=== PATIENT | female | born 1940 | race Caucasian/White ===

== ENCOUNTER 2017-04-18 12:47 | Emergency (ER) | payer MEDICARE ==
[~2017-04-18] VITALS: Ht 165.1 cm; Wt 76.7 kg
[~2017-04-18 12:47] MED LIST: AMLO-311 PO; AMLO5TAB2 PO; DOCU-109 PO; HYDR-2758 PO; HYDR12.53 PO; INSU100I13 SQ; INSU100I17 SQ; LEVO25TA4 PO; POLY17PO29 PO; RANI300C PO; TRAV5DRO OP; insulin
--- NOTE | 2017-04-18 12:51 | PHYS DOC ---
Past Medical History Past Medical History: Arthritis, Cancer, Diabetes-Type II, Hypertension, Hypothyroid Additional Past Medical Histor: cancer of right kidney, removal of right kidney , gallbladder removal Past Surgical History: Cholecystectomy, Hysterectomy Additional Past Surgical Histo: rt kidney removed, bladder Alcohol Use: None Drug Use: None Adult General Chief Complaint Chief Complaint: NAUSEA/VOMITING/DIARRHA HPI HPI Patient is a 77 year old female who presents with who complains. She states she's had a productive cough the last 2 days. She had a fever 2 days ago. She's been running a productive cough with white sputum the last several days. She denies any shortness of breath. She's been having some nausea vomiting and abdominal pain with diarrhea. She states this started 2 days ago she vomited once was nonbloody nonbilious. She's also had 3 loose stools today without any blood in it. She states her abdomen hurts everywhere from just not feeling well. She denies dysuria. Review of Systems Review of Systems Constitutional: Denies fever or chills [] Eyes: Denies change in visual acuity, redness, or eye pain [] HENT: Denies nasal congestion or sore throat [] Respiratory: Denies cough or shortness of breath [] Cardiovascular: No additional information not addressed in HPI [] GI: Positive for abdominal pain, nausea, vomiting, diarrhea, Denies bloody stools[] : Denies dysuria or hematuria [] Musculoskeletal: Denies back pain or joint pain [] Integument: Denies rash or skin lesions [] Neurologic: Denies headache, focal weakness or sensory changes [] Endocrine: Denies polyuria or polydipsia [] All other systems were reviewed and found to be within normal limits, except as documented in this note. Current Medications Current Medications Current Medications Medications (Trade) Dose Ordered Sig/Mary Start Time Stop Time Status Last Admin Dose Admin Amoxicillin/ Clavulanate Potassium (Augmentin 875/ 125mg) 1 tab 1X ONCE 04/18/17 14:15 04/18/17 14:16 Azithromycin (Zithromax) 500 mg 1X ONCE 04/18/17 14:15 04/18/17 14:16 UNV Ondansetron HCl (Zofran) 4 mg 1X ONCE 04/18/17 13:15 04/18/17 13:16 DC 04/18/17 13:11 4 MG Sodium Chloride 1,000 ml @ 1,000 mls/hr Q1H 04/18/17 13:03 04/18/17 14:02 DC 04/18/17 13:11 1,000 MLS/HR Allergies Allergies Allergies Coded Allergies Type Severity Reaction Last Updated Verified diazepam Allergy Intermediate Palpitations 05/26/15 Yes erythromycin base Allergy Intermediate 05/26/15 Yes oxytetracycline Allergy Intermediate Palpitations 05/26/15 Yes oxytetracycline HCl Allergy Intermediate Palpitations 05/26/15 Yes Iodinated Contrast- Oral and IV Dye Adverse Reaction Intermediate DUE TO ONLY HAVING 1 KIDNEY 05/26/15 Yes Physical Exam Physical Exam Constitutional: Well developed, well nourished, no acute distress, non-toxic appearance. [] HENT: Normocephalic, atraumatic, bilateral external ears normal, oropharynx moist, no oral exudates, nose normal. [] Eyes: PERRLA, EOMI, conjunctiva normal, no discharge. [] Neck: Normal range of motion, no tenderness, supple, no stridor. [] Cardiovascular:Heart rate regular rhythm, no murmur [] Lungs & Thorax: Bilateral breath sounds clear to auscultation [] Abdomen: Bowel sounds normal, soft, mild tender palpation diffusely, no rebound guarding no masses, no pulsatile masses. [] Skin: Warm, dry, no erythema, no rash. [] Back: No tenderness, no CVA tenderness. [] Extremities: No tenderness, no cyanosis, no clubbing, ROM intact, no edema. [] Neurologic: Alert and oriented X 3, normal motor function, normal sensory function, no focal deficits noted. [] Psychologic: Affect normal, judgement normal, mood normal. [] Current Patient Data Vital Signs Vital Signs Date Time Temp Pulse Resp B/P (MAP) Pulse Ox O2 Delivery O2 Flow Rate FiO2 04/18/17 13:26 62 20 181/75 (110) 97 Room Air 04/18/17 12:58 98.7 98.7 Lab Values Laboratory Tests Test 04/18/17 12:55 White Blood Count 6.6 x10^3/uL (4.0-11.0) Red Blood Count 4.71 x10^6/uL (3.50-5.40) Hemoglobin 14.4 g/dL (12.0-15.5) Hematocrit 43.0 % (36.0-47.0) Mean Corpuscular Volume 91 fL (79-100) Mean Corpuscular Hemoglobin 31 pg (25-35) Mean Corpuscular Hemoglobin Concent 34 g/dL (31-37) Red Cell Distribution Width 13.7 % (11.5-14.5) Platelet Count 206 x10^3/uL (140-400) Neutrophils (%) (Auto) 67 % (31-73) Lymphocytes (%) (Auto) 24 % (24-48) Monocytes (%) (Auto) 8 % (0-9) Eosinophils (%) (Auto) 1 % (0-3) Basophils (%) (Auto) 1 % (0-3) Neutrophils # (Auto) 4.4 x10^3uL (1.8-7.7) Lymphocytes # (Auto) 1.6 x10^3/uL (1.0-4.8) Monocytes # (Auto) 0.5 x10^3/uL (0.0-1.1) Eosinophils # (Auto) 0.1 x10^3/uL (0.0-0.7) Basophils # (Auto) 0.0 x10^3/uL (0.0-0.2) Prothrombin Time 12.1 SEC (11.7-14.0) Prothrombin Time INR 1.0 (0.8-1.1) Urine Collection Type Unknown Urine Color Yellow Urine Clarity Clear Urine pH 6.0 Urine Specific [place] 1.015 Urine Protein Negative mg/dL (NEG-TRACE) Urine Glucose (UA) 100 mg/dL (NEG) Urine Ketones (Stick) Negative mg/dL (NEG) Urine Blood Negative (NEG) Urine Nitrite Negative (NEG) Urine Bilirubin Negative (NEG) Urine Urobilinogen Dipstick 0.2 mg/dL (0.2 mg/dL) Urine Leukocyte Esterase Negative (NEG) Urine RBC Rare /HPF (0-2) Urine WBC 0 /HPF (0-4) Urine Squamous Epithelial Cells Few /LPF Urine Bacteria Few /HPF (0-FEW) Urine Mucus Slight /LPF Sodium Level 140 mmol/L (136-145) Potassium Level 3.7 mmol/L (3.5-5.1) Chloride Level 102 mmol/L (98-107) Carbon Dioxide Level 30 mmol/L (21-32) Anion Gap 8 (6-14) Blood Urea Nitrogen 19 mg/dL (7-20) Creatinine 1.2 mg/dL (0.6-1.0) H Estimated GFR (Cockcroft-Gault) 43.3 Glucose Level 181 mg/dL (70-99) H Calcium Level 9.7 mg/dL (8.5-10.1) Magnesium Level 1.9 mg/dL (1.8-2.4) Total Bilirubin 0.6 mg/dL (0.2-1.0) Direct Bilirubin 0.1 mg/dL (0.0-0.2) Aspartate Amino Transferase (AST) 19 U/L (15-37) Alanine Aminotransferase (ALT) 23 U/L (14-59) Alkaline Phosphatase 89 U/L (46-116) Creatine Kinase 55 U/L (26-192) Creatine Kinase MB (Mass) 0.5 ng/mL (0.0-3.6) Creatine Kinase MB Relative Index % (0-4) Troponin I Quantitative < 0.017 ng/mL (0.000-0.055) NM-Pmk-F-Type Natriuretic Peptide 157 pg/mL (0-449) Total Protein 7.9 g/dL (6.4-8.2) Albumin 3.7 g/dL (3.4-5.0) Lipase 126 U/L (73-393) Thyroid Stimulating Hormone (TSH) 1.701 uIU/mL (0.358-3.74) Laboratory Tests 04/18/17 12:55 Laboratory Tests 04/18/17 12:55 EKG EKG EKG shows sinus rhythm with rate of [address] bpm with out any ST elevations or concerning T-wave inversions, left axis deviation noted, QTC 480 ms, T-wave inversion in lead 3, EKG similar to one performed on April 29, 2015, as interpreted by me. Radiology/Procedures Radiology/Procedures [facility] [address] [place] [address] IMAGING REPORT Signed PATIENT: MABEL SALINAS ACCOUNT: [id number] : 1940 LOCATION: ER AGE: 77 SEX: F EXAM STATUS: REG ER ORD. PHYSICIAN: LEXUS REYNOSO MD REASON: productive cough PROCEDURE: PORTABLE CHEST 1V Single view chest History:Productive cough for 2 days An AP view of the chest is submitted. Comparison: 04/29/2015. Findings: There is no significant infiltrate, pleural effusion, or pneumothorax. The pericardial cardiac silhouette is stable, within normal limits. There is some atherosclerotic carotid calcification near aortic arch. Impression: 1. No significant infiltrate is identified. DICTATED and SIGNED BY: MARGO DALY MD DATE: 04/18/17 [id number] CC: LEXUS REYNOSO MD; CELESTE RUDOLPH NP ~ Impressions: Bronchitis Diarrhea Course & Med Decision Making Course & Med Decision Making Pertinent Labs and Imaging studies reviewed. (See chart for details) Labs, EKG, chest x-ray all nonacute. She might have a bronchitis therefore will treat with Augmentin for 7 days twice a day. Return precautions given. She is agreeable plan being discharged in stable condition at this time. I thought about using azithromycin but she has a erythromycin allergy and there could be a cross-reactivity between them. Return precautions given for worsening cough, fevers, weakness, other concerns. She is instructed follow-up with her primary care physician within the next 3-5 days. Dragon Disclaimer Dragon Disclaimer This electronic medical record was generated, in whole or in part, using a voice recognition dictation system. Departure Departure Impression: Primary Impression: Bronchitis Disposition: 01 HOME, SELF-CARE Condition: STABLE Referrals: NO PCP (PCP) Patient Instructions: Acute Bronchitis Additional Instructions: Your chest x-ray did not show any signs of pneumonia. Your blood work and EKG were within normal limits. You might have bronchitis and he can take antibiotic for the next 7 days. Return ER if you have severe pain, fevers, weakness or any other concerns. He should follow up with your primary care physician within the next 3-5 days. Scripts Amoxicillin/Potassium Clav (AUGMENTIN 875-125 TABLET) 1 Each Tablet 1 TAB PO BID, #14 TAB Prov: LEXUS REYNOSO MD 04/18/17 LEXUS REYNOSO MD Apr 18, 2017 12:51
[2017-04-18] MEDS ORDERED: IV NORMAL SALINE 1000ML BAG 1,000 ML IV SCH (13:03)
[2017-04-18] MEDS ORDERED: ONDANSETRON PF 4 MG/2 ML VIAL. IV ONE (13:15)
[2017-04-18 13:22] LABS: BILIRUBIN,URINE NEGATIVE (NEG); GLUCOSE,URINE 100 mg/dL (NEG); NITRITE,URINE NEGATIVE (NEG); PROTEIN,URINE NEGATIVE (NEG-TRACE); UROBILINOGEN,URINE 0.2 mg/dL (0.2 mg/dL)
[2017-04-18 13:24] LABS: BASO % 1 % (0-3); EOS % 1 % (0-3); HEMOGLOBIN 14.4 g/dL (12.0-15.5); LYMPH # 1.6 x10^3/uL (1.0-4.8); LYMPH % 24 % (24-48); MEAN CORPUSCULAR HEMOGLOBIN 31 pg (25-35); MEAN CORPUSCULAR HGB CONC 34 g/dL (31-37); MEAN CORPUSCULAR VOLUME 91 fL (79-100); MONO % 8 % (0-9); NEUT % 67 % (31-73); PLATELET COUNT 206 x10^3/uL (140-400); RED BLOOD COUNT 4.71 x10^6/uL (3.50-5.40); RED CELL DISTRIBUTION WIDTH 13.7 % (11.5-14.5); WHITE BLOOD COUNT 6.6 x10^3/uL (4.0-11.0)
[2017-04-18 13:26] VITALS: BP 181/75
[2017-04-18 13:27] LABS: CALCIUM 9.7 mg/dL (8.5-10.1); CREATININE 1.2 mg/dL (0.6-1.0); GFR 43.3; POTASSIUM 3.7 mmol/L (3.5-5.1)
[2017-04-18 13:29] LABS: BACTERIA,URINE FEW /HPF (0-FEW); RBC,URINE RARE /HPF (0-2); SQUAMOUS EPITHELIAL CELL,UR FEW /LPF; WBC,URINE 0 /HPF (0-4)
[2017-04-18 13:33] LABS: ALBUMIN 3.7 g/dL (3.4-5.0); DIRECT BILIRUBIN 0.1 mg/dL (0.0-0.2); MAGNESIUM 1.9 mg/dL (1.8-2.4); TOTAL BILIRUBIN 0.6 mg/dL (0.2-1.0); TOTAL PROTEIN 7.9 g/dL (6.4-8.2)
[2017-04-18 13:35] LABS: PROTHROMBIN TIME PATIENT 12.1 SEC (11.7-14.0)
[2017-04-18 13:42] LABS: CKMB MASS 0.5 ng/mL (0.0-3.6); CREATINE KINASE 55 U/L (26-192)
--- NOTE | 2017-04-18 13:50 | RAD ---
Single view chest History:Productive cough for 2 days An AP view of the chest is submitted. Comparison: 04/29/2015. Findings: There is no significant infiltrate, pleural effusion, or pneumothorax. The pericardial cardiac silhouette is stable, within normal limits. There is some atherosclerotic carotid calcification near aortic arch. Impression: 1. No significant infiltrate is identified.
[2017-04-18] MEDS ORDERED: AMOXICILLIN/K CLAV 875/125MG TABLET. PO ONE (14:15)
[2017-04-18] MEDS ORDERED: AZITHROMYCIN 250 MG TABLET. PO ONE (14:15)
[2017-04-18] MEDS ORDERED: AMOX1TAB61 PO (14:17)
--- NOTE | 2017-04-19 09:08 | EKG ---
[address] [place] [address] Test Date: 2017-04-18 Test Time: 13:15:28 Pat Name: MABEL SALINAS Department: Room: Gender: F Freelance Interpreter/Translator: : 1940 Requested By: LEXUS REYNOSO Order Number: [id number] Reading MD: Measurements Intervals [place] Rate: 61 P: 38 AR: 140 QRS: -11 QRSD: 130 T: 26 QT: 414 QTc: 418 Interpretive Statements SINUS RHYTHM LEFTWARD AXIS RIGHT BUNDLE BRANCH BLOCK ABNORMAL ECG RI6.01 No previous ECG available for comparison
== END 2017-04-18 14:17 | disposition home or self-care (01) ==
LOC: ER 12:47
DX: J40 Bronchitis, not specified as acute or chronic (principal); R10.84 Generalized abdominal pain; R19.7 Diarrhea, unspecified; R11.2 Nausea with vomiting, unspecified; M19.90 Unspecified osteoarthritis, unspecified site; E11.9 Type 2 diabetes mellitus without complications; I10 Essential (primary) hypertension; E03.9 Hypothyroidism, unspecified; Z88.1 Allergy status to other antibiotic agents; Z90.710 Acquired absence of both cervix and uterus; Z90.49 Acquired absence of other specified parts of digestive tract; Z90.5 Acquired absence of kidney; Z88.8 Allergy status to other drugs, medicaments and biological substances; Z91.041 Radiographic dye allergy status
CPT/HCPCS: 36415; 71010; 80048; 80076; 81001; 82553; 83690; 83735; 83880; 84443; 84484; 85025; 85610; 93005; 96361; 96374; 99285; J2405; J7030

== ENCOUNTER 2017-10-05 13:39 | Inpatient (IN) | payer MEDICARE ==
[2017-10-05] MEDS: LIDOCAINE 2% VISCOUS 15 ML SOLUTION. SWSW (14:45)
[2017-10-05] MEDS: IPRATRPIUM/ALBUTEROL 0.5/2.5MG 3 ML NEBU. NEB (15:04)
[2017-10-05 15:06] LABS: BILIRUBIN,URINE SMALL (NEG); CLARITY,URINE CLEAR; COLOR,URINE AMBER; GLUCOSE,URINE 100 mg/dL (NEG); NITRITE,URINE NEGATIVE (NEG); PH,URINE 5.5; PROTEIN,URINE 100 mg/dL (NEG-TRACE)
[2017-10-05 15:10] LABS: BARBITURATES NEG (NEG); BENZODIAZEPINES NEG (NEG); CANNABINOIDS NEG (NEG); COCAINE NEG (NEG); METHADONE NEG (NEG); OPIATES NEG (NEG); PHENCYCLIDINE NEG (NEG)
[2017-10-05 15:13] LABS: AMPHETAMINE/METHAMPHETAMINE NEG (NEG); ETHANOL, URINE NEG (NEG)
[2017-10-05 15:24] LABS: BACTERIA,URINE FEW /HPF (0-FEW); HYALINE CASTS, URINE MODERATE /HPF; RBC,URINE 0 /HPF (0-2)
[2017-10-05 15:49] LABS: ADD MAN DIFF? NO
[2017-10-05 15:51] LABS: BASO % 1 % (0-3); EOS % 0 % (0-3); HEMATOCRIT 41.5 % (36.0-47.0); HEMOGLOBIN 14.4 g/dL (12.0-15.5); LYMPH # 1.4 x10^3/uL (1.0-4.8); LYMPH % 18 % (24-48); MEAN CORPUSCULAR HEMOGLOBIN 31 pg (25-35); MEAN CORPUSCULAR HGB CONC 35 g/dL (31-37); MEAN CORPUSCULAR VOLUME 89 fL (79-100); MONO # 0.5 x10^3/uL (0.0-1.1); MONO % 6 % (0-9); NEUT % 75 % (31-73); PLATELET COUNT 204 x10^3/uL (140-400); RED BLOOD COUNT 4.67 x10^6/uL (3.50-5.40)
[2017-10-05 16:00] LABS: PROTHROMBIN TIME PATIENT 12.3 SEC (11.7-14.0)
[2017-10-05 16:07] LABS: ANION GAP 7 (6-14); BLOOD UREA NITROGEN 23 mg/dL (7-20); BUN/CREATININE RATIO 16 (6-20); CALCIUM 9.4 mg/dL (8.5-10.1); CARBON DIOXIDE 30 mmol/L (21-32); CHLORIDE 103 mmol/L (98-107); CREATININE 1.4 mg/dL (0.6-1.0); GFR 36.3; GLUCOSE 271 mg/dL (70-99); POTASSIUM 4.3 mmol/L (3.5-5.1); SODIUM 140 mmol/L (136-145)
[2017-10-05 16:13] LABS: ALBUMIN 3.6 g/dL (3.4-5.0); ALBUMIN/GLOBULIN RATIO 1.2 (1.0-1.7); ALK PHOS 94 U/L (46-116); ALT (SGPT) 19 U/L (14-59); AST (SGOT) 15 U/L (15-37); LIPASE 98 U/L (73-393); MAGNESIUM 1.9 mg/dL (1.8-2.4); TOTAL BILIRUBIN 0.7 mg/dL (0.2-1.0); TOTAL PROTEIN 6.6 g/dL (6.4-8.2)
[2017-10-05 16:16] LABS: TROPONINI < 0.017 ng/mL (0.000-0.055)
[2017-10-05 16:21] LABS: THYROID STIM HORMONE (TSH) 0.862 uIU/mL (0.358-3.74)
[2017-10-05 16:24] LABS: CKMB MASS < 0.5 ng/mL (0.0-3.6); CREATINE KINASE 34 U/L (26-192)
[2017-10-05 16:24] LABS: NT-PRO BNP 126 pg/mL (0-449)
[2017-10-05] MEDS ORDERED: DEXTROSE 50% 25 GM / 50ML DISP.SYRIN. IV (16:30)
[2017-10-05] MEDS ORDERED: ONDANSETRON PF 4 MG/2 ML VIAL. IV (16:30)
[2017-10-05] MEDS ORDERED: ACETAMINOPHEN 325 MG TABLET. PO (16:30)
[2017-10-05 17:58] LABS: POC GLUCOSE 284 mg/dL (70-99)
[2017-10-05] MEDS: IV NORMAL SALINE 1000ML BAG 1,000 ML IV (18:08)
[2017-10-05] MEDS: INSULIN LISPRO 300 UNITS/3 ML INSULN.PEN. SQ (18:24)
[2017-10-05 21:13] LABS: POC GLUCOSE 256 mg/dL (70-99)
[2017-10-05] MEDS: guaiFENesin DM 200MG/20MG 10 ML SYRUP PO (23:18)
[2017-10-06 04:52] LABS: ADD MAN DIFF? NO
[2017-10-06 05:09] LABS: BASO % 1 % (0-3); EOS # 0.1 x10^3/uL (0.0-0.7); EOS % 1 % (0-3); HEMATOCRIT 37.2 % (36.0-47.0); LYMPH # 1.8 x10^3/uL (1.0-4.8); LYMPH % 23 % (24-48); MEAN CORPUSCULAR HEMOGLOBIN 31 pg (25-35); MEAN CORPUSCULAR HGB CONC 35 g/dL (31-37); MEAN CORPUSCULAR VOLUME 89 fL (79-100); MONO # 0.7 x10^3/uL (0.0-1.1); MONO % 9 % (0-9); NEUT # 5.3 x10^3uL (1.8-7.7); NEUT % 67 % (31-73); PLATELET COUNT 201 x10^3/uL (140-400); RED BLOOD COUNT 4.19 x10^6/uL (3.50-5.40); RED CELL DISTRIBUTION WIDTH 13.3 % (11.5-14.5); WHITE BLOOD COUNT 7.8 x10^3/uL (4.0-11.0)
[2017-10-06 05:29] LABS: ALBUMIN 2.9 g/dL (3.4-5.0); ALBUMIN/GLOBULIN RATIO 0.9 (1.0-1.7); ALK PHOS 81 U/L (46-116); ALT (SGPT) 16 U/L (14-59); ANION GAP 9 (6-14); AST (SGOT) 12 U/L (15-37); BLOOD UREA NITROGEN 24 mg/dL (7-20); BUN/CREATININE RATIO 17 (6-20); CALCIUM 8.4 mg/dL (8.5-10.1); CARBON DIOXIDE 27 mmol/L (21-32); CHLORIDE 105 mmol/L (98-107); CREATININE 1.4 mg/dL (0.6-1.0); GFR 36.3; GLUCOSE 215 mg/dL (70-99); POTASSIUM 4.2 mmol/L (3.5-5.1); SODIUM 141 mmol/L (136-145); TOTAL BILIRUBIN 0.6 mg/dL (0.2-1.0); TOTAL PROTEIN 6.2 g/dL (6.4-8.2)
[2017-10-06 07:06] LABS: NEGATIVE OBC STREP NEG; POSITIVE OBC STREP POS
[2017-10-06] MEDS: guaiFENesin DM 200MG/20MG 10 ML SYRUP PO ×2 (07:59→16:30)
[2017-10-06] MEDS: INSULIN LISPRO 300 UNITS/3 ML INSULN.PEN. SQ ×3 (08:02→17:06)
[2017-10-06 08:26] LABS: POC GLUCOSE 156 mg/dL (70-99)
[2017-10-06] MEDS: LACTOBACILLUS RHAMNOSUS GG 1 CAPSULE. PO ×2 (08:59→20:50)
[2017-10-06 12:27] LABS: POC GLUCOSE 236 mg/dL (70-99)
[2017-10-06] MEDS ORDERED: MAGNESIUM SULFATE 2GM 50 ML IV (12:45)
[2017-10-06] MEDS: IV RINGERS,LACTATED 1000ML 1,000 ML IV (13:02)
[2017-10-06 13:03] LABS: PREALBUMIN 16.3 mg/dL (16.0-42.0)
[2017-10-06] MEDS: IPRATRPIUM/ALBUTEROL 0.5/2.5MG 3 ML NEBU. NEB ×2 (15:16→20:22)
[2017-10-06] MEDS: amLODIPine BESYLATE 10 MG TABLET PO (16:31)
[2017-10-06] MEDS: LOSARTAN POTASSIUM 25 MG TABLET. PO (16:31)
[2017-10-06] MEDS: POLYETHYLENE GLYCOL 3350 17 GM PACKET. PO (16:32)
[2017-10-06] MEDS: LEVOTHYROXINE 25 MCG TABLET. PO (16:32)
[2017-10-06] MEDS: cefTRIAXone IV Push 1 GM VIAL. IVP (16:32)
[2017-10-06] MEDS: FAMOTIDINE 20 MG TABLET. PO (16:34)
[2017-10-06 17:10] LABS: POC GLUCOSE 152 mg/dL (70-99)
[2017-10-06] MEDS: DOCUSATE SODIUM 100 MG CAPSULE. PO (20:50)
[2017-10-06] MEDS: LATANOPROST 0.005% OPHTH SOLUTION 2.5ML BOTTLE. OU (20:51)
[2017-10-06] MEDS: INSULIN GLARGINE 300 UNITS/3 ML INSULN.PEN. SQ (20:56)
[2017-10-06] MEDS ORDERED: INSULIN GLARGINE 300 UNITS/3 ML INSULN.PEN. SQ (21:00)
[2017-10-06 22:31] LABS: POC GLUCOSE 252 mg/dL (70-99)
[2017-10-07] MEDS: IV RINGERS,LACTATED 1000ML 1,000 ML IV ×3 (00:21→20:42)
[2017-10-07 04:40] LABS: HEMOGLOBIN 13.4 g/dL (12.0-15.5)
[2017-10-07 05:23] LABS: ALBUMIN 3.2 g/dL (3.4-5.0); ANION GAP 7 (6-14); BLOOD UREA NITROGEN 20 mg/dL (7-20); CALCIUM 9.2 mg/dL (8.5-10.1); CARBON DIOXIDE 28 mmol/L (21-32); CHLORIDE 104 mmol/L (98-107); CREATININE 1.1 mg/dL (0.6-1.0); GFR 47.9; GLUCOSE 218 mg/dL (70-99); MAGNESIUM 1.8 mg/dL (1.8-2.4); PHOSPHORUS 3.4 mg/dL (2.6-4.7); POTASSIUM 4.1 mmol/L (3.5-5.1); SODIUM 139 mmol/L (136-145)
[2017-10-07] MEDS: LEVOTHYROXINE 25 MCG TABLET. PO (06:03)
[2017-10-07] MEDS: IPRATRPIUM/ALBUTEROL 0.5/2.5MG 3 ML NEBU. NEB ×4 (07:21→19:52)
[2017-10-07 07:44] LABS: POC GLUCOSE 192 mg/dL (70-99)
[2017-10-07] MEDS: LACTOBACILLUS RHAMNOSUS GG 1 CAPSULE. PO ×2 (07:49→20:42)
[2017-10-07] MEDS: DOCUSATE SODIUM 100 MG CAPSULE. PO ×2 (07:49→20:42)
[2017-10-07] MEDS: amLODIPine BESYLATE 10 MG TABLET PO (07:49)
[2017-10-07] MEDS: LOSARTAN POTASSIUM 25 MG TABLET. PO (07:50)
[2017-10-07] MEDS: FAMOTIDINE 20 MG TABLET. PO (07:50)
[2017-10-07] MEDS: INSULIN LISPRO 300 UNITS/3 ML INSULN.PEN. SQ ×3 (07:52→17:16)
[2017-10-07] MEDS: INSULIN GLARGINE 300 UNITS/3 ML INSULN.PEN. SQ ×2 (07:53→20:50)
[2017-10-07] MEDS: POLYETHYLENE GLYCOL 3350 17 GM PACKET. PO (07:55)
[2017-10-07 11:27] LABS: POC GLUCOSE 209 mg/dL (70-99)
[2017-10-07 14:20] LABS: TOTAL PROTEIN CREATININE RATIO 172 mg/g creat (0-200); UR CREATININE RD 26.1 mg/dL (Not Estab.); UR PROTEIN RD 4.5 mg/dL (Not Estab.)
[2017-10-07] MEDS: cefTRIAXone IV Push 1 GM VIAL. IVP (15:32)
[2017-10-07] MEDS: guaiFENesin DM 200MG/20MG 10 ML SYRUP PO (15:32)
[2017-10-07 17:16] LABS: POC GLUCOSE 222 mg/dL (70-99)
[2017-10-07] MEDS: LATANOPROST 0.005% OPHTH SOLUTION 2.5ML BOTTLE. OU (20:43)
[2017-10-07 20:52] LABS: POC GLUCOSE 235 mg/dL (70-99)
[2017-10-08 05:28] LABS: ALBUMIN 3.3 g/dL (3.4-5.0); ANION GAP 4 (6-14); BLOOD UREA NITROGEN 20 mg/dL (7-20); CALCIUM 9.2 mg/dL (8.5-10.1); CARBON DIOXIDE 33 mmol/L (21-32); CHLORIDE 106 mmol/L (98-107); CREATININE 1.2 mg/dL (0.6-1.0); GFR 43.3; GLUCOSE 148 mg/dL (70-99); MAGNESIUM 1.9 mg/dL (1.8-2.4); POTASSIUM 4.3 mmol/L (3.5-5.1); SODIUM 143 mmol/L (136-145)
[2017-10-08] MEDS: LEVOTHYROXINE 25 MCG TABLET. PO (06:19)
[2017-10-08] MEDS: IV RINGERS,LACTATED 1000ML 1,000 ML IV (06:20)
[2017-10-08] MEDS: IPRATRPIUM/ALBUTEROL 0.5/2.5MG 3 ML NEBU. NEB ×2 (08:00→11:20)
[2017-10-08 08:16] LABS: POC GLUCOSE 161 mg/dL (70-99)
[2017-10-08] MEDS: DOCUSATE SODIUM 100 MG CAPSULE. PO (08:25)
[2017-10-08] MEDS: amLODIPine BESYLATE 10 MG TABLET PO (08:26)
[2017-10-08] MEDS: LACTOBACILLUS RHAMNOSUS GG 1 CAPSULE. PO (08:26)
[2017-10-08] MEDS: FAMOTIDINE 20 MG TABLET. PO (08:26)
[2017-10-08] MEDS: POLYETHYLENE GLYCOL 3350 17 GM PACKET. PO (08:26)
[2017-10-08] MEDS: LOSARTAN POTASSIUM 25 MG TABLET. PO (08:27)
[2017-10-08] MEDS: INSULIN LISPRO 300 UNITS/3 ML INSULN.PEN. SQ ×2 (08:33→12:40)
[2017-10-08] MEDS: INSULIN GLARGINE 300 UNITS/3 ML INSULN.PEN. SQ (08:34)
[2017-10-08 11:41] LABS: POC GLUCOSE 240 mg/dL (70-99)
[2017-10-08] MEDS ORDERED: CEFPODOXIME PROXETIL 100 MG TABLET. PO (21:00)
== END 2017-10-08 14:45 | disposition home or self-care (01) | DRG 689 ==
LOC: 5 SOUTH 17:10 → ER 13:39 → 5 SOUTH 16:25
DX: N39.0 Urinary tract infection, site not specified (principal); N17.0 Acute kidney failure with tubular necrosis; E11.22 Type 2 diabetes mellitus with diabetic chronic kidney disease; E86.0 Dehydration; J98.4 Other disorders of lung; C64.9 Malignant neoplasm of unspecified kidney, except renal pelvis; E03.9 Hypothyroidism, unspecified; F41.9 Anxiety disorder, unspecified; H40.9 Unspecified glaucoma; I12.9 Hypertensive chronic kidney disease with stage 1 through stage 4 chronic kidney disease, or unspecified chronic kidney disease; K21.9 Gastro-esophageal reflux disease without esophagitis; M19.90 Unspecified osteoarthritis, unspecified site; Z79.4 Long term (current) use of insulin; Z82.49 Family history of ischemic heart disease and other diseases of the circulatory system; Z85.51 Personal history of malignant neoplasm of bladder; Z83.3 Family history of diabetes mellitus; Z85.528 Personal history of other malignant neoplasm of kidney; Z90.5 Acquired absence of kidney; Z90.710 Acquired absence of both cervix and uterus; Z96.1 Presence of intraocular lens; Z90.49 Acquired absence of other specified parts of digestive tract; Z88.5 Allergy status to narcotic agent; Z88.8 Allergy status to other drugs, medicaments and biological substances; Z88.1 Allergy status to other antibiotic agents; Z91.041 Radiographic dye allergy status; J02.9 Acute pharyngitis, unspecified; N18.3 Chronic kidney disease, stage 3 (moderate)
CPT/HCPCS: 36415; 71045; 80053; 80069; 80307; 81001; 82553; 82570; 82962; 83690; 83735; 83880; 84134; 84156; 84443; 84484; 85018; 85025; 85610; 87070; 87086; 87880; 93005; 94640; 96365; 99285; 99285-25; J0690; J0696; J1815; J7030; J7120; J7620

== ENCOUNTER → 2018-03-04 | Day surgery (SDC) | payer MEDICARE ==
[~2018-03-04] MED LIST changes: -AMLO5TAB2 PO; +AMLO5TAB7 PO; +AMOX1TAB61 PO; +HYDROmorphone 2 MG/ML VIAL IV PRN; +IV RINGERS,LACTATED 1000ML 1,000 ML IV SCH; +LIDOCAINE 1% PF 2 ML VIAL. ID PRN; +LOSA25TA5 PO; +MORPHINE SULFATE 2 MG/ML VIAL. IV PRN; +NITR100C6 PO; +ONDANSETRON PF 4 MG/2 ML VIAL. IV PRN; +PROCHLORPERAZINE 10 MG/2 ML VIAL. IV PRN; +PROPOFOL 60 ML IV ONE; +fentaNYL PF VIAL 100 MCG/2 ML VIAL IV PRN
--- NOTE | 2018-03-04 08:43 | PDOC1 ---
HISTORY & PHYSICAL H&P Jeanie Zurita [id number] 1940 02/12/2018 03:00 PM 05/27 [facility] PATIENTS [facility] [address] [place] [address] Ph. [phone] Patient: Jeanie Zurita Date of : 1940 Date: 02/12/2018 3:00 PM Visit Type: Consult This 78 year old female presents for dysphagia, diarrhea and H/o colorectal polyp. History of Present Illness: 1. dysphagia Jeanie Zurita is a 78 year old female who presents for evaluation of dysphagia. The problem is ongoing. The onset was gradual. The severity is mild. The symptoms happen with solids more than liquids. She describes food sticking in the mid chest and upper chest. There are no aggravating factors. There are no relieving factors. Jeanie Zurita is a 78 year old female who presents for evaluation of diarrhea. The problem is ongoing. The onset was recent and the symptoms began 3 months ago. The severity is mild-moderate. It occurs 4 to 6 times a day. The patient describes it as loose and watery. There are no aggravating factors. There are no relieving factors. She has had no prior studies. Prior screening: colonoscopy. Risk Factors: h/o colon polyp. Associated symptoms include diarrhea. Pertinent negatives include abdominal pain, change in stool caliber, constipation, melena, nausea, rectal bleeding, vomiting and weight loss. Additional information: history of colonic polyps in the past. Last colonoscopy3 yrs ago. INTAKE COMMENTS: Intake Comments: patient states she is here because she can not make it to the restroom before she goes on herself. had polyps on 2016. having problems swallowing food PAST MEDICAL/SURGICAL HISTORY (Detailed) Disease/disorder Onset Date Management Date Comments kidney Colon polyps Diabetes Hypertension Family History (Detailed) Social History: (Detailed) Tobacco use reviewed. Preferred language is Croatian. Tobacco use status: Current non-smoker. Smoking status: Never smoker. SMOKING STATUS Type Smoking Status Usage Per Day Years Used Total Pack Years Never smoker Medications (active prior to today) Medication Name Sig Description Start Date Stop Date Refilled Rx Elsewhere levothyroxine 100 mcg tablet take 1 tablet by oral route every day // Y allopurinol 100 mg tablet take 1 tablet by oral route every day // Y Novolog Flexpen U-100 Insulin aspart 100 unit/mL subcutaneous inject 10 units by subcutaneous route 3 times every day before meals // Y Lantus Solostar U-100 Insulin 100 unit/mL (3 mL) subcutaneous pen inject by subcutaneous route as per insulin protocol // Y Medications (Added, Continued or Stopped today) Start Date Medication Directions PRN Status PRN Reason Instruction Stop Date allopurinol 100 mg tablet take 1 tablet by oral route every day N Lantus Solostar U-100 Insulin 100 unit/mL (3 mL) subcutaneous pen inject by subcutaneous route as per insulin protocol N levothyroxine 100 mcg tablet take 1 tablet by oral route every day N Novolog Flexpen U-100 Insulin aspart 100 unit/mL subcutaneous inject 10 units by subcutaneous route 3 times every day before meals N Allergies: Ingredient Reaction (Severity) Medication Name Comment NO KNOWN ALLERGIES Review of Systems System Neg/Pos Details Constitutional Negative Chills, Fever, Malaise and Weight loss. ENMT Negative Sore throat. Eyes Negative Double vision. Respiratory Negative Dyspnea and Wheezing. Cardio Negative Chest pain and Irregular heartbeat/palpitations. GI Positive Diarrhea, See HPI. GI Negative Abdominal pain, Change in stool caliber, Constipation, Melena, Nausea, See HPI, Rectal bleeding and Vomiting. Negative Dysuria and Hematuria. Endocrine Negative Cold intolerance and Heat intolerance. Psych Negative Anxiety. Integumentary Negative Hives and Rash. MS Negative Joint pain. Jose/Lymph Negative Easy bleeding and Easy bruising. Allergic/Immuno Negative Food allergies. Vital Signs Time BP mm/Hg Pulse /min Resp /min Temp F Ht ft Ht in Ht cm Wt lb Wt kg BMI kg/ m2 BSA m2 O2 Sat% 3:11 PM 130/70 97 14 98.1 5.0 5.00 165.10 161.80 73.391 26.92 1.83 97 Measured By Time Measured by 3:11 PM Sujatha Swygert PHYSICAL EXAM: Exam Findings Details Constitutional Normal Well developed. Eyes Normal Conjunctiva - Right: Normal, Left: Normal. Sclera - Right: Normal, Left: Normal. Nasopharynx Normal Lips/teeth/gums - Normal. Neck Exam Normal Inspection - Normal. Thyroid gland - Normal. Respiratory Normal Inspection - Normal. Auscultation - Normal. Cardiovascular Normal Regular rate and rhythm. No murmurs, gallops, or rubs. Abdomen Normal Inspection - Normal. Anterior palpation - No guarding. No abdominal tenderness. No hepatic enlargement. No spleen enlargement. No hernia. No Ascites. Skin Normal Inspection - Normal. Extremity Normal No edema. Psychiatric Normal Orientation - Oriented to time, place, person & situation. Appropriate mood and affect. Assessment/Plan # Detail Type Description 1. Assessment Dysphagia, unspecified type (R13.10). [place] [facility] [place] Further diagnostic evaluations ordered today include(s) EGD to be performed today. 2. Assessment Functional diarrhea (K59.1). Patient [place] [facility] [place] Further diagnostic evaluations ordered today include(s) Colonoscopy to be performed today. She is to schedule a follow-up visit with Juan Jose Mcconnell MD upon completion of work-up. 3. Assessment History of colon polyps (Z86.010). Patient Plan await colonoscopy. Co-Sign Orders Order Ordering Provider Cosigned Name Cosigned Date Cosigner Comments EGD Juan Jose Mcconnell 02/12/2018 Colonoscopy Juan Jose Mcconnell 02/12/2018 follow-up visit with Juan Jose Mcconnell MD upon completion of work-up Juan Jose Mcconnell 02/12/2018 Active Patient Care Team Members Name Contact Agency Type Support Role Relationship Active Date Inactive Date Specialty José Thomson MD Patient provider PCP Obstetrics/[employer] Document Electronically signed: Juan Jose Mcconnell MD 02/12/2018 04:21 PM Document generated by: Juan Jose Mcconnell 02/12/2018 Bhavin Lyle MD, Family Practice; Iain Hutson MD Internal Medicine; Ignacio Cazares MD, Internal Medicine; North Mcconnell MD Internal Medicine; Juan Jose Mcconnell MD, Gastroenterology; Zia Patten MD, Rheumatology, Rosalie He APRN ------ 03/04/18 Patient seen and examined. No change in H&P. JUAN JOSE MCCONNELL MD Mar 04, 2018 08:43
[2018-03-04 09:53] VITALS: BP 156/65
== END | disposition home or self-care (01) ==
LOC: ENDOS 08:04
PROVIDERS: ATTEND Internal Medicine Gastroenterology
DX: K57.30 Diverticulosis of large intestine without perforation or abscess without bleeding (principal); R13.10 Dysphagia, unspecified; E11.9 Type 2 diabetes mellitus without complications; I10 Essential (primary) hypertension; Z86.010 Personal history of colon polyps; Z79.899 Other long term (current) drug therapy; Z79.84 Long term (current) use of oral hypoglycemic drugs
CPT/HCPCS: 43235; 43450; 45378; 82962; J2704

== ENCOUNTER 2018-05-15 14:14 | Emergency (ER) | payer MEDICARE ==
[~2018-05-15] VITALS: Ht 165.1 cm; Wt 73.5 kg
[~2018-05-15 14:14] MED LIST changes: -HYDR-2758 PO; +HYDR-2761 PO; -HYDR12.53 PO; +HYDR12.575 PO; -HYDROmorphone 2 MG/ML VIAL IV PRN; -IV RINGERS,LACTATED 1000ML 1,000 ML IV SCH; -LIDOCAINE 1% PF 2 ML VIAL. ID PRN; -LOSA25TA5 PO; +LOSA25TA54 PO; -MORPHINE SULFATE 2 MG/ML VIAL. IV PRN; -ONDANSETRON PF 4 MG/2 ML VIAL. IV PRN; -PROCHLORPERAZINE 10 MG/2 ML VIAL. IV PRN; -PROPOFOL 60 ML IV ONE; -fentaNYL PF VIAL 100 MCG/2 ML VIAL IV PRN
[2018-05-15] MEDS ORDERED: IV NORMAL SALINE 1000ML BAG 1,000 ML IV SCH (16:04)
[2018-05-15] MEDS ORDERED: fentaNYL PF VIAL 100 MCG/2 ML VIAL IV ONE (16:15)
[2018-05-15 16:18] LABS: BILIRUBIN,URINE NEGATIVE (NEG); CLARITY,URINE CLEAR; COLOR,URINE YELLOW; NITRITE,URINE NEGATIVE (NEG); PH,URINE 5.5; PROTEIN,URINE NEGATIVE (NEG-TRACE); UROBILINOGEN,URINE 0.2 mg/dL (0.2 mg/dL)
[2018-05-15 16:34] LABS: BACTERIA,URINE 0 /HPF (0-FEW); HYALINE CASTS, URINE FEW /HPF; RBC,URINE 0 /HPF (0-2); SQUAMOUS EPITHELIAL CELL,UR FEW /LPF; WBC,URINE RARE /HPF (0-4)
[2018-05-15] MEDS ORDERED: ONDANSETRON PF 4 MG/2 ML VIAL. IV ONE (17:30)
[2018-05-15 18:09] LABS: BASO % 1 % (0-3); EOS % 1 % (0-3); HEMATOCRIT 39.4 % (36.0-47.0); HEMOGLOBIN 13.5 g/dL (12.0-15.5); LYMPH # 1.6 x10^3/uL (1.0-4.8); LYMPH % 26 % (24-48); MEAN CORPUSCULAR HEMOGLOBIN 31 pg (25-35); MEAN CORPUSCULAR HGB CONC 34 g/dL (31-37); MEAN CORPUSCULAR VOLUME 89 fL (79-100); MONO # 0.5 x10^3/uL (0.0-1.1); MONO % 8 % (0-9); NEUT # 3.9 x10^3uL (1.8-7.7); NEUT % 65 % (31-73); PLATELET COUNT 208 x10^3/uL (140-400); RED BLOOD COUNT 4.41 x10^6/uL (3.50-5.40); RED CELL DISTRIBUTION WIDTH 13.4 % (11.5-14.5)
[2018-05-15 18:13] VITALS: BP 172/69
[2018-05-15 18:22] LABS: CALCIUM 9.6 mg/dL (8.5-10.1); CREATININE 1.5 mg/dL (0.6-1.0); GFR 33.4; POTASSIUM 4.1 mmol/L (3.5-5.1)
[2018-05-15 18:28] LABS: ALBUMIN 3.6 g/dL (3.4-5.0); ALBUMIN/GLOBULIN RATIO 1.1 (1.0-1.7); TOTAL BILIRUBIN 0.4 mg/dL (0.2-1.0)
--- NOTE | 2018-05-15 19:57 | RAD ---
Examination: CT ABDOMEN PELVIS WO CONTRAST History: abd pain and back pain x 2 days, prior sent Comparison/Correlation: 02/04/2013 CT abdomen and pelvis without contrast, 05/15/2013 CT abdomen and pelvis without contrast, 03/05/2014 CT abdomen and pelvis with oral contrast Findings: Axial images of the abdomen and pelvis were obtained without contrast. Sagittal and coronal reformatted images were obtained. Visualized lung bases are clear. Minimal bibasilar linear atelectasis or scarring is present. Small hiatal hernia present. Unenhanced liver, spleen, pancreas, and adrenal glands are unremarkable. Absence of the gallbladder and right kidney noted. There are no radiopaque left collecting system calculi. No enlarged abdominal or pelvic lymph nodes. Diverticulosis of the colon is notable. Retained contrast in colon noted. No bowel obstruction. Concentric disc bulge and ligamentum flavum hypertrophy at L4-5 is present with significant spinal canal stenosis. Facet joint degenerative hypertrophy at this level also is notable. Findings of a lesser extent are present at L3-4. Impression: Diverticulosis. Concentric disc bulge and spinal canal stenosis at L3-4 and even more so at L4-5. Right nephrectomy bed is unremarkable. No left collecting system obstruction. Electronically signed by: Pranav King MD (05/15/2018 7:53 PM) [facility]
--- NOTE | 2018-05-15 20:26 | PHYS DOC ---
Past Medical History Past Medical History: Arthritis, Cancer, Diabetes-Type II, Hypertension, Hypothyroid Additional Past Medical Histor: cancer of right kidney Past Surgical History: Cholecystectomy, Hysterectomy Additional Past Surgical Histo: rt kidney removed, bladder Alcohol Use: None Drug Use: None Adult General Chief Complaint Chief Complaint: FLANK PAIN HPI HPI Patient is a 78 year old female patient with history of diabetes mellitus and frequent episodes of UTI who presents with complaining of bilateral lower abdominal pain with radiation to right flank for the last 3 days as a constant and sharp pain associated with urinary frequency and one episode of nausea without vomiting. Patient denies fever, diarrhea and constipation, chest pain and shortness of breath, focal neuro deficit. Patient rated her pain 10 over 10 and states she took the counter pain medication without improvement of her condition. Review of Systems Review of Systems Constitutional: Denies fever or chills [] Eyes: Denies change in visual acuity, redness, or eye pain [] HENT: Denies nasal congestion or sore throat [] Respiratory: Denies cough or shortness of breath [] Cardiovascular: No additional information not addressed in HPI [] GI: Reports abdominal pain, nausea, denies vomiting, bloody stools or diarrhea [ ] : Denies dysuria or hematuria [] Musculoskeletal: Denies back pain or joint pain [] Integument: Denies rash or skin lesions [] Neurologic: Denies headache, focal weakness or sensory changes [] Endocrine: Denies polyuria or polydipsia [] All other systems were reviewed and found to be within normal limits, except as documented in this note. Current Medications Current Medications Current Medications Medications (Trade) Dose Ordered Sig/[facility] Start Time Stop Time Status Last Admin Dose Admin Fentanyl Citrate (Fentanyl 2ml Vial) 50 mcg 1X ONCE 05/15/18 16:15 05/15/18 16:16 DC 05/15/18 16:52 50 MCG Ondansetron HCl (Zofran) 4 mg 1X ONCE 05/15/18 17:30 05/15/18 17:31 DC 05/15/18 17:34 4 MG Sodium Chloride 1,000 ml @ 1,000 mls/hr Q1H 05/15/18 16:04 05/15/18 17:03 DC 05/15/18 16:51 1,000 MLS/HR Allergies Allergies Allergies Coded Allergies Type Severity Reaction Last Updated Verified erythromycin base Allergy Intermediate 03/04/18 Yes Iodinated Contrast- Oral and IV Dye Adverse Reaction Intermediate DUE TO ONLY HAVING 1 KIDNEY 03/04/18 Yes diazepam Adverse Reaction Intermediate Palpitations 03/04/18 Yes oxytetracycline Adverse Reaction Intermediate Palpitations 03/04/18 Yes oxytetracycline HCl Adverse Reaction Intermediate Palpitations 03/04/18 Yes hydromorphone Adverse Reaction Mild Nausea and Vomiting 03/04/18 Yes Physical Exam Physical Exam Constitutional: Well developed, well nourished, mild distress, non-toxic appearance. [] HENT: Normocephalic, atraumatic, oropharynx moist, no oral exudates, nose normal. [] Eyes: PERRLA, EOMI, conjunctiva normal, no discharge. [] Neck: Normal range of motion, no tenderness, supple, no stridor. [] Cardiovascular:Heart rate regular rhythm, no murmur [] Lungs & Thorax: Bilateral breath sounds clear to auscultation [] Abdomen: Bowel sounds normal, lower abdominal guarding without tenderness, soft , no tenderness, no masses, no pulsatile masses. [] Skin: Warm, dry, no erythema, no rash. [] Back: No tenderness, no CVA tenderness. [] Extremities: No tenderness, no cyanosis, no clubbing, ROM intact, no edema. [] Neurologic: Alert and oriented X 3, normal motor function, normal sensory function, no focal deficits noted. [] Psychologic: Affect normal, judgement normal, mood normal. [] Current Patient Data Vital Signs Vital Signs Date Time Temp Pulse Resp B/P (MAP) Pulse Ox O2 Delivery O2 Flow Rate FiO2 05/15/18 18:13 51 172/69 (103) 99 Room Air 05/15/18 16:52 18 05/15/18 16:04 98.1 98.1 Lab Values Laboratory Tests Test 05/15/18 14:40 05/15/18 16:20 05/15/18 16:30 Urine Collection Type Unknown Urine Color Yellow Urine Clarity Clear Urine pH 5.5 Urine Specific [place] 1.015 Urine Protein Negative mg/dL (NEG-TRACE) Urine Glucose (UA) Negative mg/dL (NEG) Urine Ketones (Stick) Negative mg/dL (NEG) Urine Blood Negative (NEG) Urine Nitrite Negative (NEG) Urine Bilirubin Negative (NEG) Urine Urobilinogen Dipstick 0.2 mg/dL (0.2 mg/dL) Urine Leukocyte Esterase Trace (NEG) Urine RBC 0 /HPF (0-2) Urine WBC Rare /HPF (0-4) Urine Squamous Epithelial Cells Few /LPF Urine Bacteria 0 /HPF (0-FEW) Urine Hyaline Casts Few /HPF Urine Mucus Marked /LPF Lactic Acid Level 0.8 mmol/L (0.4-2.0) White Blood Count 6.0 x10^3/uL (4.0-11.0) Red Blood Count 4.41 x10^6/uL (3.50-5.40) Hemoglobin 13.5 g/dL (12.0-15.5) Hematocrit 39.4 % (36.0-47.0) Mean Corpuscular Volume 89 fL (79-100) Mean Corpuscular Hemoglobin 31 pg (25-35) Mean Corpuscular Hemoglobin Concent 34 g/dL (31-37) Red Cell Distribution Width 13.4 % (11.5-14.5) Platelet Count 208 x10^3/uL (140-400) Neutrophils (%) (Auto) 65 % (31-73) Lymphocytes (%) (Auto) 26 % (24-48) Monocytes (%) (Auto) 8 % (0-9) Eosinophils (%) (Auto) 1 % (0-3) Basophils (%) (Auto) 1 % (0-3) Neutrophils # (Auto) 3.9 x10^3uL (1.8-7.7) Lymphocytes # (Auto) 1.6 x10^3/uL (1.0-4.8) Monocytes # (Auto) 0.5 x10^3/uL (0.0-1.1) Eosinophils # (Auto) 0.0 x10^3/uL (0.0-0.7) Basophils # (Auto) 0.0 x10^3/uL (0.0-0.2) Sodium Level 144 mmol/L (136-145) Potassium Level 4.1 mmol/L (3.5-5.1) Chloride Level 107 mmol/L (98-107) Carbon Dioxide Level 28 mmol/L (21-32) Anion Gap 9 (6-14) Blood Urea Nitrogen 24 mg/dL (7-20) H Creatinine 1.5 mg/dL (0.6-1.0) H Estimated GFR (Cockcroft-Gault) 33.4 BUN/Creatinine Ratio 16 (6-20) Glucose Level 181 mg/dL (70-99) H Calcium Level 9.6 mg/dL (8.5-10.1) Total Bilirubin 0.4 mg/dL (0.2-1.0) Aspartate Amino Transferase (AST) 15 U/L (15-37) Alanine Aminotransferase (ALT) 17 U/L (14-59) Alkaline Phosphatase 83 U/L (46-116) Total Protein 7.0 g/dL (6.4-8.2) Albumin 3.6 g/dL (3.4-5.0) Albumin/Globulin Ratio 1.1 (1.0-1.7) Lipase 98 U/L (73-393) Laboratory Tests 05/15/18 16:30 Laboratory Tests 05/15/18 16:30 EKG [facility] [address] [place], [place] [id number] IMAGING REPORT Signed PATIENT: MABEL SALINAS ACCOUNT: [id number] : 1940 LOCATION: ER AGE: 78 SEX: F EXAM STATUS: REG ER ORD. PHYSICIAN: AMA DUNCAN MD REASON: abdominal pain for 2 days PROCEDURE: CT ABDOMEN PELVIS WO CONTRAST Examination: CT ABDOMEN PELVIS WO CONTRAST History: abd pain and back pain x 2 days, prior sent Comparison/Correlation: 02/04/2013 CT abdomen and pelvis without contrast, 05/15/2013 CT abdomen and pelvis without contrast, 03/05/2014 CT abdomen and pelvis with oral contrast Findings: Axial images of the abdomen and pelvis were obtained without contrast. Sagittal and coronal reformatted images were obtained. Visualized lung bases are clear. Minimal bibasilar linear atelectasis or scarring is present. Small hiatal hernia present. Unenhanced liver, spleen, pancreas, and adrenal glands are unremarkable. Absence of the gallbladder and right kidney noted. There are no radiopaque left collecting system calculi. No enlarged abdominal or pelvic lymph nodes. Diverticulosis of the colon is notable. Retained contrast in colon noted. No bowel obstruction. Concentric disc bulge and ligamentum flavum hypertrophy at L4-5 is present with significant spinal canal stenosis. Facet joint degenerative hypertrophy at this level also is notable. Findings of a lesser extent are present at L3-4. Impression: Diverticulosis. Concentric disc bulge and spinal canal stenosis at L3-4 and even more so at L4-5. Right nephrectomy bed is unremarkable. No left collecting system obstruction. Electronically signed by: Pranav King MD (05/15/2018 7:53 PM) [facility] DICTATED and SIGNED BY: CHET OLIVAREZ MD DATE: 05/15/181944 Radiology/Procedures Radiology/Procedures [] Course & Med Decision Making Course & Med Decision Making Pertinent Labs and Imaging studies reviewed. (See chart for details) Evaluation of patient in ER showed 78-year-old female patient with complaining of lower abdominal pain and right flank pain and urinary frequency for 3 days. Patient had unremarkable physical exam and labs and CT of abdomen and pelvis except for accidental finding of diverticulosis and spinal stenosis. Patient treated with IV fluid and pain medication in ER yesterday and didn't want to have pain medication for home. Dragon Disclaimer Dragon Disclaimer This electronic medical record was generated, in whole or in part, using a voice recognition dictation system. Departure Departure Impression: Primary Impression: Abdominal pain Additional Impressions: Renal insufficiency Dysuria Diverticulosis Spinal stenosis Disposition: HOME, SELF-CARE (at 2023) Condition: IMPROVED Referrals: ANGI VASQUEZ MD (PCP) Patient Instructions: Abdominal Pain (Nonspecific) Additional Instructions: Drink plenty of liquids Follow-up with your primary care physician in 3-5 days Return to ER if not getting better Problem Qualifiers AMA DUNCAN MD May 15, 2018 20:26
== END 2018-05-15 20:48 | disposition home or self-care (01) ==
LOC: ER 14:14
DX: K57.90 Diverticulosis of intestine, part unspecified, without perforation or abscess without bleeding (principal); M48.061 Spinal stenosis, lumbar region without neurogenic claudication; N28.9 Disorder of kidney and ureter, unspecified; R30.0 Dysuria; I10 Essential (primary) hypertension; E11.9 Type 2 diabetes mellitus without complications; E03.9 Hypothyroidism, unspecified; Z90.710 Acquired absence of both cervix and uterus; Z90.49 Acquired absence of other specified parts of digestive tract; Z90.5 Acquired absence of kidney; Z90.6 Acquired absence of other parts of urinary tract; Z88.1 Allergy status to other antibiotic agents; Z88.5 Allergy status to narcotic agent; Z91.041 Radiographic dye allergy status; Z88.8 Allergy status to other drugs, medicaments and biological substances
CPT/HCPCS: 36415; 74176; 80053; 81001; 83605; 83690; 85025; 87086; 96374; 96375; 99284; J2405; J3010; J7030

== ENCOUNTER 2019-03-16 17:24 | Inpatient (IN) | payer MEDICARE ==
[~2019-03-16] VITALS: Ht 165.1 cm; Wt 73.5 kg
[~2019-03-16 17:24] MED LIST changes: +AMLO5TAB10 PO; -AMLO5TAB7 PO
[2019-03-16 18:28] LABS: BILIRUBIN,URINE NEGATIVE (NEG); CLARITY,URINE CLEAR; COLOR,URINE YELLOW; NITRITE,URINE NEGATIVE (NEG); PH,URINE 5.5; PROTEIN,URINE NEGATIVE (NEG-TRACE); UROBILINOGEN,URINE 0.2 mg/dL (0.2 mg/dL)
[2019-03-16 18:44] LABS: BACTERIA,URINE 0 /HPF (0-FEW); RBC,URINE 0 /HPF (0-2); SQUAMOUS EPITHELIAL CELL,UR OCC /LPF; WBC,URINE OCC /HPF (0-4)
[2019-03-16] MEDS ORDERED: FAMOTIDINE 20 MG/2 ML VIAL IVP ONE (18:45)
[2019-03-16] MEDS ORDERED: IV NORMAL SALINE 500ML BAG 500 ML IV ONE (18:45)
[2019-03-16 18:48] LABS: BASO # 0.1 x10^3/uL (0.0-0.2); BASO % 0 % (0-3); EOS % 0 % (0-3); HEMATOCRIT 44.9 % (36.0-47.0); HEMOGLOBIN 15.1 g/dL (12.0-15.5); LYMPH # 1.5 x10^3/uL (1.0-4.8); LYMPH % 12 % (24-48); MEAN CORPUSCULAR HEMOGLOBIN 30 pg (25-35); MEAN CORPUSCULAR HGB CONC 34 g/dL (31-37); MEAN CORPUSCULAR VOLUME 90 fL (79-100); MONO # 0.5 x10^3/uL (0.0-1.1); MONO % 4 % (0-9); NEUT # 10.2 x10^3/uL (1.8-7.7); NEUT % 83 % (31-73); PLATELET COUNT 309 x10^3/uL (140-400); RED BLOOD COUNT 4.99 x10^6/uL (3.50-5.40); WHITE BLOOD COUNT 12.3 x10^3/uL (4.0-11.0)
--- NOTE | 2019-03-16 18:54 | PHYS DOC ---
Past Medical History Past Medical History: Arthritis, Cancer, Diabetes-Type II, Hypertension, Hypothyroid Additional Past Medical Histor: cancer of right kidney Past Surgical History: Cholecystectomy, Hysterectomy Additional Past Surgical Histo: rt kidney removed, bladder Alcohol Use: None Drug Use: None Adult General Chief Complaint Chief Complaint: MULTIPLE COMPLAINTS HPI HPI Patient is a 79 year old female who presents with epigastric pain after eating states she just doesn't feel like it goes all the way down. Patient states she's also had not had a bowel movement in 5 days. Patient rates her pain a 6 out of 10. Patient states that she was diagnosed with a urinary tract infection and pneumonia a week ago and she continues to be dizzy. Patient states she is dizzy when she goes from sitting to standing and even just laying in the bed. Review of Systems Review of Systems Constitutional: Denies fever or chills [] GI: abdominal pain, denies nausea, vomiting, bloody stools or diarrhea [] Neurologic:Dizziness. Denies headache, focal weakness or sensory changes [] All other systems were reviewed and found to be within normal limits, except as documented in this note. Current Medications Current Medications Current Medications Medications (Trade) Dose Ordered Sig/[facility] Start Time Stop Time Status Last Admin Dose Admin Famotidine (Pepcid Vial) 20 mg 1X ONCE 03/16/19 18:45 03/16/19 18:46 DC 03/16/19 18:43 20 MG Meclizine HCl (Antivert) 25 mg 1X ONCE 03/16/19 19:15 03/16/19 19:16 DC 03/16/19 19:23 25 MG Sodium Chloride 500 ml @ 500 mls/hr 1X ONCE 03/16/19 18:45 03/16/19 19:44 DC 03/16/19 18:43 500 MLS/HR Allergies Allergies Allergies Coded Allergies Type Severity Reaction Last Updated Verified erythromycin base Allergy Intermediate 03/04/18 Yes Iodinated Contrast Media Adverse Reaction Intermediate DUE TO ONLY HAVING 1 KIDNEY 03/04/18 Yes diazepam Adverse Reaction Intermediate Palpitations 03/04/18 Yes oxytetracycline Adverse Reaction Intermediate Palpitations 03/04/18 Yes oxytetracycline HCl Adverse Reaction Intermediate Palpitations 03/04/18 Yes hydromorphone Adverse Reaction Mild Nausea and Vomiting 03/04/18 Yes Physical Exam Physical Exam Constitutional: Well developed, well nourished, no acute distress, non-toxic appearance. [] HENT: Normocephalic, atraumatic, bilateral external ears normal, oropharynx moist, no oral exudates, nose normal. [] Eyes: PERRLA, EOMI, conjunctiva normal, no discharge. [] Neck: Normal range of motion, no tenderness, supple, no stridor. [] Cardiovascular:Heart rate regular rhythm, no murmur [] Lungs & Thorax: Bilateral breath sounds clear to auscultation [] Abdomen: Bowel sounds normal, soft, epigastric tenderness, no masses, no pulsatile masses. [] Skin: Warm, dry, no erythema, no rash. [] Back: No tenderness, no CVA tenderness. [] Extremities: No tenderness, no cyanosis, no clubbing, ROM intact, no edema. [] Neurologic: Alert and oriented X 3, normal motor function, normal sensory function, no focal deficits noted. [] Psychologic: Affect normal, judgement normal, mood normal. [] Current Patient Data Vital Signs Vital Signs Date Time Temp Pulse Resp B/P (MAP) Pulse Ox O2 Delivery O2 Flow Rate FiO2 03/16/19 18:00 68 165/72 (103) 97 Room Air 03/16/19 17:40 98.4 18 98.4 Lab Values Laboratory Tests Test 03/16/19 17:40 03/16/19 18:38 Urine Color Yellow Urine Clarity Clear Urine pH 5.5 Urine Specific [place] 1.020 Urine Protein Negative mg/dL (NEG-TRACE) Urine Glucose (UA) >=1000 mg/dL (NEG) Urine Ketones (Stick) Negative mg/dL (NEG) Urine Blood Negative (NEG) Urine Nitrite Negative (NEG) Urine Bilirubin Negative (NEG) Urine Urobilinogen Dipstick 0.2 mg/dL (0.2 mg/dL) Urine Leukocyte Esterase Negative (NEG) Urine RBC 0 /HPF (0-2) Urine WBC Occ /HPF (0-4) Urine Squamous Epithelial Cells Occ /LPF Urine Bacteria 0 /HPF (0-FEW) Urine Mucus Mod /LPF White Blood Count 12.3 x10^3/uL (4.0-11.0) H Red Blood Count 4.99 x10^6/uL (3.50-5.40) Hemoglobin 15.1 g/dL (12.0-15.5) Hematocrit 44.9 % (36.0-47.0) Mean Corpuscular Volume 90 fL (79-100) Mean Corpuscular Hemoglobin 30 pg (25-35) Mean Corpuscular Hemoglobin Concent 34 g/dL (31-37) Red Cell Distribution Width 13.0 % (11.5-14.5) Platelet Count 309 x10^3/uL (140-400) Neutrophils (%) (Auto) 83 % (31-73) H Lymphocytes (%) (Auto) 12 % (24-48) L Monocytes (%) (Auto) 4 % (0-9) Eosinophils (%) (Auto) 0 % (0-3) Basophils (%) (Auto) 0 % (0-3) Neutrophils # (Auto) 10.2 x10^3/uL (1.8-7.7) H Lymphocytes # (Auto) 1.5 x10^3/uL (1.0-4.8) Monocytes # (Auto) 0.5 x10^3/uL (0.0-1.1) Eosinophils # (Auto) 0.0 x10^3/uL (0.0-0.7) Basophils # (Auto) 0.1 x10^3/uL (0.0-0.2) Segmented Neutrophils % 86 % (35-66) H Lymphocytes % 11 % (24-48) L Monocytes % 3 % (0-10) Platelet Estimate Adequate (ADEQUATE) Polychromasia Slight Anisocytosis Slight Sodium Level 137 mmol/L (136-145) Potassium Level 4.8 mmol/L (3.5-5.1) Chloride Level 99 mmol/L (98-107) Carbon Dioxide Level 25 mmol/L (21-32) Anion Gap 13 (6-14) Blood Urea Nitrogen 32 mg/dL (7-20) H Creatinine 1.6 mg/dL (0.6-1.0) H Estimated GFR (Cockcroft-Gault) 30.9 BUN/Creatinine Ratio 20 (6-20) Glucose Level 411 mg/dL (70-99) H Calcium Level 9.8 mg/dL (8.5-10.1) Total Bilirubin 0.6 mg/dL (0.2-1.0) Aspartate Amino Transferase (AST) 16 U/L (15-37) Alanine Aminotransferase (ALT) 22 U/L (14-59) Alkaline Phosphatase 110 U/L (46-116) Troponin I Quantitative < 0.017 ng/mL (0.000-0.055) Total Protein 7.8 g/dL (6.4-8.2) Albumin 3.7 g/dL (3.4-5.0) Albumin/Globulin Ratio 0.9 (1.0-1.7) L Lipase 91 U/L (73-393) Laboratory Tests 03/16/19 18:38 Laboratory Tests 03/16/19 18:38 EKG EKG Sinus Rhythm and no STEMI Interpretation Time: [address] Billings Radiology/Procedures Radiology/Procedures [] Impressions: [facility] [address] [place], [place] [id number] IMAGING REPORT Signed PATIENT: MABEL SALINAS ACCOUNT: [id number] : 1940 LOCATION: ER AGE: 79 SEX: F EXAM STATUS: REG ER ORD. PHYSICIAN: CORINA GOODMAN APRN REASON: dizziness PROCEDURE: CT HEAD WO CONTRAST CT scan of the head without contrast 03/16/2019 Clinical History: Dizziness. Technique: Unenhanced, contiguous, 5 mm axial sections were obtained through the head. One or more of the following individualized dose reduction techniques were utilized for this study: 1. Automated exposure control. 2. Adjustment of the mA and/or kV according to patient size. 3. Use of iterative reconstruction technique. Findings: Comparison study is dated 03/11/2014. There is generalized parenchymal atrophy. Areas of decreased attenuation are seen within the periventricular and subcortical white matter of both cerebral hemispheres consistent with areas of small vessel ischemic disease. No acute parenchymal abnormality is seen. No extra-axial fluid collection is noted. No skull fracture is seen. Mild to moderate mucosal thickening is seen involving the visualized portions of both maxillary sinuses. Impression: No acute intracranial abnormality is seen. Electronically signed by: Golden uHnt MD (03/16/2019 7:08 PM) [facility] DICTATED and SIGNED BY: GOLDEN HUNT MD DATE: 03/16/19 190 [facility] [address] [place] [address] IMAGING REPORT Signed PATIENT: MABEL SALINAS ACCOUNT: [id number] : 1940 LOCATION: ER AGE: 79 SEX: F EXAM STATUS: REG ER ORD. PHYSICIAN: CORINA GOODMAN APRN REASON: EPIGASTRIC PAIN, NAUSEA, CONSTIPATION PROCEDURE: CT ABDOMEN PELVIS WO CONTRAST Exam: CT abdomen and pelvis without contrast INDICATION: Epigastric pain, nausea and constipation TECHNIQUE: Sequential axial images through the abdomen and pelvis obtained without IV contrast. Sagittal and coronal reformatted images were reconstructed from the axial data and reviewed. Comparisons: 05/15/2018 FINDINGS: Heart size is normal. No pericardial effusion. 3 mm nodule in the right middle lobe series 2 image 9. No pleural effusion or thickening. Evaluation of solid organs is limited secondary to noncontrast technique. Liver, spleen, pancreas, and adrenals are unremarkable. Gallbladder is surgically absent. Right kidney is absent. No perinephric inflammation or hydronephrosis. No renal or ureteral calculi are identified. Bladder is partially distended and appears thin-walled. Uterus is not enlarged. Scattered diverticulosis is noted within the sigmoid colon without evidence of acute diverticulitis. Remainder of the large and small bowel are unremarkable. Abdominal aorta has a normal course and caliber. No enlarged intra-abdominal lymph nodes are identified. No suspicious osseous lesions or acute fractures. IMPRESSION: 1. No acute process identified within the abdomen or pelvis. Moderate amount stool is noted within the colon. 2. Right kidney is absent. No renal or ureteral calculi. No evidence for obstructive uropathy. Exposure: One or more of the following in the visualized dose reduction techniques were utilized for this examination: 1. Automated exposure control 2. Adjustment of the MA and/or KV according to patient size 3. Use of iterative of reconstructive technique Electronically signed by: Adonis Alberts MD (03/16/2019 7:17 PM) [facility] DICTATED and SIGNED BY: ADONIS ALBERTS MD DATE: 03/16/191916 Course & Med Decision Making Course & Med Decision Making Ambulatory but unsteady due to dizziness. PERRLA. NIH negative. Denies chest pain, soa, visual changes, nausea, vomiting, diarrhea, fever, numbness or tingling, headache. Lungs are clear to auscultation in all lobes. No extremity edema. Abdomen is tender to epigastric only. Patient states it just feels sore. Abdomen is otherwise soft. Denies any dysuria symptoms. Patient denies a cough states she did have a cough a week ago and that she would cough so hard she would get dizzy. Alert and oriented. Speaks in full clear sentences. Patient states 2 weeks ago she hit her head with the car door and she then became dizzy. Patient states she renee to the doctor and they did not scan her head. Patient states she has been dizzy ever since. Supine: 187/82, 65; Sittin/75, 68; standin/108, 70. Urinalysis negative. CT ABD PELV 1. No acute process identified within the abdomen or pelvis. Moderate amount stool is noted within the colon. 2. Right kidney is absent. No renal or ureteral calculi. No evidence for obstructive uropathy. CT HEAD negative for acute findings. Chest xray read by Dr Chin and has no obvious acute findings. I have gotten the patient up to try to walk and she can not walk due to dizziness. Patient is admitted to Dr Velázquez. Ingrid Disclaimer Ingrid Disclaimer This electronic medical record was generated, in whole or in part, using a voice recognition dictation system. NIHSS Stroke Scale NIH Stroke Scale: NIH Stroke Scale Response (Comments) Value Level of Consciousness: 0 Alert/Responsive 0 LOC Questions: 0 Answers both correctly 0 LOC Commands: 0 Performs both tasks 0 Best Gaze: 0 Normal 0 Visual: 0 No visual loss 0 Facial Palsy: 0 Normal, symmetrical 0 Motor - Left Arm 0 No drift 0 Motor - Right Arm 0 No drift 0 Motor - Left Leg 0 No drift 0 Motor: Right Leg 0 No drift 0 Limb Ataxia: 0 Absent 0 Sensory: 0 No loss 0 Best Language: 0 Normal 0 Dysathria: 0 Normal 0 Extinction and Inattention: 0 Normal 0 Total 0 Departure Departure Impression: Primary Impression: Dizziness Disposition: ADMITTED INPATIENT Admitting Physician: KEVIN Condition: STABLE Referrals: ANGI VASQUEZ MD (PCP) CORINA GOODMAN APRN Mar 16, 2019 18:54
[2019-03-16 18:58] LABS: CALCIUM 9.8 mg/dL (8.5-10.1); CREATININE 1.6 mg/dL (0.6-1.0); GFR 30.9; POTASSIUM 4.8 mmol/L (3.5-5.1)
[2019-03-16 19:04] LABS: ALBUMIN 3.7 g/dL (3.4-5.0); ALBUMIN/GLOBULIN RATIO 0.9 (1.0-1.7); TOTAL BILIRUBIN 0.6 mg/dL (0.2-1.0); TOTAL PROTEIN 7.8 g/dL (6.4-8.2)
--- NOTE | 2019-03-16 19:11 | RAD ---
CT scan of the head without contrast 03/16/2019 Clinical History: Dizziness. Technique: Unenhanced, contiguous, 5 mm axial sections were obtained through the head. One or more of the following individualized dose reduction techniques were utilized for this study: 1. Automated exposure control. 2. Adjustment of the mA and/or kV according to patient size. 3. Use of iterative reconstruction technique. Findings: Comparison study is dated 03/11/2014. There is generalized parenchymal atrophy. Areas of decreased attenuation are seen within the periventricular and subcortical white matter of both cerebral hemispheres consistent with areas of small vessel ischemic disease. No acute parenchymal abnormality is seen. No extra-axial fluid collection is noted. No skull fracture is seen. Mild to moderate mucosal thickening is seen involving the visualized portions of both maxillary sinuses. Impression: No acute intracranial abnormality is seen. Electronically signed by: Golden Hunt MD (03/16/2019 7:08 PM) [facility]
[2019-03-16] MEDS ORDERED: MECLIZINE HCL 12.5 MG TABLET. PO ONE (19:15)
--- NOTE | 2019-03-16 19:20 | RAD ---
Exam: CT abdomen and pelvis without contrast INDICATION: Epigastric pain, nausea and constipation TECHNIQUE: Sequential axial images through the abdomen and pelvis obtained without IV contrast. Sagittal and coronal reformatted images were reconstructed from the axial data and reviewed. Comparisons: 05/15/2018 FINDINGS: Heart size is normal. No pericardial effusion. 3 mm nodule in the right middle lobe series 2 image 9. No pleural effusion or thickening. Evaluation of solid organs is limited secondary to noncontrast technique. Liver, spleen, pancreas, and adrenals are unremarkable. Gallbladder is surgically absent. Right kidney is absent. No perinephric inflammation or hydronephrosis. No renal or ureteral calculi are identified. Bladder is partially distended and appears thin-walled. Uterus is not enlarged. Scattered diverticulosis is noted within the sigmoid colon without evidence of acute diverticulitis. Remainder of the large and small bowel are unremarkable. Abdominal aorta has a normal course and caliber. No enlarged intra-abdominal lymph nodes are identified. No suspicious osseous lesions or acute fractures. IMPRESSION: 1. No acute process identified within the abdomen or pelvis. Moderate amount stool is noted within the colon. 2. Right kidney is absent. No renal or ureteral calculi. No evidence for obstructive uropathy. Exposure: One or more of the following in the visualized dose reduction techniques were utilized for this examination: 1. Automated exposure control 2. Adjustment of the MA and/or KV according to patient size 3. Use of iterative of reconstructive technique Electronically signed by: Adonis Olivares MD (03/16/2019 7:17 PM) [facility]
[2019-03-16 19:32] LABS: % MONOS 3 % (0-10)
[2019-03-16 19:33] LABS: % LYMPHS 11 % (24-48); % SEGS 86 % (35-66)
[2019-03-16 19:34] LABS: ANISOCYTOSIS SLIGHT; PLT ESTIMATE ADEQUATE (ADEQUATE); POLYCHROMASIA SLIGHT
[2019-03-16] MEDS ORDERED: ONDANSETRON PF 4 MG/2 ML VIAL. IV PRN (20:00)
--- NOTE | 2019-03-16 20:12 | PDOC1 ---
History and Physical Date of Admission Date of Admission DATE: 03/16/19 TIME: 20:10 History of Present Illness History of Present Illness Ms. Pickett is a 79 year old female who presents with epigastric pain after eating states she just doesn't feel like it goes all the way down. SHe also other complaints, including, not had a bowel movement in 5 days. and abd pain, r pain a 6 out of 10. she thinkg she has a UTI, feels dizzy when she stands for the past 2 days. Patient states that she was diagnosed with a urinary tract infection and pneumonia a week ago and she continues to be dizzy she feels weak and tired and is worried about possibly falling. she fell and hit her head a couple days ago Past Medical History Cardiovascular: HTN Renal/: Chronic renal insuff Endocrine: Diabetes Past Surgical History Past Surgical History: Other Family History Family History: Coronary Artery Disease, Hypertension Social History Smoke: Quit ALCOHOL: rare Drugs: None Current Problem List Problem List Problems Medical Problems: (1) Dizziness Status: Acute Current Medications Current Medications Current Medications Famotidine (Pepcid Vial) 20 mg 1X ONCE IVP Last administered on 03/16/19at 18:43; Start 03/16/19 at 18:45; Stop 03/16/19 at 18:46; Status DC Sodium Chloride 500 ml @ 500 mls/hr 1X ONCE IV Last administered on 03/16/19at 18:43; Start 03/16/19 at 18:45; Stop 03/16/19 at 19:44; Status DC Meclizine HCl (Antivert) 25 mg 1X ONCE PO Last administered on 03/16/19at 19:23; Start 03/16/19 at 19:15; Stop 03/16/19 at 19:16; Status DC Ondansetron HCl (Zofran) 4 mg PRN Q8HRS PRN IV NAUSEA/VOMITING; Start 03/16/19 at 20:00; Stop 03/17/19 at 19:59 Insulin Human Regular (HumuLIN R VIAL) 10 unit 1X ONCE SQ ; Start 03/16/19 at 20:15; Stop 03/16/19 at 20:16 Active Scripts Active Reported Nitrofurantoin [place]-Mcr 100 Mg (Nitrofurantoin Monohyd/M-Cryst) 100 Mg Capsule 100 Mg PO BID Lantus Solostar (Insulin Glargine,Hum.rec.anlog) 100 Unit/1 Ml Insuln.pen 10 Units SQ BID Amlodipine Besylate 5 Mg Tablet 2 Tab PO DAILY Novolog Flexpen (Insulin Aspart) 100 Unit/1 Ml Insuln.pen 6 Unit SQ Levothyroxine Sodium 25 Mcg Tablet 25 Mcg PO DAILY Travatan Z (Travoprost) 5 Ml Drops 5 Ml OP HS Allergies Allergies: Coded Allergies: erythromycin base (Verified Allergy, Intermediate, 03/04/18) Iodinated Contrast Media (Verified Adverse Reaction, Intermediate, DUE TO ONLY HAVING 1 KIDNEY, 03/04/18) PT STATED THAT ED PHYSICIAN CONSULTED WITH TEST PILOT AND STATED THAT SINCE SHE HAS ONLY 1 KIDNEY AND HER LABS COME BACK CONSISTANTLY ELEVATED, WE ARE TO NOT GIVE IV CONTRAST diazepam (Verified Adverse Reaction, Intermediate, Palpitations, 03/04/18) oxytetracycline (Verified Adverse Reaction, Intermediate, Palpitations, 03/04/18) oxytetracycline HCl (Verified Adverse Reaction, Intermediate, Palpitations, 03/04/18) hydromorphone (Verified Adverse Reaction, Mild, Nausea and Vomiting, 03/04/18) ROS General: YES: Chills, Malaise, Appetite PSYCHOLOGICAL ROS: YES: Irritablity, Sleep disturbances Eyes: No Blurry vision, No Decreased vision, No Double vision, No Dry eyes, No Excessive tearing, No Eye Pain, No Itchy Eyes, No Loss of vision, No Photophobia, No Scotomata, No Uses contacts, No Uses glasses, No Other HEENT: YES: Heacaches; No: Visual Changes, Hearing change, Nasal congestion, Nasal discharge, Oral lesions, Sinus pain, Sore Throat, Epistaxis, Sneezing, Snoring, Tinnitus, Vertigo, Vocal changes, Other Respiratory: No: Cough, Hemoptysis, Orthopnea, Pleuritic Pain, Shortness of breath, SOB with excertion, Sputum Changes, Stridor, Tachypnea, Wheezing, Other Cardiovascular: No Chest Pain, No Palpitations, No Orthopnea, No Paroxysmal Noc. Dyspnea, No Edema, No Lt Headedness, No Other Gastrointestinal: Yes Nausea, Yes Constipation Genitourinary: YES Frequency, YES Pain; No Dysuria, No Incontinence, No Hematuria, No Retention, No Discharge, No Urgency, No Flank Pain, No Other, No , No , No , No , No , No , No Musculoskeletal: Yes Joint Pain, Yes Joint Stiffness Neurological: No Behavorial Changes, No Bowel/Bladder ControlChng, No Confusion, No Dizziness, No Gait Disturbance, No Headaches, No Impaired Coord/balance, No Memory Loss, No Numbness/Tingling, No Seizures, No Speech Problems, No Tremors, No Visual Changes, No Weakness, No Other Skin: Yes Dry Skin Physical Exam General: Alert, Oriented X3, Cooperative, mild distress HEENT: Atraumatic, PERRLA Abdomen: Normal bowel sounds, Soft, Other (fullness and mild tender) Extremities: No clubbing, No cyanosis, Normal pulses, Other (1+ edema) Skin: No rashes, No significant lesion Neuro: Normal speech, Normal tone, Sensation intact Psych/Mental Status: Mood NL Vitals Vitals Vital Signs Date Time Temp Pulse Resp B/P (MAP) Pulse Ox O2 Delivery O2 Flow Rate FiO2 03/16/19 18:00 68 165/72 (103) 97 Room Air 03/16/19 17:40 98.4 18 98.4 Labs Labs Laboratory Tests Test 03/16/19 17:40 03/16/19 18:38 Urine Color Yellow Urine Clarity Clear Urine pH 5.5 Urine Specific Dafter 1.020 Urine Protein Negative mg/dL (NEG-TRACE) Urine Glucose (UA) >=1000 mg/dL (NEG) Urine Ketones (Stick) Negative mg/dL (NEG) Urine Blood Negative (NEG) Urine Nitrite Negative (NEG) Urine Bilirubin Negative (NEG) Urine Urobilinogen Dipstick 0.2 mg/dL (0.2 mg/dL) Urine Leukocyte Esterase Negative (NEG) Urine RBC 0 /HPF (0-2) Urine WBC Occ /HPF (0-4) Urine Squamous Epithelial Cells Occ /LPF Urine Bacteria 0 /HPF (0-FEW) Urine Mucus Mod /LPF White Blood Count 12.3 x10^3/uL (4.0-11.0) Red Blood Count 4.99 x10^6/uL (3.50-5.40) Hemoglobin 15.1 g/dL (12.0-15.5) Hematocrit 44.9 % (36.0-47.0) Mean Corpuscular Volume 90 fL (79-100) Mean Corpuscular Hemoglobin 30 pg (25-35) Mean Corpuscular Hemoglobin Concent 34 g/dL (31-37) Red Cell Distribution Width 13.0 % (11.5-14.5) Platelet Count 309 x10^3/uL (140-400) Neutrophils (%) (Auto) 83 % (31-73) Lymphocytes (%) (Auto) 12 % (24-48) Monocytes (%) (Auto) 4 % (0-9) Eosinophils (%) (Auto) 0 % (0-3) Basophils (%) (Auto) 0 % (0-3) Neutrophils # (Auto) 10.2 x10^3/uL (1.8-7.7) Lymphocytes # (Auto) 1.5 x10^3/uL (1.0-4.8) Monocytes # (Auto) 0.5 x10^3/uL (0.0-1.1) Eosinophils # (Auto) 0.0 x10^3/uL (0.0-0.7) Basophils # (Auto) 0.1 x10^3/uL (0.0-0.2) Segmented Neutrophils % 86 % (35-66) Lymphocytes % 11 % (24-48) Monocytes % 3 % (0-10) Platelet Estimate Adequate (ADEQUATE) Polychromasia Slight Anisocytosis Slight Sodium Level 137 mmol/L (136-145) Potassium Level 4.8 mmol/L (3.5-5.1) Chloride Level 99 mmol/L (98-107) Carbon Dioxide Level 25 mmol/L (21-32) Anion Gap 13 (6-14) Blood Urea Nitrogen 32 mg/dL (7-20) Creatinine 1.6 mg/dL (0.6-1.0) Estimated GFR (Cockcroft-Gault) 30.9 BUN/Creatinine Ratio 20 (6-20) Glucose Level 411 mg/dL (70-99) Calcium Level 9.8 mg/dL (8.5-10.1) Total Bilirubin 0.6 mg/dL (0.2-1.0) Aspartate Amino Transf (AST/SGOT) 16 U/L (15-37) Alanine Aminotransferase (ALT/SGPT) 22 U/L (14-59) Alkaline Phosphatase 110 U/L (46-116) Troponin I Quantitative < 0.017 ng/mL (0.000-0.055) Total Protein 7.8 g/dL (6.4-8.2) Albumin 3.7 g/dL (3.4-5.0) Albumin/Globulin Ratio 0.9 (1.0-1.7) Lipase 91 U/L (73-393) Laboratory Tests Test 03/16/19 17:40 03/16/19 18:38 Urine Color Yellow Urine Clarity Clear Urine pH 5.5 Urine Specific Dafter 1.020 Urine Protein Negative mg/dL (NEG-TRACE) Urine Glucose (UA) >=1000 mg/dL (NEG) Urine Ketones (Stick) Negative mg/dL (NEG) Urine Blood Negative (NEG) Urine Nitrite Negative (NEG) Urine Bilirubin Negative (NEG) Urine Urobilinogen Dipstick 0.2 mg/dL (0.2 mg/dL) Urine Leukocyte Esterase Negative (NEG) Urine RBC 0 /HPF (0-2) Urine WBC Occ /HPF (0-4) Urine Squamous Epithelial Cells Occ /LPF Urine Bacteria 0 /HPF (0-FEW) Urine Mucus Mod /LPF White Blood Count 12.3 x10^3/uL (4.0-11.0) Red Blood Count 4.99 x10^6/uL (3.50-5.40) Hemoglobin 15.1 g/dL (12.0-15.5) Hematocrit 44.9 % (36.0-47.0) Mean Corpuscular Volume 90 fL (79-100) Mean Corpuscular Hemoglobin 30 pg (25-35) Mean Corpuscular Hemoglobin Concent 34 g/dL (31-37) Red Cell Distribution Width 13.0 % (11.5-14.5) Platelet Count 309 x10^3/uL (140-400) Neutrophils (%) (Auto) 83 % (31-73) Lymphocytes (%) (Auto) 12 % (24-48) Monocytes (%) (Auto) 4 % (0-9) Eosinophils (%) (Auto) 0 % (0-3) Basophils (%) (Auto) 0 % (0-3) Neutrophils # (Auto) 10.2 x10^3/uL (1.8-7.7) Lymphocytes # (Auto) 1.5 x10^3/uL (1.0-4.8) Monocytes # (Auto) 0.5 x10^3/uL (0.0-1.1) Eosinophils # (Auto) 0.0 x10^3/uL (0.0-0.7) Basophils # (Auto) 0.1 x10^3/uL (0.0-0.2) Segmented Neutrophils % 86 % (35-66) Lymphocytes % 11 % (24-48) Monocytes % 3 % (0-10) Platelet Estimate Adequate (ADEQUATE) Polychromasia Slight Anisocytosis Slight Sodium Level 137 mmol/L (136-145) Potassium Level 4.8 mmol/L (3.5-5.1) Chloride Level 99 mmol/L (98-107) Carbon Dioxide Level 25 mmol/L (21-32) Anion Gap 13 (6-14) Blood Urea Nitrogen 32 mg/dL (7-20) Creatinine 1.6 mg/dL (0.6-1.0) Estimated GFR (Cockcroft-Gault) 30.9 BUN/Creatinine Ratio 20 (6-20) Glucose Level 411 mg/dL (70-99) Calcium Level 9.8 mg/dL (8.5-10.1) Total Bilirubin 0.6 mg/dL (0.2-1.0) Aspartate Amino Transf (AST/SGOT) 16 U/L (15-37) Alanine Aminotransferase (ALT/SGPT) 22 U/L (14-59) Alkaline Phosphatase 110 U/L (46-116) Troponin I Quantitative < 0.017 ng/mL (0.000-0.055) Total Protein 7.8 g/dL (6.4-8.2) Albumin 3.7 g/dL (3.4-5.0) Albumin/Globulin Ratio 0.9 (1.0-1.7) Lipase 91 U/L (73-393) VTE Prophylaxis Ordered VTE Prophylaxis Devices: No VTE Pharmacological Prophylaxi: Yes Assessment/Plan Assessment/Plan constipation, check tsh, hypothyroid abd pain, GERD, poss hiatal hernia, f/u outpt dizzy, not orthostatic, but a little dry, Cr up from baseline to 1.6 Dm2, poor control, hyperglycemia, poss neuropathy, add SSI to BID lantus 10, [address] head ok, no cva, poss concussion from recent fall PT and OT ALETA RAMIREZ MD Mar 16, 2019 20:12
[2019-03-16] MEDS ORDERED: DEXTROSE 50% 25 GM / 50ML DISP.SYRIN. IV PRN (20:15)
[2019-03-16] MEDS ORDERED: INSULIN REGULAR 100 UNIT/ML 3ML VIAL. SQ ONE (20:15)
[2019-03-16] MEDS ORDERED: DOCUSATE SODIUM 100 MG CAPSULE. PO PRN (20:15)
[2019-03-16] MEDS ORDERED: POLYETHYLENE GLYCOL 3350 17 GM PACKET. PO ONE (20:30)
[2019-03-16] MEDS: DOCUSATE SODIUM 100 MG CAPSULE. PO SCH (20:42)
[2019-03-16 21:00] VITALS: BP 167/65
[2019-03-16] MEDS: INSULIN GLARGINE SYRINGE. SQ SCH (21:00)
--- NOTE | 2019-03-16 22:43 | NUR ---
Nursing note Was told by ED nurse that lantus was administered in ED, so this nurse non-admin 2100 lantus in eMAR
--- NOTE | 2019-03-16 22:53 | RAD ---
AP portable chest radiograph 03/16/2019 Clinical History: Dizziness. An AP erect portable digital radiograph of the chest was obtained. Comparison study is dated 10/05/2017. The cardiac silhouette is normal in size. The thoracic aorta is mildly tortuous. Atherosclerotic calcification of the thoracic aorta is seen. Emphysematous changes are seen involving both lungs. No acute pulmonary infiltrate is seen. A linear band of scarring is seen involving the left lower lobe, unchanged. No pneumothorax or pleural effusion is seen. Degenerative changes are seen involving the thoracic spine and both shoulders. Impression: No acute abnormality is seen. Electronically signed by: Golden Hunt MD (03/16/2019 10:51 PM) [facility]
[2019-03-16] MEDS: LATANOPROST 0.005% OPHTH SOLUTION 2.5ML BOTTLE. OU SCH (23:01)
[2019-03-16] MEDS: amLODIPine BESYLATE 10 MG TABLET PO SCH (23:03)
[2019-03-16] MEDS: INSULIN LISPRO 300 UNITS/3 ML VIAL. SQ SCH (23:08)
[2019-03-16 23:19] VITALS: BP 162/60
[2019-03-17 03:32] VITALS: BP 136/57
[2019-03-17 04:47] LABS: BASO % 0 % (0-3); EOS # 0.1 x10^3/uL (0.0-0.7); EOS % 1 % (0-3); HEMATOCRIT 39.1 % (36.0-47.0); HEMOGLOBIN 13.5 g/dL (12.0-15.5); LYMPH # 2.1 x10^3/uL (1.0-4.8); LYMPH % 22 % (24-48); MEAN CORPUSCULAR HEMOGLOBIN 31 pg (25-35); MEAN CORPUSCULAR HGB CONC 35 g/dL (31-37); MEAN CORPUSCULAR VOLUME 89 fL (79-100); MONO # 0.8 x10^3/uL (0.0-1.1); MONO % 8 % (0-9); NEUT # 6.6 x10^3/uL (1.8-7.7); NEUT % 69 % (31-73); PLATELET COUNT 274 x10^3/uL (140-400); RED BLOOD COUNT 4.38 x10^6/uL (3.50-5.40); WHITE BLOOD COUNT 9.6 x10^3/uL (4.0-11.0)
[2019-03-17 05:13] LABS: ALBUMIN 2.9 g/dL (3.4-5.0); ALBUMIN/GLOBULIN RATIO 0.9 (1.0-1.7); CREATININE 1.3 mg/dL (0.6-1.0); GFR 39.3; POTASSIUM 3.8 mmol/L (3.5-5.1); TOTAL BILIRUBIN 0.3 mg/dL (0.2-1.0); TOTAL PROTEIN 6.1 g/dL (6.4-8.2)
[2019-03-17] MEDS: LEVOTHYROXINE 25 MCG TABLET. PO SCH (05:41)
--- NOTE | 2019-03-17 06:16 | EKG ---
[facility] [address] [place] [address] Test Date: 2019-03-16 Test Time: 18:38:57 Pat Name: MABEL SALINAS Department: Room: Gender: F [employer]ist: : [id number] Requested By: CORINA GOODMAN Order Number: [id number] Reading MD: Measurements Intervals [place] Rate: 75 P: 90 [place]: 132 QRS: -10 QRSD: 112 T: 24 QT: 388 QTc: 436 Interpretive Statements SINUS RHYTHM LEFTWARD AXIS R-S TRANSITION ZONE IN V LEADS DISPLACED TO THE RIGHT INCOMPLETE RIGHT BUNDLE BRANCH BLOCK QRS(T) CONTOUR ABNORMALITY CONSIDER ANTEROLATERAL MYOCARDIAL DAMAGE POSSIBLY ABNORMAL ECG RI6.01 No previous ECG available for comparison
[2019-03-17] MEDS ORDERED: MAGNESIUM HYDROXIDE 2,400 MG/30 ML ORAL.SUSP. PO PRN (06:30)
[2019-03-17 07:30] VITALS: BP 153/66
[2019-03-17] MEDS: amLODIPine BESYLATE 10 MG TABLET PO SCH (08:37)
[2019-03-17] MEDS: DOCUSATE SODIUM 100 MG CAPSULE. PO SCH (08:37)
[2019-03-17] MEDS: INSULIN GLARGINE SYRINGE. SQ SCH ×2 (08:43→22:08)
[2019-03-17] MEDS: INSULIN LISPRO 300 UNITS/3 ML VIAL. SQ SCH ×6 (08:44→17:53)
[2019-03-17] MEDS ORDERED: MECLIZINE HCL 12.5 MG TABLET. PO PRN (09:30)
[2019-03-17] MEDS ORDERED: ACETAMINOPHEN 500 MG TABLET PO PRN (09:30)
[2019-03-17] MEDS ORDERED: LABETALOL 20 MG/4 ML DISP.SYRIN. IVP PRN (09:30)
[2019-03-17] MEDS ORDERED: IBUPROFEN 200 MG TABLET. PO PRN (09:30)
--- NOTE | 2019-03-17 10:55 | PDOC ---
PROGRESS NOTES Chief Complaint Chief Complaint dizziness LEvaquin intolerance vs medrol dose pack intolerance constipation DM 2 Obesity Recnet MANAN and "kidney infection" History of Present Illness History of Present Illness Still dizzy regardless of position BUt BP high 150s-170s Recent levaquin and medrol dose pack - for pna and "kidney infection" by pcp But she ate her whole food tray PLAn: List levaquin as allergy - though more for intolerance based on her sxs Add PT OT TRial of meclizine if needed She claims medrol dose pack raises her sugar (was put on it for recent PNA by PCP) Add labetolol prn and resume home BP meds Once BP better and sxs better , target dc tmr - and she knows that Give her the bowel regimen on file if still constipated Vitals Vitals Vital Signs Date Time Temp Pulse Resp B/P (MAP) Pulse Ox O2 Delivery O2 Flow Rate FiO2 03/17/19 08:37 55 153/66 03/17/19 08:00 Room Air 03/17/19 07:30 97.6 17 95 97.6 Physical Exam General: Alert, Oriented X3, Cooperative, mild distress Heart: Regular rate Lungs: Clear, Other Abdomen: Normal bowel sounds, Soft, Other (fullness and mild tender) Extremities: No clubbing, No cyanosis, Normal pulses, Other (1+ edema) Skin: No rashes, No significant lesion Labs LABS Laboratory Tests Test 03/16/19 17:40 03/16/19 18:38 03/16/19 22:48 03/17/19 03:10 Urine Color Yellow Urine Clarity Clear Urine pH 5.5 Urine Specific [place] 1.020 Urine Protein Negative mg/dL (NEG-TRACE) Urine Glucose (UA) >=1000 mg/dL (NEG) Urine Ketones (Stick) Negative mg/dL (NEG) Urine Blood Negative (NEG) Urine Nitrite Negative (NEG) Urine Bilirubin Negative (NEG) Urine Urobilinogen Dipstick 0.2 mg/dL (0.2 mg/dL) Urine Leukocyte Esterase Negative (NEG) Urine RBC 0 /HPF (0-2) Urine WBC Occ /HPF (0-4) Urine Squamous Epithelial Cells Occ /LPF Urine Bacteria 0 /HPF (0-FEW) Urine Mucus Mod /LPF White Blood Count 12.3 x10^3/uL (4.0-11.0) 9.6 x10^3/uL (4.0-11.0) Red Blood Count 4.99 x10^6/uL (3.50-5.40) 4.38 x10^6/uL (3.50-5.40) Hemoglobin 15.1 g/dL (12.0-15.5) 13.5 g/dL (12.0-15.5) Hematocrit 44.9 % (36.0-47.0) 39.1 % (36.0-47.0) Mean Corpuscular Volume 90 fL (79-100) 89 fL (79-100) Mean Corpuscular Hemoglobin 30 pg (25-35) 31 pg (25-35) Mean Corpuscular Hemoglobin Concent 34 g/dL (31-37) 35 g/dL (31-37) Red Cell Distribution Width 13.0 % (11.5-14.5) 13.0 % (11.5-14.5) Platelet Count 309 x10^3/uL (140-400) 274 x10^3/uL (140-400) Neutrophils (%) (Auto) 83 % (31-73) 69 % (31-73) Lymphocytes (%) (Auto) 12 % (24-48) 22 % (24-48) Monocytes (%) (Auto) 4 % (0-9) 8 % (0-9) Eosinophils (%) (Auto) 0 % (0-3) 1 % (0-3) Basophils (%) (Auto) 0 % (0-3) 0 % (0-3) Neutrophils # (Auto) 10.2 x10^3/uL (1.8-7.7) 6.6 x10^3/uL (1.8-7.7) Lymphocytes # (Auto) 1.5 x10^3/uL (1.0-4.8) 2.1 x10^3/uL (1.0-4.8) Monocytes # (Auto) 0.5 x10^3/uL (0.0-1.1) 0.8 x10^3/uL (0.0-1.1) Eosinophils # (Auto) 0.0 x10^3/uL (0.0-0.7) 0.1 x10^3/uL (0.0-0.7) Basophils # (Auto) 0.1 x10^3/uL (0.0-0.2) 0.0 x10^3/uL (0.0-0.2) Segmented Neutrophils % 86 % (35-66) Lymphocytes % 11 % (24-48) Monocytes % 3 % (0-10) Platelet Estimate Adequate (ADEQUATE) Polychromasia Slight Anisocytosis Slight Sodium Level 137 mmol/L (136-145) 146 mmol/L (136-145) Potassium Level 4.8 mmol/L (3.5-5.1) 3.8 mmol/L (3.5-5.1) Chloride Level 99 mmol/L (98-107) 108 mmol/L (98-107) Carbon Dioxide Level 25 mmol/L (21-32) 30 mmol/L (21-32) Anion Gap 13 (6-14) 8 (6-14) Blood Urea Nitrogen 32 mg/dL (7-20) 27 mg/dL (7-20) Creatinine 1.6 mg/dL (0.6-1.0) 1.3 mg/dL (0.6-1.0) Estimated GFR (Cockcroft-Gault) 30.9 39.3 BUN/Creatinine Ratio 20 (6-20) 21 (6-20) Glucose Level 411 mg/dL (70-99) 134 mg/dL (70-99) Calcium Level 9.8 mg/dL (8.5-10.1) 9.0 mg/dL (8.5-10.1) Total Bilirubin 0.6 mg/dL (0.2-1.0) 0.3 mg/dL (0.2-1.0) Aspartate Amino Transf (AST/SGOT) 16 U/L (15-37) 10 U/L (15-37) Alanine Aminotransferase (ALT/SGPT) 22 U/L (14-59) 15 U/L (14-59) Alkaline Phosphatase 110 U/L (46-116) 86 U/L (46-116) Troponin I Quantitative < 0.017 ng/mL (0.000-0.055) Total Protein 7.8 g/dL (6.4-8.2) 6.1 g/dL (6.4-8.2) Albumin 3.7 g/dL (3.4-5.0) 2.9 g/dL (3.4-5.0) Albumin/Globulin Ratio 0.9 (1.0-1.7) 0.9 (1.0-1.7) Lipase 91 U/L (73-393) Glucose (Fingerstick) 202 mg/dL (70-99) Thyroid Stimulating Hormone (TSH) 2.144 uIU/mL (0.358-3.74) Test 03/17/19 08:00 Glucose (Fingerstick) 170 mg/dL (70-99) Review of Systems Review of Systems dizzy, weak, all else 14 pt neg Assessment and Plan Assessmemt and Plan Problems Medical Problems: (1) Dizziness Status: Acute Comment Review of Relevant I have reviewed the following items chapito (where applicable) has been applied. Labs Laboratory Tests Test 03/16/19 17:40 03/16/19 18:38 03/16/19 22:48 03/17/19 03:10 Urine Color Yellow Urine Clarity Clear Urine pH 5.5 Urine Specific [place] 1.020 Urine Protein Negative mg/dL (NEG-TRACE) Urine Glucose (UA) >=1000 mg/dL (NEG) Urine Ketones (Stick) Negative mg/dL (NEG) Urine Blood Negative (NEG) Urine Nitrite Negative (NEG) Urine Bilirubin Negative (NEG) Urine Urobilinogen Dipstick 0.2 mg/dL (0.2 mg/dL) Urine Leukocyte Esterase Negative (NEG) Urine RBC 0 /HPF (0-2) Urine WBC Occ /HPF (0-4) Urine Squamous Epithelial Cells Occ /LPF Urine Bacteria 0 /HPF (0-FEW) Urine Mucus Mod /LPF White Blood Count 12.3 x10^3/uL (4.0-11.0) 9.6 x10^3/uL (4.0-11.0) Red Blood Count 4.99 x10^6/uL (3.50-5.40) 4.38 x10^6/uL (3.50-5.40) Hemoglobin 15.1 g/dL (12.0-15.5) 13.5 g/dL (12.0-15.5) Hematocrit 44.9 % (36.0-47.0) 39.1 % (36.0-47.0) Mean Corpuscular Volume 90 fL (79-100) 89 fL (79-100) Mean Corpuscular Hemoglobin 30 pg (25-35) 31 pg (25-35) Mean Corpuscular Hemoglobin Concent 34 g/dL (31-37) 35 g/dL (31-37) Red Cell Distribution Width 13.0 % (11.5-14.5) 13.0 % (11.5-14.5) Platelet Count 309 x10^3/uL (140-400) 274 x10^3/uL (140-400) Neutrophils (%) (Auto) 83 % (31-73) 69 % (31-73) Lymphocytes (%) (Auto) 12 % (24-48) 22 % (24-48) Monocytes (%) (Auto) 4 % (0-9) 8 % (0-9) Eosinophils (%) (Auto) 0 % (0-3) 1 % (0-3) Basophils (%) (Auto) 0 % (0-3) 0 % (0-3) Neutrophils # (Auto) 10.2 x10^3/uL (1.8-7.7) 6.6 x10^3/uL (1.8-7.7) Lymphocytes # (Auto) 1.5 x10^3/uL (1.0-4.8) 2.1 x10^3/uL (1.0-4.8) Monocytes # (Auto) 0.5 x10^3/uL (0.0-1.1) 0.8 x10^3/uL (0.0-1.1) Eosinophils # (Auto) 0.0 x10^3/uL (0.0-0.7) 0.1 x10^3/uL (0.0-0.7) Basophils # (Auto) 0.1 x10^3/uL (0.0-0.2) 0.0 x10^3/uL (0.0-0.2) Segmented Neutrophils % 86 % (35-66) Lymphocytes % 11 % (24-48) Monocytes % 3 % (0-10) Platelet Estimate Adequate (ADEQUATE) Polychromasia Slight Anisocytosis Slight Sodium Level 137 mmol/L (136-145) 146 mmol/L (136-145) Potassium Level 4.8 mmol/L (3.5-5.1) 3.8 mmol/L (3.5-5.1) Chloride Level 99 mmol/L (98-107) 108 mmol/L (98-107) Carbon Dioxide Level 25 mmol/L (21-32) 30 mmol/L (21-32) Anion Gap 13 (6-14) 8 (6-14) Blood Urea Nitrogen 32 mg/dL (7-20) 27 mg/dL (7-20) Creatinine 1.6 mg/dL (0.6-1.0) 1.3 mg/dL (0.6-1.0) Estimated GFR (Cockcroft-Gault) 30.9 39.3 BUN/Creatinine Ratio 20 (6-20) 21 (6-20) Glucose Level 411 mg/dL (70-99) 134 mg/dL (70-99) Calcium Level 9.8 mg/dL (8.5-10.1) 9.0 mg/dL (8.5-10.1) Total Bilirubin 0.6 mg/dL (0.2-1.0) 0.3 mg/dL (0.2-1.0) Aspartate Amino Transf (AST/SGOT) 16 U/L (15-37) 10 U/L (15-37) Alanine Aminotransferase (ALT/SGPT) 22 U/L (14-59) 15 U/L (14-59) Alkaline Phosphatase 110 U/L (46-116) 86 U/L (46-116) Troponin I Quantitative < 0.017 ng/mL (0.000-0.055) Total Protein 7.8 g/dL (6.4-8.2) 6.1 g/dL (6.4-8.2) Albumin 3.7 g/dL (3.4-5.0) 2.9 g/dL (3.4-5.0) Albumin/Globulin Ratio 0.9 (1.0-1.7) 0.9 (1.0-1.7) Lipase 91 U/L (73-393) Glucose (Fingerstick) 202 mg/dL (70-99) Thyroid Stimulating Hormone (TSH) 2.144 uIU/mL (0.358-3.74) Test 03/17/19 08:00 Glucose (Fingerstick) 170 mg/dL (70-99) Laboratory Tests Test 03/16/19 17:40 03/16/19 18:38 03/16/19 22:48 03/17/19 03:10 Urine Color Yellow Urine Clarity Clear Urine pH 5.5 Urine Specific [place] 1.020 Urine Protein Negative mg/dL (NEG-TRACE) Urine Glucose (UA) >=1000 mg/dL (NEG) Urine Ketones (Stick) Negative mg/dL (NEG) Urine Blood Negative (NEG) Urine Nitrite Negative (NEG) Urine Bilirubin Negative (NEG) Urine Urobilinogen Dipstick 0.2 mg/dL (0.2 mg/dL) Urine Leukocyte Esterase Negative (NEG) Urine RBC 0 /HPF (0-2) Urine WBC Occ /HPF (0-4) Urine Squamous Epithelial Cells Occ /LPF Urine Bacteria 0 /HPF (0-FEW) Urine Mucus Mod /LPF White Blood Count 12.3 x10^3/uL (4.0-11.0) 9.6 x10^3/uL (4.0-11.0) Red Blood Count 4.99 x10^6/uL (3.50-5.40) 4.38 x10^6/uL (3.50-5.40) Hemoglobin 15.1 g/dL (12.0-15.5) 13.5 g/dL (12.0-15.5) Hematocrit 44.9 % (36.0-47.0) 39.1 % (36.0-47.0) Mean Corpuscular Volume 90 fL (79-100) 89 fL (79-100) Mean Corpuscular Hemoglobin 30 pg (25-35) 31 pg (25-35) Mean Corpuscular Hemoglobin Concent 34 g/dL (31-37) 35 g/dL (31-37) Red Cell Distribution Width 13.0 % (11.5-14.5) 13.0 % (11.5-14.5) Platelet Count 309 x10^3/uL (140-400) 274 x10^3/uL (140-400) Neutrophils (%) (Auto) 83 % (31-73) 69 % (31-73) Lymphocytes (%) (Auto) 12 % (24-48) 22 % (24-48) Monocytes (%) (Auto) 4 % (0-9) 8 % (0-9) Eosinophils (%) (Auto) 0 % (0-3) 1 % (0-3) Basophils (%) (Auto) 0 % (0-3) 0 % (0-3) Neutrophils # (Auto) 10.2 x10^3/uL (1.8-7.7) 6.6 x10^3/uL (1.8-7.7) Lymphocytes # (Auto) 1.5 x10^3/uL (1.0-4.8) 2.1 x10^3/uL (1.0-4.8) Monocytes # (Auto) 0.5 x10^3/uL (0.0-1.1) 0.8 x10^3/uL (0.0-1.1) Eosinophils # (Auto) 0.0 x10^3/uL (0.0-0.7) 0.1 x10^3/uL (0.0-0.7) Basophils # (Auto) 0.1 x10^3/uL (0.0-0.2) 0.0 x10^3/uL (0.0-0.2) Segmented Neutrophils % 86 % (35-66) Lymphocytes % 11 % (24-48) Monocytes % 3 % (0-10) Platelet Estimate Adequate (ADEQUATE) Polychromasia Slight Anisocytosis Slight Sodium Level 137 mmol/L (136-145) 146 mmol/L (136-145) Potassium Level 4.8 mmol/L (3.5-5.1) 3.8 mmol/L (3.5-5.1) Chloride Level 99 mmol/L (98-107) 108 mmol/L (98-107) Carbon Dioxide Level 25 mmol/L (21-32) 30 mmol/L (21-32) Anion Gap 13 (6-14) 8 (6-14) Blood Urea Nitrogen 32 mg/dL (7-20) 27 mg/dL (7-20) Creatinine 1.6 mg/dL (0.6-1.0) 1.3 mg/dL (0.6-1.0) Estimated GFR (Cockcroft-Gault) 30.9 39.3 BUN/Creatinine Ratio 20 (6-20) 21 (6-20) Glucose Level 411 mg/dL (70-99) 134 mg/dL (70-99) Calcium Level 9.8 mg/dL (8.5-10.1) 9.0 mg/dL (8.5-10.1) Total Bilirubin 0.6 mg/dL (0.2-1.0) 0.3 mg/dL (0.2-1.0) Aspartate Amino Transf (AST/SGOT) 16 U/L (15-37) 10 U/L (15-37) Alanine Aminotransferase (ALT/SGPT) 22 U/L (14-59) 15 U/L (14-59) Alkaline Phosphatase 110 U/L (46-116) 86 U/L (46-116) Troponin I Quantitative < 0.017 ng/mL (0.000-0.055) Total Protein 7.8 g/dL (6.4-8.2) 6.1 g/dL (6.4-8.2) Albumin 3.7 g/dL (3.4-5.0) 2.9 g/dL (3.4-5.0) Albumin/Globulin Ratio 0.9 (1.0-1.7) 0.9 (1.0-1.7) Lipase 91 U/L (73-393) Glucose (Fingerstick) 202 mg/dL (70-99) Thyroid Stimulating Hormone (TSH) 2.144 uIU/mL (0.358-3.74) Test 03/17/19 08:00 Glucose (Fingerstick) 170 mg/dL (70-99) Medications Current Medications Famotidine (Pepcid Vial) 20 mg 1X ONCE IVP Last administered on 03/16/19at 18:43; Start 03/16/19 at 18:45; Stop 03/16/19 at 18:46; Status DC Sodium Chloride 500 ml @ 500 mls/hr 1X ONCE IV Last administered on 03/16/19at 18:43; Start 03/16/19 at 18:45; Stop 03/16/19 at 19:44; Status DC Meclizine HCl (Antivert) 25 mg 1X ONCE PO Last administered on 03/16/19at 19:23; Start 03/16/19 at 19:15; Stop 03/16/19 at 19:16; Status DC Ondansetron HCl (Zofran) 4 mg PRN Q8HRS PRN IV NAUSEA/VOMITING; Start 03/16/19 at 20:00; Stop 03/17/19 at 19:59 Insulin Human Regular (HumuLIN R VIAL) 10 unit 1X ONCE SQ Last administered on 03/16/19at 20:41; Start 03/16/19 at 20:15; Stop 03/16/19 at 20:16; Status DC Docusate Sodium (Colace) 100 mg DAILY PO Last administered on 03/17/19 08:37; Start 03/16/19 at 20:30 Docusate Sodium (Colace) 100 mg PRN DAILY PRN PO HARD STOOLS; Start 03/16/19 at 20:15 Polyethylene Glycol (miraLAX PACKET) 17 gm 1X ONCE PO Last administered on 03/16/19at 20:40; Start 03/16/19 at 20:30; Stop 03/16/19 at 20:31; Status DC Polyethylene Glycol (miraLAX PACKET) 17 gm PRN BID PRN PO CONSTIPATION; Start 03/16/19 at 20:15 Insulin Human Lispro (HumaLOG) 0-9 UNITS TIDWMEALS SQ Last administered on 03/17/19 08:44; Start 03/16/19 at 21:00 Dextrose (Dextrose 50%-Water Syringe) 12.5 gm PRN Q15MIN PRN IV SEE COMMENTS; Start 03/16/19 at 20:15 Amlodipine Besylate (Norvasc) 10 mg DAILY PO Last administered on 03/17/19 08:37; Start 03/16/19 at 21:00 Levothyroxine Sodium (Synthroid) 25 mcg DAILY06 PO Last administered on 03/17/19 05:41; Start 03/17/19 at 06:00 Insulin Glargine (Lantus Syringe) 10 unit BID SQ Last administered on 03/17/19 08:43; Start 03/16/19 at 21:00 Latanoprost (Xalatan) 1 drop QHS OU Last administered on 03/16/19at 23:01; Start 03/16/19 at 21:00 Insulin Human Lispro (HumaLOG) 7 units TIDWMEALS SQ Last administered on 03/17/19 08:44; Start 03/17/19 at 08:00 Magnesium Hydroxide (Milk Of Magnesia) 2,400 mg PRN DAILY PRN PO CONSTIPATION; Start 03/17/19 at 06:30 Labetalol HCl (Normodyne Iv Push) 10 mg PRN Q2HR PRN IVP HYPERTENSION; Start 03/17/19 at 09:30 Ibuprofen (Motrin) 600 mg PRN Q6HRS PRN PO INFLAMMATION; Start 03/17/19 at 09: 30 Acetaminophen (Tylenol) 500 mg PRN Q6HRS PRN PO MILD PAIN / TEMP; Start 03/17/19 at 09:30 Meclizine HCl (Antivert) 12.5 mg PRN Q6HRS PRN PO DIZZINESS; Start 03/17/19 at 09:30 Active Scripts Active Reported Nitrofurantoin [place]-Mcr 100 Mg (Nitrofurantoin Monohyd/M-Cryst) 100 Mg Capsule 100 Mg PO BID Lantus Solostar (Insulin Glargine,Hum.rec.anlog) 100 Unit/1 Ml Insuln.pen 10 Units SQ BID Amlodipine Besylate 5 Mg Tablet 2 Tab PO DAILY Novolog Flexpen (Insulin Aspart) 100 Unit/1 Ml Insuln.pen 6 Unit SQ Levothyroxine Sodium 25 Mcg Tablet 25 Mcg PO DAILY Travatan Z (Travoprost) 5 Ml Drops 5 Ml OP HS Vitals/I & O Vital Sign - Last 24 Hours 03/16/19 03/16/19 03/16/19 03/16/19 17:40 18:00 20:30 21:00 Temp 98.4 98.3 98.4 98.3 Pulse 72 68 60 58 Resp 18 17 18 B/P (MAP) 196/86 (122) 165/72 (103) 200/86 (124) 167/65 (99) Pulse Ox 98 97 97 98 O2 Delivery Room Air Room Air Room Air Room Air 03/16/19 03/16/19 03/16/19 03/17/19 22:00 23:03 23:19 03:32 Temp 98.7 98.0 98.7 98.0 Pulse 60 58 56 Resp 18 20 B/P (MAP) 200/86 162/60 (94) 136/57 (83) Pulse Ox 97 97 O2 Delivery Room Air Room Air Room Air 03/17/19 03/17/19 03/17/19 07:30 08:00 08:37 Temp 97.6 97.6 Pulse 55 55 Resp 17 B/P (MAP) 153/66 (95) 153/66 Pulse Ox 95 O2 Delivery Room Air Room Air Intake and Output 03/16/19 03/16/19 03/17/19 15:00 23:00 07:00 Intake Total 240 ml Balance 240 ml VIKI SHERIFF MD Mar 17, 2019 10:55
[2019-03-17 11:24] VITALS: BP 147/63
[2019-03-17] MEDS: POLYETHYLENE GLYCOL 3350 17 GM PACKET. PO PRN (13:02)
[2019-03-17 15:00] VITALS: BP 147/87
--- NOTE | 2019-03-17 16:45 | NUR ---
Gave report to Shahida BHATTI on . Transferred pt at [id number]
[2019-03-17 19:00] VITALS: BP 149/64
[2019-03-17] MEDS: LATANOPROST 0.005% OPHTH SOLUTION 2.5ML BOTTLE. OU SCH (21:00)
[2019-03-17 23:00] VITALS: BP 145/57
[2019-03-17 23:07] LABS: HEMOGLOBIN A1C 8.1 % (4.8-5.6)
[2019-03-18 03:00] VITALS: BP 147/51
[2019-03-18] MEDS: LEVOTHYROXINE 25 MCG TABLET. PO SCH (06:27)
[2019-03-18 07:00] VITALS: BP 150/60
[2019-03-18] MEDS: INSULIN LISPRO 300 UNITS/3 ML VIAL. SQ SCH ×6 (08:00→17:00)
[2019-03-18] MEDS: DOCUSATE SODIUM 100 MG CAPSULE. PO SCH (08:47)
[2019-03-18] MEDS: amLODIPine BESYLATE 10 MG TABLET PO SCH (08:55)
[2019-03-18] MEDS: INSULIN GLARGINE SYRINGE. SQ SCH ×2 (08:59→21:09)
[2019-03-18] MEDS: POLYETHYLENE GLYCOL 3350 17 GM PACKET. PO PRN (09:01)
--- NOTE | 2019-03-18 09:09 | PDOC ---
PROGRESS NOTES Chief Complaint Chief Complaint dizziness LEvaquin intolerance vs medrol dose pack intolerance constipation DM 2 Obesity Recnet MANAN and "kidney infection History of Present Illness History of Present Illness Still dizzy regardless of position, no tinnitus BP high 150s-170s - on norvasc 10 Recent levaquin and medrol dose pack - for pna and "kidney infection" by pcp But she ate her whole food tray CT head, CXR neg PT recs SNU,s he is agreeable PLAn: Consult neuro MRi brain, focus on posterior circ and cerebellum CLonidine pO now then prn MEclizine now then prn PT recs SNU - she is agreeable I renae Bowden, pt prefers riverbend Check esr and b12 Vitals Vitals Vital Signs Date Time Temp Pulse Resp B/P (MAP) Pulse Ox O2 Delivery O2 Flow Rate FiO2 03/18/19 08:55 60 150/60 03/18/19 07:00 97.8 17 97 Room Air 97.8 Physical Exam General: Alert, Oriented X3, Cooperative, mild distress Heart: Regular rate Lungs: Clear, Other Abdomen: Normal bowel sounds, Soft, Other (fullness and mild tender) Extremities: No clubbing, No cyanosis, Normal pulses, Other (1+ edema) Skin: No rashes, No significant lesion Labs LABS Laboratory Tests Test 03/17/19 12:09 03/17/19 16:57 Glucose (Fingerstick) 111 mg/dL (70-99) 236 mg/dL (70-99) Review of Systems Review of Systems dizzy, weak, crying bec of dizziness, no tinnitus, no fevers Assessment and Plan Assessmemt and Plan Problems Medical Problems: (1) Dizziness Status: Acute Comment Review of Relevant I have reviewed the following items chapito (where applicable) has been applied. Labs Laboratory Tests Test 03/16/19 17:40 03/16/19 18:38 03/16/19 22:48 03/17/19 03:10 Urine Color Yellow Urine Clarity Clear Urine pH 5.5 Urine Specific [place] 1.020 Urine Protein Negative mg/dL (NEG-TRACE) Urine Glucose (UA) >=1000 mg/dL (NEG) Urine Ketones (Stick) Negative mg/dL (NEG) Urine Blood Negative (NEG) Urine Nitrite Negative (NEG) Urine Bilirubin Negative (NEG) Urine Urobilinogen Dipstick 0.2 mg/dL (0.2 mg/dL) Urine Leukocyte Esterase Negative (NEG) Urine RBC 0 /HPF (0-2) Urine WBC Occ /HPF (0-4) Urine Squamous Epithelial Cells Occ /LPF Urine Bacteria 0 /HPF (0-FEW) Urine Mucus Mod /LPF White Blood Count 12.3 x10^3/uL (4.0-11.0) 9.6 x10^3/uL (4.0-11.0) Red Blood Count 4.99 x10^6/uL (3.50-5.40) 4.38 x10^6/uL (3.50-5.40) Hemoglobin 15.1 g/dL (12.0-15.5) 13.5 g/dL (12.0-15.5) Hematocrit 44.9 % (36.0-47.0) 39.1 % (36.0-47.0) Mean Corpuscular Volume 90 fL (79-100) 89 fL (79-100) Mean Corpuscular Hemoglobin 30 pg (25-35) 31 pg (25-35) Mean Corpuscular Hemoglobin Concent 34 g/dL (31-37) 35 g/dL (31-37) Red Cell Distribution Width 13.0 % (11.5-14.5) 13.0 % (11.5-14.5) Platelet Count 309 x10^3/uL (140-400) 274 x10^3/uL (140-400) Neutrophils (%) (Auto) 83 % (31-73) 69 % (31-73) Lymphocytes (%) (Auto) 12 % (24-48) 22 % (24-48) Monocytes (%) (Auto) 4 % (0-9) 8 % (0-9) Eosinophils (%) (Auto) 0 % (0-3) 1 % (0-3) Basophils (%) (Auto) 0 % (0-3) 0 % (0-3) Neutrophils # (Auto) 10.2 x10^3/uL (1.8-7.7) 6.6 x10^3/uL (1.8-7.7) Lymphocytes # (Auto) 1.5 x10^3/uL (1.0-4.8) 2.1 x10^3/uL (1.0-4.8) Monocytes # (Auto) 0.5 x10^3/uL (0.0-1.1) 0.8 x10^3/uL (0.0-1.1) Eosinophils # (Auto) 0.0 x10^3/uL (0.0-0.7) 0.1 x10^3/uL (0.0-0.7) Basophils # (Auto) 0.1 x10^3/uL (0.0-0.2) 0.0 x10^3/uL (0.0-0.2) Segmented Neutrophils % 86 % (35-66) Lymphocytes % 11 % (24-48) Monocytes % 3 % (0-10) Platelet Estimate Adequate (ADEQUATE) Polychromasia Slight Anisocytosis Slight Sodium Level 137 mmol/L (136-145) 146 mmol/L (136-145) Potassium Level 4.8 mmol/L (3.5-5.1) 3.8 mmol/L (3.5-5.1) Chloride Level 99 mmol/L (98-107) 108 mmol/L (98-107) Carbon Dioxide Level 25 mmol/L (21-32) 30 mmol/L (21-32) Anion Gap 13 (6-14) 8 (6-14) Blood Urea Nitrogen 32 mg/dL (7-20) 27 mg/dL (7-20) Creatinine 1.6 mg/dL (0.6-1.0) 1.3 mg/dL (0.6-1.0) Estimated GFR (Cockcroft-Gault) 30.9 39.3 BUN/Creatinine Ratio 20 (6-20) 21 (6-20) Glucose Level 411 mg/dL (70-99) 134 mg/dL (70-99) Calcium Level 9.8 mg/dL (8.5-10.1) 9.0 mg/dL (8.5-10.1) Total Bilirubin 0.6 mg/dL (0.2-1.0) 0.3 mg/dL (0.2-1.0) Aspartate Amino Transf (AST/SGOT) 16 U/L (15-37) 10 U/L (15-37) Alanine Aminotransferase (ALT/SGPT) 22 U/L (14-59) 15 U/L (14-59) Alkaline Phosphatase 110 U/L (46-116) 86 U/L (46-116) Troponin I Quantitative < 0.017 ng/mL (0.000-0.055) Total Protein 7.8 g/dL (6.4-8.2) 6.1 g/dL (6.4-8.2) Albumin 3.7 g/dL (3.4-5.0) 2.9 g/dL (3.4-5.0) Albumin/Globulin Ratio 0.9 (1.0-1.7) 0.9 (1.0-1.7) Lipase 91 U/L (73-393) Glucose (Fingerstick) 202 mg/dL (70-99) Hemoglobin A1c 8.1 % (4.8-5.6) Thyroid Stimulating Hormone (TSH) 2.144 uIU/mL (0.358-3.74) Test 03/17/19 08:00 03/17/19 12:09 03/17/19 16:57 Glucose (Fingerstick) 170 mg/dL (70-99) 111 mg/dL (70-99) 236 mg/dL (70-99) Laboratory Tests Test 03/17/19 12:09 03/17/19 16:57 Glucose (Fingerstick) 111 mg/dL (70-99) 236 mg/dL (70-99) Medications Current Medications Famotidine (Pepcid Vial) 20 mg 1X ONCE IVP Last administered on 03/16/19at 18:43; Start 03/16/19 at 18:45; Stop 03/16/19 at 18:46; Status DC Sodium Chloride 500 ml @ 500 mls/hr 1X ONCE IV Last administered on 03/16/19at 18:43; Start 03/16/19 at 18:45; Stop 03/16/19 at 19:44; Status DC Meclizine HCl (Antivert) 25 mg 1X ONCE PO Last administered on 03/16/19at 19:23; Start 03/16/19 at 19:15; Stop 03/16/19 at 19:16; Status DC Ondansetron HCl (Zofran) 4 mg PRN Q8HRS PRN IV NAUSEA/VOMITING; Start 03/16/19 at 20:00; Stop 03/17/19 at 19:59; Status DC Insulin Human Regular (HumuLIN R VIAL) 10 unit 1X ONCE SQ Last administered on 03/16/19 20:41; Start 03/16/19 at 20:15; Stop 03/16/19 at 20:16; Status DC Docusate Sodium (Colace) 100 mg DAILY PO Last administered on 03/18/19 08:47; Start 03/16/19 at 20:30 Docusate Sodium (Colace) 100 mg PRN DAILY PRN PO HARD STOOLS; Start 03/16/19 at 20:15 Polyethylene Glycol (miraLAX PACKET) 17 gm 1X ONCE PO Last administered on 03/16/19at 20:40; Start 03/16/19 at 20:30; Stop 03/16/19 at 20:31; Status DC Polyethylene Glycol (miraLAX PACKET) 17 gm PRN BID PRN PO CONSTIPATION, 1ST CHOICE Last administered on 03/18/19 09:01; Start 03/16/19 at 20:15 Insulin Human Lispro (HumaLOG) 0-9 UNITS TIDWMEALS SQ Last administered on 17:51; Start 03/16/19 at 21:00 Dextrose (Dextrose 50%-Water Syringe) 12.5 gm PRN Q15MIN PRN IV SEE COMMENTS; Start 03/16/19 at 20:15 Amlodipine Besylate (Norvasc) 10 mg DAILY PO Last administered on 03/18/19 08:55; Start 03/16/19 at 21:00 Levothyroxine Sodium (Synthroid) 25 mcg DAILY06 PO Last administered on 03/18/19 06:27; Start 03/17/19 at 06:00 Insulin Glargine (Lantus Syringe) 10 unit BID SQ Last administered on 03/18/19 08:59; Start 03/16/19 at 21:00 Latanoprost (Xalatan) 1 drop QHS OU Last administered on 03/16/19 23:01; Start 03/16/19 at 21:00 Insulin Human Lispro (HumaLOG) 7 units TIDWMEALS SQ Last administered on 03/17/19 17:53; Start 03/17/19 at 08:00 Magnesium Hydroxide (Milk Of Magnesia) 2,400 mg PRN DAILY PRN PO CONSTIPATION, 2ND CHOICE; Start 03/17/19 at 06:30 Labetalol HCl (Normodyne Iv Push) 10 mg PRN Q2HR PRN IVP HYPERTENSION; Start 03/17/19 at 09:30 Ibuprofen (Motrin) 600 mg PRN Q6HRS PRN PO INFLAMMATION Last administered on 03/18/19at 08:55; Start 03/17/19 at 09:30 Acetaminophen (Tylenol) 500 mg PRN Q6HRS PRN PO MILD PAIN / TEMP; Start 03/17/19 at 09:30 Meclizine HCl (Antivert) 12.5 mg PRN Q6HRS PRN PO DIZZINESS Last administered on 03/17/19at 11:05; Start 03/17/19 at 09:30 Active Scripts Active Reported Nitrofurantoin K[place]haw-Mcr 100 Mg (Nitrofurantoin Monohyd/M-Cryst) 100 Mg Capsule 100 Mg PO BID Lantus Solostar (Insulin Glargine,Hum.rec.anlog) 100 Unit/1 Ml Insuln.pen 10 Units SQ BID Amlodipine Besylate 5 Mg Tablet 2 Tab PO DAILY Novolog Flexpen (Insulin Aspart) 100 Unit/1 Ml Insuln.pen 6 Unit SQ Levothyroxine Sodium 25 Mcg Tablet 25 Mcg PO DAILY Travatan Z (Travoprost) 5 Ml Drops 5 Ml OP HS Vitals/I & O Vital Sign - Last 24 Hours 03/17/19 03/17/19 03/17/19 03/17/19 11:24 15:00 19:00 20:00 Temp 97.9 97.8 98.7 97.9 97.8 98.7 Pulse 68 55 67 Resp 17 18 18 B/P (MAP) 147/63 (91) 147/87 (107) 149/64 (92) Pulse Ox 95 98 98 O2 Delivery Room Air Room Air Room Air Room Air 03/17/19 03/18/19 03/18/19 03/18/19 23:00 03:00 07:00 08:55 Temp 99.1 98.7 97.8 99.1 98.7 97.8 Pulse 64 63 60 60 Resp 18 18 17 B/P (MAP) 145/57 (86) 147/51 (83) 150/60 (90) 150/60 Pulse Ox 96 95 97 O2 Delivery Room Air Room Air Room Air Intake and Output 03/17/19 03/17/1919 15:00 23:00 07:00 Intake Total 300 ml 520 ml 500 ml Output Total 800 ml Balance 300 ml 520 ml -300 ml VIKI SHERIFF MD Mar 18, 2019 09:09
[2019-03-18] MEDS ORDERED: cloNIDine HCL 0.1 MG TABLET PO ONE (09:15)
[2019-03-18] MEDS ORDERED: cloNIDine HCL 0.1 MG TABLET PO PRN (09:15)
[2019-03-18] MEDS ORDERED: MECLIZINE HCL 12.5 MG TABLET. PO ONE (09:15)
--- NOTE | 2019-03-18 10:01 | NUR ---
SW consulted for SNU eval. Chart reviewed and discussed with Physician. Pt lives at home and has PMHx of DM2 and is admitted for dizziness. PT/OT recommends SNU. Spoke with pt at bedside pt only wants to go to [facility] stating she owes [facility] money and she was not aware of it until she left. SW extensively discussed Medicare coverage for SNU as pt does not have supplemental insurance if she stays more than 20 days she will have 20% copay. Pt verbalized understanding and would like to [facility]. Pt states she will get supplemental insurance starting April 2019. Plan 1. [facility] phoned and faxed referral to [facility]. Acceptance pending. 2. Pt will need one more day before dc to SNU. 3. [facility] will continue to follow.
[2019-03-18 10:40] VITALS: BP 142/64
--- NOTE | 2019-03-18 13:57 | PDOC2 ---
NEUROLOGY CONSULT Date of Admission Date of Admission DATE: 03/18/19 TIME: 13:41 Reason for Consult Reason for Consult: IMPRESSION: Dizziness x 2 days. Vertigo. Hyperglycemia, glucose level 411. DM. HTN. Right renal cancer, s/p nephrectomy. UTI. Hypothyroidism. RECOMMENDATIONS/PLAN: MRI brain w/o contrast. Lab: see orders. Meclizine 12.5 mg - 25 mg tid. ASA daily. Treat medical diseases. OT/PT. History of Present Illness This is an 79 -year-old female patient with above medical diseases developed sym ptoms of dizziness about 2 days ago, but her symptoms persistent, and she also had GI symptoms of nausea to come to the [place] [facility] [place]. She stated she never had symptoms like these before and she was not able to maintain balance nor walk normally as before. She felt like the room and herself all spinning. Past Medical History Cardiovascular: HTN Renal/: Chronic renal insuff Endocrine: Diabetes Past Surgical History No major surgery recently. Family History Coronary Artery Disease, Hypertension Allergies Coded Allergies: erythromycin base (Verified Allergy, Intermediate, 03/04/18) Iodinated Contrast Media (Verified Adverse Reaction, Intermediate, DUE TO ONLY HAVING 1 KIDNEY, 03/04/18) PT STATED THAT ED PHYSICIAN CONSULTED WITH CLOTH SHRINKING TESTER AND STATED THAT SINCE SHE HAS ONLY 1 KIDNEY AND HER LABS COME BACK CONSISTANTLY ELEVATED, WE ARE TO NOT GIVE IV CONTRAST diazepam (Verified Adverse Reaction, Intermediate, Palpitations, 03/04/18) oxytetracycline (Verified Adverse Reaction, Intermediate, Palpitations, 03/04/18) oxytetracycline HCl (Verified Adverse Reaction, Intermediate, Palpitations, 03/04/18) hydromorphone (Verified Adverse Reaction, Mild, Nausea and Vomiting, 03/04/18) Social History Smoke: Quit ALCOHOL: rare Drugs: None MEDICATIONS: Refer to MAR REVIEW OF SYSTEMS: Constitutional: No malnutrition, weight loss, cachexia. Head: No traumatic brain or head injury. Skin: No edema, or rash. Ear: No infection. Eyes: No vision loss or color blindness. Nose: No bleeding or purulent discharges. Hearing: No hearing decrease. Neck: No injury. Breast: No history of cancer, masses,or discharges. Cardiac: HTN. Pulmonary: No pneumonia, COPD. GI: No GI ulcer, GI bleeding. Urinary/genital: UTI. Endocrinologic: Diabetes Mellitus. Skeletomuscular: No muscular atrophy, Neurological: see HP. Psychiatric: Denies drug use/abuse. Otherwise, not [id number] review of systems. PHYSICAL EXAMINATION: General appearance is in subacute distress. HEENT: Normocephalic and nontraumatic. Eyes, nose, ears, and throat are unremarkable. Neck is supple. No lymphadenopathy. No crepitus. Cardiovascular: S1, S2, regular rate and rhythm. Pulmonary: Clear to auscultation bilaterally. Abdomen: Bowel sounds are positive. Abdomen is soft, nontender, and nondistended. Extremities: No rash, lesions, or edema. No restriction of range of motion NEUROLOGICAL EXAMINATION: Alert Oriented to time, place and person. PERRL. EOMI. Horizontal nystagmus noted. CN: no focal findings. Muscle tone: within normal. Muscle strength: 5 DTR: 2 Plantar reflex: Flexor response bilaterally Gait: not examined in bed. Sensory exam: no abnormal findings. No cerebellar signs elicited. F-T-N test fine. Current Medications Current Medications Current Medications Famotidine (Pepcid Vial) 20 mg 1X ONCE IVP Last administered on 03/16/19at 18:43; Start 03/16/19 at 18:45; Stop 03/16/19 at 18:46; Status DC Sodium Chloride 500 ml @ 500 mls/hr 1X ONCE IV Last administered on 03/16/19at 18:43; Start 03/16/19 at 18:45; Stop 03/16/19 at 19:44; Status DC Meclizine HCl (Antivert) 25 mg 1X ONCE PO Last administered on 03/16/19at 19:23; Start 03/16/19 at 19:15; Stop 03/16/19 at 19:16; Status DC Ondansetron HCl (Zofran) 4 mg PRN Q8HRS PRN IV NAUSEA/VOMITING; Start 03/16/19 at 20:00; Stop 03/17/19 at 19:59; Status DC Insulin Human Regular (HumuLIN R VIAL) 10 unit 1X ONCE SQ Last administered on 03/16/19at 20:41; Start 03/16/19 at 20:15; Stop 03/16/19 at 20:16; Status DC Docusate Sodium (Colace) 100 mg DAILY PO Last administered on 03/18/19at 08:47; Start 03/16/19 at 20:30 Docusate Sodium (Colace) 100 mg PRN DAILY PRN PO HARD STOOLS; Start 03/16/19 at 20:15 Polyethylene Glycol (miraLAX PACKET) 17 gm 1X ONCE PO Last administered on 03/16/19at 20:40; Start 03/16/19 at 20:30; Stop 03/16/19 at 20:31; Status DC Polyethylene Glycol (miraLAX PACKET) 17 gm PRN BID PRN PO CONSTIPATION, 1ST CHOICE Last administered on 03/18/19 09:01; Start 03/16/19 at 20:15 Insulin Human Lispro (HumaLOG) 0-9 UNITS TIDWMEALS SQ Last administered on 03/18/19 12:08; Start 03/16/19 at 21:00 Dextrose (Dextrose 50%-Water Syringe) 12.5 gm PRN Q15MIN PRN IV SEE COMMENTS; Start 03/16/19 at 20:15 Amlodipine Besylate (Norvasc) 10 mg DAILY PO Last administered on 03/18/19 08:55; Start 03/16/19 at 21:00 Levothyroxine Sodium (Synthroid) 25 mcg DAILY06 PO Last administered on 03/18/19 06:27; Start 03/17/19 at 06:00 Insulin Glargine (Lantus Syringe) 10 unit BID SQ Last administered on 03/18/19 08:59; Start 03/16/19 at 21:00 Latanoprost (Xalatan) 1 drop QHS OU Last administered on 03/16/19at 23:01; Start 03/16/19 at 21:00 Insulin Human Lispro (HumaLOG) 7 units TIDWMEALS SQ Last administered on 03/18/19 12:11; Start 03/17/19 at 08:00 Magnesium Hydroxide (Milk Of Magnesia) 2,400 mg PRN DAILY PRN PO CONSTIPATION, 2ND CHOICE; Start 03/17/19 at 06:30 Labetalol HCl (Normodyne Iv Push) 10 mg PRN Q2HR PRN IVP HYPERTENSION; Start 03/17/19 at 09:30 Ibuprofen (Motrin) 600 mg PRN Q6HRS PRN PO INFLAMMATION Last administered on 03/18/19 08:55; Start 03/17/19 at 09:30 Acetaminophen (Tylenol) 500 mg PRN Q6HRS PRN PO MILD PAIN / TEMP; Start 03/17/19 at 09:30 Meclizine HCl (Antivert) 12.5 mg PRN Q6HRS PRN PO DIZZINESS Last administered on 03/17/19at 11:05; Start 03/17/19 at 09:30 Meclizine HCl (Antivert) 25 mg 1X ONCE PO Last administered on 03/18/19at 12:02; Start 03/18/19 at 09:15; Stop 03/18/19 at 09:16; Status DC Clonidine HCl (Catapres) 0.1 mg PRN Q1HR PRN PO HYPERTENSION; Start 03/18/19 at 09:15 Clonidine HCl (Catapres) 0.1 mg 1X ONCE PO Last administered on 03/18/19at 12:02; Start 03/18/19 at 09:15; Stop 03/18/19 at 09:16; Status DC Active Scripts Active Reported Nitrofurantoin Kerr-Mcr 100 Mg (Nitrofurantoin Monohyd/M-Cryst) 100 Mg Capsule 100 Mg PO BID Lantus Solostar (Insulin Glargine,Hum.rec.anlog) 100 Unit/1 Ml Insuln.pen 10 Units SQ BID Amlodipine Besylate 5 Mg Tablet 2 Tab PO DAILY Novolog Flexpen (Insulin Aspart) 100 Unit/1 Ml Insuln.pen 6 Unit SQ Levothyroxine Sodium 25 Mcg Tablet 25 Mcg PO DAILY Travatan Z (Travoprost) 5 Ml Drops 5 Ml OP HS Allergies Allergies: Allergies Coded Allergies Type Severity Reaction Last Updated Verified erythromycin base Allergy Intermediate 03/04/18 Yes levofloxacin Allergy Unknown 03/17/19 Yes Iodinated Contrast Media Adverse Reaction Intermediate DUE TO ONLY HAVING 1 KIDNEY 03/04/18 Yes diazepam Adverse Reaction Intermediate Palpitations 03/04/18 Yes oxytetracycline Adverse Reaction Intermediate Palpitations 03/04/18 Yes oxytetracycline HCl Adverse Reaction Intermediate Palpitations 03/04/18 Yes hydromorphone Adverse Reaction Mild Nausea and Vomiting 03/04/18 Yes ROS Review of System The patient denies any associated fevers, chills, headache, ear pain, rhinorrhea, sore throat, stiff neck, productive cough, chest pain, shortness of breath, back or flank pain, abdominal pain, nausea, vomiting, diarrhea, constipation, dysuria, rash, numbness, weakness, tingling, incontinence, difficulty ambulating, or diaphoresis. Physical Exam Physical Exam General: Well developed, well nourished, no acute distress, well appearing HEENT: Pupils equally round and reactive to light, EOMI, no discharge, normal conjunctiva Neck: Supple, no nuchal rigidity, no JVD, trachea midline, no tenderness Cardiac: RRR, no murmurs, no gallops, no rubs Chest/Lungs: CTAB, no wheeze, no rhonchi, no crackles Abdomen: soft, non-distended, no guarding, no peritoneal signs, non-tender Back: No tenderness Extremities: no edema, pulses intact, non-tender,capillary refill <3 sec bilateral upper and lower extremities, Neuro: Alert and oriented x 4, no focal deficits, normal speech Vitals Vitals: Vital Signs Date Time Temp Pulse Resp B/P (MAP) Pulse Ox O2 Delivery O2 Flow Rate FiO2 03/18/19 12:02 77 138/70 03/18/19 10:40 97.8 17 98 Room Air 97.8 Labs Labs Laboratory Tests Test 03/16/19 17:40 03/16/19 18:38 03/16/19 22:48 03/17/19 03:10 Urine Color Yellow Urine Clarity Clear Urine pH 5.5 Urine Specific [place] 1.020 Urine Protein Negative mg/dL (NEG-TRACE) Urine Glucose (UA) >=1000 mg/dL (NEG) Urine Ketones (Stick) Negative mg/dL (NEG) Urine Blood Negative (NEG) Urine Nitrite Negative (NEG) Urine Bilirubin Negative (NEG) Urine Urobilinogen Dipstick 0.2 mg/dL (0.2 mg/dL) Urine Leukocyte Esterase Negative (NEG) Urine RBC 0 /HPF (0-2) Urine WBC Occ /HPF (0-4) Urine Squamous Epithelial Cells Occ /LPF Urine Bacteria 0 /HPF (0-FEW) Urine Mucus Mod /LPF White Blood Count 12.3 x10^3/uL (4.0-11.0) 9.6 x10^3/uL (4.0-11.0) Red Blood Count 4.99 x10^6/uL (3.50-5.40) 4.38 x10^6/uL (3.50-5.40) Hemoglobin 15.1 g/dL (12.0-15.5) 13.5 g/dL (12.0-15.5) Hematocrit 44.9 % (36.0-47.0) 39.1 % (36.0-47.0) Mean Corpuscular Volume 90 fL (79-100) 89 fL (79-100) Mean Corpuscular Hemoglobin 30 pg (25-35) 31 pg (25-35) Mean Corpuscular Hemoglobin Concent 34 g/dL (31-37) 35 g/dL (31-37) Red Cell Distribution Width 13.0 % (11.5-14.5) 13.0 % (11.5-14.5) Platelet Count 309 x10^3/uL (140-400) 274 x10^3/uL (140-400) Neutrophils (%) (Auto) 83 % (31-73) 69 % (31-73) Lymphocytes (%) (Auto) 12 % (24-48) 22 % (24-48) Monocytes (%) (Auto) 4 % (0-9) 8 % (0-9) Eosinophils (%) (Auto) 0 % (0-3) 1 % (0-3) Basophils (%) (Auto) 0 % (0-3) 0 % (0-3) Neutrophils # (Auto) 10.2 x10^3/uL (1.8-7.7) 6.6 x10^3/uL (1.8-7.7) Lymphocytes # (Auto) 1.5 x10^3/uL (1.0-4.8) 2.1 x10^3/uL (1.0-4.8) Monocytes # (Auto) 0.5 x10^3/uL (0.0-1.1) 0.8 x10^3/uL (0.0-1.1) Eosinophils # (Auto) 0.0 x10^3/uL (0.0-0.7) 0.1 x10^3/uL (0.0-0.7) Basophils # (Auto) 0.1 x10^3/uL (0.0-0.2) 0.0 x10^3/uL (0.0-0.2) Segmented Neutrophils % 86 % (35-66) Lymphocytes % 11 % (24-48) Monocytes % 3 % (0-10) Platelet Estimate Adequate (ADEQUATE) Polychromasia Slight Anisocytosis Slight Sodium Level 137 mmol/L (136-145) 146 mmol/L (136-145) Potassium Level 4.8 mmol/L (3.5-5.1) 3.8 mmol/L (3.5-5.1) Chloride Level 99 mmol/L (98-107) 108 mmol/L (98-107) Carbon Dioxide Level 25 mmol/L (21-32) 30 mmol/L (21-32) Anion Gap 13 (6-14) 8 (6-14) Blood Urea Nitrogen 32 mg/dL (7-20) 27 mg/dL (7-20) Creatinine 1.6 mg/dL (0.6-1.0) 1.3 mg/dL (0.6-1.0) Estimated GFR (Cockcroft-Gault) 30.9 39.3 BUN/Creatinine Ratio 20 (6-20) 21 (6-20) Glucose Level 411 mg/dL (70-99) 134 mg/dL (70-99) Calcium Level 9.8 mg/dL (8.5-10.1) 9.0 mg/dL (8.5-10.1) Total Bilirubin 0.6 mg/dL (0.2-1.0) 0.3 mg/dL (0.2-1.0) Aspartate Amino Transf (AST/SGOT) 16 U/L (15-37) 10 U/L (15-37) Alanine Aminotransferase (ALT/SGPT) 22 U/L (14-59) 15 U/L (14-59) Alkaline Phosphatase 110 U/L (46-116) 86 U/L (46-116) Troponin I Quantitative < 0.017 ng/mL (0.000-0.055) Total Protein 7.8 g/dL (6.4-8.2) 6.1 g/dL (6.4-8.2) Albumin 3.7 g/dL (3.4-5.0) 2.9 g/dL (3.4-5.0) Albumin/Globulin Ratio 0.9 (1.0-1.7) 0.9 (1.0-1.7) Lipase 91 U/L (73-393) Glucose (Fingerstick) 202 mg/dL (70-99) Hemoglobin A1c 8.1 % (4.8-5.6) Thyroid Stimulating Hormone (TSH) 2.144 uIU/mL (0.358-3.74) Test 03/17/19 08:00 03/17/19 12:09 03/17/19 16:57 03/18/19 10:05 Glucose (Fingerstick) 170 mg/dL (70-99) 111 mg/dL (70-99) 236 mg/dL (70-99) Erythrocyte Sedimentation Rate 13 (0-25) Vitamin B12 Level 375 pg/mL (702-911) Test 03/18/19 11:29 Glucose (Fingerstick) 359 mg/dL (70-99) Laboratory Tests Test 03/17/19 16:57 03/18/19 10:05 03/18/19 11:29 Glucose (Fingerstick) 236 mg/dL (70-99) 359 mg/dL (70-99) Erythrocyte Sedimentation Rate 13 (0-25) Vitamin B12 Level 375 pg/mL (150-911) HUMPHREY FERRELL MD Mar 18, 2019 13:57
--- NOTE | 2019-03-18 13:59 | NUR ---
SW following pt. Pt has been accepted at [facility] and facility will have a bed available upon dc. SW will continue to follow.
[2019-03-18 15:00] VITALS: BP 138/64
--- NOTE | 2019-03-18 15:21 | RAD ---
BRAIN W/O CONTRAST Date: 03/18/2019 9:05 AM Indication: Persistent dizziness Comparison: CT head 03/16/2019. Technique: Multiplanar multisequence MRI of the brain was performed without intravenous contrast using the standard protocol. Findings: No acute infarct. No acute hemorrhage. Few tiny foci of gradient susceptibility artifact in the bilateral thalami and right cerebellum, likely chronic hypertensive microhemorrhage. The ventricles are normal in size and configuration without hydrocephalus. Moderate scattered FLAIR hyperintensities in the subcortical and periventricular deep white matter as well as the dejuan, a nonspecific finding, most commonly seen with chronic small vessel ischemic disease. Moderate generalized cerebral and cerebellar volume loss. Chronic thalamic, basal ganglia, and periventricular white matter lacunar infarcts. The scalp and calvarium are normal. The pituitary and sella are normal. No Chiari malformation. Mild incompletely characterized degenerative spondylosis of the visualized upper cervical spine. The visualized orbits and globes are normal. Right maxillary sinus mucus retention cyst. Trace left mastoid fluid. Normal flow voids within the vertebral, basilar, and internal carotid arteries indicating patency. IMPRESSION: 1. No acute infarct, acute hemorrhage, mass, or hydrocephalus. 2. Chronic lacunar infarcts and hypertensive microhemorrhages as above. 3. Moderate chronic small vessel ischemic disease and generalized cerebral volume loss. Electronically signed by: Claudio Tran MD (03/18/2019 3:18 PM) [id number]
[2019-03-18] MEDS: ASPIRIN CHEWABLE 81 MG TABLET. PO SCH (18:09)
[2019-03-18 19:00] VITALS: BP 126/60
[2019-03-18] MEDS: LATANOPROST 0.005% OPHTH SOLUTION 2.5ML BOTTLE. OU SCH (21:03)
[2019-03-18 23:00] VITALS: BP 141/63
[2019-03-19 03:00] VITALS: BP 151/61
[2019-03-19] MEDS: LEVOTHYROXINE 25 MCG TABLET. PO SCH (06:06)
[2019-03-19 07:00] VITALS: BP 151/57
[2019-03-19] MEDS ORDERED: ASPI-630 PO (07:43)
[2019-03-19] MEDS ORDERED: MECL12.52 PO (07:43)
[2019-03-19] MEDS ORDERED: IBUP-1670 PO (07:43)
--- NOTE | 2019-03-19 07:44 | SNU/HH DC ---
DISCHARGE ORDERS DISCHARGE INFORMATION: DISCHARGE DATE: Mar 19, 2019 FINAL DIAGNOSIS Problems Medical Problems: (1) Dizziness Status: Acute CONDITION ON DISCHARGE: Stable CODE STATUS: Code Status: Full [facility]: SNF STAY <30 DAYS: Yes HOSPICE: HOSPICE: No HOSPICE EVAL & TREAT: No LTAC: ADMIT TO LTAC: No POST DISCHARGE ORDERS: ACTIVITY ORDERS: Activity as tolerated DIET AFTER DISCHARGE: Regular CHECKS AFTER DISCHARGE: CHECKS AFTER DISCHARGE: Check blood press - daily, Check blood sugar, ac/hs FOLLOW-UP: PHYSICIAN FOLLOW-UP: BP may run high, LABILE DM, can be all over the place fyi, pcp ff up on dc TREATMENT/EQUIPMENT ORDERS: ADAPTIVE EQUIPMENT NEEDED: Front wheeled walker Physical Therapy For: Evalulation/Treatment Occupational Therapy For: Evaluation/Treatment DISCHARGE MEDICATIONS: Home Meds Active Scripts Meclizine Hcl (MECLIZINE HCL) 12.5 Mg Tablet, 12.5 MG PO PRN Q6HRS PRN for DIZZINESS, #30 TAB Prov:VIKI SHERIFF MD 03/19/19 Ibuprofen (Ibuprofen) 200 Mg Tablet, 600 MG PO PRN Q6HRS PRN for INFLAMMATION, #30 TAB Prov:VIKI SHERIFF MD 03/19/19 Aspirin (ASPIRIN) 81 Mg Tab.chew, 81 MG PO DAILYWBKFT for prevention, primary for 60 Days, #60 TAB.CHEW Prov:VIKI SHERIFF MD 03/19/19 Reported Medications Insulin Glargine,Hum.rec.anlog (LANTUS SOLOSTAR) 100 Unit/1 Ml Insuln.pen, 10 UNITS SQ BID 02/06/17 Amlodipine Besylate (AMLODIPINE BESYLATE) 5 Mg Tablet, 2 TAB PO DAILY 02/06/17 Insulin Aspart (NOVOLOG FLEXPEN) 100 Unit/1 Ml Insuln.pen, 6 UNIT SQ 05/18/13 Levothyroxine Sodium (LEVOTHYROXINE SODIUM) 25 Mcg Tablet, 25 MCG PO DAILY 05/18/13 Travoprost (TRAVATAN Z) 5 Ml Drops, 5 ML OP HS 05/18/13 Discontinued Reported Medications Nitrofurantoin Monohyd/M-Cryst (NITROFURANTOIN MONO-MCR 100 MG) 100 Mg Capsule, 100 MG PO BID 06/14/17 VIKI SHERIFF MD Mar 19, 2019 07:44
[2019-03-19] MEDS: INSULIN LISPRO 300 UNITS/3 ML VIAL. SQ SCH ×4 (08:00→13:08)
[2019-03-19] MEDS: DOCUSATE SODIUM 100 MG CAPSULE. PO SCH (09:18)
[2019-03-19] MEDS: ASPIRIN CHEWABLE 81 MG TABLET. PO SCH (09:18)
[2019-03-19] MEDS: amLODIPine BESYLATE 10 MG TABLET PO SCH (09:18)
[2019-03-19] MEDS: INSULIN GLARGINE SYRINGE. SQ SCH (09:26)
--- NOTE | 2019-03-19 10:57 | PDOC3 ---
Discharge Summary Visit Information Date of Admission: Mar 16, 2019 Date of Discharge: Mar 19, 2019 Admitting Diagnosis Comment: Dizziness , vertigo LEvaquin intolerance vs medrol dose pack intolerance constipation DM 2 Obesity Recnet PNA and "kidney infection Final Diagnosis Problems Medical Problems: (1) Dizziness Status: Acute Brief Hospital Course Allergies Allergies Coded Allergies Type Severity Reaction Last Updated Verified erythromycin base Allergy Intermediate 03/04/18 Yes levofloxacin Allergy Intermediate 03/19/19 Yes Iodinated Contrast Media Adverse Reaction Intermediate DUE TO ONLY HAVING 1 KIDNEY 03/04/18 Yes diazepam Adverse Reaction Intermediate Palpitations 03/04/18 Yes oxytetracycline Adverse Reaction Intermediate Palpitations 03/04/18 Yes oxytetracycline HCl Adverse Reaction Intermediate Palpitations 03/04/18 Yes hydromorphone Adverse Reaction Mild Nausea and Vomiting 03/04/18 Yes Vital Signs Vital Signs Date Time Temp Pulse Resp B/P (MAP) Pulse Ox O2 Delivery O2 Flow Rate FiO2 03/19/19 09:18 62 151/57 03/19/19 08:00 Room Air 03/19/19 07:00 98.1 16 96 98.1 Lab Results Laboratory Tests Test 03/17/19 12:09 03/17/19 16:57 03/18/19 10:05 03/18/19 11:29 Glucose (Fingerstick) 111 mg/dL (70-99) 236 mg/dL (70-99) 359 mg/dL (70-99) Erythrocyte Sedimentation Rate 13 (0-25) Vitamin B12 Level 375 pg/mL (247-911) Test 03/18/19 16:58 03/18/19 20:50 03/19/19 07:51 Glucose (Fingerstick) 76 mg/dL (70-99) 168 mg/dL (70-99) 179 mg/dL (70-99) Laboratory Tests Test 03/18/19 11:29 03/18/19 16:58 03/18/19 20:50 03/19/19 07:51 Glucose (Fingerstick) 359 mg/dL (70-99) 76 mg/dL (70-99) 168 mg/dL (70-99) 179 mg/dL (70-99) Brief Hospital Course Ms. Zurita is a 79 old white female who came from home and came in with severe dizziness that she was crying, some vertiginous component but no nystgamus, Neuro central work up is neg and PE WNL> VEry weak and was agreeable to SNU, She lizzie blames it from levaquin given to her for recent "kidney infection" or a medrol dose pack given to her for recent PNA. ANyways, she is feeling better, telling stories now (MRI brain neg), SNU today FULL CODE COnsults: neuro time < 30 mins Discharge Information Condition at Discharge: Improved, Stable Disposition/Orders: Other (snu) Scheduled Amlodipine Besylate (Amlodipine Besylate) 5 Mg Tablet, 2 TAB PO DAILY, (Reported) Entered as Reported by: Ginna Andrade on 02/06/172025 Last Taken: Unknown Dose on 03/16/19 Last Action: Last Taken Edited on 03/16/192340 by BIANKA CARR RN Aspirin (Aspirin) 81 Mg Tab.chew, 81 MG PO DAILYWBKFT for prevention, primary for 60 Days, #60 Prescribed by: VIKI SHERIFF on 03/19/19 0743 Insulin Glargine,Hum.rec.anlog (Lantus Solostar) 100 Unit/1 Ml Insuln.pen, 10 UNITS SQ BID, (Reported) Entered as Reported by: Ginna Andrade on 02/06/172025 Last Taken: Unknown Dose on 03/16/19 Last Action: Last Taken Edited on 03/16/192340 by BIANKA CARR RN Levothyroxine Sodium (Levothyroxine Sodium) 25 Mcg Tablet, 25 MCG PO DAILY, (Reported) Entered as Reported by: ARTURO HAMPTON on 05/18/131731 Last Taken: Unknown Dose on 03/16/19 Last Action: Last Taken Edited on 03/16/192340 by BIANKA CARR RN Travoprost (Travatan Z) 5 Ml Drops, 5 ML OP HS, (Reported) Entered as Reported by: ARTURO HAMPTON on 05/18/131730 Last Taken: Unknown Dose on 03/16/19 Last Action: Last Taken Edited on 03/16/192340 by BIANKA CARR RN Scheduled PRN Ibuprofen (Ibuprofen) 200 Mg Tablet, 600 MG PO PRN Q6HRS PRN for INFLAMMATION, #30 Prescribed by: VIKI SHERIFF on 03/19/19 0743 Meclizine Hcl (Meclizine Hcl) 12.5 Mg Tablet, 12.5 MG PO PRN Q6HRS PRN for DIZZINESS, #30 Prescribed by: VIKI SHERIFF on 03/19/19 0743 Miscellaneous Medications Insulin Aspart (Novolog Flexpen) 100 Unit/1 Ml Insuln.pen, 6 UNIT SQ, (Reported) Entered as Reported by: ARTURO HAMPTON on 05/18/13 1733 Last Taken: Unknown Dose on 03/16/19 Last Action: Last Taken Edited on 03/16/192340 by BIANKA CARR RN Discontinued Medications Nitrofurantoin Monohyd/M-Cryst (Nitrofurantoin Ponce-Mcr 100 Mg) 100 Mg Capsule, 100 MG PO BID, (Reported) Entered as Reported by: DALTON KAY on 06/14/172214 Last Taken: Unknown Dose on 03/02/19 Last Action: Last Taken Edited on 03/16/192340 by MAGY RUIZ CHERRIE Y MD Mar 19, 2019 10:57
[2019-03-19 11:00] VITALS: BP 140/62
--- NOTE | 2019-03-19 11:39 | NUR ---
SW following pt. ORders faxed to [facility] and pt will transport via facility arranged w/c van at 1300. Pt's rights and choice forms verbally consented by pt and copies on chart. Discussed with RN.
--- NOTE | 2019-03-19 13:23 | NUR ---
Discharge Note: MABEL SALINAS [address] Discharge instructions and discharge home medications reviewed with Other facility and a copy given. All questions have been answered and understanding verbalized. The following instructions and handouts were given: patient visit report, medication information, education Discontinued lines and drains: peripheral IV, tip intact. [facility] with [facility] care via transportation service. Patient left unit awake, in stable condition, with all personal belongings accompanied by transportation service. Report called to MAGY Padilla at [facility].
--- NOTE | 2019-03-19 13:23 | PDOC ---
PROGRESS NOTES Assessment Assessment Dizziness x 2 days. Vertigo. Hyperglycemia, glucose level 411. DM. HTN. Right renal cancer, s/p nephrectomy. UTI. Hypothyroidism. 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 No evidence of acute CVA this time. RECOMMENDATIONS/PLAN: Meclizine 12.5 mg - 25 mg tid x 3-5 days. Continue ASA 81 mg daily. (Fall risk, so not take 325 mg ) Treat medical diseases. OT/PT. FU with PCP. FU with Neurology if needed. History of Present Illness This is an 79 -year-old female patient with above medical diseases developed symptoms of dizziness about 2 days ago, but her symptoms persistent, and she also had GI symptoms of nausea to come to the ER of [facility] [place] for medical attention. She stated she never had symptoms like these before and she was not able to maintain balance nor walk normally as before. She felt like the room and herself all spinning. Her symptoms improved on 03/19/19. Past Medical History Cardiovascular: HTN Renal/: Chronic renal insuff Endocrine: Diabetes Past Surgical History No major surgery recently. Family History Coronary Artery Disease, Hypertension Allergies Coded Allergies: erythromycin base (Verified Allergy, Intermediate, 03/04/18) Iodinated Contrast Media (Verified Adverse Reaction, Intermediate, DUE TO ONLY HAVING 1 KIDNEY, 03/04/18) PT STATED THAT ED PHYSICIAN CONSULTED WITH FINISHING MACHINE OPERATOR AND STATED THAT SINCE SHE HAS ONLY 1 KIDNEY AND HER LABS COME BACK CONSISTANTLY ELEVATED, WE ARE TO NOT GIVE IV CONTRAST diazepam (Verified Adverse Reaction, Intermediate, Palpitations, 03/04/18) oxytetracycline (Verified Adverse Reaction, Intermediate, Palpitations, 03/04/18) oxytetracycline HCl (Verified Adverse Reaction, Intermediate, Palpitations, 03/04/18) hydromorphone (Verified Adverse Reaction, Mild, Nausea and Vomiting, 03/04/18) Social History Smoke: Quit ALCOHOL: rare Drugs: None MEDICATIONS: Refer to MAR REVIEW OF SYSTEMS: Constitutional: No malnutrition, weight loss, cachexia. Head: No traumatic brain or head injury. Skin: No edema, or rash. Ear: No infection. Eyes: No vision loss or color blindness. Nose: No bleeding or purulent discharges. Hearing: No hearing decrease. Neck: No injury. Breast: No history of cancer, masses,or discharges. Cardiac: HTN. Pulmonary: No pneumonia, COPD. GI: No GI ulcer, GI bleeding. Urinary/genital: UTI. Endocrinologic: Diabetes Mellitus. Skeletomuscular: No muscular atrophy, Neurological: see HP. Psychiatric: Denies drug use/abuse. Otherwise, not [id number] review of systems. PHYSICAL EXAMINATION: General appearance is in no acute distress. HEENT: Normocephalic and nontraumatic. Eyes, nose, ears, and throat are unremarkable. Neck is supple. No lymphadenopathy. No crepitus. Cardiovascular: S1, S2, regular rate and rhythm. Pulmonary: Clear to auscultation bilaterally. Abdomen: Bowel sounds are positive. Abdomen is soft, nontender, and nondistended. Extremities: No rash, lesions, or edema. No restriction of range of motion NEUROLOGICAL EXAMINATION: Alert Oriented to time, place and person. PERRL. EOMI. Horizontal nystagmus noted. CN: no focal findings. Muscle tone: within normal. Muscle strength: 5 DTR: 2 Plantar reflex: Flexor response bilaterally Gait: Able to walk. Sensory exam: no abnormal findings. No cerebellar signs elicited. F-T-N test fine. Objective Objective Vital Signs Date Time Temp Pulse Resp B/P (MAP) Pulse Ox O2 Delivery O2 Flow Rate FiO2 03/19/19 11:00 98.0 58 16 140/62 (88) 98 Room Air 98.0 Intake and Output 03/19/19 07:00 Intake Total 951 ml Balance 951 ml Intake Oral 951 ml # Voids 2 Vitals Signs Vitals VS - Last 72 Hours, by Label Date Time Temp Pulse Resp B/P (MAP) Pulse Ox O2 Delivery O2 Flow Rate FiO2 03/19/19 11:00 98.0 58 16 140/62 (88) 98 Room Air 98.0 03/19/19 09:18 62 151/57 03/19/19 08:00 Room Air 03/19/19 07:00 98.1 62 16 151/57 (88) 96 Room Air 98.1 03/19/19 03:00 98.8 62 18 151/61 (91) 96 98.8 03/18/19 23:00 98.0 57 16 141/63 (89) 97 98.0 03/18/19 20:00 Room Air 03/18/19 19:00 97.5 56 18 126/60 (82) 98 97.5 03/18/19 15:00 97.8 62 17 138/64 (88) 98 Room Air 97.8 03/18/19 12:02 77 138/70 03/18/19 10:40 97.8 62 17 142/64 (90) 98 Room Air 97.8 03/18/19 08:55 60 150/60 03/18/19 07:00 97.8 60 17 150/60 (90) 97 Room Air 97.8 Laboratory Laboratory Laboratory Tests Test 03/18/19 16:58 03/18/19 20:50 03/19/19 07:51 03/19/19 11:27 Glucose (Fingerstick) 76 mg/dL (70-99) 168 mg/dL (70-99) 179 mg/dL (70-99) 164 mg/dL (70-99) Medication Medications Current Medications Aspirin (Children'S Aspirin) 81 mg [id number] PO Last administered on 03/19/19at 09:18; Start 03/18/19 at 14:00 Comment Review of Relevant I have reviewed the following items chapito (where applicable) has been applied. HUMPHREY FERRELL MD Mar 19, 2019 13:23
== END 2019-03-19 13:10 | DRG 149 ==
LOC: ER 17:24 → 6 SOUTH 20:17 → 5 SOUTH 03-17 17:40
PROVIDERS: ADMIT Internal Medicine; ATTEND Internal Medicine
DX: R42 Dizziness and giddiness (principal); N39.0 Urinary tract infection, site not specified; E11.22 Type 2 diabetes mellitus with diabetic chronic kidney disease; K59.00 Constipation, unspecified; E03.9 Hypothyroidism, unspecified; E11.65 Type 2 diabetes mellitus with hyperglycemia; E66.9 Obesity, unspecified; I12.9 Hypertensive chronic kidney disease with stage 1 through stage 4 chronic kidney disease, or unspecified chronic kidney disease; K21.9 Gastro-esophageal reflux disease without esophagitis; N18.9 Chronic kidney disease, unspecified; Z79.82 Long term (current) use of aspirin; M19.90 Unspecified osteoarthritis, unspecified site; Z82.49 Family history of ischemic heart disease and other diseases of the circulatory system; Z85.528 Personal history of other malignant neoplasm of kidney; Z90.5 Acquired absence of kidney; Z90.710 Acquired absence of both cervix and uterus; Z91.81 History of falling; Z68.27 Body mass index [BMI] 27.0-27.9, adult; Z88.8 Allergy status to other drugs, medicaments and biological substances; T36.8X5A Adverse effect of other systemic antibiotics, initial encounter; T38.0X5A Adverse effect of glucocorticoids and synthetic analogues, initial encounter; Y92.89 Other specified places as the place of occurrence of the external cause
CPT/HCPCS: 36415; 70450; 70551; 71045; 74176; 80053; 81001; 82607; 82962; 83036; 83690; 84443; 84484; 85007; 85025; 85651; 93005; J1815; J3490; J7040; J8597; 97116; 97535; G0378

== ENCOUNTER 2019-11-13 16:34 | Emergency (ER) | payer MEDICARE ==
[~2019-11-13] VITALS: Ht 165.1 cm; Wt 70.0 kg
[~2019-11-13 16:34] MED LIST changes: +ASPI-630 PO; +IBUP-1670 PO; +MECL12.573 PO
[2019-11-13 18:25] LABS: BASO % 1 % (0-3); EOS # 0.1 x10^3/uL (0.0-0.7); EOS % 1 % (0-3); HEMATOCRIT 39.4 % (36.0-47.0); HEMOGLOBIN 13.5 g/dL (12.0-15.5); LYMPH # 1.8 x10^3/uL (1.0-4.8); LYMPH % 23 % (24-48); MEAN CORPUSCULAR HEMOGLOBIN 31 pg (25-35); MEAN CORPUSCULAR HGB CONC 34 g/dL (31-37); MEAN CORPUSCULAR VOLUME 89 fL (79-100); MONO # 0.6 x10^3/uL (0.0-1.1); MONO % 8 % (0-9); NEUT # 5.1 x10^3/uL (1.8-7.7); NEUT % 67 % (31-73); PLATELET COUNT 231 x10^3/uL (140-400); RED BLOOD COUNT 4.42 x10^6/uL (3.50-5.40); WHITE BLOOD COUNT 7.6 x10^3/uL (4.0-11.0)
[2019-11-13 18:35] LABS: CALCIUM 9.2 mg/dL (8.5-10.1); CREATININE 1.4 mg/dL (0.6-1.0); GFR 36.1
[2019-11-13 18:41] LABS: ALBUMIN 3.8 g/dL (3.4-5.0); ALBUMIN/GLOBULIN RATIO 1.4 (1.0-1.7); MAGNESIUM 2.1 mg/dL (1.8-2.4); TOTAL BILIRUBIN 0.4 mg/dL (0.2-1.0); TOTAL PROTEIN 6.5 g/dL (6.4-8.2)
--- NOTE | 2019-11-13 18:50 | PHYS DOC ---
Past Medical History Past Medical History: Arthritis, Cancer (renal), Diabetes-Type II, DVT, Hypertension, Hypothyroid Past Surgical History: Cholecystectomy, Hysterectomy Additional Past Surgical Histo: rt kidney removed, bladder Smoking Status: Never Smoker Alcohol Use: None Drug Use: None General Adult EDM: Chief Complaint: UPPER EXTREMITY SWELLING HPI: HPI: 79-year-old female presents with report of right arm/forearm swelling that is been ongoing for the past few days. Patient does report some numbness and tingling in her fingertips. 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 Patient denies any shortness of air, chest pain, or fever/chills. Denies known trauma. Patient reports she discussed symptoms with her PCP who instructed her to present to the ER for further evaluation with concern for possible DVT. Patient does report some associated neck pain. Patient's daughter reports concern for possible cervical rad iculopathy. Review of Systems: Review of Systems: Constitutional: Denies fever or chills Eyes: Denies redness or eye pain HENT: Denies nasal congestion or sore throat Respiratory: Denies cough or shortness of breath Cardiovascular: Denies chest pain or palpitations GI: Denies abdominal pain, nausea, or vomiting : Denies dysuria or hematuria Musculoskeletal: Reports neck pain and right upper extremity pain Integument: Denies rash or skin lesions Neurologic: Denies headache or focal weakness; reports numbness/tingling to fingertips of right hand Complete systems were reviewed and found to be within normal limits, except as documented in this note. Allergies: Allergies: Allergies Coded Allergies Type Severity Reaction Last Updated Verified erythromycin base Allergy Intermediate 03/04/18 Yes levofloxacin Allergy Intermediate 03/19/19 Yes Iodinated Contrast Media Adverse Reaction Intermediate DUE TO ONLY HAVING 1 KIDNEY 03/04/18 Yes diazepam Adverse Reaction Intermediate Palpitations 03/04/18 Yes oxytetracycline Adverse Reaction Intermediate Palpitations 03/04/18 Yes oxytetracycline HCl Adverse Reaction Intermediate Palpitations 03/04/18 Yes hydromorphone Adverse Reaction Mild Nausea and Vomiting 03/04/18 Yes Physical Exam: PE: Constitutional: Well developed, well nourished, no acute distress, non-toxic appearance HENT: Normocephalic, atraumatic Eyes: Conjunctiva normal, no discharge Neck: No midline tenderness, right paraspinal tenderness Cardiovascular: Right radial pulse +2, CR < 2 sec Lungs & Thorax: No respiratory distress, equal chest rise and fall Skin: Warm, dry, no erythema, no rash Extremities: Reports tenderness to right forearm on palpation, ROM intact, no edema Neurologic: Alert and oriented X 3, normal motor function, normal sensory function, no focal deficits noted Psychologic: Affect normal, judgment normal Current Patient Data: Labs: Laboratory Tests Test 11/13/19 18:20 White Blood Count 7.6 x10^3/uL (4.0-11.0) Red Blood Count 4.42 x10^6/uL (3.50-5.40) Hemoglobin 13.5 g/dL (12.0-15.5) Hematocrit 39.4 % (36.0-47.0) Mean Corpuscular Volume 89 fL (79-100) Mean Corpuscular Hemoglobin 31 pg (25-35) Mean Corpuscular Hemoglobin Concent 34 g/dL (31-37) Red Cell Distribution Width 14.0 % (11.5-14.5) Platelet Count 231 x10^3/uL (140-400) Neutrophils (%) (Auto) 67 % (31-73) Lymphocytes (%) (Auto) 23 % (24-48) L Monocytes (%) (Auto) 8 % (0-9) Eosinophils (%) (Auto) 1 % (0-3) Basophils (%) (Auto) 1 % (0-3) Neutrophils # (Auto) 5.1 x10^3/uL (1.8-7.7) Lymphocytes # (Auto) 1.8 x10^3/uL (1.0-4.8) Monocytes # (Auto) 0.6 x10^3/uL (0.0-1.1) Eosinophils # (Auto) 0.1 x10^3/uL (0.0-0.7) Basophils # (Auto) 0.0 x10^3/uL (0.0-0.2) Prothrombin Time 12.0 SEC (11.7-14.0) Prothrombin Time INR 0.9 (0.8-1.1) Activated Partial Thromboplast Time 29 SEC (24-38) Sodium Level 142 mmol/L (136-145) Potassium Level 5.0 mmol/L (3.5-5.1) Chloride Level 103 mmol/L (98-107) Carbon Dioxide Level 29 mmol/L (21-32) Anion Gap 10 (6-14) Blood Urea Nitrogen 21 mg/dL (7-20) H Creatinine 1.4 mg/dL (0.6-1.0) H Estimated GFR (Cockcroft-Gault) 36.1 BUN/Creatinine Ratio 15 (6-20) Glucose Level 206 mg/dL (70-99) H Calcium Level 9.2 mg/dL (8.5-10.1) Magnesium Level 2.1 mg/dL (1.8-2.4) Total Bilirubin 0.4 mg/dL (0.2-1.0) Aspartate Amino Transferase (AST) 17 U/L (15-37) Alanine Aminotransferase (ALT) 18 U/L (14-59) Alkaline Phosphatase 85 U/L (46-116) Total Protein 6.5 g/dL (6.4-8.2) Albumin 3.8 g/dL (3.4-5.0) Albumin/Globulin Ratio 1.4 (1.0-1.7) Laboratory Tests 11/13/19 18:20 Laboratory Tests 11/13/19 18:20 Vital Signs: Vital Signs Date Time Temp Pulse Resp B/P (MAP) Pulse Ox O2 Delivery O2 Flow Rate FiO2 11/13/19 17:00 99.0 61 18 166/74 (104) 99 Room Air 99.0 EKG: EKG: [] Radiology/Procedures: Radiology/Procedures: PROCEDURE: VENOUS UPPER EXTREMITY RIGHT EXAM: Right upper extremity venous Doppler sonogram. HISTORY: Pain in swallow. TECHNIQUE: Giordano scale and color Doppler sonographic evaluation of the right upper extremity veins with spectral waveform analysis was performed. FINDINGS: There is normal color flow, normal compressibility and there are normal spectral waveforms in the upper extremity veins. IMPRESSION: No Doppler evidence of upper extremity venous thrombosis. Electronically signed by: Margarita Praasd MD (11/13/2019 7:46 PM) [facility] Course & Med Decision Making: Course & Med Decision Making Pertinent Labs and Imaging studies reviewed. (See chart for details) Elderly patient presents with concern for possible DVT to right upper extremity. Patient denies known trauma. No bony tenderness noted on exam. Radial pulse and cap refill appear normal. Labs obtained and posted to chart. Renal insufficiency appears baseline per [employer] review. Venous Doppler negative for acute DVT. There is concern for possible cervical radiculopathy as patient know she has chronic neck issues/bulging disc. Patient stable for discharge with outpatient follow-up with PCP/pain management. Pain management referral provided. Discussed findings and plan with patient and family, who acknowledge understanding and agreement. Douglason Disclaimer: Dragon Disclaimer: This electronic medical record was generated, in whole or in part, using a voice recognition dictation system. Departure Departure Impression: Primary Impression: Right arm pain Additional Impression: Feared condition not demonstrated Disposition: 01 HOME, SELF-CARE Condition: STABLE Referrals: ANGI VASQUEZ MD (PCP) YVAN DOUGLASS MD Patient Instructions: Cervical Radiculopathy, [id number] Justicifation of Admission Dx: Justifications for Admission: Justification of Admission Dx: N/A ERMELINDA NEFF DO Nov 13, 2019 18:50
[2019-11-13] MEDS ORDERED: fentaNYL PF VIAL 100 MCG/2 ML VIAL IV ONE (19:00)
--- NOTE | 2019-11-13 19:49 | RAD ---
EXAM: Right upper extremity venous Doppler sonogram. HISTORY: Pain in swallow. TECHNIQUE: Giordano scale and color Doppler sonographic evaluation of the right upper extremity veins with spectral waveform analysis was performed. FINDINGS: There is normal color flow, normal compressibility and there are normal spectral waveforms in the upper extremity veins. IMPRESSION: No Doppler evidence of upper extremity venous thrombosis. Electronically signed by: Margarita Prasad MD (11/13/2019 7:46 PM) [facility]
[2019-11-13 20:00] VITALS: BP 176/77
== END 2019-11-13 20:42 | disposition home or self-care (01) ==
LOC: ER 16:34
DX: M79.631 Pain in right forearm (principal); M79.89 Other specified soft tissue disorders; M19.90 Unspecified osteoarthritis, unspecified site; I10 Essential (primary) hypertension; E11.9 Type 2 diabetes mellitus without complications; E03.9 Hypothyroidism, unspecified; Z85.9 Personal history of malignant neoplasm, unspecified; Z86.718 Personal history of other venous thrombosis and embolism; Z90.49 Acquired absence of other specified parts of digestive tract; Z90.710 Acquired absence of both cervix and uterus; Z98.890 Other specified postprocedural states; Z88.1 Allergy status to other antibiotic agents; Z88.8 Allergy status to other drugs, medicaments and biological substances; Z88.5 Allergy status to narcotic agent; Z88.6 Allergy status to analgesic agent
CPT/HCPCS: 36415; 80053; 83735; 85025; 85610; 85730; 93971; 96374; 99284; J3010

== ENCOUNTER 2020-01-26 15:36 | Inpatient (IN) | payer MEDICARE ==
[~2020-01-26] VITALS: Ht 167.6 cm; Wt 81.0 kg
[2020-01-26 15:59] LABS: BASO % 1 % (0-3); EOS # 0.1 x10^3/uL (0.0-0.7); EOS % 1 % (0-3); HEMOGLOBIN 13.3 g/dL (12.0-15.5); LYMPH # 1.6 x10^3/uL (1.0-4.8); LYMPH % 24 % (24-48); MEAN CORPUSCULAR HEMOGLOBIN 31 pg (25-35); MEAN CORPUSCULAR HGB CONC 34 g/dL (31-37); MEAN CORPUSCULAR VOLUME 90 fL (79-100); MONO # 0.4 x10^3/uL (0.0-1.1); MONO % 7 % (0-9); NEUT # 4.5 x10^3/uL (1.8-7.7); NEUT % 68 % (31-73); PLATELET COUNT 194 x10^3/uL (140-400); RED BLOOD COUNT 4.34 x10^6/uL (3.50-5.40); RED CELL DISTRIBUTION WIDTH 13.7 % (11.5-14.5); WHITE BLOOD COUNT 6.7 x10^3/uL (4.0-11.0)
[2020-01-26] MEDS ORDERED: ATROPINE 1 MG/10 ML DISP.SYRINGE. IV ONE (16:00)
--- NOTE | 2020-01-26 16:05 | PHYS DOC ---
Past Medical History Past Medical History: Arthritis, Cancer, Diabetes-Type II, DVT, Hypertension, Hypothyroid Additional Past Medical Histor: cancer of right kidney Past Surgical History: Cholecystectomy, Hysterectomy Additional Past Surgical Histo: rt kidney removed, bladder Smoking Status: Never Smoker Alcohol Use: None Drug Use: None General Adult EDM: Chief Complaint: CHEST PAIN HPI: HPI: Patient is a 80 year old female who was brought here by EMS from urgent care due to abnormal EKG with slow heart rate. Patient says she had not been feeling well for a week, heart rate has been slow so her doctor told her not to take her blood pressure medication which is Norvasc. Patient feels weak, tired and dizzy. Patient tried to go see her family doctor today but the doctor was not in the clinic so she was sent to the urgent care center for evaluation. At the urgent care they did an EKG and showed that she had an abnormal slow heart rhythm so they called EMS to take her here for evaluation. Patient denies any chest pain, no headache. Patient had not taken her blood pressure medication for several days. Review of Systems: Review of Systems: Constitutional: Denies fever or chills. [] Eyes: Denies change in visual acuity. [] HENT: Denies nasal congestion or sore throat. [] Respiratory: Denies cough or shortness of breath. [] Cardiovascular: Denies chest pain or edema. [] GI: Denies abdominal pain, nausea, vomiting, bloody stools or diarrhea. [] : Denies dysuria. [] Musculoskeletal: Denies back pain or joint pain. [] Integument: Denies rash. [] Neurologic: Denies headache, focal weakness or sensory changes. Positive for generalized weakness and dizziness. Endocrine: Denies polyuria or polydipsia. [] Lymphatic: Denies swollen glands. [] Psychiatric: Denies depression or anxiety. [] Heart Score: Risk Factors: Risk Factors: DM, Current or recent (<one month) smoker, HTN, HLP, family history of CAD, obesity. Risk Scores: Score 0 - 3: 2.5% MACE over next 6 weeks - Discharge Home Score 4 - 6: 20.3% MACE over next 6 weeks - Admit for Clinical Observation Score 7 - 10: 72.7% MACE over next 6 weeks - Early Invasive Strategies Current Medications: Current Medications Medications (Trade) Dose Ordered Sig/Mary Start Time Stop Time Status Last Admin Dose Admin Atropine Sulfate (ATROPINE 1mg SYRINGE) 1 mg 1X ONCE 01/26/20 16:00 01/26/20 16:01 DC 01/26/20 16:02 1 MG Allergies: Allergies: Allergies Coded Allergies Type Severity Reaction Last Updated Verified erythromycin base Allergy Intermediate 03/04/18 Yes levofloxacin Allergy Intermediate 03/19/19 Yes Iodinated Contrast Media Adverse Reaction Intermediate DUE TO ONLY HAVING 1 KIDNEY 03/04/18 Yes diazepam Adverse Reaction Intermediate Palpitations 03/04/18 Yes oxytetracycline Adverse Reaction Intermediate Palpitations 03/04/18 Yes oxytetracycline HCl Adverse Reaction Intermediate Palpitations 03/04/18 Yes hydromorphone Adverse Reaction Mild Nausea and Vomiting 03/04/18 Yes Physical Exam: PE: Constitutional: Well developed, well nourished, no acute distress, non-toxic appearance. [] HENT: Normocephalic, atraumatic, bilateral external ears normal, oropharynx moist, no oral exudates, nose normal. [] Eyes: PERRLA, EOMI, conjunctiva normal, no discharge. [] Neck: Normal range of motion, no tenderness, supple, no stridor. [] Cardiovascular: Slow heart rate with regular rhythm, no murmur [] Lungs & Thorax: Bilateral breath sounds clear to auscultation [] Abdomen: Bowel sounds normal, soft, no tenderness, no masses, no pulsatile masses. [] Skin: Warm, dry, no erythema, no rash. [] Back: No tenderness, no CVA tenderness. [] Extremities: No tenderness, no cyanosis, no clubbing, ROM intact, no edema. [] Neurologic: Alert and oriented X 3, normal motor function, normal sensory function, no focal deficits noted. [] Psychologic: Affect normal, judgement normal, mood normal. [] Current Patient Data: Labs: Laboratory Tests Test 01/26/20 15:45 White Blood Count 6.7 x10^3/uL (4.0-11.0) Red Blood Count 4.34 x10^6/uL (3.50-5.40) Hemoglobin 13.3 g/dL (12.0-15.5) Hematocrit 39.0 % (36.0-47.0) Mean Corpuscular Volume 90 fL (79-100) Mean Corpuscular Hemoglobin 31 pg (25-35) Mean Corpuscular Hemoglobin Concent 34 g/dL (31-37) Red Cell Distribution Width 13.7 % (11.5-14.5) Platelet Count 194 x10^3/uL (140-400) Neutrophils (%) (Auto) 68 % (31-73) Lymphocytes (%) (Auto) 24 % (24-48) Monocytes (%) (Auto) 7 % (0-9) Eosinophils (%) (Auto) 1 % (0-3) Basophils (%) (Auto) 1 % (0-3) Neutrophils # (Auto) 4.5 x10^3/uL (1.8-7.7) Lymphocytes # (Auto) 1.6 x10^3/uL (1.0-4.8) Monocytes # (Auto) 0.4 x10^3/uL (0.0-1.1) Eosinophils # (Auto) 0.1 x10^3/uL (0.0-0.7) Basophils # (Auto) 0.0 x10^3/uL (0.0-0.2) Laboratory Tests 01/26/20 15:45 Vital Signs: Vital Signs Date Time Temp Pulse Resp B/P (MAP) Pulse Ox O2 Delivery O2 Flow Rate FiO2 01/26/20 15:52 98.2 38 18 233/73 (126) 92 Room Air 98.2 EKG: EKG: EKG was done at 1542, heart rate of 34 beats per minutes, read by Dr. Riley, shipping and receiving coordinator, 2-1 AV block. Radiology/Procedures: Radiology/Procedures: [][facility] [address] [place] [address] IMAGING REPORT Signed PATIENT: MABEL SALINAS ACCOUNT: [id number] : 1940 LOCATION: ER AGE: 80 SEX: F EXAM STATUS: REG ER ORD. PHYSICIAN: PAULETTE CAMPUZANO DO REASON: SOA 22 PROCEDURE: PORTABLE CHEST 1V AP portable chest radiograph 01/26/2020 Clinical History: Shortness of breath. An AP erect portable digital radiograph of the chest was obtained. Comparison study is dated 03/16/2019. The cardiac silhouette is borderline enlarged. The thoracic aorta is tortuous. Atherosclerotic calcification of the thoracic aorta is seen. Surgical clips overlie the right upper quadrant of the abdomen consistent with a cholecystectomy. No acute pulmonary infiltrate is seen. No pleural effusion or pneumothorax is noted. Degenerative changes are seen involving the thoracic spine and both shoulders. Impression: No acute abnormality is seen. Electronically signed by: Golden Hunt MD (01/26/2020 4:47 PM) [id number] DICTATED and SIGNED BY: GOLDEN HUNT MD DATE: 01/26/20 1647 Course & Med Decision Making: Course & Med Decision Making Pertinent Labs and Imaging studies reviewed. (See chart for details) Patient is an 80-year-old female who was brought here by EMS due to hypotension and low heart rate. Dr. Riley evaluated the patient in ER, he will evaluate her with an echo and planning for pacemaker placement tomorrow Dragon Disclaimer: Dragon Disclaimer: This electronic medical record was generated, in whole or in part, using a voice recognition dictation system. Departure Departure Impression: Primary Impression: Heart bloc atrioventricular Additional Impression: Hypertensive urgency Disposition: ADMITTED INPATIENT Admitting Physician: KEVIN (Dr. Macdonald) Condition: STABLE Referrals: ANGI VASQUEZ MD (PCP) Justicifation of Admission Dx: Justifications for Admission: Justification of Admission Dx: Yes (hypertensive urgency with heart block) PAULETTE CAMPUZANO DO Jan 26, 2020 16:05
[2020-01-26 16:12] LABS: CALCIUM 8.9 mg/dL (8.5-10.1); CREATININE 1.4 mg/dL (0.6-1.0); POTASSIUM 4.2 mmol/L (3.5-5.1); PROTHROMBIN TIME PATIENT 12.6 SEC (11.7-14.0)
[2020-01-26] MEDS ORDERED: hydrALAZINE 20 MG/ML VIAL. IVP ONE ×2 (16:15→17:30)
[2020-01-26 16:19] LABS: ALBUMIN 3.6 g/dL (3.4-5.0); ALBUMIN/GLOBULIN RATIO 1.2 (1.0-1.7); TOTAL BILIRUBIN 0.5 mg/dL (0.2-1.0); TOTAL PROTEIN 6.7 g/dL (6.4-8.2)
[2020-01-26 16:26] LABS: FREE T4 1.38 ng/dL (0.76-1.46); THYROID STIM HORMONE (TSH) 1.611 uIU/mL (0.358-3.74)
--- NOTE | 2020-01-26 16:49 | RAD ---
AP portable chest radiograph 01/26/2020 Clinical History: Shortness of breath. An AP erect portable digital radiograph of the chest was obtained. Comparison study is dated 03/16/2019. The cardiac silhouette is borderline enlarged. The thoracic aorta is tortuous. Atherosclerotic calcification of the thoracic aorta is seen. Surgical clips overlie the right upper quadrant of the abdomen consistent with a cholecystectomy. No acute pulmonary infiltrate is seen. No pleural effusion or pneumothorax is noted. Degenerative changes are seen involving the thoracic spine and both shoulders. Impression: No acute abnormality is seen. Electronically signed by: Golden Hunt MD (01/26/2020 4:47 PM) [id number]
--- NOTE | 2020-01-26 17:06 | PDOC1 ---
History and Physical Date of Admission Date of Admission DATE: 01/26/20 TIME: 17:05 Identification/Chief Complaint Chief Complaint Weakness Source Source: Chart review, Patient History of Present Illness History of Present Illness Ms Zurita is an 80 year old female w/ PMHx right renal cell carcinoma s/p nephrectomy, DM2, HTN, hypothyroidism, remote DVT, esophageal strictures s/p dilation who was brought here by EMS from urgent care due to abnormal EKG with significant bradycardia and concern for mobitz II or 2:1 AV block. She had initially gone to urgent care for c/o right sided sore throat, fatigue and shortness of breath for the past 5 days. She notes she has been feeling poorly, tired and dizzy and was checking her blood pressure at home, found it was elevated but her HR on her BP monitoring read in the 30s. Her PCP instructed her to stop norvasc and go to urgent care. Patient denies any chest pain, no headache. Patient had not taken her blood pressure medication for several days. She notes on further review that she has noted some right-sided pain on swallowing and food has been sticking over the past week she also notes cold sores on her face which is been bothersome. She had BP 233/73 on initial triage and EKG here showed heart rate of 34 beats per minute with a 2-[address] segment changes or TWI. Labs significant for NA 141, K4.2, BUN 21, CR 1.4, glucose 220, BNP 29626, albumin 3.6, troponin 0 0.021, TSH 1.6, INR 1, AST 60, ALT 93, WBC 6.7, Hb 13.3, platelets 194. In ED atropine was given with no change in her heart rate or rhythm. Her blood pressure did decrease after an IV dose of hydralazine. She notes no COVID-19 risk factors and CXR was reviewed with no acute abnormalities or infiltrates, only cholecystectomy clips visible. She is being admitted to [facility] for further treatment. Past Medical History Cardiovascular: HTN Renal/: Chronic renal insuff Endocrine: Diabetes Past Surgical History Past Surgical History: Cholecystectomy, Tonsillectomy, Hysterectomy, Other (Right nephrectomy) Family History Family History: Coronary Artery Disease, Hypertension Social History Smoke: No ALCOHOL: rare Drugs: None Current Medications Current Medications Current Medications Atropine Sulfate (ATROPINE 1mg SYRINGE) 1 mg 1X ONCE IV Last administered on 01/26/20at 16:02; Start 01/26/20 at 16:00; Stop 01/26/20 at 16:01; Status DC Hydralazine HCl (Apresoline Inj) 10 mg 1X ONCE IVP Last administered on 01/26/20at 16:36; Start 01/26/20 at 16:15; Stop 01/26/20 at 16:17; Status DC Active Scripts Active Meclizine Hcl 12.5 Mg Tablet 12.5 Mg PO PRN Q6HRS PRN Ibuprofen 200 Mg Tablet 600 Mg PO PRN Q6HRS PRN Aspirin 81 Mg Tab.chew 81 Mg PO DAILYWBKFT 60 Days Reported Lantus Solostar (Insulin Glargine,Hum.rec.anlog) 100 Unit/1 Ml Insuln.pen 10 Units SQ BID Amlodipine Besylate 5 Mg Tablet 2 Tab PO DAILY Novolog Flexpen (Insulin Aspart) 100 Unit/1 Ml Insuln.pen 6 Unit SQ Levothyroxine Sodium 25 Mcg Tablet 25 Mcg PO DAILY Travatan Z (Travoprost) 5 Ml Drops 5 Ml OP HS Allergies Allergies: Coded Allergies: erythromycin base (Verified Allergy, Intermediate, 03/04/18) levofloxacin (Verified Allergy, Intermediate, 03/19/19) dizzy,weak, emesis Iodinated Contrast Media (Verified Adverse Reaction, Intermediate, DUE TO ONLY HAVING 1 KIDNEY, 03/04/18) PT STATED THAT ED PHYSICIAN CONSULTED WITH [facility] [employer] AND STATED THAT SINCE SHE HAS ONLY 1 KIDNEY AND HER LABS COME BACK CONSISTANTLY ELEVATED, WE ARE TO NOT GIVE IV CONTRAST diazepam (Verified Adverse Reaction, Intermediate, Palpitations, 03/04/18) oxytetracycline (Verified Adverse Reaction, Intermediate, Palpitations, 03/04/18) oxytetracycline HCl (Verified Adverse Reaction, Intermediate, Palpitations, 03/04/18) hydromorphone (Verified Adverse Reaction, Mild, Nausea and Vomiting, 03/04/18) ROS General: YES: Fatigue, Malaise; No: Chills, Night Sweats, Appetite, Other PSYCHOLOGICAL ROS: YES: Anxiety; No: Behavioral Disorder, Concentration difficultie, Decreased libido, Depression, Disorientation, Hallucinations, Hostility, Irritablity, Memory difficulties, Mood Swings, Obsessive thoughts, Physical abuse, Sexual abuse, Sleep disturbances, Suicidal ideation, Other Eyes: No Blurry vision, No Decreased vision, No Double vision, No Dry eyes, No Excessive tearing, No Eye Pain, No Itchy Eyes, No Loss of vision, No Photophobia, No Scotomata, No Uses contacts, No Uses glasses, No Other HEENT: YES: Oral lesions, Sore Throat; No: Heacaches, Visual Changes, Hearing change, Nasal congestion, Nasal discharge, Sinus pain, Epistaxis, Sneezing, Snoring, Tinnitus, Vertigo, Vocal changes, Other ALLERGY AND IMMUNOLOGY: No: Hives, Insect Bite Sensitivity, Itchy/Watery Eyes, Nasal Congestion, Post Nasal Drip, Seasonal Allergies, Other Hematological and Lymphatic: YES: Blood Clots; No: Bleeding Problems, Blood Transfusions, Brusing, Night Sweats, Pallor, Swollen Lymph Nodes, Other ENDOCRINE: No: Breast Changes, Galactorrhea, Hair Pattern Changes, Hot Flashes, Malaise/lethargy, Mood Swings, Palpitations, Polydipsia/polyuria, Skin Changes, Temperature Intolerance, Unexpected Weight Changes, Other Breast: No New/Changing Breast Lumps, No Nipple changes, No Nipple discharge, No Other Respiratory: YES: Shortness of breath, SOB with excertion; No: Cough, Hemoptysis, Orthopnea, Pleuritic Pain, Sputum Changes, Stridor, Tachypnea, Wheezing, Other Cardiovascular: No Chest Pain, No Palpitations, No Orthopnea, No Paroxysmal Noc. Dyspnea, No Edema, No Lt Headedness, No Other Gastrointestinal: No Nausea, No Vomiting, No Abdominal Pain, No Diarrhea, No Constipation, No Melena, No Hematochezia, No Other Genitourinary: No Dysuria, No Frequency, No Incontinence, No Hematuria, No Retention, No Discharge, No Urgency, No Pain, No Flank Pain, No Other, No , No , No , No , No , No , No Musculoskeletal: Yes Muscular Weakness; No Gait Disturbance, No Joint Pain, No Joint Stiffness, No Joint Swelling, No Muscle Pain, No Pain In:, No Swelling In:, No Other Neurological: No Behavorial Changes, No Bowel/Bladder ControlChng, No Confusion, No Dizziness, No Gait Disturbance, No Headaches, No Impaired Coord/balance, No Memory Loss, No Numbness/Tingling, No Seizures, No Speech Problems, No Tremors, No Visual Changes, No Weakness, No Other Skin: Yes Rash; No Dry Skin, No Eczema, No Hair Changes, No Lumps, No Mole Changes, No Mottling, No Nail Changes, No Pruritus, No Skin Lesion Changes, No Other, No Acne Physical Exam General: Alert, Oriented X3, Cooperative, mild distress HEENT: Atraumatic, PERRLA, EOMI, Mucous membr. moist/pink Lungs: Clear to auscultation, Normal air movement Heart: S1S2, RRR, no thrills, no rubs, no gallops, no murmurs Abdomen: Normal bowel sounds, Soft, No tenderness, No hepatosplenomegaly, No masses Rectal Exam: not examined Extremities: No clubbing, No cyanosis, No edema, Normal pulses, No tenderness/swelling Skin: No breakdown, Other (Oral vesicular lesions L>R perioral area) Neuro: Normal gait, Normal speech, Strength at 5/5 X4 ext, Normal tone, Sensati on intact, Cranial nerves 3-12 NL, Reflexes 2+ Psych/Mental Status: Mental status NL, Mood NL Vitals Vitals Vital Signs Date Time Temp Pulse Resp B/P (MAP) Pulse Ox O2 Delivery O2 Flow Rate FiO2 01/26/20 16:36 30 202/60 01/26/20 15:52 98.2 18 92 Room Air 98.2 Labs Labs Laboratory Tests Test 01/26/20 15:45 White Blood Count 6.7 x10^3/uL (4.0-11.0) Red Blood Count 4.34 x10^6/uL (3.50-5.40) Hemoglobin 13.3 g/dL (12.0-15.5) Hematocrit 39.0 % (36.0-47.0) Mean Corpuscular Volume 90 fL (79-100) Mean Corpuscular Hemoglobin 31 pg (25-35) Mean Corpuscular Hemoglobin Concent 34 g/dL (31-37) Red Cell Distribution Width 13.7 % (11.5-14.5) Platelet Count 194 x10^3/uL (140-400) Neutrophils (%) (Auto) 68 % (31-73) Lymphocytes (%) (Auto) 24 % (24-48) Monocytes (%) (Auto) 7 % (0-9) Eosinophils (%) (Auto) 1 % (0-3) Basophils (%) (Auto) 1 % (0-3) Neutrophils # (Auto) 4.5 x10^3/uL (1.8-7.7) Lymphocytes # (Auto) 1.6 x10^3/uL (1.0-4.8) Monocytes # (Auto) 0.4 x10^3/uL (0.0-1.1) Eosinophils # (Auto) 0.1 x10^3/uL (0.0-0.7) Basophils # (Auto) 0.0 x10^3/uL (0.0-0.2) Prothrombin Time 12.6 SEC (11.7-14.0) Prothromb Time International Ratio 1.0 (0.8-1.1) Activated Partial Thromboplast Time 28 SEC (24-38) Sodium Level 141 mmol/L (136-145) Potassium Level 4.2 mmol/L (3.5-5.1) Chloride Level 107 mmol/L (98-107) Carbon Dioxide Level 26 mmol/L (21-32) Anion Gap 8 (6-14) Blood Urea Nitrogen 21 mg/dL (7-20) Creatinine 1.4 mg/dL (0.6-1.0) Estimated GFR (Cockcroft-Gault) 36.0 BUN/Creatinine Ratio 15 (6-20) Glucose Level 220 mg/dL (70-99) Calcium Level 8.9 mg/dL (8.5-10.1) Magnesium Level 2.0 mg/dL (1.8-2.4) Total Bilirubin 0.5 mg/dL (0.2-1.0) Aspartate Amino Transf (AST/SGOT) 60 U/L (15-37) Alanine Aminotransferase (ALT/SGPT) 93 U/L (14-59) Alkaline Phosphatase 87 U/L (46-116) Troponin I Quantitative 0.021 ng/mL (0.000-0.055) GW-Xgc-M-Type Natriuretic Peptide 1774 pg/mL (0-449) Total Protein 6.7 g/dL (6.4-8.2) Albumin 3.6 g/dL (3.4-5.0) Albumin/Globulin Ratio 1.2 (1.0-1.7) Lipase 95 U/L (73-393) Thyroid Stimulating Hormone (TSH) 1.611 uIU/mL (0.358-3.74) Free Thyroxine 1.38 ng/dL (0.76-1.46) Laboratory Tests Test 01/26/20 15:45 White Blood Count 6.7 x10^3/uL (4.0-11.0) Red Blood Count 4.34 x10^6/uL (3.50-5.40) Hemoglobin 13.3 g/dL (12.0-15.5) Hematocrit 39.0 % (36.0-47.0) Mean Corpuscular Volume 90 fL (79-100) Mean Corpuscular Hemoglobin 31 pg (25-35) Mean Corpuscular Hemoglobin Concent 34 g/dL (31-37) Red Cell Distribution Width 13.7 % (11.5-14.5) Platelet Count 194 x10^3/uL (140-400) Neutrophils (%) (Auto) 68 % (31-73) Lymphocytes (%) (Auto) 24 % (24-48) Monocytes (%) (Auto) 7 % (0-9) Eosinophils (%) (Auto) 1 % (0-3) Basophils (%) (Auto) 1 % (0-3) Neutrophils # (Auto) 4.5 x10^3/uL (1.8-7.7) Lymphocytes # (Auto) 1.6 x10^3/uL (1.0-4.8) Monocytes # (Auto) 0.4 x10^3/uL (0.0-1.1) Eosinophils # (Auto) 0.1 x10^3/uL (0.0-0.7) Basophils # (Auto) 0.0 x10^3/uL (0.0-0.2) Prothrombin Time 12.6 SEC (11.7-14.0) Prothromb Time International Ratio 1.0 (0.8-1.1) Activated Partial Thromboplast Time 28 SEC (24-38) Sodium Level 141 mmol/L (136-145) Potassium Level 4.2 mmol/L (3.5-5.1) Chloride Level 107 mmol/L (98-107) Carbon Dioxide Level 26 mmol/L (21-32) Anion Gap 8 (6-14) Blood Urea Nitrogen 21 mg/dL (7-20) Creatinine 1.4 mg/dL (0.6-1.0) Estimated GFR (Cockcroft-Gault) 36.0 BUN/Creatinine Ratio 15 (6-20) Glucose Level 220 mg/dL (70-99) Calcium Level 8.9 mg/dL (8.5-10.1) Magnesium Level 2.0 mg/dL (1.8-2.4) Total Bilirubin 0.5 mg/dL (0.2-1.0) Aspartate Amino Transf (AST/SGOT) 60 U/L (15-37) Alanine Aminotransferase (ALT/SGPT) 93 U/L (14-59) Alkaline Phosphatase 87 U/L (46-116) Troponin I Quantitative 0.021 ng/mL (0.000-0.055) PM-Ttw-E-Type Natriuretic Peptide 1774 pg/mL (0-449) Total Protein 6.7 g/dL (6.4-8.2) Albumin 3.6 g/dL (3.4-5.0) Albumin/Globulin Ratio 1.2 (1.0-1.7) Lipase 95 U/L (73-393) Thyroid Stimulating Hormone (TSH) 1.611 uIU/mL (0.358-3.74) Free Thyroxine 1.38 ng/dL (0.76-1.46) Images Images CXR: The cardiac silhouette is borderline enlarged. The thoracic aorta is tortuous. Atherosclerotic calcification of the thoracic aorta is seen. Surgical clips overlie the right upper quadrant of the abdomen consistent with a chol ecystectomy. No acute pulmonary infiltrate is seen. No pleural effusion or pneumothorax is noted. Degenerative changes are seen involving the thoracic spine and both shoulders. Impression: No acute abnormality is seen. 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 Cardiology consulted. Umberto houston evaluation indicated. If BP drops overnight will use dopamine. Rapid COVID19 antigen testing ordered pre op HTN urgency - IV hydralazine prn, home amlodipine ok, dihydropyridines do not have AV gary blocking properties. will continue norvasc if ok with cardiology Cold sores - appears to be Orolabial HSV, will treat with renal dosed valtrex for 7 days. She does appear to have an ulcer on her old tonsillar scar as well Odynophagia - possibly a recurrence of her Esophageal strictures s/p dilation. Will consult GI, though her cardiac evaluation takes priority CKD - s/p right nephrectomy. WIll monitor Cr. seems to be at baseline Right renal cell carcinoma s/p nephrectomy DM2 - a1c 8.1 last year. Will give basal bolus plus insulin regimen Hypothyroidism - cont home dosing of levothyroxine Remote DVT history - she notes post-operatively with no recurrence. FEN - ADA cardiac diet, npo after midnight PPX - heparin. Hold AM dosing FULL CODE Dispo - inpatient for 2 midnights. Justifications for Admission Other Justification GENA HERRERA MD Jan 26, 2020 17:06
--- NOTE | 2020-01-26 17:31 | EKG ---
[facility] [address] [place] [address] Test Date: 2020-01-26 Test Time: 15:42:38 Pat Name: MABEL SALINAS Department: Room: Gender: F Speech Language Pathologist Assistant: : 1940 Requested By: PAULETTE CAMPUZANO Order Number: [id number] Reading MD: Measurements Intervals [place] Rate: 34 P: GA: QRS: -17 QRSD: 118 T: 22 QT: 508 QTc: 382 Interpretive Statements SECOND OR THIRD DEGREE AV-BLOCK LEFTWARD AXIS R-S TRANSITION ZONE IN V LEADS DISPLACED TO THE RIGHT INCOMPLETE RIGHT BUNDLE BRANCH BLOCK ABNORMAL ECG RI6.02 No previous ECG available for comparison
[2020-01-26] MEDS ORDERED: valACYclovir 500 MG TABLET. PO SCH (18:00)
[2020-01-26 19:50] VITALS: BP 205/84
[2020-01-26] MEDS ORDERED: ONDANSETRON PF 4 MG/2 ML VIAL. IV PRN (20:30)
[2020-01-26] MEDS ORDERED: DEXTROSE 50% 25 GM / 50ML DISP.SYRIN. IV PRN (20:30)
[2020-01-26] MEDS ORDERED: ACETAMINOPHEN 325 MG TABLET. PO PRN (20:30)
[2020-01-26] MEDS: INSULIN LISPRO 300 UNITS/3 ML VIAL. SQ SCH (21:00)
[2020-01-26] MEDS: valACYclovir 500 MG TABLET. PO SCH (21:39)
[2020-01-26] MEDS: INSULIN GLARGINE SYRINGE. SQ SCH (21:40)
[2020-01-26] MEDS: HEPARIN for SUB-Q USE 5,000 UNIT/ML VIAL. SQ SCH (21:41)
[2020-01-26] MEDS: LATANOPROST 0.005% OPHTH SOLUTION 2.5ML BOTTLE. OU SCH (21:41)
[2020-01-26] MEDS: hydrALAZINE 20 MG/ML VIAL. IVP PRN (21:42)
[2020-01-26] MEDS: MIRTAZAPINE 7.5 MG TABLET. PO SCH (22:07)
[2020-01-26 22:58] VITALS: BP 155/63
[2020-01-27] VITALS (7 sets, daily range): BP systolic 145–197; BP diastolic 57–80
[2020-01-27] MEDS ORDERED: EZET10TA20 PO (04:52)
[2020-01-27] MEDS ORDERED: OXYB10TA26 PO (04:52)
[2020-01-27] MEDS ORDERED: OMEG100021 PO (04:52)
[2020-01-27] MEDS ORDERED: LOSA-73 PO (04:52)
[2020-01-27] MEDS: LEVOTHYROXINE 25 MCG TABLET. PO SCH (05:55)
[2020-01-27] MEDS: HEPARIN for SUB-Q USE 5,000 UNIT/ML VIAL. SQ SCH ×3 (05:59→21:28)
[2020-01-27 06:15] LABS: BASO % 1 % (0-3); EOS # 0.1 x10^3/uL (0.0-0.7); EOS % 1 % (0-3); HEMOGLOBIN 12.4 g/dL (12.0-15.5); LYMPH # 1.5 x10^3/uL (1.0-4.8); LYMPH % 23 % (24-48); MEAN CORPUSCULAR HEMOGLOBIN 31 pg (25-35); MEAN CORPUSCULAR HGB CONC 34 g/dL (31-37); MEAN CORPUSCULAR VOLUME 89 fL (79-100); MONO # 0.6 x10^3/uL (0.0-1.1); MONO % 8 % (0-9); NEUT # 4.6 x10^3/uL (1.8-7.7); NEUT % 67 % (31-73); PLATELET COUNT 194 x10^3/uL (140-400); RED BLOOD COUNT 4.04 x10^6/uL (3.50-5.40); RED CELL DISTRIBUTION WIDTH 13.6 % (11.5-14.5); WHITE BLOOD COUNT 6.8 x10^3/uL (4.0-11.0)
[2020-01-27 06:29] LABS: ALBUMIN 3.1 g/dL (3.4-5.0); ALBUMIN/GLOBULIN RATIO 1.1 (1.0-1.7); CALCIUM 8.7 mg/dL (8.5-10.1); CREATININE 1.4 mg/dL (0.6-1.0); POTASSIUM 3.9 mmol/L (3.5-5.1); TOTAL BILIRUBIN 0.7 mg/dL (0.2-1.0); TOTAL PROTEIN 5.9 g/dL (6.4-8.2)
--- NOTE | 2020-01-27 07:15 | NUR ---
While using bedside commode, pt complained that she felt like she was having a hard time emptying her bladder. Post-void residual obtained via bladder scanner that revealed approx 450ml of urine still in the bladder. Straight cath kit obtained from ED per unit protocol and pt's bladder was emptied. At approx 0600, pt called to use the commode again. Second post-void residual obtained with 338ml of urine still in the bladder. Dr. Macdonald pagekate, order for Hoffman obtained.
[2020-01-27] MEDS: INSULIN LISPRO 300 UNITS/3 ML VIAL. SQ SCH ×4 (08:00→21:00)
[2020-01-27] MEDS ORDERED: amLODIPine BESYLATE 5 MG TABLET PO SCH (09:00)
--- NOTE | 2020-01-27 09:12 | PDOC2 ---
ABHI BECKETT ROGELIO 01/27/20 0912: CARDIAC CONSULT DATE OF CONSULT Date of Consult DATE: 01/27/20 TIME: 09:04 REASON FOR CONSULT Reason for Consult: heart block REFERRING PHYSICIAN Referring Physician: Sergio SOURCE Source: Chart review, Patient HISTORY OF PRESENT ILLNESS HISTORY OF PRESENT ILLNESS This is a pleasant 80 yo female admitted for complains of dizziness and also some SOA. She has been feeling fatigue lately and has not had any passing out but noted with dizziness. Her appetite has been decreased in the last 2 days. No nausea or vomiting or diarrhea. No chest pain and no palpitations. She does take norvasc but no known AV gary blocking agent use. Denies any CAD and had stress test >2 yrs ago. No hx of bleeding, CVA or any arrhythmias. No recent falls or injury. No recent fever or chills. She takes her thyroid pills regularly. PAST MEDICAL HISTORY Cardiovascular: HTN, Other (mild LLE PAD) CENTRAL NERVOUS SYSTEM: TIA GI: Constipation Heme/Onc: Cancer (right renal CA) Hepatobiliary: No pertinent hx Psych: Anxiety Musculoskeletal: Osteoarthritis Rheumatologic: No pertinent hx Infectious disease: Herpes zoster ENT: Other (glaucoma) Renal/: UTI Endocrine: Diabetes, Hypothyroidism, Osteoporosis, Other (thyroid nodule) Dermatology: No pertinent hx PAST SURGICAL HISTORY Past Surgical History: Cholecystectomy, Hysterectomy, Other (right nephrectomy, bladder suspension) FAMILY HISTORY Family History: Heart Disease (mother) SOCIAL HISTORY Smoke: No ALCOHOL: none Drugs: None Lives: with Family CURRENT MEDICATIONS CURRENT MEDICATIONS Current Medications Medications (Trade) Dose Ordered Sig/Mary Route PRN Reason Start Time Stop Time Status Last Admin Dose Admin Atropine Sulfate (ATROPINE 1mg SYRINGE) 1 mg 1X ONCE IV 01/26/20 16:00 01/26/20 16:01 DC 01/26/20 16:02 Hydralazine HCl (Apresoline Inj) 10 mg 1X ONCE IVP 01/26/20 16:15 01/26/20 16:17 DC 01/26/20 16:36 Hydralazine HCl (Apresoline Inj) 10 mg 1X ONCE IVP 01/26/20 17:30 01/26/20 17:31 DC 01/26/20 17:44 Valacyclovir HCl (Valtrex) 1,000 mg BID PO 01/26/20 21:00 01/26/20 21:39 Hydralazine HCl (Apresoline Inj) 10 mg PRN Q4HRS PRN IVP ELEVATED BP, SEE COMMENTS 01/26/20 20:30 01/26/20 21:42 Levothyroxine Sodium (Synthroid) 25 mcg DAILY06 PO 01/27/20 06:00 01/27/20 05:55 Latanoprost (Xalatan) 1 drop QHS OU 01/26/20 21:00 01/26/20 21:41 Insulin Glargine (Lantus Syringe) 8 unit QHS SQ 01/26/20 21:00 01/26/20 21:40 Heparin Sodium (Porcine) (Heparin Sodium) 5,000 unit Q8HRS SQ 01/26/20 22:00 01/27/20 05:59 Mirtazapine (Remeron) 7.5 mg QHS PO 01/26/20 22:00 01/26/20 22:07 ALLERGIES ALLERGIES: Coded Allergies: erythromycin base (Verified Allergy, Intermediate, 03/04/18) levofloxacin (Verified Allergy, Intermediate, 03/19/19) dizzy,weak, emesis Iodinated Contrast Media (Verified Adverse Reaction, Intermediate, DUE TO ONLY HAVING 1 KIDNEY, 03/04/18) PT STATED THAT ED PHYSICIAN CONSULTED WITH [facility] [employer] AND STATED THAT SINCE SHE HAS ONLY 1 KIDNEY AND HER LABS COME BACK CONSISTANTLY ELEVATED, WE ARE TO NOT GIVE IV CONTRAST diazepam (Verified Adverse Reaction, Intermediate, Palpitations, 03/04/18) oxytetracycline (Verified Adverse Reaction, Intermediate, Palpitations, 03/04/18) oxytetracycline HCl (Verified Adverse Reaction, Intermediate, Palpitations, 03/04/18) hydromorphone (Verified Adverse Reaction, Mild, Nausea and Vomiting, 03/04/18) ROS Review of System 14 point ROS evaluated with pertinent positives noted per HPI PHYSICAL EXAM General: Alert, Oriented X3, Cooperative, No acute distress HEENT: Atraumatic, Mucous membr. moist/pink Lungs: Clear to auscultation, Normal air movement Heart: Regular rate (second degree type 2 mobitz. 2:1 rate in upper 30s with s table BP) Abdomen: Soft, No tenderness Extremities: No cyanosis, No edema Skin: No breakdown, No significant lesion Neuro: Normal speech, Sensation intact Psych/Mental Status: Mental status NL, Mood NL MUSCULOSKELETAL: Osteoarthritic changes both hands VITALS/I&O VITALS/I&O: Vital Signs Date Time Temp Pulse Resp B/P (MAP) Pulse Ox O2 Delivery O2 Flow Rate FiO2 01/27/20 07:00 98.0 39 20 149/65 (93) 94 Room Air 98.0 I & O 01/26/20 01/26/20 01/27/20 15:00 23:00 07:00 Intake Total 200 ml 0 ml Output Total 400 ml Balance 200 ml -400 ml LABS Lab: Laboratory Tests Test 01/26/20 15:45 01/26/20 17:45 01/26/20 19:55 01/26/20 20:49 White Blood Count 6.7 x10^3/uL (4.0-11.0) Red Blood Count 4.34 x10^6/uL (3.50-5.40) Hemoglobin 13.3 g/dL (12.0-15.5) Hematocrit 39.0 % (36.0-47.0) Mean Corpuscular Volume 90 fL (79-100) Mean Corpuscular Hemoglobin 31 pg (25-35) Mean Corpuscular Hemoglobin Concent 34 g/dL (31-37) Red Cell Distribution Width 13.7 % (11.5-14.5) Platelet Count 194 x10^3/uL (140-400) Neutrophils (%) (Auto) 68 % (31-73) Lymphocytes (%) (Auto) 24 % (24-48) Monocytes (%) (Auto) 7 % (0-9) Eosinophils (%) (Auto) 1 % (0-3) Basophils (%) (Auto) 1 % (0-3) Neutrophils # (Auto) 4.5 x10^3/uL (1.8-7.7) Lymphocytes # (Auto) 1.6 x10^3/uL (1.0-4.8) Monocytes # (Auto) 0.4 x10^3/uL (0.0-1.1) Eosinophils # (Auto) 0.1 x10^3/uL (0.0-0.7) Basophils # (Auto) 0.0 x10^3/uL (0.0-0.2) Prothrombin Time 12.6 SEC (11.7-14.0) Prothrombin Time INR 1.0 (0.8-1.1) Activated Partial Thromboplast Time 28 SEC (24-38) Sodium Level 141 mmol/L (136-145) Potassium Level 4.2 mmol/L (3.5-5.1) Chloride Level 107 mmol/L (98-107) Carbon Dioxide Level 26 mmol/L (21-32) Anion Gap 8 (6-14) Blood Urea Nitrogen 21 mg/dL (7-20) H Creatinine 1.4 mg/dL (0.6-1.0) H Estimated GFR (Cockcroft-Gault) 36.0 BUN/Creatinine Ratio 15 (6-20) Glucose Level 220 mg/dL (70-99) H Calcium Level 8.9 mg/dL (8.5-10.1) Magnesium Level 2.0 mg/dL (1.8-2.4) Total Bilirubin 0.5 mg/dL (0.2-1.0) Aspartate Amino Transferase (AST) 60 U/L (15-37) H Alanine Aminotransferase (ALT) 93 U/L (14-59) H Alkaline Phosphatase 87 U/L (46-116) Troponin I Quantitative 0.021 ng/mL (0.000-0.055) 0.031 ng/mL (0.000-0.055) PX-Xxp-U-Type Natriuretic Peptide 1774 pg/mL (0-449) H Total Protein 6.7 g/dL (6.4-8.2) Albumin 3.6 g/dL (3.4-5.0) Albumin/Globulin Ratio 1.2 (1.0-1.7) Lipase 95 U/L (73-393) Thyroid Stimulating Hormone (TSH) 1.611 uIU/mL (0.358-3.74) Free Thyroxine 1.38 ng/dL (0.76-1.46) SARS-CoV-2 Antigen (Rapid) Negative (NEGATIVE) Glucose (Fingerstick) 165 mg/dL (70-99) H Test 01/26/20 21:54 01/27/20 05:00 01/27/20 08:09 Troponin I Quantitative 0.041 ng/mL (0.000-0.055) White Blood Count 6.8 x10^3/uL (4.0-11.0) Red Blood Count 4.04 x10^6/uL (3.50-5.40) Hemoglobin 12.4 g/dL (12.0-15.5) Hematocrit 36.0 % (36.0-47.0) Mean Corpuscular Volume 89 fL (79-100) Mean Corpuscular Hemoglobin 31 pg (25-35) Mean Corpuscular Hemoglobin Concent 34 g/dL (31-37) Red Cell Distribution Width 13.6 % (11.5-14.5) Platelet Count 194 x10^3/uL (140-400) Neutrophils (%) (Auto) 67 % (31-73) Lymphocytes (%) (Auto) 23 % (24-48) L Monocytes (%) (Auto) 8 % (0-9) Eosinophils (%) (Auto) 1 % (0-3) Basophils (%) (Auto) 1 % (0-3) Neutrophils # (Auto) 4.6 x10^3/uL (1.8-7.7) Lymphocytes # (Auto) 1.5 x10^3/uL (1.0-4.8) Monocytes # (Auto) 0.6 x10^3/uL (0.0-1.1) Eosinophils # (Auto) 0.1 x10^3/uL (0.0-0.7) Basophils # (Auto) 0.0 x10^3/uL (0.0-0.2) Sodium Level 145 mmol/L (136-145) Potassium Level 3.9 mmol/L (3.5-5.1) Chloride Level 110 mmol/L (98-107) H Carbon Dioxide Level 25 mmol/L (21-32) Anion Gap 10 (6-14) Blood Urea Nitrogen 21 mg/dL (7-20) H Creatinine 1.4 mg/dL (0.6-1.0) H Estimated GFR (Cockcroft-Gault) 36.0 BUN/Creatinine Ratio 15 (6-20) Glucose Level 148 mg/dL (70-99) H Calcium Level 8.7 mg/dL (8.5-10.1) Total Bilirubin 0.7 mg/dL (0.2-1.0) Aspartate Amino Transferase (AST) 40 U/L (15-37) H Alanine Aminotransferase (ALT) 69 U/L (14-59) H Alkaline Phosphatase 79 U/L (46-116) Total Protein 5.9 g/dL (6.4-8.2) L Albumin 3.1 g/dL (3.4-5.0) L Albumin/Globulin Ratio 1.1 (1.0-1.7) Glucose (Fingerstick) 151 mg/dL (70-99) H Laboratory Tests 01/26/20 15:45 01/27/20 05:00 Laboratory Tests 01/26/20 15:45 01/27/20 05:00 ASSESSMENT/PLAN ASSESSMENT/PLAN 1. Bradyarrhythmia: mobitz type 2. upper 30s. no symptoms currently, stable currently. No pauses and no block progression so far 2. Hypothyroidism: TSH on goal, on replacement 3. HTN urgency 4. Suspect BPPV: vertigo episode noted with positional changes. 5. Allergy to lisinopril pruritus 6. Left carotid bruit 7. CKD3 with hx of right nephrectomy: reviewed renal labs and 1.4 Cr has been her baseline 8. DM2 Recommendations 1. PPM tomorrow for symptomatic bradycardia pending TTE. Discussed with pt, risks and benefits and agreeable to proceed 2. TTE, covid test 3. No AV gary blocking agents. Pt does not take any meds such as the latter. Start hydralazine PO, and IV PRN. DC norvasc 4. Carotid doppler after PPM or as an outpt ROSAURA SONI MD 01/27/20 1738: CARDIAC CONSULT ASSESSMENT/PLAN ASSESSMENT/PLAN The patient was seen and interviewed as well as examined at the bedside. The chart was reviewed. The case was discussed. Agree with the plan of care. ABHI BECKETT APRN Jan 27, 2020 09:12 ROSAURA SONI MD Jan 27, 2020 17:38
--- NOTE | 2020-01-27 09:20 | PDOC2 ---
GI CONSULT Date of Service: DATE: 01/27/20 TIME: 09:20 Reason For Consult: dysphagia HPI: HPI: 80 y/o female w/ bradycardia and HTN. GI-more reports difficulty swallowing (food sits in epigastrium and "spasms" and sometimes "just comes up") and sore throat/painful swallowing w/ heartburn x 2-3 days. Has h/o esophageal dilations - last in 2018 w/ Dr. Mcconnell. Daughter says she also doesn't wear her dentures but prefers to eat a regular diet (instead of soft foods, etc). Denies chronic heartburn. Has some upper abdominal soreness. Tells me no kadi rrhea or constipation. Denies bleeding and weight loss. EGD and colonoscopy w/ Dr. Mcconnell in 2018 - cannot view reports. H/o polyps in 2016. Diverticulosis on imaging. S/p cholecystectomy. No liver, pancreas, or PUD history. On ASA. PMH: PMH: RCC, HTN, hypothyroidism, DM, DVT, CKD cholecystectomy, hysterectomy, tonsillectomy, right nephrectomy, bladder suspension FH: Family History: Other (mother - esophageal dilations) Social History: Smoke: No ALCOHOL: rare Drugs: None ROS: GEN: Denies fevers, chills, sweats HEENT: Denies blurred vision, sore throat CV: Denies chest pain RESP: Denies shortness of air, cough GI: Per HPI : Denies hematuria, dysuria ENDO: Denies weight changes NEURO: Denies confusion, dizziness MSK: Denies weakness, joint pain/swelling SKIN: Denies jaundice, pruritus Vitals: Vitals: Vital Signs Date Time Temp Pulse Resp B/P (MAP) Pulse Ox O2 Delivery O2 Flow Rate FiO2 01/27/20 07:00 98.0 39 20 149/65 (93) 94 Room Air 98.0 Labs: Labs: Laboratory Tests Test 01/26/20 15:45 01/26/20 17:45 01/26/20 19:55 01/26/20 20:49 White Blood Count 6.7 x10^3/uL (4.0-11.0) Red Blood Count 4.34 x10^6/uL (3.50-5.40) Hemoglobin 13.3 g/dL (12.0-15.5) Hematocrit 39.0 % (36.0-47.0) Mean Corpuscular Volume 90 fL (79-100) Mean Corpuscular Hemoglobin 31 pg (25-35) Mean Corpuscular Hemoglobin Concent 34 g/dL (31-37) Red Cell Distribution Width 13.7 % (11.5-14.5) Platelet Count 194 x10^3/uL (140-400) Neutrophils (%) (Auto) 68 % (31-73) Lymphocytes (%) (Auto) 24 % (24-48) Monocytes (%) (Auto) 7 % (0-9) Eosinophils (%) (Auto) 1 % (0-3) Basophils (%) (Auto) 1 % (0-3) Neutrophils # (Auto) 4.5 x10^3/uL (1.8-7.7) Lymphocytes # (Auto) 1.6 x10^3/uL (1.0-4.8) Monocytes # (Auto) 0.4 x10^3/uL (0.0-1.1) Eosinophils # (Auto) 0.1 x10^3/uL (0.0-0.7) Basophils # (Auto) 0.0 x10^3/uL (0.0-0.2) Prothrombin Time 12.6 SEC (11.7-14.0) Prothromb Time International Ratio 1.0 (0.8-1.1) Activated Partial Thromboplast Time 28 SEC (24-38) Sodium Level 141 mmol/L (136-145) Potassium Level 4.2 mmol/L (3.5-5.1) Chloride Level 107 mmol/L (98-107) Carbon Dioxide Level 26 mmol/L (21-32) Anion Gap 8 (6-14) Blood Urea Nitrogen 21 mg/dL (7-20) Creatinine 1.4 mg/dL (0.6-1.0) Estimated GFR (Cockcroft-Gault) 36.0 BUN/Creatinine Ratio 15 (6-20) Glucose Level 220 mg/dL (70-99) Calcium Level 8.9 mg/dL (8.5-10.1) Magnesium Level 2.0 mg/dL (1.8-2.4) Total Bilirubin 0.5 mg/dL (0.2-1.0) Aspartate Amino Transf (AST/SGOT) 60 U/L (15-37) Alanine Aminotransferase (ALT/SGPT) 93 U/L (14-59) Alkaline Phosphatase 87 U/L (46-116) Troponin I Quantitative 0.021 ng/mL (0.000-0.055) 0.031 ng/mL (0.000-0.055) XD-Kpc-N-Type Natriuretic Peptide 1774 pg/mL (0-449) Total Protein 6.7 g/dL (6.4-8.2) Albumin 3.6 g/dL (3.4-5.0) Albumin/Globulin Ratio 1.2 (1.0-1.7) Lipase 95 U/L (73-393) Thyroid Stimulating Hormone (TSH) 1.611 uIU/mL (0.358-3.74) Free Thyroxine 1.38 ng/dL (0.76-1.46) SARS-CoV-2 Antigen (Rapid) Negative (NEGATIVE) Glucose (Fingerstick) 165 mg/dL (70-99) Test 01/26/20 21:54 01/27/20 05:00 01/27/20 08:09 Troponin I Quantitative 0.041 ng/mL (0.000-0.055) White Blood Count 6.8 x10^3/uL (4.0-11.0) Red Blood Count 4.04 x10^6/uL (3.50-5.40) Hemoglobin 12.4 g/dL (12.0-15.5) Hematocrit 36.0 % (36.0-47.0) Mean Corpuscular Volume 89 fL (79-100) Mean Corpuscular Hemoglobin 31 pg (25-35) Mean Corpuscular Hemoglobin Concent 34 g/dL (31-37) Red Cell Distribution Width 13.6 % (11.5-14.5) Platelet Count 194 x10^3/uL (140-400) Neutrophils (%) (Auto) 67 % (31-73) Lymphocytes (%) (Auto) 23 % (24-48) Monocytes (%) (Auto) 8 % (0-9) Eosinophils (%) (Auto) 1 % (0-3) Basophils (%) (Auto) 1 % (0-3) Neutrophils # (Auto) 4.6 x10^3/uL (1.8-7.7) Lymphocytes # (Auto) 1.5 x10^3/uL (1.0-4.8) Monocytes # (Auto) 0.6 x10^3/uL (0.0-1.1) Eosinophils # (Auto) 0.1 x10^3/uL (0.0-0.7) Basophils # (Auto) 0.0 x10^3/uL (0.0-0.2) Sodium Level 145 mmol/L (136-145) Potassium Level 3.9 mmol/L (3.5-5.1) Chloride Level 110 mmol/L (98-107) Carbon Dioxide Level 25 mmol/L (21-32) Anion Gap 10 (6-14) Blood Urea Nitrogen 21 mg/dL (7-20) Creatinine 1.4 mg/dL (0.6-1.0) Estimated GFR (Cockcroft-Gault) 36.0 BUN/Creatinine Ratio 15 (6-20) Glucose Level 148 mg/dL (70-99) Calcium Level 8.7 mg/dL (8.5-10.1) Total Bilirubin 0.7 mg/dL (0.2-1.0) Aspartate Amino Transf (AST/SGOT) 40 U/L (15-37) Alanine Aminotransferase (ALT/SGPT) 69 U/L (14-59) Alkaline Phosphatase 79 U/L (46-116) Total Protein 5.9 g/dL (6.4-8.2) Albumin 3.1 g/dL (3.4-5.0) Albumin/Globulin Ratio 1.1 (1.0-1.7) Glucose (Fingerstick) 151 mg/dL (70-99) Allergies: Coded Allergies: erythromycin base (Verified Allergy, Intermediate, 03/04/18) levofloxacin (Verified Allergy, Intermediate, 03/19/19) dizzy,weak, emesis Iodinated Contrast Media (Verified Adverse Reaction, Intermediate, DUE TO ONLY HAVING 1 KIDNEY, 03/04/18) PT STATED THAT ED PHYSICIAN CONSULTED WITH SUPERINTENDENT MEASUREMENT AND STATED THAT SINCE SHE HAS ONLY 1 KIDNEY AND HER LABS COME BACK CONSISTANTLY ELEVATED, WE ARE TO NOT GIVE IV CONTRAST diazepam (Verified Adverse Reaction, Intermediate, Palpitations, 03/04/18) oxytetracycline (Verified Adverse Reaction, Intermediate, Palpitations, 03/04/18) oxytetracycline HCl (Verified Adverse Reaction, Intermediate, Palpitations, 03/04/18) hydromorphone (Verified Adverse Reaction, Mild, Nausea and Vomiting, 03/04/18) Medications: Current Medications Medications (Trade) Dose Ordered Sig/Mary Route PRN Reason Start Time Stop Time Status Last Admin Dose Admin Atropine Sulfate (ATROPINE 1mg SYRINGE) 1 mg 1X ONCE IV 01/26/20 16:00 01/26/20 16:01 DC 01/26/20 16:02 Hydralazine HCl (Apresoline Inj) 10 mg 1X ONCE IVP 01/26/20 16:15 01/26/20 16:17 DC 01/26/20 16:36 Hydralazine HCl (Apresoline Inj) 10 mg 1X ONCE IVP 01/26/20 17:30 01/26/20 17:31 DC 01/26/20 17:44 Valacyclovir HCl (Valtrex) 1,000 mg BID PO 01/26/20 21:00 01/26/20 21:39 Hydralazine HCl (Apresoline Inj) 10 mg PRN Q4HRS PRN IVP ELEVATED BP, SEE COMMENTS 01/26/20 20:30 01/26/20 21:42 Levothyroxine Sodium (Synthroid) 25 mcg DAILY06 PO 01/27/20 06:00 01/27/20 05:55 Latanoprost (Xalatan) 1 drop QHS OU 01/26/20 21:00 01/26/20 21:41 Insulin Glargine (Lantus Syringe) 8 unit QHS SQ 01/26/20 21:00 01/26/20 21:40 Heparin Sodium (Porcine) (Heparin Sodium) 5,000 unit Q8HRS SQ 01/26/20 22:00 01/27/20 05:59 Mirtazapine (Remeron) 7.5 mg QHS PO 01/26/20 22:00 01/26/20 22:07 Imaging: Imaging: CXR Impression: No acute abnormality is seen. PE: GEN: NAD, talkative HEENT: Atraumatic, PERRL LUNGS: CTAB anteriorly HEART: bradycardic ABD: NABS, S/ND, epigastric tenderness EXTREMITY: No edema SKIN: No rashes, no jaundice NEURO/PSYCH: A & O 3 A/P: A/P: Bradycardia, HTN Mildly elevated AST and ALT - better today Dysphagia/odynophagia, heartburn, epigastric pain CRC screen, h/o polyps - UTD S/p cholecystectomy COVID negative -- Continue per cardiology. Acid-coding specialist home health + empiric anti-fungal; consider EGD w/ dilation prior to DC once bradycardia addressed. Check KUB w/ epigastric pain. Monitor LFTs, consider additional liver imaging/labs if indicated. Offered soft diet considering dentition issue - daughter said pt would refuse. MITESH EDEN Jan 27, 2020 09:20
[2020-01-27] MEDS: ASPIRIN CHEWABLE 81 MG TABLET. PO SCH (10:32)
[2020-01-27] MEDS: PANTOPRAZOLE 40 MG TABLET.DR. PO SCH (10:33)
[2020-01-27] MEDS: valACYclovir 500 MG TABLET. PO SCH ×2 (10:34→21:25)
[2020-01-27] MEDS: NYSTATIN 100,000 UNITS/ML 5 ML ORAL.SUSP. SWSW SCH ×4 (10:36→21:25)
--- NOTE | 2020-01-27 11:10 | PDOC ---
[employer] PROGRESS NOTE Date of Service DOS: DATE: 01/27/20 TIME: 10:50 Chief Complaint Chief Complaint Hypertensive urgency, dysphagia, dizziness History of Present Illness History of Present Illness 01/27/2020 Pt seen and examined. Chart reviewed. Discussed with RN and nurse outreach case manager. Pt resting comfortably in bed, NAD. Pt expressed concern for her condition, as late of "similar heart problems". Pt consoled and her demeanor improved. Spoke with GI. Vitals/I&O Vitals/I&O: Vital Signs Date Time Temp Pulse Resp B/P (MAP) Pulse Ox O2 Delivery O2 Flow Rate FiO2 01/27/20 10:36 39 149/65 01/27/20 07:00 98.0 20 94 Room Air 98.0 I & O 01/26/20 01/26/20 01/27/20 15:00 23:00 07:00 Intake Total 200 ml 0 ml Output Total 400 ml Balance 200 ml -400 ml Physical Exam General: Alert, Oriented X3, Cooperative, mild distress Lungs: Clear, Other Abdomen: Normal bowel sounds, Soft, No tenderness, No hepatosplenomegaly, No masses Extremities: No clubbing, No cyanosis, No edema, Normal pulses, No tenderness/swelling Skin: No breakdown, Other (Oral vesicular lesions L>R perioral area) Labs Labs: Laboratory Tests Test 01/26/20 15:45 01/26/20 17:45 01/26/20 19:55 01/26/20 20:49 White Blood Count 6.7 x10^3/uL (4.0-11.0) Red Blood Count 4.34 x10^6/uL (3.50-5.40) Hemoglobin 13.3 g/dL (12.0-15.5) Hematocrit 39.0 % (36.0-47.0) Mean Corpuscular Volume 90 fL (79-100) Mean Corpuscular Hemoglobin 31 pg (25-35) Mean Corpuscular Hemoglobin Concent 34 g/dL (31-37) Red Cell Distribution Width 13.7 % (11.5-14.5) Platelet Count 194 x10^3/uL (140-400) Neutrophils (%) (Auto) 68 % (31-73) Lymphocytes (%) (Auto) 24 % (24-48) Monocytes (%) (Auto) 7 % (0-9) Eosinophils (%) (Auto) 1 % (0-3) Basophils (%) (Auto) 1 % (0-3) Neutrophils # (Auto) 4.5 x10^3/uL (1.8-7.7) Lymphocytes # (Auto) 1.6 x10^3/uL (1.0-4.8) Monocytes # (Auto) 0.4 x10^3/uL (0.0-1.1) Eosinophils # (Auto) 0.1 x10^3/uL (0.0-0.7) Basophils # (Auto) 0.0 x10^3/uL (0.0-0.2) Prothrombin Time 12.6 SEC (11.7-14.0) Prothromb Time International Ratio 1.0 (0.8-1.1) Activated Partial Thromboplast Time 28 SEC (24-38) Sodium Level 141 mmol/L (136-145) Potassium Level 4.2 mmol/L (3.5-5.1) Chloride Level 107 mmol/L (98-107) Carbon Dioxide Level 26 mmol/L (21-32) Anion Gap 8 (6-14) Blood Urea Nitrogen 21 mg/dL (7-20) Creatinine 1.4 mg/dL (0.6-1.0) Estimated GFR (Cockcroft-Gault) 36.0 BUN/Creatinine Ratio 15 (6-20) Glucose Level 220 mg/dL (70-99) Calcium Level 8.9 mg/dL (8.5-10.1) Magnesium Level 2.0 mg/dL (1.8-2.4) Total Bilirubin 0.5 mg/dL (0.2-1.0) Aspartate Amino Transf (AST/SGOT) 60 U/L (15-37) Alanine Aminotransferase (ALT/SGPT) 93 U/L (14-59) Alkaline Phosphatase 87 U/L (46-116) Troponin I Quantitative 0.021 ng/mL (0.000-0.055) 0.031 ng/mL (0.000-0.055) JI-Wyj-G-Type Natriuretic Peptide 1774 pg/mL (0-449) Total Protein 6.7 g/dL (6.4-8.2) Albumin 3.6 g/dL (3.4-5.0) Albumin/Globulin Ratio 1.2 (1.0-1.7) Lipase 95 U/L (73-393) Thyroid Stimulating Hormone (TSH) 1.611 uIU/mL (0.358-3.74) Free Thyroxine 1.38 ng/dL (0.76-1.46) SARS-CoV-2 Antigen (Rapid) Negative (NEGATIVE) Glucose (Fingerstick) 165 mg/dL (70-99) Test 01/26/20 21:54 01/27/20 05:00 01/27/20 08:09 Troponin I Quantitative 0.041 ng/mL (0.000-0.055) White Blood Count 6.8 x10^3/uL (4.0-11.0) Red Blood Count 4.04 x10^6/uL (3.50-5.40) Hemoglobin 12.4 g/dL (12.0-15.5) Hematocrit 36.0 % (36.0-47.0) Mean Corpuscular Volume 89 fL (79-100) Mean Corpuscular Hemoglobin 31 pg (25-35) Mean Corpuscular Hemoglobin Concent 34 g/dL (31-37) Red Cell Distribution Width 13.6 % (11.5-14.5) Platelet Count 194 x10^3/uL (140-400) Neutrophils (%) (Auto) 67 % (31-73) Lymphocytes (%) (Auto) 23 % (24-48) Monocytes (%) (Auto) 8 % (0-9) Eosinophils (%) (Auto) 1 % (0-3) Basophils (%) (Auto) 1 % (0-3) Neutrophils # (Auto) 4.6 x10^3/uL (1.8-7.7) Lymphocytes # (Auto) 1.5 x10^3/uL (1.0-4.8) Monocytes # (Auto) 0.6 x10^3/uL (0.0-1.1) Eosinophils # (Auto) 0.1 x10^3/uL (0.0-0.7) Basophils # (Auto) 0.0 x10^3/uL (0.0-0.2) Sodium Level 145 mmol/L (136-145) Potassium Level 3.9 mmol/L (3.5-5.1) Chloride Level 110 mmol/L (98-107) Carbon Dioxide Level 25 mmol/L (21-32) Anion Gap 10 (6-14) Blood Urea Nitrogen 21 mg/dL (7-20) Creatinine 1.4 mg/dL (0.6-1.0) Estimated GFR (Cockcroft-Gault) 36.0 BUN/Creatinine Ratio 15 (6-20) Glucose Level 148 mg/dL (70-99) Calcium Level 8.7 mg/dL (8.5-10.1) Total Bilirubin 0.7 mg/dL (0.2-1.0) Aspartate Amino Transf (AST/SGOT) 40 U/L (15-37) Alanine Aminotransferase (ALT/SGPT) 69 U/L (14-59) Alkaline Phosphatase 79 U/L (46-116) Total Protein 5.9 g/dL (6.4-8.2) Albumin 3.1 g/dL (3.4-5.0) Albumin/Globulin Ratio 1.1 (1.0-1.7) Glucose (Fingerstick) 151 mg/dL (70-99) Review of Systems Review of Systems: Pt denies pain, pt denies NVD Assessment and Plan Assessmemt and Plan Problems Medical Problems: (1) Heart bloc atrioventricular Status: Acute (2) Hypertensive urgency Status: Acute Assessment: AV heart block Hypertensive urgency Dysphagia Dizziness Diabetes Renal Cell Carcinoma Plan: Appreciate specialist input from GI and cardio. Await results of echocardiogram and ECG. COVID test. Home meds. PT/OT DVT prophylaxis. Full code. Comment Review of Relevant I have reviewed the following items chapito (where applicable) has been applied. Medications: Current Medications Medications (Trade) Dose Ordered Sig/Mary Route PRN Reason Start Time Stop Time Status Last Admin Dose Admin Atropine Sulfate (ATROPINE 1mg SYRINGE) 1 mg 1X ONCE IV 01/26/20 16:00 01/26/20 16:01 DC 01/26/20 16:02 Hydralazine HCl (Apresoline Inj) 10 mg 1X ONCE IVP 01/26/20 16:15 01/26/20 16:17 DC 01/26/20 16:36 Hydralazine HCl (Apresoline Inj) 10 mg 1X ONCE IVP 01/26/20 17:30 01/26/20 17:31 DC 01/26/20 17:44 Valacyclovir HCl (Valtrex) 1,000 mg BID PO 01/26/20 21:00 01/27/20 10:34 Hydralazine HCl (Apresoline Inj) 10 mg PRN Q4HRS PRN IVP ELEVATED BP, SEE COMMENTS 01/26/20 20:30 01/26/20 21:42 Amlodipine Besylate (Norvasc) 10 mg DAILY PO 01/27/20 09:00 01/27/20 10:36 Aspirin (Aspirin Chewable) 81 mg DAILYWBKFT PO 01/27/20 08:00 01/27/20 10:32 Levothyroxine Sodium (Synthroid) 25 mcg DAILY06 PO 01/27/20 06:00 01/27/20 05:55 Latanoprost (Xalatan) 1 drop QHS OU 01/26/20 21:00 01/26/20 21:41 Insulin Glargine (Lantus Syringe) 8 unit QHS SQ 01/26/20 21:00 01/26/20 21:40 Heparin Sodium (Porcine) (Heparin Sodium) 5,000 unit Q8HRS SQ 01/26/20 22:00 01/27/20 05:59 Mirtazapine (Remeron) 7.5 mg QHS PO 01/26/20 22:00 01/26/20 22:07 Pantoprazole Sodium (Protonix) 40 mg DAILYAC PO 01/27/20 10:30 01/27/20 10:33 Nystatin (Nystatin Oral Susp) 5 ml [id number] 01/27/20 10:30 01/27/20 10:36 Justifications for Admission Chest Pain Indications Hemodynamically unstable?: Yes Justification for admission: Patient hemodynamically unstable as indicated by persistent orthostatic vital signs changes ie fall of SBP of 20 mmHg or more OR fall in DBP of 10mmHg or more, 1 to 3 minutes after patient sits/stands from recumbent position. Serious Diagnosis?: Yes Justification for admission: Chest pain may be indicative of potentially serious diagnosis/diagnoses Please state condition(s) which will require inpatient level of care for further evaluation and management. Is patient at high risk?: Yes Justification for admission: Patient is high risk based on hemodynamic instability, CHF, abnormal EKG/ECG/cardiac biomarkers/physical exam findings in context of chest pain persisting despite parenteral analgesics & optimal anti-anginal therapy. Other Justification GRECIA BAJWA III DO Jan 27, 2020 11:10
--- NOTE | 2020-01-27 11:33 | NUR ---
SS following for discharge planning. SS reviewed pt chart and discussed with pt RN. Pt is from home and is currently on room air. COVID19 negative. ECHO ordered. Cardiology following. SS will continue to follow for discharge planning.
[2020-01-27 11:36] LABS: BILIRUBIN,URINE SMALL (NEG); CLARITY,URINE CLEAR; COLOR,URINE AMBER; NITRITE,URINE NEGATIVE (NEG); PROTEIN,URINE 100 mg/dL (NEG-TRACE)
[2020-01-27 11:55] LABS: RBC,URINE 0 /HPF (0-2)
[2020-01-27 11:56] LABS: BACTERIA,URINE FEW /HPF (0-FEW); HYALINE CASTS, URINE FEW /HPF; SQUAMOUS EPITHELIAL CELL,UR MOD /LPF; WBC,URINE 20-40 /HPF (0-4)
[2020-01-27 12:02] LABS: BARBITURATES NEG (NEG); BENZODIAZEPINES NEG (NEG); CANNABINOIDS NEG (NEG); COCAINE NEG (NEG); METHADONE NEG (NEG); OPIATES NEG (NEG); PHENCYCLIDINE NEG (NEG)
[2020-01-27 12:06] LABS: AMPHETAMINE/METHAMPHETAMINE NEG (NEG)
--- NOTE | 2020-01-27 14:35 | RAD ---
PROCEDURE: KUB CLINICAL INDICATION / HISTORY: Reason: abd pain / Spl. Instructions: / History: . TECHNIQUE: Single AP image of the abdomen was obtained. COMPARISON: Portable chest of 01/26/2020 FINDINGS: The lung bases are included. A nonobstructive bowel gas pattern is present. There is gaseous distention of the gastric lumen. No organomegaly or pathologic calcifications are identified. No acute osseous abnormality. IMPRESSION: Gaseous distention of the stomach. No findings of bowel obstruction or perforation noted. Electronically signed by: Funmilayo Richmond MD (01/27/2020 2:32 PM) [id number]
[2020-01-27] MEDS ORDERED: hydrALAZINE 20 MG/ML VIAL. IVP ONE (15:15)
--- NOTE | 2020-01-27 16:15 | CARD ---
MR#: [id number] Date of Study: 01/27/2020 Ordering Physician: GENA HERRERA, Referring Physician: GENA HERRERA, Tech: Shreya Nino [facility] APPROVED REPORT EXAM: Two-dimensional and M-mode echocardiogram with Doppler and color Doppler. Other Information Quality : Good INDICATION Abnormal ECG Second Degree Heart Block 2D DIMENSIONS RVDd2.7 (2.9-3.5cm)Left Atrium(2D)3.7 (1.6-4.0cm) IVSd0.9 (0.7-1.1cm)Aortic Root(2D)2.3 (2.0-3.7cm) LVDd5.5 (3.9-5.9cm)LVOT Diameter2.0 (1.8-2.4cm) PWd0.8 (0.7-1.1cm)LVDs4.4 (2.5-4.0cm) FS (%) 30.0 %SV61.9 ml LVEF(%)60.0 (>50%) Aortic Valve AoV Peak Ashwin.251.3cm/sAoV VTI51.4cm AO Peak GR.25.3mmHgLVOT Peak Ashwin.189.8cm/s AO Mean GR.12mmHgAVA (VMAX)2.31cm2 MONIQUE (VTI)2.30cm2 Mitral Valve MV E Fttunjbp219.8cm/sMV DECEL LLBR284bc MV A Cfytrxjx113.4cm/sE/A Ratio0.9 Tricuspid Valve TR P. Iinizigl676yg/sRAP FNPTCTJL5ugJq TR Peak Gr.08geRiVFJI62vcSh LEFT VENTRICLE The left ventricle is normal size. There is normal left ventricular wall thickness. The left ventricu lar systolic function is normal and the ejection fraction is within normal range. The Ejection Fracti on is 55-60%. There is normal LV segmental wall motion. Transmitral Doppler flow pattern is Grade I-a bnormal relaxation pattern. RIGHT VENTRICLE The right ventricle is normal size. The right ventricular systolic function is normal. ATRIA The left atrium size is normal. The right atrium size is normal. The interatrial septum is intact wit h no evidence for an atrial septal defect or patent foramen ovale as noted on 2-D or Doppler imaging. AORTIC VALVE The aortic valve is calcified but opens well. Doppler and Color Flow revealed no significant aortic r egurgitation. There is no significant aortic valvular stenosis. MITRAL VALVE The mitral valve is calcified but opens well. There is no evidence of mitral valve prolapse. There is no mitral valve stenosis. Doppler and Color-flow revealed mild mitral regurgitation. TRICUSPID VALVE The tricuspid valve is normal in structure and function. Doppler and Color Flow revealed trace tricus pid regurgitation. The PA pressure was estimated at 39 mmHg. There is no tricuspid valve stenosis. PULMONIC VALVE The pulmonic valve is not well visualized. Doppler and Color Flow revealed no pulmonic valvular regur gitation. There is no pulmonic valvular stenosis. GREAT VESSELS The aortic root is normal in size. The ascending aorta is not well seen. The IVC is normal in size an d collapses >50% with inspiration. PERICARDIAL EFFUSION There is no evidence of significant pericardial effusion. Critical Notification Critical Value: No <Conclusion> The left ventricle is normal size. The left ventricular systolic function is normal and the ejection fraction is within normal range. The Ejection Fraction is 55-60%. Doppler and Color Flow revealed no significant aortic regurgitation. There is no significant aortic valvular stenosis. Doppler and Color-flow revealed mild mitral regurgitation. Doppler and Color Flow revealed trace tricuspid regurgitation. The PA pressure was estimated at 39 mmHg. Signed by : Neymar Elder MD Electronically Approved : 01/27/2020 16:14:29
--- NOTE | 2020-01-27 16:18 | EKG ---
[facility] [address] [place] [address] Test Date: 2020-01-27 Test Time: 16:14:34 Pat Name: MABEL SALINAS Department: Room: 258 1 Gender: F Manager Rn: KEYANA : 1940 Requested By: ABHI BECKETT Order Number: [id number] Reading MD: Measurements Intervals [place] Rate: 38 P: OR: QRS: -11 QRSD: 110 T: 28 QT: 480 QTc: 384 Interpretive Statements SECOND OR THIRD DEGREE AV-BLOCK LEFTWARD AXIS R-S TRANSITION ZONE IN V LEADS DISPLACED TO THE RIGHT INCOMPLETE RIGHT BUNDLE BRANCH BLOCK NON SPECIFIC ST DEPRESSION ABNORMAL ECG RI6.02 Compared to ECG 01/26/2020 15:42:38 ST (T wave) deviation now present
[2020-01-27] MEDS: hydrALAZINE 25 MG TABLET PO SCH ×2 (17:29→21:25)
[2020-01-27] MEDS: MIRTAZAPINE 7.5 MG TABLET. PO SCH (21:25)
[2020-01-27] MEDS: LATANOPROST 0.005% OPHTH SOLUTION 2.5ML BOTTLE. OU SCH (21:25)
[2020-01-27] MEDS: INSULIN GLARGINE SYRINGE. SQ SCH (21:28)
--- NOTE | 2020-01-27 23:24 | EKG ---
[facility] [address] [place] [address] Test Date: 2020-01-27 Test Time: 23:16:24 Pat Name: MABEL SALINAS Department: Room: 258 1 Gender: F Baggage Porter: : 1940 Requested By: ROSAURA SONI Order Number: [id number] Reading MD: Measurements Intervals [place] Rate: 35 P: 0 DE: 92 QRS: -20 QRSD: 232 T: 65 QT: 644 QTc: 495 Interpretive Statements SINUS BRADYCARDIA LEFTWARD AXIS LOW VOLTAGE NON SPECIFIC INTRAVENTRICULAR BLOCK QRS(T) CONTOUR ABNORMALITY CONSIDER INFERIOR MYOCARDIAL DAMAGE ABNORMAL ECG RI6.02 Compared to ECG 01/27/2020 16:14:34 Low QRS voltage now present Incomplete right bundle-branch block no longer present ST (T wave) deviation no longer present
[2020-01-28] VITALS (17 sets, daily range): BP systolic 147–190; BP diastolic 65–104
[2020-01-28 05:32] LABS: ALBUMIN 2.9 g/dL (3.4-5.0); DIRECT BILIRUBIN 0.2 mg/dL (0.0-0.2); TOTAL BILIRUBIN 0.7 mg/dL (0.2-1.0); TOTAL PROTEIN 5.7 g/dL (6.4-8.2)
[2020-01-28] MEDS: LEVOTHYROXINE 25 MCG TABLET. PO SCH (06:00)
[2020-01-28] MEDS: HEPARIN for SUB-Q USE 5,000 UNIT/ML VIAL. SQ SCH ×3 (06:00→20:19)
--- NOTE | 2020-01-28 07:47 | PDOC ---
MODERATE SEDATION ASSESSMENT RISKS/ALTERNATIVES Risks/Alternatives Risks and alternatives of this type of sedation and procedure discussed with: RISK/ALTERNATIVES: Patient H & P ON CHART H & P H & P on chart and reviewed for co-morbid conditions and appropriate labs. H&P ON CHART: Yes STATUS PREG STATUS ASSESSED: N/A MEDS/ALLERGIES REVIEWED Meds/Allergies Reviewed Medications and Allergies including time and route of recently administered narcotics and sedatives. MEDS/ALLERGIES REVIEWED: Yes ASA RATING ASA RATING: II AIRWAY ASSESSMENT Airway Assessment Airway patency, oral function limitations, presence of caps, crowns, dentures, partials, and ability to extend neck assessed. AIRWAY ASSESSMENT: Yes MALLAMPATI SCORE MALLAMPATI SCORE: II PRE-SEDATION ASSESSMENT PRE-SEDATION ASSESSMENT: Yes ROSAURA SONI MD Jan 28, 2020 07:47
[2020-01-28] MEDS: INSULIN LISPRO 300 UNITS/3 ML VIAL. SQ SCH ×4 (08:00→20:18)
[2020-01-28] MEDS ORDERED: ceFAZolin SODIUM IV Push 1 GM VIAL. IVP ONE ×4 (08:15→15:30)
[2020-01-28] MEDS ORDERED: BACITRACIN 50,000 UNIT in IV NORMAL SALINE 250ML 250 ML IRR ONE (08:15)
[2020-01-28] MEDS ORDERED: MIDAZOLAM HCL/PF 5 MG/5 ML VIAL. ONE (08:19)
[2020-01-28] MEDS ORDERED: fentaNYL PF VIAL 100 MCG/2 ML VIAL ONE (08:19)
--- NOTE | 2020-01-28 08:25 | NUR ---
pt left the floor at approx 0820 for pacemaker placement. 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
[2020-01-28] MEDS ORDERED: LIDOCAINE 2%/EPI 1:100,000 20 ML VIAL. ONE (08:38)
[2020-01-28] MEDS ORDERED: LIDOCAINE 2%/EPI 1:100,000 20 ML VIAL. IJ ONE (09:15)
[2020-01-28] MEDS ORDERED: fentaNYL PF VIAL 100 MCG/2 ML VIAL IV ONE (09:15)
[2020-01-28] MEDS ORDERED: MIDAZOLAM HCL/PF 5 MG/5 ML VIAL. IV ONE (09:15)
--- NOTE | 2020-01-28 10:25 | CARD ---
MR#: [id number] Date of Study: 01/28/2020 Ordering Physician: ROSAURA SONI, Referring Physician: ROSAURA SONI, Tech: APPROVED REPORT HISTORY The Patient is a 80 year-old female with a history of High grade AVB MODERATE SEDATION TIME: 88 MINS FLUORO TIME: 9.4 MIN DOSE: 20.9 GYCM2 PROCEDURES Insertion Dual Chamber Pacemaker 30 mL of 2% lidocaine was infiltrated into the skin and subcutaneous tissues for local anesthesia. A n incision was made over the left infraclavicular fossa and using blunt dissection and cautery a pock et was created. Venous access was obtained in the left subclavian vein and 7 [place] sheaths were ins erted. Subsequently, a Medtronic bipolar active fixation right ventricular lead model #076111, SN [id number] was advanced under fluoroscopic guidance and the tip was positioned in the right ventricular apical septum. Following this, a Medtronic bipolar active fixation right atrial lead model 545062, SN [id number] was placed in the right atrial appendage under fluoroscopy guidance. The leads were secured in to place and were attached to a Medtronic dual-chamber permanent pacemaker generator model W3DR01, SN [id number]. This was placed in the pocket that was subsequently closed in 3 layers. Hemostasis was secured. At the end of procedure, the right ventricular lead showed sensing amplitude of 9.5 mV, impedance of 874 ohms and a threshold of 0.5 volts at 0.4 ms. The right atrial lead showed a sensing amplitude of 1.8 millivolts, impedance of 475 ohms and a threshold of 1.75 volts at 0.4 ms. Patient tolerated the procedure well. Three different atrial lead positions were attempted to achieve better thresholds b ut no improvement was noted. At the final position, there was excellent current of injury and good st ability, therefore, further changes to lead positioning were deferred. There were no immediate compli cations. INDICATIONS AV block. CONCLUSION 1. 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 Signed by : Rosaura Soni, Electronically Approved : 01/28/2020 10:25:23
[2020-01-28] MEDS ORDERED: NO ANTICOAGULANT THERAPY. MC PRN (10:30)
--- NOTE | 2020-01-28 11:41 | PDOC ---
Date of Service: DATE: 01/28/20 TIME: 11:38 Objective: Objective: D/w nurse - getting pacemaker. Vital Signs: Vital Signs Date Time Temp Pulse Resp B/P (MAP) Pulse Ox O2 Delivery O2 Flow Rate FiO2 01/28/20 10:52 98.0 77 18 190/69 (109) 98 Nasal Cannula 4.0 98.0 Labs: Laboratory Tests Test 01/27/20 12:14 01/27/20 17:00 01/27/20 20:25 01/28/20 04:22 Glucose (Fingerstick) 302 mg/dL 203 mg/dL 202 mg/dL Total Bilirubin 0.7 mg/dL Direct Bilirubin 0.2 mg/dL Aspartate Amino Transf (AST/SGOT) 48 U/L Alanine Aminotransferase (ALT/SGPT) 83 U/L Alkaline Phosphatase 75 U/L Total Protein 5.7 g/dL Albumin 2.9 g/dL Test 01/28/20 07:08 01/28/20 11:22 Glucose (Fingerstick) 240 mg/dL 194 mg/dL URINE CULTURE Final Final Less than 10,000 cfu/mL, no further workup unless requested within 3 days. Imaging: KUB 01/26 IMPRESSION: Gaseous distention of the stomach. No findings of bowel obstruction or perforation noted. Echo 01/26 <Conclusion> The left ventricle is normal size. The left ventricular systolic function is normal and the ejection fraction is within normal range. The Ejection Fraction is 55-60%. Doppler and Color Flow revealed no significant aortic regurgitation. There is no significant aortic valvular stenosis. Doppler and Color-flow revealed mild mitral regurgitation. Doppler and Color Flow revealed trace tricuspid regurgitation. The PA pressure was estimated at 39 mmHg. CXR 01/27 pending 01/27 CONCLUSION 1. 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 PE: out of room A/P: S/p pacemaker Mildly elevated AST and ALT - little worse today, s/p jackie Dysphagia/odynophagia, heartburn, epigastric pain - on PPI, empiric Nystatin COVID negative -- Will review timing for EGD/dilation w/ Dr. Mix. Monitor LFTs, will check RUQ US. Justicifation of Admission Dx: Justifications for Admission: Justification of Admission Dx: Yes (hypertensive urgency with heart block) MITESH EDEN Jan 28, 2020 11:41
--- NOTE | 2020-01-28 12:01 | RAD ---
EXAM: PORTABLE CHEST 1V INDICATION: Reason: Post pacemaker / Spl. Instructions: / History: . TECHNIQUE: Single view COMPARISON: 01/26/2020 at 4:08 PM FINDINGS: Interval placement of a left chest dual-chamber pacemaker. The heart size is normal. The great vessels appear unremarkable. There is no hilar or mediastinal mass. The lungs are clear. No pneumothorax. Hazy blunting of the left costophrenic angle suggestive of a small left pleural effusion. There are no significant osseous abnormalities. IMPRESSION: Left chest pacemaker placement with no pneumothorax. Possible trace left pleural effusion noted. Electronically signed by: Funmilayo Richmond MD (01/28/2020 11:59 AM) [id number]
[2020-01-28] MEDS: NYSTATIN 100,000 UNITS/ML 5 ML ORAL.SUSP. SWSW SCH ×4 (12:27→20:19)
[2020-01-28] MEDS: valACYclovir 500 MG TABLET. PO SCH ×2 (12:27→20:17)
[2020-01-28] MEDS: PANTOPRAZOLE 40 MG TABLET.DR. PO SCH (12:28)
[2020-01-28] MEDS: ASPIRIN CHEWABLE 81 MG TABLET. PO SCH (12:28)
[2020-01-28] MEDS: hydrALAZINE 25 MG TABLET PO SCH ×3 (12:29→20:16)
--- NOTE | 2020-01-28 13:27 | NUR ---
SS following up with discharge planning. SS reviewed pt chart and discussed with pt RN. Pt is currently requiring oxygen. Pt had heart block overnight and had pacemaker placed today. SS will continue to follow for discharge planning.
--- NOTE | 2020-01-28 13:36 | PDOC ---
[employer] PROGRESS NOTE Date of Service DOS: DATE: 01/28/20 TIME: 13:34 Chief Complaint Chief Complaint Hypertensive urgency, dysphagia, dizziness History of Present Illness History of Present Illness 01/27/2020 Pt seen and examined. Chart reviewed. Discussed with RN and lead case manager. Pt resting comfortably in bed, NAD. Pt expressed concern for her condition, as late of "similar heart problems". Pt consoled and her demeanor improved. Spoke with GI. 01/28/2020 Patient evaluated at bedside. Resting comfortably. She had an episode of complete heart block overnight. She was taken for pacemaker placement today. Discussed with RN. Vitals/I&O Vitals/I&O: Vital Signs Date Time Temp Pulse Resp B/P (MAP) Pulse Ox O2 Delivery O2 Flow Rate FiO2 01/28/20 12:29 65 151/67 01/28/20 10:52 98.0 18 98 Nasal Cannula 4.0 98.0 I & O 01/27/20 01/27/20 01/28/20 15:00 23:00 07:00 Intake Total 250 ml 540 ml 50 ml Output Total 325 ml 150 ml Balance 250 ml 215 ml -100 ml Physical Exam General: Alert, Oriented X3, Cooperative, No acute distress Heart: Regular rate (second degree type 2 mobitz. 2:1 rate in upper 30s with stable BP) Lungs: Clear, Other Abdomen: Soft, No tenderness Extremities: No cyanosis, No edema Skin: No breakdown, No significant lesion Labs Labs: Laboratory Tests Test 01/27/20 17:00 01/27/20 20:25 01/28/20 04:22 01/28/20 07:08 Glucose (Fingerstick) 203 mg/dL (70-99) 202 mg/dL (70-99) 240 mg/dL (70-99) Total Bilirubin 0.7 mg/dL (0.2-1.0) Direct Bilirubin 0.2 mg/dL (0.0-0.2) Aspartate Amino Transf (AST/SGOT) 48 U/L (15-37) Alanine Aminotransferase (ALT/SGPT) 83 U/L (14-59) Alkaline Phosphatase 75 U/L (46-116) Total Protein 5.7 g/dL (6.4-8.2) Albumin 2.9 g/dL (3.4-5.0) Test 01/28/20 11:22 Glucose (Fingerstick) 194 mg/dL (70-99) Assessment and Plan Assessmemt and Plan Problems Medical Problems: (1) Heart bloc atrioventricular Status: Acute (2) Hypertensive urgency Status: Acute Comment Review of Relevant I have reviewed the following items chapito (where applicable) has been applied. Medications: Current Medications Medications (Trade) Dose Ordered Sig/Mary Route PRN Reason Start Time Stop Time Status Last Admin Dose Admin Hydralazine HCl (Apresoline) 25 mg TID PO 01/27/20 15:00 01/28/20 12:29 Hydralazine HCl (Apresoline Inj) 10 mg 1X ONCE IVP 01/27/20 15:15 01/27/20 15:16 DC 01/27/20 17:31 Cefazolin Sodium (Ancef) 1 gm 1X ONCE IVP 01/28/20 08:15 01/28/20 08:19 DC 01/28/20 09:29 Bacitracin 14957 unit/Sodium Chloride 250 ml @ 250 mls/hr 1X ONCE IRR 01/28/20 08:15 01/28/20 09:14 DC 01/28/20 09:28 Midazolam HCl (Versed) 5 mg 1X ONCE IV 01/28/20 09:15 01/28/20 09:18 DC 01/28/20 09:29 Fentanyl Citrate (Fentanyl 2ml Vial) 100 mcg 1X ONCE IV 01/28/20 09:15 01/28/20 09:18 DC 01/28/20 09:30 Lidocaine/ Epinephrine (LIDOCAINE 2%-EPI 1:100,000 multi-dose) 30 ml 1X ONCE IJ 01/28/20 09:15 01/28/20 09:18 DC 01/28/20 09:29 Cefazolin Sodium (Ancef) 1 gm 1X ONCE IVP 01/28/20 15:30 01/28/20 15:31 01/28/20 12:30 Justifications for Admission Chest Pain Indications Hemodynamically unstable?: Yes Justification for admission: Patient hemodynamically unstable as indicated by persistent orthostatic vital signs changes ie fall of SBP of 20 mmHg or more OR fall in DBP of 10mmHg or more, 1 to 3 minutes after patient sits/stands from recumbent position. Serious Diagnosis?: Yes Justification for admission: Chest pain may be indicative of potentially serious diagnosis/diagnoses Please state condition(s) which will require inpatient level of care for further evaluation and management. Is patient at high risk?: Yes Justification for admission: Patient is high risk based on hemodynamic instability, CHF, abnormal EKG/ECG/cardiac biomarkers/physical exam findings in context of chest pain persisting despite parenteral analgesics & optimal anti-anginal therapy. Other Justification COTY QUINONES MD Jan 28, 2020 13:36
--- NOTE | 2020-01-28 14:18 | RAD ---
ABDOMEN LTD History: Elevated liver function tests, status post cholecystectomy, abdominal pain Comparison: None. Findings: Multiple sonographic images of the abdomen are submitted. Incidental note is made of a small right pleural effusion. There is no abnormality of the visualized pancreas. No focal hepatic lesion is demonstrated, hepatic echotexture within normal limits. Right lobe of the liver measured 15 cm longitudinal. Common bile duct is within normal limits at 0.6 m. There has been cholecystectomy. Right kidney is absent. Impression: 1. No significant acute abnormality is demonstrated. There has been cholecystectomy. Right kidney is absent. Electronically signed by: Claudio Buckner MD (01/28/2020 2:15 PM) [id number]
[2020-01-28] MEDS: MIRTAZAPINE 7.5 MG TABLET. PO SCH (20:17)
[2020-01-28] MEDS: LATANOPROST 0.005% OPHTH SOLUTION 2.5ML BOTTLE. OU SCH (20:17)
[2020-01-28] MEDS: INSULIN GLARGINE SYRINGE. SQ SCH (20:18)
[2020-01-28] MEDS: oxyCODONE/APAP 5/325 1 TAB TABLET PO PRN (20:30)
[2020-01-29 02:34] VITALS: BP 186/74
[2020-01-29] MEDS: hydrALAZINE 20 MG/ML VIAL. IVP PRN (02:40)
[2020-01-29] MEDS: oxyCODONE/APAP 5/325 1 TAB TABLET PO PRN ×3 (02:40→20:54)
[2020-01-29] MEDS: LEVOTHYROXINE 25 MCG TABLET. PO SCH (06:28)
[2020-01-29] MEDS: HEPARIN for SUB-Q USE 5,000 UNIT/ML VIAL. SQ SCH ×3 (06:30→20:55)
[2020-01-29 07:00] VITALS: BP 184/91
--- NOTE | 2020-01-29 08:50 | PDOC ---
ABHI BECKETT SOLE LEVELER MACHINE 01/29/20 0850: CARDIO Progress Notes Date and Time Date of Service 01/29/2020 Time of Evaluation 1040 Subjective Subjective: No Chest Pain, No shortness of breath, No Palpitations Vitals Vitals Vital Signs Date Time Temp Pulse Resp B/P (MAP) Pulse Ox O2 Delivery O2 Flow Rate FiO2 01/29/20 07:00 98.1 72 20 184/91 (122) 97 Room Air 98.1 01/28/20 14:38 4.0 Weight Weight [ ] Input and Output Intake and Output Intake and Output 01/29/20 07:00 Intake Total 1270 ml Output Total 400 ml Balance 870 ml Intake Oral 1270 ml Output Urine Total 400 ml Laboratory Labs Laboratory Tests Test 01/28/20 11:22 01/28/20 16:08 01/28/20 20:07 01/29/20 07:22 Glucose (Fingerstick) 194 mg/dL (70-99) 208 mg/dL (70-99) 228 mg/dL (70-99) 241 mg/dL (70-99) Microbiology Micro Microbiology 01/27/20 Urine Culture - Final, Complete Physical Exam HEENT: Neck Supple W Full Motion Chest: Symmetric LUNGS: Other (diminished bases) Heart: RRR (SR) Abdomen: Soft N/T Extremities: Other (trace LE edema) Neurology: alert, oriented, follow commands Other Exams Left chest surgical incision D/I with steri strips. No erythema or swelling. Neurovascular status to LUE intact and sling is in place. Assessment Assessment 1. Symptomatic high grade block: as low as in the 30s. EF and WM nml 2. S/P PPM in situ: POD#1 Medtronic MRI compatible dual chamber. Normal function no PTX 2. Hypothyroidism: TSH on goal, on replacement 3. HTN urgency: labile 4. Suspect BPPV: vertigo episode noted with positional changes. 5. Allergy to lisinopril pruritus 6. Left carotid bruit 7. CKD3 with hx of right nephrectomy: reviewed renal labs and 1.4 Cr has been her baseline 8. DM2: per PCP Recommendations 1. Adjust BP meds with hydralazine and norvasc. Awaiting repeat CXR 2. 2 week wound check in our office on 02/11 at 1030 unless she is still at a facility then they could do the wound check. 3. Carotid doppler as an outpt 4 Possible SNU 5. Post PPM care: discussed with daughter and pt. Justicifation of Admission Dx: Justifications for Admission: Justification of Admission Dx: Yes (hypertensive urgency with heart block) ROSAURA SONI MD 01/29/20 1523: CARDIO Progress Notes Plan Plan Pt. seen and examined. Agree with above HAT AND CAP DRYING ROOM ATTENDANT note. Supportive care. Device check WNL today. CXR WNL. Thanks ABHI BECKETT APRN Jan 29, 2020 08:50 ROSAURA SONI MD Jan 29, 2020 15:23
[2020-01-29] MEDS: PANTOPRAZOLE 40 MG TABLET.DR. PO SCH (09:33)
[2020-01-29] MEDS: ASPIRIN CHEWABLE 81 MG TABLET. PO SCH (09:33)
[2020-01-29] MEDS: NYSTATIN 100,000 UNITS/ML 5 ML ORAL.SUSP. SWSW SCH ×4 (09:33→20:57)
[2020-01-29] MEDS: valACYclovir 500 MG TABLET. PO SCH ×2 (09:34→20:53)
[2020-01-29] MEDS: amLODIPine BESYLATE 10 MG TABLET PO SCH (09:35)
[2020-01-29] MEDS: INSULIN LISPRO 300 UNITS/3 ML VIAL. SQ SCH ×4 (09:51→20:56)
[2020-01-29 10:59] VITALS: BP 143/64
--- NOTE | 2020-01-29 11:03 | PDOC ---
[employer] PROGRESS NOTE Date of Service DOS: DATE: 01/29/20 TIME: 10:50 Chief Complaint Chief Complaint Hypertensive urgency, dysphagia, dizziness History of Present Illness History of Present Illness 01/29/2020 Pt seen and examined. Chart reviewed. Discussed with RN. Pt AOx3 in bed, in minor discomfort, requesting pain meds. Claims to have pain near pacemaker incision site that radiates to left axilla/anterior shoulder. POD1 - PPM Clean, dry, in-tact dressing. Pt in immobilizer, R forearm mesh sling. Family in the room with pt. 01/28/2020 Patient evaluated at bedside. Resting comfortably. She had an episode of complete heart block overnight. She was taken for pacemaker placement today. Discussed with RN. 01/27/2020 Pt seen and examined. Chart reviewed. Discussed with RN and transplant case manager. Pt resting comfortably in bed, NAD. Pt expressed concern for her condition, as late of "similar heart problems". Pt consoled and her demeanor improved. Spoke with GI. Vitals/I&O Vitals/I&O: Vital Signs Date Time Temp Pulse Resp B/P (MAP) Pulse Ox O2 Delivery O2 Flow Rate FiO2 01/29/20 10:35 97 Room Air 01/29/20 09:35 72 184/91 01/29/20 09:35 4.0 01/29/20 07:00 98.1 20 98.1 I & O 0 01/28/20 01/28/20 01/29/20 15:00 23:00 07:00 Intake Total 250 ml 780 ml 240 ml Output Total 400 ml Balance 250 ml 780 ml -160 ml Physical Exam General: Alert, Oriented X3, Cooperative, No acute distress Heart: Regular rate (second degree type 2 mobitz. 2:1 rate in upper 30s with stable BP) Lungs: Clear, Other Abdomen: Soft, No tenderness Extremities: No cyanosis, No edema Skin: No breakdown, No significant lesion Labs Labs: Laboratory Tests Test 01/28/20 11:22 01/28/20 16:08 01/28/20 20:07 01/29/20 07:22 Glucose (Fingerstick) 194 mg/dL (70-99) 208 mg/dL (70-99) 228 mg/dL (70-99) 241 mg/dL (70-99) Review of Systems Review of Systems: Pt has pain in L anterior chest, radiating to L axilla - secondary to PPM procedure. Pt denies NVD. Assessment and Plan Assessmemt and Plan Problems Medical Problems: (1) Heart bloc atrioventricular Status: Acute (2) Hypertensive urgency Status: Acute Assessment: AV heart block Hypertensive urgency Successful PPM procedure - POD1 Plan: quality assurance monitor final Wound care PRN pain meds Home meds DVT prophylaxis PT/OT Full code Appreciate specialist input Hope to discharge to SNU tomorrow; [facility] Comment Review of Relevant I have reviewed the following items chapito (where applicable) has been applied. Medications: Current Medications Medications (Trade) Dose Ordered Sig/Mary Route PRN Reason Start Time Stop Time Status Last Admin Dose Admin Cefazolin Sodium (Ancef) 1 gm 1X ONCE IVP 01/28/20 15:30 01/28/20 15:31 DC 01/28/20 12:30 Hydralazine HCl (Apresoline) 50 mg BID PO 01/29/20 09:00 01/29/20 09:34 Amlodipine Besylate (Norvasc) 10 mg DAILY PO 01/29/20 09:00 01/29/20 09:35 Justifications for Admission Chest Pain Indications Hemodynamically unstable?: Yes Justification for admission: Patient hemodynamically unstable as indicated by persistent orthostatic vital signs changes ie fall of SBP of 20 mmHg or more OR fall in DBP of 10mmHg or more, 1 to 3 minutes after patient sits/stands from recumbent position. Serious Diagnosis?: Yes Justification for admission: Chest pain may be indicative of potentially serious diagnosis/diagnoses Please state condition(s) which will require inpatient level of care for further evaluation and management. Is patient at high risk?: Yes Justification for admission: Patient is high risk based on hemodynamic instability, CHF, abnormal EKG/ECG/cardiac biomarkers/physical exam findings in context of chest pain persisting despite parenteral analgesics & optimal anti-anginal therapy. Other Justification GRECIA BAJWA III, DO Jan 29, 2020 11:03
--- NOTE | 2020-01-29 11:09 | PDOC ---
Date of Service: DATE: 01/29/20 TIME: 11:06 Subjective: Subjective: Arm hurts, not too hungry but not much trouble swallowing. Objective: Vital Signs: Vital Signs Date Time Temp Pulse Resp B/P (MAP) Pulse Ox O2 Delivery O2 Flow Rate FiO2 01/29/20 10:59 98.4 78 20 143/64 (90) 95 Room Air 98.4 01/29/20 09:35 4.0 Labs: Laboratory Tests Test 01/28/20 11:22 01/28/20 16:08 01/28/20 20:07 01/29/20 07:22 Glucose (Fingerstick) 194 mg/dL 208 mg/dL 228 mg/dL 241 mg/dL Imaging: Abd US 01/27 Impression: 1. No significant acute abnormality is demonstrated. There has been cholecystectomy. Right kidney is absent. PE: GEN: NAD LUNGS: CTAB HEART: RRR ABD: NABS, S/ND/NT NEURO/PSYCH: A & O 3 A/P: S/p pacemaker Mildly elevated AST and ALT - US unrevealing as above, s/p jackie Dysphagia/odynophagia, heartburn, epigastric pain - better - on PPI, empiric Nystatin -- Finish course of Nystatin, continue PPI, plan for outpt EGD - our office can arrange. Justicifation of Admission Dx: Justifications for Admission: Justification of Admission Dx: Yes (hypertensive urgency with heart block) MITESH EDEN Jan 29, 2020 11:09
--- NOTE | 2020-01-29 13:05 | RAD ---
AP chest. HISTORY: Post pacemaker on the left AP view was taken of the chest. There is a left pacemaker. A pneumothorax is not identified. There is atelectasis in the left lung base. Pacing leads are noted in the atrium and ventricle. IMPRESSION: 1. Left pacemaker. 2. No pneumothorax. 3. Increased atelectasis left lung base. Electronically signed by: Rocky Tapia MD (01/29/2020 1:02 PM) [id number]
--- NOTE | 2020-01-29 13:06 | NUR ---
SS following up with discharge planning. SS reviewed pt chart and discussed with pt RN. Pt is currently on room air. COVID19 negative. PT/OT ordered. Pt requesting to go to [facility], ; fax [phone]. SS discussed with Ginna at [facility]. Referral phoned and faxed to [facility]. Pt accepted and can come once PT/OT evaluate. Pt and pt's RN notified. SS will continue to follow for discharge planning.
[2020-01-29 15:00] VITALS: BP 112/46
[2020-01-29] MEDS ORDERED: MAGNESIUM CITRATE 296 ML SOLUTION. PO PRN (18:00)
[2020-01-29] MEDS ORDERED: PSYLLIUM HUSK (SUGAR FREE) 1 PKT PACKET PO PRN (18:00)
[2020-01-29] MEDS ORDERED: POLYETHYLENE GLYCOL 3350 17 GM PACKET. PO PRN (18:00)
[2020-01-29 18:16] VITALS: BP 175/72
[2020-01-29] MEDS: MIRTAZAPINE 7.5 MG TABLET. PO SCH (20:53)
[2020-01-29] MEDS: LATANOPROST 0.005% OPHTH SOLUTION 2.5ML BOTTLE. OU SCH (20:54)
[2020-01-29] MEDS: INSULIN GLARGINE SYRINGE. SQ SCH (20:56)
[2020-01-29 23:00] VITALS: BP 188/79
[2020-01-30 03:00] VITALS: BP 161/74
[2020-01-30] MEDS: oxyCODONE/APAP 5/325 1 TAB TABLET PO PRN (03:36)
[2020-01-30] MEDS: LEVOTHYROXINE 25 MCG TABLET. PO SCH (06:51)
[2020-01-30] MEDS: HEPARIN for SUB-Q USE 5,000 UNIT/ML VIAL. SQ SCH (06:52)
[2020-01-30 07:00] VITALS: BP 177/95
[2020-01-30] MEDS: amLODIPine BESYLATE 10 MG TABLET PO SCH (08:37)
[2020-01-30] MEDS: PANTOPRAZOLE 40 MG TABLET.DR. PO SCH (08:37)
[2020-01-30] MEDS: ASPIRIN CHEWABLE 81 MG TABLET. PO SCH (08:39)
[2020-01-30] MEDS: NYSTATIN 100,000 UNITS/ML 5 ML ORAL.SUSP. SWSW SCH (08:39)
[2020-01-30] MEDS: valACYclovir 500 MG TABLET. PO SCH (08:39)
[2020-01-30 08:41] VITALS: BP 177/95
[2020-01-30] MEDS: INSULIN LISPRO 300 UNITS/3 ML VIAL. SQ SCH ×2 (08:51→12:00)
--- NOTE | 2020-01-30 10:19 | PDOC ---
[employer] PROGRESS NOTE Date of Service DOS: DATE: 01/30/20 TIME: 10:16 Chief Complaint Chief Complaint Hypertensive urgency, dysphagia, dizziness History of Present Illness History of Present Illness 01/30/2020 Patient seen and examined with daughters at bedside. Patient reports some superficial incisional pain but denies chest pain or shortness of breath. Discussed [facility] for rehab, as patient has been before, patient's and daughter are in agreement with this plan. Discussed cardiology follow-up in 2 weeks time. 01/29/2020 Pt seen and examined. Chart reviewed. Discussed with RN. Pt AOx3 in bed, in minor discomfort, requesting pain meds. Claims to have pain near pacemaker incision site that radiates to left axilla/anterior shoulder. POD1 - PPM Clean, dry, in-tact dressing. Pt in immobilizer, R forearm mesh sling. Family in the room with pt. 01/28/2020 Patient evaluated at bedside. Resting comfortably. She had an episode of complete heart block overnight. She was taken for pacemaker placement today. Discussed with RN. 01/27/2020 Pt seen and examined. Chart reviewed. Discussed with RN and rn case manager. Pt resting comfortably in bed, NAD. Pt expressed concern for her condition, as late of "similar heart problems". Pt consoled and her demeanor improved. Spoke with GI. Vitals/I&O Vitals/I&O: Vital Signs Date Time Temp Pulse Resp B/P (MAP) Pulse Ox O2 Delivery O2 Flow Rate FiO2 01/30/20 08:41 83 177/95 01/30/20 07:00 98.1 20 94 Room Air 98.1 01/29/20 20:00 4.0 I & O 01/29/20 01/29/20 01/30/20 15:00 23:00 07:00 Intake Total 360 ml 700 ml 550 ml Output Total 200 ml 300 ml 550 ml Balance 160 ml 400 ml 0 ml Physical Exam General: Alert, Oriented X3, Cooperative, No acute distress Heart: Regular rate (second degree type 2 mobitz. 2:1 rate in upper 30s with stable BP) Lungs: Clear, Other Abdomen: Soft, No tenderness Extremities: No cyanosis, No edema Skin: No breakdown, No significant lesion Labs Labs: Laboratory Tests Test 01/29/20 11:29 01/29/20 16:42 01/29/20 20:48 01/30/20 08:31 Glucose (Fingerstick) 189 mg/dL (70-99) 223 mg/dL (70-99) 205 mg/dL (70-99) 189 mg/dL (70-99) Review of Systems Review of Systems: Incisional pain. Denies chest pain, denies shortness of breath, denies fever. Assessment and Plan Assessmemt and Plan Problems Medical Problems: (1) Heart bloc atrioventricular Status: Acute (2) Hypertensive urgency Status: Acute Comment Review of Relevant I have reviewed the following items chapito (where applicable) has been applied. Medications: Current Medications Medications (Trade) Dose Ordered Sig/Mary Route PRN Reason Start Time Stop Time Status Last Admin Dose Admin Magnesium Citrate (Citroma) 296 ml PRN 1X PRN PO CONSTIPATION 01/29/20 18:00 01/30/20 09:04 Justifications for Admission Chest Pain Indications Hemodynamically unstable?: Yes Justification for admission: Patient hemodynamically unstable as indicated by persistent orthostatic vital signs changes ie fall of SBP of 20 mmHg or more OR fall in DBP of 10mmHg or more, 1 to 3 minutes after patient sits/stands from recumbent position. Serious Diagnosis?: Yes Justification for admission: Chest pain may be indicative of potentially serious diagnosis/diagnoses Please state condition(s) which will require inpatient level of care for further evaluation and management. Is patient at high risk?: Yes Justification for admission: Patient is high risk based on hemodynamic instability, CHF, abnormal EKG/ECG/cardiac biomarkers/physical exam findings in context of chest pain persisting despite parenteral analgesics & optimal anti-anginal therapy. Other Justification COTY QUINONES MD Jan 30, 2020 10:19
[2020-01-30] MEDS ORDERED: AMLO10TA8 PO (10:27)
[2020-01-30] MEDS ORDERED: HYDR-2869 PO (10:27)
--- NOTE | 2020-01-30 10:31 | SNU/HH DC ---
DISCHARGE ORDERS DISCHARGE INFORMATION: DISCHARGE DATE: Jan 30, 2020 FINAL DIAGNOSIS Problems Medical Problems: (1) Heart bloc atrioventricular Status: Acute (2) Hypertensive urgency Status: Acute CONDITION ON DISCHARGE: Stable CODE STATUS: Code Status: Full INTERMEDIATE: SNF STAY <30 DAYS: Yes HOSPICE: HOSPICE: No HOSPICE EVAL & TREAT: No LTAC: ADMIT TO LTAC: No POST DISCHARGE ORDERS: ACTIVITY ORDERS: Activity as tolerated DIET AFTER DISCHARGE: Cardiac CHECKS AFTER DISCHARGE: CHECKS AFTER DISCHARGE: Check blood press - daily, Check blood sugar, ac/hs TREATMENT/EQUIPMENT ORDERS: ADAPTIVE EQUIPMENT NEEDED: None, Front wheeled walker Physical Therapy For: Evalulation/Treatment Occupational Therapy For: Evaluation/Treatment DISCHARGE MEDICATIONS: Home Meds Active Scripts Amlodipine Besylate (AMLODIPINE BESYLATE) 10 Mg Tablet, 10 MG PO DAILY for Hypertension, #30 TAB 2 Refills Prov:COTY QUINONES MD 01/30/20 Hydralazine Hcl (HYDRALAZINE HCL) 50 Mg Tablet, 50 MG PO BID for Hypertension, #60 TAB 2 Refills Prov:COTY QUINONES MD 01/30/20 Meclizine Hcl (MECLIZINE HCL) 12.5 Mg Tablet, 12.5 MG PO PRN Q6HRS PRN for DIZZINESS, #30 TAB Prov:VIKI SHERIFF MD 03/19/19 Ibuprofen (Ibuprofen) 200 Mg Tablet, 600 MG PO PRN Q6HRS PRN for INFLAMMATION, #30 TAB Prov:VIKI SHERIFF MD 03/19/19 Aspirin (ASPIRIN) 81 Mg Tab.chew, 81 MG PO DAILYWBKFT for prevention, primary for 60 Days, #60 TAB.CHEW Prov:VIKI SHERIFF MD 03/19/19 Reported Medications Ezetimibe (ZETIA) 10 Mg Tablet, 10 MG PO DAILY for cholesterol, TAB 01/27/20 Oxybutynin Chloride (OXYBUTYNIN CHLORIDE ER) 10 Mg Tab.er.24, 10 MG PO DAILY for bladder, TAB.SR 01/27/20 Losartan Potassium (LOSARTAN POTASSIUM) 50 Mg Tablet, 50 MG PO DAILY for HYPERTENSION, TAB 01/27/20 [place]-3/Dha/Epa/Fish Oil (Fish Oil 1,000 mg Softgel) 1,000 Mg Capsule, 1000 MG PO DAILY for supplement, CAP 9/2/20 Insulin Glargine,Hum.rec.anlog (LANTUS SOLOSTAR) 100 Unit/1 Ml Insuln.pen, 10 UNITS SQ BID 02/06/17 Amlodipine Besylate (AMLODIPINE BESYLATE) 5 Mg Tablet, 2 TAB PO DAILY 02/06/17 Insulin Aspart (NOVOLOG FLEXPEN) 100 Unit/1 Ml Insuln.pen, 6 UNIT SQ 05/18/13 Levothyroxine Sodium (LEVOTHYROXINE SODIUM) 25 Mcg Tablet, 25 MCG PO DAILY 05/18/13 Travoprost (TRAVATAN Z) 5 Ml Drops, 5 ML OP HS 05/18/13 COTY QUINONES MD Jan 30, 2020 10:30
--- NOTE | 2020-01-30 10:38 | PDOC3 ---
Discharge Summary Visit Information Date of Admission: Jan 26, 2020 Date of Discharge: Jan 30, 2020 Final Diagnosis Problems Medical Problems: (1) Heart bloc atrioventricular Status: Acute (2) Hypertensive urgency Status: Acute Brief Hospital Course Allergies Allergies Coded Allergies Type Severity Reaction Last Updated Verified erythromycin base Allergy Intermediate 03/04/18 Yes levofloxacin Allergy Intermediate 03/19/19 Yes Iodinated Contrast Media Adverse Reaction Intermediate DUE TO ONLY HAVING 1 KIDNEY 03/04/18 Yes diazepam Adverse Reaction Intermediate Palpitations 03/04/18 Yes oxytetracycline Adverse Reaction Intermediate Palpitations 03/04/18 Yes oxytetracycline HCl Adverse Reaction Intermediate Palpitations 03/04/18 Yes hydromorphone Adverse Reaction Mild Nausea and Vomiting 03/04/18 Yes Vital Signs Vital Signs Date Time Temp Pulse Resp B/P (MAP) Pulse Ox O2 Delivery O2 Flow Rate FiO2 01/30/20 08:41 83 177/95 01/30/20 08:00 Room Air 01/30/20 07:00 98.1 20 94 98.1 01/29/20 20:00 4.0 Lab Results Laboratory Tests Test 01/28/20 11:22 01/28/20 16:08 01/28/20 20:07 01/29/20 07:22 Glucose (Fingerstick) 194 mg/dL (70-99) 208 mg/dL (70-99) 228 mg/dL (70-99) 241 mg/dL (70-99) Test 01/29/20 11:29 01/29/20 16:42 01/29/20 20:48 01/30/20 08:31 Glucose (Fingerstick) 189 mg/dL (70-99) 223 mg/dL (70-99) 205 mg/dL (70-99) 189 mg/dL (70-99) Laboratory Tests Test 01/29/20 11:29 01/29/20 16:42 01/29/20 20:48 01/30/20 08:31 Glucose (Fingerstick) 189 mg/dL (70-99) 223 mg/dL (70-99) 205 mg/dL (70-99) 189 mg/dL (70-99) Brief Hospital Course Ms. Zurita is a 80 old female who presented with second-degree heart block. Consultation placed to cardiology. 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 Inpatient management of hypertension with addition of hydralazine and increase in home blood pressure medication. She was recommended to follow-up with cardiology in 2 weeks time. Consults were also placed to GI due to dysphagia, and she was recommended outpatient EGD. Patient and family were agreeable to SNU, she was stable for discharge Discharge Information Condition at Discharge: Stable Follow Up: Weeks Disposition/Orders: D/C to Another Facility Scheduled Amlodipine Besylate (Amlodipine Besylate) 10 Mg Tablet, 10 MG PO DAILY for Hypertension, #30 Ref 2 Prescribed by: COTY QUINONES MD on 01/30/20 1027 Aspirin (Aspirin) 81 Mg Tab.chew, 81 MG PO DAILYWBKFT for prevention, primary for 60 Days, #60 Prescribed by: VIKI SHERIFF on 03/19/19 0743 Last Action: Continued on 01/26/202023 by GENA HERRERA MD Ezetimibe (Zetia) 10 Mg Tablet, 10 MG PO DAILY for cholesterol, (Reported) Entered as Reported by: AIDEE CRAIN on 01/27/20451 Last Action: New Order on 01/27/20451 by AIDEE CRAIN Hydralazine Hcl (Hydralazine Hcl) 50 Mg Tablet, 50 MG PO BID for Hypertension, #60 Ref 2 Prescribed by: COTY QUINONES MD on 01/30/20 1027 Insulin Glargine,Hum.rec.anlog (Lantus Solostar) 100 Unit/1 Ml Insuln.pen, 10 UNITS SQ BID, (Reported) Entered as Reported by: Ginna Andrade on 02/06/172025 Levothyroxine Sodium (Levothyroxine Sodium) 25 Mcg Tablet, 25 MCG PO DAILY, (Reported) Entered as Reported by: ARTURO HAMPTON on 05/18/131731 Last Action: Continued on 01/26/202023 by GENA HERRERA MD Losartan Potassium (Losartan Potassium) 50 Mg Tablet, 50 MG PO DAILY for HYPERTENSION, (Reported) Entered as Reported by: AIDEE CRAIN on 01/27/20451 Last Action: New Order on 01/27/20451 by AIDEE CRAIN [place]-3/Dha/Epa/Fish Oil (Fish Oil 1,000 mg Softgel) 1,000 Mg Capsule, 1,000 MG PO DAILY for supplement, (Reported) Entered as Reported by: AIDEE CRAIN on 01/27/20451 Last Action: New Order on 01/27/20451 by AIDEE CRAIN Oxybutynin Chloride (Oxybutynin Chloride Er) 10 Mg Tab.er.24, 10 MG PO DAILY for bladder, (Reported) Entered as Reported by: AIDEE CRAIN on 01/27/20451 Last Action: New Order on 01/27/20451 by AIDEE CRAIN Travoprost (Travatan Z) 5 Ml Drops, 5 ML OP HS, (Reported) Entered as Reported by: ARTURO HAMPTON on 05/18/131730 Last Action: Converted on 01/26/202023 by GENA HERRERA MD Scheduled PRN Ibuprofen (Ibuprofen) 200 Mg Tablet, 600 MG PO PRN Q6HRS PRN for INFLAMMATION, #30 Prescribed by: VIKI SHERIFF on 03/19/19 0743 Meclizine Hcl (Meclizine Hcl) 12.5 Mg Tablet, 12.5 MG PO PRN Q6HRS PRN for DIZZINESS, #30 Prescribed by: VIKI SHERIFF on 03/19/19 0743 Miscellaneous Medications Insulin Aspart (Novolog Flexpen) 100 Unit/1 Ml Insuln.pen, 6 UNIT SQ, (Reported) Entered as Reported by: ARTURO HAMPTON on 05/18/131732 Discontinued Medications Amlodipine Besylate (Amlodipine Besylate) 5 Mg Tablet, 2 TAB PO DAILY, (Reported) Entered as Reported by: Ginna Andrade on 02/06/172025 Last Action: Continued on 01/26/202023 by GENA HERRERA MD Justicifation of Admission Dx: Justifications for Admission: Justification of Admission Dx: Yes (hypertensive urgency with heart block) COTY QUINONES MD Jan 30, 2020 10:38
--- NOTE | 2020-01-30 15:15 | NUR ---
Called [facility] and spoke to jeannette and gave the report on the pt and spoke to family regarding dischrge instructions. Dr Cortez spoke with the family about discharge as well.
== END 2020-01-30 13:00 | DRG 242 ==
LOC: ER 15:36 → 2 SOUTH 17:15
PROVIDERS: ADMIT Internal Medicine; ATTEND Internal Medicine
PROC: 0JH606Z Insertion of Pacemaker, Dual Chamber into Chest Subcutaneous Tissue and Fascia, Open Approach (ICD-10-PCS; principal; 2020-01-28)
PROC: 02H63JZ Insertion of Pacemaker Lead into Right Atrium, Percutaneous Approach (ICD-10-PCS; 2020-01-28)
PROC: 02HK3JZ Insertion of Pacemaker Lead into Right Ventricle, Percutaneous Approach (ICD-10-PCS; 2020-01-28)
DX: I44.2 Atrioventricular block, complete (principal); I50.31 Acute diastolic (congestive) heart failure; I13.0 Hypertensive heart and chronic kidney disease with heart failure and stage 1 through stage 4 chronic kidney disease, or unspecified chronic kidney disease; I16.0 Hypertensive urgency; N18.3 Chronic kidney disease, stage 3 (moderate); E03.9 Hypothyroidism, unspecified; E11.22 Type 2 diabetes mellitus with diabetic chronic kidney disease; K57.90 Diverticulosis of intestine, part unspecified, without perforation or abscess without bleeding; L29.9 Pruritus, unspecified; R13.10 Dysphagia, unspecified; F41.9 Anxiety disorder, unspecified; M19.90 Unspecified osteoarthritis, unspecified site; R09.89 Other specified symptoms and signs involving the circulatory and respiratory systems; Z20.828 Contact with and (suspected) exposure to other viral communicable diseases; Z82.49 Family history of ischemic heart disease and other diseases of the circulatory system; Z85.528 Personal history of other malignant neoplasm of kidney; Z86.718 Personal history of other venous thrombosis and embolism; Z86.73 Personal history of transient ischemic attack (TIA), and cerebral infarction without residual deficits; Z88.8 Allergy status to other drugs, medicaments and biological substances; Z90.49 Acquired absence of other specified parts of digestive tract; Z90.5 Acquired absence of kidney; Z90.710 Acquired absence of both cervix and uterus; Z88.1 Allergy status to other antibiotic agents; Z91.041 Radiographic dye allergy status
CPT/HCPCS: 33208; 36415; 71045; 74018; 76705; 80053; 80076; 80307; 81001; 82962; 83690; 83735; 83880; 84439; 84443; 84484; 85025; 85610; 85730; 87086; 87426; 93005; 93306; 96374; 96375; 96376; 99152; 99153; 99285; C1785; C1898; J0360; J0461; J0690; J1644; J1815; J2250; J2405; J3010; J3490; J7050; G0378; J7030; U0003-CS

== ENCOUNTER 2020-03-17 13:52 | Emergency (ER) | payer MEDICARE ==
[~2020-03-17] VITALS: Ht 165.1 cm; Wt 73.6 kg
[~2020-03-17 13:52] MED LIST changes: +ACET325T9 PO; +AMLO-186 PO; +AMLO-187 PO; -AMLO5TAB10 PO; +DOCU-153 PO; +EZET10TA20 PO; +HYDR-2869 PO; +LOSA-73 PO; +MAG30ORA2 PO; +OMEG100021 PO; +OXYB10TA26 PO
--- NOTE | 2020-03-17 16:59 | PHYS DOC ---
Past Medical History Past Medical History: Arthritis, Cancer, Diabetes-Type II, DVT, Hypertension, Hypothyroid Additional Past Medical Histor: cancer of right kidney Past Surgical History: Cholecystectomy, Hysterectomy, Pacemaker Additional Past Surgical Histo: rt kidney removed, bladder Smoking Status: Never Smoker Alcohol Use: None Drug Use: None General Adult EDM: Chief Complaint: POST-OP PROBLEM HPI: HPI: 80-year-old female who presents emergency department today with pain in the area where she had a pacemaker placed. The pacemaker was placed on 02 February. She then came back on February 28 complaining of sharp pain in the area of the pac emaker and was evaluated. She was admitted to the hospital and saw cardiology. They believe it is more neuropathic in nature and not related to the pacemaker. She was then discharged home from the hospital in early February. She returns with the same type of pain. She had a work-up for pulmonary embolism which was low risk after a VQ scan. Here her symptoms have not really changed, she is having a hard time getting into the scooper office to talk to him about options and considerations. The pain is a sharp shooting mild pain that is nonradiating and without leaving factors. Review of systems negative for abdominal pain vomiting fevers chills cough. All other review of systems negative. ED course: 80-year-old female presenting with pain in the area where her pacemaker was placed. She got worked up by cardiology for this which was unremarkable. Here her EKG shows a sinus rhythm with a regular rate. ST segments congruent. Not suggestive of ACS. Her EKG is similar to previous EKGs on January 25. Chest x-ray and blood work is unremarkable. We will have the patient follow-up with cardiology today or tomorrow in clinic. She is to return if she has any worsening symptoms or any other concerns. Heart Score: Risk Factors: Risk Factors: DM, Current or recent (<one month) smoker, HTN, HLP, family history of CAD, obesity. Risk Scores: Score 0 - 3: 2.5% MACE over next 6 weeks - Discharge Home Score 4 - 6: 20.3% MACE over next 6 weeks - Admit for Clinical Observation Score 7 - 10: 72.7% MACE over next 6 weeks - Early Invasive Strategies Allergies: Allergies: Allergies Coded Allergies Type Severity Reaction Last Updated Verified erythromycin base Allergy Intermediate 03/04/18 Yes levofloxacin Allergy Intermediate 03/19/19 Yes Iodinated Contrast Media Adverse Reaction Intermediate DUE TO ONLY HAVING 1 KIDNEY 03/04/18 Yes diazepam Adverse Reaction Intermediate Palpitations 03/04/18 Yes oxytetracycline Adverse Reaction Intermediate Palpitations 03/04/18 Yes oxytetracycline HCl Adverse Reaction Intermediate Palpitations 03/04/18 Yes hydromorphone Adverse Reaction Mild Nausea and Vomiting 03/04/18 Yes Physical Exam: PE: Constitutional: Well developed, well nourished, no acute distress, non-toxic appearance. [] HENT: Normocephalic, atraumatic, bilateral external ears normal, oropharynx moist, no oral exudates, nose normal. [] Eyes: PERRLA, EOMI, conjunctiva normal, no discharge. [] Neck: Normal range of motion, no tenderness, supple, no stridor. [] Cardiovascular:Heart rate regular rhythm, no murmur [] Lungs & Thorax: Bilateral breath sounds clear to auscultation [] Abdomen: Bowel sounds normal, soft, no tenderness, no masses, no pulsatile masses. [] Skin: Warm, dry, no erythema, no rash. [] Back: No tenderness, no CVA tenderness. [] Extremities: No tenderness, no cyanosis, no clubbing, ROM intact, no edema. [] Neurologic: Alert and oriented X 3, normal motor function, normal sensory function, no focal deficits noted. [] Psychologic: Affect normal, judgement normal, mood normal. [] Current Patient Data: Vital Signs: Vital Signs Date Time Temp Pulse Resp B/P (MAP) Pulse Ox O2 Delivery O2 Flow Rate FiO2 03/17/20 16:33 97.6 72 20 140/54 (82) 98 Room Air 97.6 EKG: EKG: [] Radiology/Procedures: Radiology/Procedures: [] Course & Med Decision Making: Course & Med Decision Making Pertinent Labs and Imaging studies reviewed. (See chart for details) [] Dragon Disclaimer: Dragon Disclaimer: This electronic medical record was generated, in whole or in part, using a voice recognition dictation system. Departure Departure Impression: Primary Impression: Post-operative pain Disposition: 01 DC HOME SELF CARE/HOMELESS Condition: STABLE Referrals: CELESTE RUDOLPH TURN MACHINE OPERATOR (PCP) Patient Instructions: Biventricular Pacemaker Implantation, Care After, Dual- Chamber Pacemaker Additional Instructions: Call cardiology to make an appointment within a day or 2. Return to the emerge ncy department if you have any worsening symptoms or changes. ABRAM SANCHEZ MD Mar 17, 2020 16:59
[2020-03-17 17:10] LABS: BASO % 1 % (0-3); EOS # 0.1 x10^3/uL (0.0-0.7); EOS % 1 % (0-3); HEMATOCRIT 38.1 % (36.0-47.0); HEMOGLOBIN 13.1 g/dL (12.0-15.5); LYMPH # 1.9 x10^3/uL (1.0-4.8); LYMPH % 26 % (24-48); MEAN CORPUSCULAR HEMOGLOBIN 31 pg (25-35); MEAN CORPUSCULAR HGB CONC 34 g/dL (31-37); MEAN CORPUSCULAR VOLUME 91 fL (79-100); MONO # 0.5 x10^3/uL (0.0-1.1); MONO % 7 % (0-9); NEUT # 4.7 x10^3/uL (1.8-7.7); NEUT % 65 % (31-73); PLATELET COUNT 220 x10^3/uL (140-400); RED CELL DISTRIBUTION WIDTH 15.6 % (11.5-14.5); WHITE BLOOD COUNT 7.2 x10^3/uL (4.0-11.0)
[2020-03-17 17:21] LABS: PROTHROMBIN TIME PATIENT 12.1 SEC (11.7-14.0)
[2020-03-17 17:26] LABS: CALCIUM 9.1 mg/dL (8.5-10.1); CREATININE 1.2 mg/dL (0.6-1.0); POTASSIUM 4.8 mmol/L (3.5-5.1)
[2020-03-17 17:31] LABS: ALBUMIN 3.8 g/dL (3.4-5.0); DIRECT BILIRUBIN 0.1 mg/dL (0.0-0.2); TOTAL BILIRUBIN 0.4 mg/dL (0.2-1.0); TOTAL PROTEIN 6.9 g/dL (6.4-8.2)
--- NOTE | 2020-03-17 17:34 | RAD ---
Exam: Chest one view INDICATION: Chest pain TECHNIQUE: Frontal view of the chest Comparisons: 02/28/2020 FINDINGS: Pacer with leads terminating the right atrium and ventricle. The cardiomediastinal silhouette and pulmonary vessels are within normal limits. The lung and pleural spaces are clear. IMPRESSION: No acute pulmonary process. Electronically signed by: Adonis Olivares MD (03/17/2020 5:32 PM) JAYSHREE
[2020-03-17 18:01] VITALS: BP 166/74
--- NOTE | 2020-03-19 03:33 | EKG ---
[facility] [address] [place] [address] Test Date: 2020-03-19 Test Time: 00:55:46 Pat Name: MABEL SALINAS Department: Room: Gender: F Resident Care Aide: GRUWINDER ER : 1940 Requested By: ABRAM SANCHEZ Order Number: [id number] Reading MD: Measurements Intervals [place] Rate: 71 P: 55 [place]: 174 QRS: 58 QRSD: 88 T: 39 QT: 436 QTc: 474 Interpretive Statements SINUS RHYTHM PROLONGED QT NO SPECIFIC ECG ABNORMALITIES RI6.02 No previous ECG available for comparison
== END 2020-03-17 18:12 | disposition home or self-care (01) ==
LOC: ER 13:52
DX: G89.18 Other acute postprocedural pain (principal); M19.90 Unspecified osteoarthritis, unspecified site; E11.9 Type 2 diabetes mellitus without complications; E03.9 Hypothyroidism, unspecified; I10 Essential (primary) hypertension; Z86.718 Personal history of other venous thrombosis and embolism; Z85.9 Personal history of malignant neoplasm, unspecified; Z90.49 Acquired absence of other specified parts of digestive tract; Z90.710 Acquired absence of both cervix and uterus; Z95.0 Presence of cardiac pacemaker; Z98.890 Other specified postprocedural states; Z88.1 Allergy status to other antibiotic agents; Z91.040 Latex allergy status; Z88.5 Allergy status to narcotic agent; Z88.8 Allergy status to other drugs, medicaments and biological substances; Z88.6 Allergy status to analgesic agent
CPT/HCPCS: 36415; 71045; 80048; 80076; 83690; 83880; 84484; 85025; 85610; 93005; 99285

== ENCOUNTER 2020-03-23 14:39 | Emergency (ER) | payer MEDICARE ==
[~2020-03-23] VITALS: Ht 165.1 cm; Wt 73.6 kg
--- NOTE | 2020-03-23 15:17 | PHYS DOC ---
Past Medical History Past Medical History: Arthritis, Cancer, Diabetes-Type II, DVT, Hypertension, Hypothyroid Additional Past Medical Histor: cancer of right kidney Past Surgical History: Cholecystectomy, Hysterectomy, Pacemaker Additional Past Surgical Histo: rt kidney removed, bladder Smoking Status: Never Smoker Alcohol Use: None Drug Use: None General Adult EDM: Chief Complaint: OTHER COMPLAINTS HPI: HPI: Patient is a 80 year old female who presents with a chief complaint of pacemaker insertion site pain. Patient had a pacemaker placed a month ago and has had normal pain since then. Patient states the pain began within the last 24 or more severe sharp stabbing 10 out of 10 pain in the left side of her chest wall radiates to left arm. Patient has any fever or shortness of breath. Review of Systems: Review of Systems: Constitutional: Denies fever or chills. [] Eyes: Denies change in visual acuity. [] HENT: Denies nasal congestion or sore throat. [] Respiratory: Denies cough or shortness of breath. [] Cardiovascular: Complains of left chest wall pain GI: Denies abdominal pain, nausea, vomiting, bloody stools or diarrhea. [] : Denies dysuria. [] Musculoskeletal: Denies back pain or joint pain. [] Integument: Denies rash. [] Neurologic: Denies headache, focal weakness or sensory changes. [] Endocrine: Denies polyuria or polydipsia. [] Lymphatic: Denies swollen glands. [] Psychiatric: Denies depression or anxiety. [] Heart Score: Risk Factors: Risk Factors: DM, Current or recent (<one month) smoker, HTN, HLP, family history of CAD, obesity. Risk Scores: Score 0 - 3: 2.5% MACE over next 6 weeks - Discharge Home Score 4 - 6: 20.3% MACE over next 6 weeks - Admit for Clinical Observation Score 7 - 10: 72.7% MACE over next 6 weeks - Early Invasive Strategies Current Medications: Current Medications Morphine Sulfate (Morphine Sulfate) 4 mg 1X ONCE IV ; Start 03/23/20 at 15:30; Stop 03/23/20 at 15:31; Status DC Ondansetron HCl (Zofran) 4 mg 1X ONCE IVP Last administered on 03/23/20at 15:57; Start 03/23/20 at 15:30; Stop 10/28/20 at 15:31; Status DC Active Scripts Active Dok (Docusate Sodium) 100 Mg Capsule 100 Mg PO PRN BID PRN 30 Days Mag-Al Plus Xs Suspension (Mag Hydrox/Al Hydrox/Simeth) 30 Ml Oral.susp 30 Ml PO PRN DAILY PRN 10 Days Tylenol (Acetaminophen) 325 Mg Tablet 650 Mg PO PRN Q4HRS PRN 14 Days Amlodipine Besylate 10 Mg Tablet 10 Mg PO DAILY Hydralazine Hcl 50 Mg Tablet 50 Mg PO BID Meclizine Hcl 12.5 Mg Tablet 12.5 Mg PO PRN Q6HRS PRN Aspirin 81 Mg Tab.chew 81 Mg PO DAILYWBKFT 60 Days Reported Zetia (Ezetimibe) 10 Mg Tablet 10 Mg PO DAILY Oxybutynin Chloride Er (Oxybutynin Chloride) 10 Mg Tab.er.24 10 Mg PO DAILY Losartan Potassium 50 Mg Tablet 50 Mg PO DAILY Fish Oil 1,000 mg Softgel ([place]-3/Dha/Epa/Fish Oil) 1,000 Mg Capsule 1,000 Mg PO DAILY Lantus Solostar (Insulin Glargine,Hum.rec.anlog) 100 Unit/1 Ml Insuln.pen 10 Units SQ BID Novolog Flexpen (Insulin Aspart) 100 Unit/1 Ml Insuln.pen 6 Unit SQ Levothyroxine Sodium 25 Mcg Tablet 25 Mcg PO DAILY Travatan Z (Travoprost) 5 Ml Drops 5 Ml OP HS Allergies: Allergies: Allergies Coded Allergies Type Severity Reaction Last Updated Verified erythromycin base Allergy Intermediate 03/04/18 Yes levofloxacin Allergy Intermediate 03/19/19 Yes Iodinated Contrast Media Adverse Reaction Intermediate DUE TO ONLY HAVING 1 KIDNEY 03/04/18 Yes diazepam Adverse Reaction Intermediate Palpitations 03/04/18 Yes oxytetracycline Adverse Reaction Intermediate Palpitations 03/04/18 Yes oxytetracycline HCl Adverse Reaction Intermediate Palpitations 03/04/18 Yes hydromorphone Adverse Reaction Mild Nausea and Vomiting 03/04/18 Yes Physical Exam: PE: Constitutional: Well developed, well nourished, no acute distress, non-toxic appearance. [] HENT: Normocephalic, atraumatic, bilateral external ears normal, , nose normal. [] Eyes: PERRLA, EOMI, conjunctiva normal, no discharge. [] Neck: Normal range of motion, no tenderness, supple, no stridor. [] Cardiovascular:Heart rate regular rhythm, peripheral pulses are intact cap refill is brisk Lungs & Thorax: Bilateral breath sounds clear, pacemaker insertion site clean dry and intact without signs of infection. Significant tenderness to left chest wall, pain with range of motion Abdomen: soft, no tenderness, no masses, no pulsatile masses. [] Skin: Warm, dry, no erythema, no rash. [] Back: No tenderness, no CVA tenderness. [] Extremities: No tenderness, no cyanosis, no clubbing, ROM intact, no edema. [] Neurologic: Alert and oriented X 3, normal motor function, normal sensory function, no focal deficits noted. [] Psychologic: Affect normal, judgement normal, mood normal. [] Current Patient Data: Labs: Laboratory Tests Test 03/23/20 15:40 White Blood Count 7.0 x10^3/uL Red Blood Count 4.25 x10^6/uL Hemoglobin 13.3 g/dL Hematocrit 38.4 % Mean Corpuscular Volume 90 fL Mean Corpuscular Hemoglobin 31 pg Mean Corpuscular Hemoglobin Concent 35 g/dL Red Cell Distribution Width 15.2 % Platelet Count 229 x10^3/uL Neutrophils (%) (Auto) 72 % Lymphocytes (%) (Auto) 21 % Monocytes (%) (Auto) 6 % Eosinophils (%) (Auto) 1 % Basophils (%) (Auto) 1 % Neutrophils # (Auto) 5.0 x10^3/uL Lymphocytes # (Auto) 1.5 x10^3/uL Monocytes # (Auto) 0.4 x10^3/uL Eosinophils # (Auto) 0.1 x10^3/uL Basophils # (Auto) 0.1 x10^3/uL Sodium Level 140 mmol/L Potassium Level 4.1 mmol/L Chloride Level 105 mmol/L Carbon Dioxide Level 25 mmol/L Anion Gap 10 Blood Urea Nitrogen 18 mg/dL Creatinine 1.3 mg/dL Estimated GFR (Cockcroft-Gault) 39.2 Glucose Level 313 mg/dL Calcium Level 9.0 mg/dL Current Medications Medications (Trade) Dose Ordered Sig/Mary Route PRN Reason Start Time Stop Time Status Last Admin Dose Admin Morphine Sulfate (Morphine Sulfate) 4 mg 1X ONCE IV 03/23/20 15:30 03/23/20 15:31 DC Ondansetron HCl (Zofran) 4 mg 1X ONCE IVP 03/23/20 15:30 03/23/20 15:31 DC 03/23/20 15:57 Vital Signs: Vital Signs Date Time Temp Pulse Resp B/P (MAP) Pulse Ox O2 Delivery O2 Flow Rate FiO2 03/23/20 14:44 97.2 84 22 178/76 (110) 98 Room Air 97.2 EKG: EKG: EKG interpreted by me normal sinus rhythm with rate of 68 left axis deviation incomplete right bundle branch block, nonspecific ST changes [] Radiology/Procedures: Radiology/Procedures: [][facility] [address] [place] [address] IMAGING REPORT Signed PATIENT: MABEL SALINAS ACCOUNT: [id number] : 1940 LOCATION: ER AGE: 80 SEX: F EXAM STATUS: REG ER ORD. PHYSICIAN: ROOPA STEINBERG MD REASON: PACE MAKER SITE PAIN PROCEDURE: PORTABLE CHEST 1V PORTABLE CHEST 1V Clinical History: Reason: PACE MAKER SITE PAIN / Spl. Instructions: / History: Technique: AP view of the chest was obtained at 03/23/2020 3:02 PM. Comparison: March 17, 2020. Findings: The cardiomediastinal silhouette is normal. The pulmonary vasculature is normal. The lungs and pleural margins are clear. Impression: No evidence of an acute cardiopulmonary process. Electronically signed by: Gladys Sweeney III, MD (03/23/2020 3:39 PM) [facility] DICTATED and SIGNED BY: GLADYS SWEENEY III, MD DATE: 03/23/20 1539 Course & Med Decision Making: Course & Med Decision Making Pertinent Labs and Imaging studies reviewed. (See chart for details) [] 80-year-old female presents with pain at her pacemaker site. Pacemaker is working on the monitor in the room. Chest x-ray reveals satisfactory location of the pacemaker and leads. Laboratory evaluations are unremarkable. Patient claims morphine. Patient will be given prescription for Ultram and told to follow-up with her information lead as this is most likely represents pain because the pacemaker sitting near a nerve that is causing her symptoms. There is no warmth erythema or drainage to signify infection. Dragon Disclaimer: Dragon Disclaimer: This electronic medical record was generated, in whole or in part, using a voice recognition dictation system. Departure Departure Impression: Primary Impression: Pain in pacemaker pocket due to device Additional Impression: Hyperglycemia Disposition: 01 DC HOME SELF CARE/HOMELESS Condition: STABLE Referrals: CELESTE RUDOLPH NP (PCP) ROSAURA SONI MD 2-3 DAYS Patient Instructions: Biventricular Pacemaker Implantation Additional Instructions: EMERGENCY DEPARTMENT GENERAL DISCHARGE INSTRUCTIONS THANK YOU for coming to [facility] Emergency Department (ED) today and trusting us with your care. We trust that you had a positive experience in our Emergency Department. If you wish to speak to the department Management you can contact the supervisor roving department at . YOUR FOLLOW UP INSTRUCTIONS ARE FOLLOWS: Do you have a private doctor? If you do not have a private doctor, please ask for a resource list of physicians or clinics that may be able to assist you with follow up care. The Emergency Physician has interpreted your x-rays. The X-ray specialist will also review them. If there is a change in the findings you will be notified in 48 hours when at all possible. A lab test or lab culture may have been done, your results will be reviewed and you will be notified if you need a change in treatment. ADDITIONAL INSTRUCTIONS AND INFORMATION Your care today has been supervised by a physician who is specially trained in emergency care. Many problems require more than one evaluation for a complete diagnosis and treatment. We recommend that you schedule your follow up appointment as recommended to ensure complete treatment of your illness or injury. If you are unable to obtain follow up care and continue to have a problem, or if your condition worsens we recommend that you return to the ED. We are not able to safely determine your condition over the phone nor are we able to give sound medical advice over the phone. For these safety reasons, if you call for medical advice we will ask you to come to the ED for further evaluation If you have any questions regarding these discharge instructions please call the ED at . SAFETY INFORMATION In the interest of safety, wellness, and injury prevention; we encourage you to wear your seatbelt, if you smoke; quit smoking, and we encourage your family to use protective helmet for bicycling and other sporting events that present an increased risk for head injury. IF YOUR SYMPTOMS WORSEN OR NEW SYMPTOMS DEVELOP, OR YOU HAVE CONCERNS ABOUT YOUR CONDITION; OR IF YOUR CONDITION WORSENS WHILE YOU ARE WAITING FOR YOUR FOLLOW UP APPOINTME NT; EITHER CONTACT YOUR PRIMARY CARE DOCTOR, THE PHYSICIAN WHOSE NAME AND NUMBER YOU WERE GIVEN, OR RETURN TO THE ED IMMEDIATELY. Scripts Tramadol Hcl (TRAMADOL HCL) 50 Mg Tablet 50 MG PO Q6HRS PRN for PAIN, #10 TAB Prov: ROOPA STEINBERG MD 03/23/20 ROOPA STEINBERG MD Mar 23, 2020 15:17
[2020-03-23] MEDS ORDERED: ONDANSETRON PF 4 MG/2 ML VIAL. IVP ONE (15:30)
[2020-03-23] MEDS ORDERED: MORPHINE SULFATE 4 MG/ML VIAL. IV ONE (15:30)
--- NOTE | 2020-03-23 15:42 | RAD ---
PORTABLE CHEST 1V Clinical History: Reason: PACE MAKER SITE PAIN / Spl. Instructions: / History: Technique: AP view of the chest was obtained at 03/23/2020 3:02 PM. Comparison: March 17, 2020. Findings: The cardiomediastinal silhouette is normal. The pulmonary vasculature is normal. The lungs and pleural margins are clear. Impression: No evidence of an acute cardiopulmonary process. Electronically signed by: Tony Hudson III, MD (03/23/2020 3:39 PM) [facility]
[2020-03-23 15:47] LABS: BASO # 0.1 x10^3/uL (0.0-0.2); BASO % 1 % (0-3); EOS # 0.1 x10^3/uL (0.0-0.7); EOS % 1 % (0-3); HEMATOCRIT 38.4 % (36.0-47.0); HEMOGLOBIN 13.3 g/dL (12.0-15.5); LYMPH # 1.5 x10^3/uL (1.0-4.8); LYMPH % 21 % (24-48); MEAN CORPUSCULAR HEMOGLOBIN 31 pg (25-35); MEAN CORPUSCULAR HGB CONC 35 g/dL (31-37); MEAN CORPUSCULAR VOLUME 90 fL (79-100); MONO # 0.4 x10^3/uL (0.0-1.1); MONO % 6 % (0-9); NEUT % 72 % (31-73); PLATELET COUNT 229 x10^3/uL (140-400); RED BLOOD COUNT 4.25 x10^6/uL (3.50-5.40); RED CELL DISTRIBUTION WIDTH 15.2 % (11.5-14.5)
[2020-03-23 15:54] LABS: CREATININE 1.3 mg/dL (0.6-1.0); GFR 39.2; POTASSIUM 4.1 mmol/L (3.5-5.1)
[2020-03-23 16:02] VITALS: BP 184/81
[2020-03-23] MEDS ORDERED: TRAM50TA PO (16:27)
[2020-03-23] MEDS ORDERED: KETOROLAC 15 MG/ML VIAL. IVP ONE (16:30)
--- NOTE | 2020-03-23 18:06 | EKG ---
[facility] [address] [place] [address] Test Date: 2020-03-23 Test Time: 15:25:29 Pat Name: MABEL SALINAS Department: Room: Gender: F Special Education Supervisor: : 1940 Requested By: ROOPA STEINBERG Order Number: [id number] Reading MD: Measurements Intervals [place] Rate: 68 P: 52 [place]: 140 QRS: -23 QRSD: 120 T: 26 QT: 394 QTc: 424 Interpretive Statements SINUS RHYTHM LEFTWARD AXIS R-S TRANSITION ZONE IN V LEADS DISPLACED TO THE RIGHT INCOMPLETE RIGHT BUNDLE BRANCH BLOCK OTHERWISE NORMAL ECG RI6.02 No previous ECG available for comparison
== END 2020-03-23 16:40 | disposition home or self-care (01) ==
LOC: ER 14:39
DX: T82.847A Pain due to cardiac prosthetic devices, implants and grafts, initial encounter (principal); E11.65 Type 2 diabetes mellitus with hyperglycemia; I10 Essential (primary) hypertension; E03.9 Hypothyroidism, unspecified; Z86.718 Personal history of other venous thrombosis and embolism; Z90.49 Acquired absence of other specified parts of digestive tract; Z90.710 Acquired absence of both cervix and uterus; Z88.1 Allergy status to other antibiotic agents; Z91.041 Radiographic dye allergy status; Z88.5 Allergy status to narcotic agent; Z88.8 Allergy status to other drugs, medicaments and biological substances; Y83.8 Other surgical procedures as the cause of abnormal reaction of the patient, or of later complication, without mention of misadventure at the time of the procedure; Y92.89 Other specified places as the place of occurrence of the external cause
CPT/HCPCS: 36415; 71045; 80048; 85025; 93005; 96374; 96375; 99285; J1885; J2405

== ENCOUNTER → 2020-10-07 | Outpatient (CLI) | payer MEDICARE ==
[2020-03-28 16:03] VITALS: BP 172/79
[~2020-10-07] MED LIST changes: +GABA300C18 PO; +LIDO1ADH78 TP; -MECL12.573 PO; +MECL12.582 PO; +TRAM50TA PO
--- NOTE | 2020-10-07 16:01 | RAD ---
INDICATION: Reason: L FLANK PAIN, RT NEPHRECTOMY / Spl. Instructions: / History: COMPARISON: February 2019 CT TECHNIQUE: Grayscale and color ultrasound images obtained of the bilateral kidneys and bladder. FINDINGS: Urinary bladder is partially distended which limits evaluation. Right kidney is absent consistent wit h the patient's surgical history. Partially visualized liver appears echogenic which can be seen with fatty infiltration but nonspecific finding. Left kidney is 106 mm with some fluid seen in the colle ting system but significant hydronephrosis is not seen. Urinary bladder volume is estimated at 75 cc prevoid. IMPRESSION: * Mild pelvic caliectasis on the left. * Status post right nephrectomy. Electronically signed by: Ramakrishna Ramirez MD (10/07/2020 3:58 PM) [id number]
== END ==
LOC: US 14:02
PROVIDERS: ATTEND Nurse Practitioner
DX: N28.89 Other specified disorders of kidney and ureter (principal); N32.89 Other specified disorders of bladder; Z90.5 Acquired absence of kidney
CPT/HCPCS: 76775

== ENCOUNTER 2021-01-16 13:56 | Inpatient (IN) | payer MEDICARE ==
[~2021-01-16] VITALS: Ht 165.1 cm; Wt 72.5 kg
[~2021-01-16 13:56] MED LIST changes: +DOCU-148 PO; -DOCU-153 PO
[2021-01-16] MEDS ORDERED: MORPHINE SULFATE 4 MG/ML INJ. IVP ONE (14:15)
--- NOTE | 2021-01-16 14:26 | PHYS DOC ---
Past Medical History Past Medical History: Other Additional Past Medical Histor: BRADYCARDIA Past Surgical History: Pacemaker Additional Past Surgical Histo: rt kidney removed, bladder Smoking Status: Never Smoker Alcohol Use: None Drug Use: None General Adult EDM: Chief Complaint: TRAUMA ACTIVATION HPI: HPI: 81-year-old female presents to the emergency department after a fall down which she says is 5 flights of stairs (per EMS report, more likely 5 total stairs). She reports that she fell on her head on the concrete and endorses a loss of consciousness, and also had blunt impact on her left shoulder and left knee. She also complains of pain in the chest, pain abdomen and pain in the knee. She has obvious deformity of the left shoulder and states movement and palpation of this area is very painful. She does not take any blood thinners but does report taking a daily aspirin. She reports that her fall was mechanical and she tripped. Review of Systems: Review of Systems: Constitutional: Denies fever or chills. Eyes: Denies change in vision, pain. HENT: Denies facial pain, sore throat. Respiratory: Denies cough or shortness of breath. Cardiovascular: Admits to chest pain from blunt trauma, denies edema. GI: Admits to abdominal pain from trauma, denies nausea vomiting. : Denies change in urination, dysuria. Musculoskeletal: Admits to left shoulder pain, left knee pain, left wrist pain, left elbow pain. Skin: Admits to abrasion of the left knee, denies rash. Neurologic: Admits to headache from blunt trauma, denies weakness. All other systems reviewed as negative except for what was mentioned in the HPI. Heart Score: C/O Chest Pain: Yes HEART Score for Chest Pain: HEART Score for Chest Pain Response (Comments) Value History Slighlty/Non-Suspicious 0 ECG Nonspecific Repolarizatio 1 Age > 65 2 Risk Factors 1 or 2 Risk Factors 1 Troponin < Normal Limit 0 Total 4 Allergies: Allergies: Allergies Coded Allergies Type Severity Reaction Last Updated Verified erythromycin base Allergy Intermediate 03/04/18 Yes levofloxacin Allergy Intermediate 03/19/19 Yes Iodinated Contrast Media Adverse Reaction Intermediate DUE TO ONLY HAVING 1 KIDNEY 03/04/18 Yes diazepam Adverse Reaction Intermediate Palpitations 03/04/18 Yes oxytetracycline Adverse Reaction Intermediate Palpitations 03/04/18 Yes oxytetracycline HCl Adverse Reaction Intermediate Palpitations 03/04/18 Yes hydromorphone Adverse Reaction Mild Nausea and Vomiting 03/04/18 Yes Physical Exam: PE: A: Airway intact. B: Bialteral breath sounds present and equal bilaterally. C: Radial pulses 2+ bilaterally. D: GCS 15 E: Patient fully exposed. Head: No lacerations or hematomas. No signs of facial trauma Eyes: Pupils 3 mm equal and reactive, opens eyes spontaneously, no lacerations. Mouth: No lacerations or soft tissue deformities, teeth intact, airway intact, mucosa moist, no blood in oropharynx. Respiratory: Breath sounds equal bilaterally. Chest Wall: No obvious deformity. No lacerations, ecchymoses, or abrasion of the chest. Cardiovascular: Radial and dorsalis pedis 2+ and equal, extremities well perfused. Neck: No cervical spine tenderness. No bony step offs. Trachea midline. No soft tissue swelling. Back: No gross deformity or bony step-offs, no abrasions. Abdomen/Pelvis: Soft, tender to mid abdomen, non-distended. No laxity in pelvis, nontender to palpation. Extremities: LUE: Left proximal shoulder pain to palpation, patient able to move this joint. She also has left elbow tenderness, left wrist tenderness. No overlying lacerations or abrasions. Sensation is intact RUE: Moves independently and sensation intact, no deformities, lacerations or abrasions. LLE: Moves independently and sensation intact, abrasion with tenderness is appreciated to the left knee RLE: Moves independently and sensation intact, no deformities, lacerations or abrasions. Current Patient Data: Labs: Laboratory Tests Test 01/16/21 14:15 01/16/21 15:11 White Blood Count 6.9 x10^3/uL (4.0-11.0) Red Blood Count 4.42 x10^6/uL (3.50-5.40) Hemoglobin 13.6 g/dL (12.0-15.5) Hematocrit 39.7 % (36.0-47.0) Mean Corpuscular Volume 90 fL (79-100) Mean Corpuscular Hemoglobin 31 pg (25-35) Mean Corpuscular Hemoglobin Concent 34 g/dL (31-37) Red Cell Distribution Width 13.5 % (11.5-14.5) Platelet Count 214 x10^3/uL (140-400) Neutrophils (%) (Auto) 73 % (31-73) Lymphocytes (%) (Auto) 20 % (24-48) Monocytes (%) (Auto) 6 % (0-9) Eosinophils (%) (Auto) 1 % (0-3) Basophils (%) (Auto) 1 % (0-3) Neutrophils # (Auto) 5.0 x10^3/uL (1.8-7.7) Lymphocytes # (Auto) 1.3 x10^3/uL (1.0-4.8) Monocytes # (Auto) 0.4 x10^3/uL (0.0-1.1) Eosinophils # (Auto) 0.1 x10^3/uL (0.0-0.7) Basophils # (Auto) 0.0 x10^3/uL (0.0-0.2) Sodium Level 139 mmol/L (136-145) Potassium Level 4.6 mmol/L (3.5-5.1) Chloride Level 104 mmol/L (98-107) Carbon Dioxide Level 25 mmol/L (21-32) Anion Gap 10 (6-14) Blood Urea Nitrogen 21 mg/dL (7-20) Creatinine 1.6 mg/dL (0.6-1.0) Estimated GFR (Cockcroft-Gault) 30.8 BUN/Creatinine Ratio 13 (6-20) Glucose Level 381 mg/dL (70-99) Calcium Level 9.3 mg/dL (8.5-10.1) Total Bilirubin 0.5 mg/dL (0.2-1.0) Aspartate Amino Transf (AST/SGOT) 11 U/L (15-37) Alanine Aminotransferase (ALT/SGPT) 19 U/L (14-59) Alkaline Phosphatase 96 U/L (46-116) Troponin I Quantitative < 0.017 ng/mL (0.000-0.055) Total Protein 6.6 g/dL (6.4-8.2) Albumin 3.6 g/dL (3.4-5.0) Albumin/Globulin Ratio 1.2 (1.0-1.7) Lipase 82 U/L (73-393) Ethyl Alcohol Level < 10 mg/dL (0-10) Prothrombin Time 12.3 SEC (11.7-14.0) Prothromb Time International Ratio 0.9 (0.8-1.1) Activated Partial Thromboplast Time 28 SEC (24-38) Vital Signs: Vital Signs Date Time Temp Pulse Resp B/P (MAP) Pulse Ox O2 Delivery O2 Flow Rate FiO2 01/16/21 14:05 80 16 Room Air 01/16/21 14:00 98.4 63 22 144/66 98 Room Air 98.4 EKG: EKG: Normal sinus rhythm rate of 70, right bundle branch block pattern, no ischemic ST-T wave changes, no ectopic beats. Impression: Normal EKG. Right bundle branch block is old compared to previous EKG 03/23/2020. interpreted by me, Gerardo Nino D.O. Radiology/Procedures: Radiology/Procedures: PROCEDURE: WRIST 3V LEFT EXAM: Left wrist, 3 views; left elbow, 3 views; left shoulder, 3 views. HISTORY: Trauma. Deformity. Pain. COMPARISON: None. FINDINGS: Left wrist: 3 views of the left wrist are obtained. There is a minimally displaced distal radial metaphyseal fracture. There is also a minimally displaced ulnar styloid fracture. There is bone demineralization. There is mild first carpometacarpal joint space narrowing. Left elbow: 3 views of the left elbow are obtained. Evaluation for a joint effusion and evaluation of the radial head is limited in the lateral projection due to positioning. No convincing displaced fracture is seen. There is bone demineralization. Left shoulder: 3 views of the left shoulder obtained. There is no fracture, d islocation or subluxation. There is mild acromioclavicular and glenohumeral joint spurring. There is a cardiac pacemaker generator and leads partially included on the [id number]. IMPRESSION: 1. Minimally displaced distal radial metaphyseal fracture and ulnar styloid fracture. 2. Bone demineralization. 3. Mild acromioclavicular and glenohumeral joint osteoarthritis. Electronically signed by: Margarita Prasad MD (01/16/2021 2:49 PM) CT LUMBAR SPINE RECONSTRUCTION, CT THORACIC SPINE RECONSTRUCT History: Trauma, fall, back pain. Comparison: CT chest, abdomen and pelvis 01/16/2021. Technique: Noncontrast CT of the thoracic and lumbar spine. Findings: There are 12 rib-bearing thoracic vertebral segments and 5 nonrib-bearing lumbar vertebral segments. Normal alignment is maintained. No spondylolisthesis. No fracture identified. Vertebral bodies maintain normal height. Multilevel flowing marginal osteophytes in the thoracic spine. The thoracic disc heights are relatively maintained. No thoracic canal or neuroforaminal stenosis. Mild disc space narrowing at L4-L5 and L5-S1. Facet hypertrophy greatest at L5- S1. No significant lumbar spinal canal or neural foraminal stenosis. No acute findings in the paravertebral soft tissues. There are postsurgical changes from right nephrectomy. Please see CT chest abdomen pelvis for further description of the nonspinal findings. Impression: 1. No acute findings in the thoracic and lumbar spine. CT LUMBAR SPINE RECONSTRUCTION, CT THORACIC SPINE RECONSTRUCT History: Trauma, fall, back pain. Comparison: CT chest, abdomen and pelvis 01/16/2021. Technique: Noncontrast CT of the thoracic and lumbar spine. Findings: There are 12 rib-bearing thoracic vertebral segments and 5 nonrib-bearing lumbar vertebral segments. Normal alignment is maintained. No spondylolisthesis. No fracture identified. Vertebral bodies maintain normal height. Multilevel flowing marginal osteophytes in the thoracic spine. The thoracic disc heights are relatively maintained. No thoracic canal or neuroforaminal stenosis. Mild disc space narrowing at L4-L5 and L5-S1. Facet hypertrophy greatest at L5- S1. No significant lumbar spinal canal or neural foraminal stenosis. No acute findings in the paravertebral soft tissues. There are postsurgical changes from right nephrectomy. Please see CT chest abdomen pelvis for further description of the nonspinal findings. Impression: 1. No acute findings in the thoracic and lumbar spine. EXAM: Left knee, 3 views. HISTORY: Pain. COMPARISON: None. FINDINGS: 3 views of the left knee are obtained. There is no fracture, dislocation or subluxation. There is mild medial and patellofemoral compartment spurring. There is enthesopathy along the superior patella. There is no joint effusion. 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 Electronically signed by: Margarita Prasad MD (01/16/2021 2:50 PM) EXAM: Head and cervical spine CT without contrast. HISTORY: Fall. Pain. TECHNIQUE: Computed tomographic images of the head and cervical spine were obtained without contrast. *One or more of the following individualized dose reduction techniques were utilized for this examination: 1. Automated exposure control. 2. Adjustment of the mA and/or kV according to patient size. 3. Use of iterative reconstruction technique. COMPARISON: None. FINDINGS: Head: There is no convincing intracranial hemorrhage. There is no mass effect or midline shift. There is no hydrocephalus. There is decreased attenuation scattered throughout the cerebral white matter, likely due to chronic small vessel disease. There are chronic lacunar infarcts within the left putamen and t halamus. There is cerebral volume loss. There is evidence of lens surgery. There are tiny maxillary sinus mucous retention cyst. The mastoid air cells are clear. There is no suspicious calvarial lesion. Cervical spine: There is mild chronic decreased vertebral body height at C4, C5, C6 and C7. There is multilevel endplate remodeling with anterior spurring. There are few osseous hemangiomas. There is no suspicious osseous lesion. There is multilevel endplate remodeling and anterior spurring. There are few endplate Schmorl's nodes. The combination of degenerative changes results in minimal right foraminal stenosis at C4-C5, minimal left foraminal stenosis at C5-C6 and mild bilateral foraminal stenosis at C6-C7. There is groundglass opacity at the right lung apex, likely due to atelectasis. There are cardiac pacemaker leads partially included on the [id number]. IMPRESSION: 1. No acute intracranial finding or evidence of acute cervical spine trauma. 2. Bilateral cerebral white matter changes, likely due to chronic small vessel disease. 3. Chronic lacunar infarcts within the left basal ganglia and thalamus. 4. Cerebral volume loss. 5. Chronic appearing decreased vertebral body height at the mid and lower cervical levels. No convincing acute fracture is seen. 6. Multilevel degenerative change involving the cervical spine, described above. Electronically signed by: Margarita Prasad MD (01/16/2021 3:14 PM) CT CHEST_ABDOMEN_ AND PELVIS WITHOUT CONTRAST History: Fall, trauma, back pain. Comparison: None. Technique: CT of the chest, abdomen and pelvis without contrast. Findings: The thyroid, mediastinum and esophagus are unremarkable. There are [id number] calcifications of the aortic arch. The pulmonary artery is normal in caliber. Left chest cardiac pacemaker with lead tips terminating in the right atrium and right ventricle. Mild calcifications of the aortic annulus. Mild coronary artery calcifications. The heart size is normal. No pericardial effusion. No endobronchial lesions. No airspace consolidation, pleural effusion or pneumothorax. Minimal bibasilar dependent atelectasis. The chest soft tissues are unremarkable. No acute osseous abnormality in the thorax. The unenhanced liver is unremarkable. The gallbladder is absent versus decompressed. Severe fatty atrophy of the pancreas. Calcifications in the spleen consistent with old granulomatous disease. Surgical clips in the right renal fossa status post cholecystectomy. The right adrenal gland is not visualized. Left adrenal gland and kidney are unremarkable. The stomach and small bowel are unremarkable. Prominent sigmoid diverticulosis. No evidence of diverticulitis. Aortoiliac atherosclerotic calcification without aneurysm. No abdominal free air or free fluid. Bladder is unremarkable. Status post hysterectomy. Small fat-containing umbilical hernia. Mild degenerative changes at L5-S1. No acute osseous abnormality. Impression: 1. No acute findings in the chest, abdomen and pelvis. PROCEDURE: PORTABLE CHEST 1V EXAM: Chest, single view. HISTORY: Trauma. COMPARISON: None. FINDINGS: A frontal view of the chest is obtained. There is no infiltrate, ple ural effusion or pneumothorax. The heart is normal in size. There is a cardiac pacemaker in expected position. There are cholecystectomy clips. IMPRESSION: No acute pulmonary finding. Electronically signed by: Margarita Prasad MD (01/16/2021 2:46 PM) Course & Med Decision Making: Course & Med Decision Making Patient was activated as a trauma due to mechanism, evidence for polytrauma on secondary survey. Her primary survey was unremarkable. Her plain films demonstrated a minimally displaced left distal radius fracture. Reduction likely not to be beneficial in this patient. Patient was placed in a splint. Patient lives alone, cares for herself, she does not feel comfortable taking care of herself after her fall today. We will admit the patient to the hospital under Dr. Quinones, trauma surgery and orthopedics consulting. tdap updated Splint was placed: Sugar tong, neurovascular intact, no signs of compartment syndrome, patient comfortable splint and given a sling. Post x-ray ordered: History: Postsplint Comparison: 01/16/2021 Findings/ impression: Splint material limits visualization of detail. There has been interval splinting of a comminuted intra-articular fracture of the left distal radius and transverse fracture of the ulnar styloid. Alignment is anatomic. Decreased osseous mineralization. Mild degenerative changes in the hand. Electronically signed by: Navin Tejeda MD (01/16/2021 5:31 PM) My Orders - RAMSESGERARDO M DO Procedure Category Date Status Time Cardiac Monitoring ER 01/16/21 Transmitted 14:15 Continuous Pulse Ox ER 01/16/21 Transmitted 14:15 Cbc W Autodiff LAB 01/16/21 Complete 14:15 Comprehensive LAB 01/16/21 Complete Metabolic Panel 14:15 Lipase LAB 01/16/21 Complete 14:15 Protime With Inr LAB 01/16/21 Complete 14:15 Partial LAB 01/16/21 Complete Thromboplastin Time 14:15 Ua W Microscopic LAB 01/16/21 Logged 14:15 Drugs Of Abuse Ur LAB 01/16/21 Logged 14:15 Portable Chest 1v RAD 01/16/21 Resulted 14:15 12 Lead Ekg EKG 01/16/21 Complete 14:15 Ethanol LAB 01/16/21 Complete 14:15 Insert 2 Large Bore HERMILO 01/16/21 In Process Iv's 14:15 Vital Signs HERMILO 01/16/21 In Process 14:15 End Tidal Co2 HERMILO 01/16/21 In Process Monitoring 14:15 Type And Screen BBK 01/16/21 Complete 14:15 Troponini LAB 01/16/21 Complete 14:15 Shoulder 2+V Left RAD 01/16/21 Resulted 14:15 Elbow Left 3v RAD 01/16/21 Resulted 14:15 Wrist 3v Left RAD 01/16/21 Resulted 14:15 Knee Left 3v RAD 01/16/21 Resulted 14:15 Morphine Sulfate PHA 01/16/21 Complete (Morphine Sulfate) 14:15 Sars Cov2 ([place]) LAB 01/16/21 In Process 14:28 Sars Antigen Angie Rapid LAB 01/16/21 Complete 14:28 Ct Head [address] Cervical CT 01/16/21 Resulted Spine Wo 14:[address] 01/16/21 Resulted Pelvis Wo 14:[address] 01/16/21 Resulted Reconstruct 14:[address] 01/16/21 Resulted Reconstruction 14:15 Splint/Wrap HERMILO 01/16/21 In Process Application 15:40 Diph,Pertuss(Acell),Tet PHA 01/16/21 Complete Vac/Pf (Adacel T 16:00 Consult Physician By CONS 01/16/21 Transmitted Name 15:51 Consult Physician By CONS 01/16/21 Transmitted Name 15:51 Sars Cov2 ([place]) LAB 01/16/21 Logged 15:53 Sars Antigen Angie Rapid LAB 01/16/21 Logged 15:53 Er [place] Order ADT 01/16/21 Transmitted 16:46 Code Status CODE 01/16/21 Transmitted 16:46 Vital Signs, Per Unit HERMILO 01/16/21 In Process Protocol 16:46 Regular DIET 01/16/21 Transmitted Dinner Ambulate With HERMILO 01/16/21 In Process Assistance 16:46 Ondansetron Pf PHA 01/16/21 Logged (Zofran) 17:00 Morphine Sulfate PHA 01/16/21 Logged (Morphine Sulfate) 17:00 Iv Normal Saline PHA 01/16/21 Logged 1000ml Bag (Iv Sodium 17:00 Acetaminophen PHA 01/16/21 Logged (Tylenol) 17:00 Wrist 3v Left RAD 01/16/21 Verified 16:51 Departure Departure Impression: Primary Impression: Closed fracture of left distal radius and ulna Additional Impression: Abrasion of knee, left Disposition: ADMITTED INPATIENT Admitting Physician: KEVIN Mcfarland) Condition: STABLE Referrals: [facility] (PCP) GERARDO NINO DO Jan 16, 2021 14:26
[2021-01-16 14:35] LABS: BASO % 1 % (0-3); EOS # 0.1 x10^3/uL (0.0-0.7); EOS % 1 % (0-3); HEMATOCRIT 39.7 % (36.0-47.0); HEMOGLOBIN 13.6 g/dL (12.0-15.5); LYMPH # 1.3 x10^3/uL (1.0-4.8); LYMPH % 20 % (24-48); MEAN CORPUSCULAR HEMOGLOBIN 31 pg (25-35); MEAN CORPUSCULAR HGB CONC 34 g/dL (31-37); MEAN CORPUSCULAR VOLUME 90 fL (79-100); MONO # 0.4 x10^3/uL (0.0-1.1); MONO % 6 % (0-9); NEUT % 73 % (31-73); PLATELET COUNT 214 x10^3/uL (140-400); RED BLOOD COUNT 4.42 x10^6/uL (3.50-5.40); RED CELL DISTRIBUTION WIDTH 13.5 % (11.5-14.5); WHITE BLOOD COUNT 6.9 x10^3/uL (4.0-11.0)
--- NOTE | 2021-01-16 14:49 | RAD ---
EXAM: Chest, single view. HISTORY: Trauma. COMPARISON: None. FINDINGS: A frontal view of the chest is obtained. There is no infiltrate, pleural effusion or pneumo thorax. The heart is normal in size. There is a cardiac pacemaker in expected position. There are cho lecystectomy clips. IMPRESSION: No acute pulmonary finding. Electronically signed by: Margarita Prasad MD (01/16/2021 2:46 PM) [id number]
--- NOTE | 2021-01-16 14:52 | RAD ---
EXAM: Left wrist, 3 views; left elbow, 3 views; left shoulder, 3 views. HISTORY: Trauma. Deformity. Pain. COMPARISON: None. FINDINGS: Left wrist: 3 views of the left wrist are obtained. There is a minimally displaced distal radial meta physeal fracture. There is also a minimally displaced ulnar styloid fracture. There is bone demineral ization. There is mild first carpometacarpal joint space narrowing. Left elbow: 3 views of the left elbow are obtained. Evaluation for a joint effusion and evaluation of the radial head is limited in the lateral projection due to positioning. No convincing displaced fra cture is seen. There is bone demineralization. Left shoulder: 3 views of the left shoulder obtained. There is no fracture, dislocation or subluxatio n. There is mild acromioclavicular and glenohumeral joint spurring. There is a cardiac pacemaker gene rator and leads partially included on the [id number]. IMPRESSION: 1. Minimally displaced distal radial metaphyseal fracture and ulnar styloid fracture. 2. Bone demineralization. 3. Mild acromioclavicular and glenohumeral joint osteoarthritis. Electronically signed by: Margarita Prasad MD (01/16/2021 2:49 PM) [id number]
--- NOTE | 2021-01-16 14:52 | RAD ---
EXAM: Left wrist, 3 views; left elbow, 3 views; left shoulder, 3 views. HISTORY: Trauma. Deformity. Pain. COMPARISON: None. FINDINGS: Left wrist: 3 views of the left wrist are obtained. There is a minimally displaced distal radial meta physeal fracture. There is also a minimally displaced ulnar styloid fracture. There is bone demineral ization. There is mild first carpometacarpal joint space narrowing. Left elbow: 3 views of the left elbow are obtained. Evaluation for a joint effusion and evaluation of the radial head is limited in the lateral projection due to positioning. No convincing displaced fra cture is seen. There is bone demineralization. Left shoulder: 3 views of the left shoulder obtained. There is no fracture, dislocation or subluxatio n. There is mild acromioclavicular and glenohumeral joint spurring. There is a cardiac pacemaker gene rator and leads partially included on the [id number]. IMPRESSION: 1. Minimally displaced distal radial metaphyseal fracture and ulnar styloid fracture. 2. Bone demineralization. 3. Mild acromioclavicular and glenohumeral joint osteoarthritis. Electronically signed by: Margarita Prasad MD (01/16/2021 2:49 PM) [id number]
--- NOTE | 2021-01-16 14:52 | RAD ---
EXAM: Left wrist, 3 views; left elbow, 3 views; left shoulder, 3 views. HISTORY: Trauma. Deformity. Pain. COMPARISON: None. FINDINGS: Left wrist: 3 views of the left wrist are obtained. There is a minimally displaced distal radial meta physeal fracture. There is also a minimally displaced ulnar styloid fracture. There is bone demineral ization. There is mild first carpometacarpal joint space narrowing. Left elbow: 3 views of the left elbow are obtained. Evaluation for a joint effusion and evaluation of the radial head is limited in the lateral projection due to positioning. No convincing displaced fra cture is seen. There is bone demineralization. Left shoulder: 3 views of the left shoulder obtained. There is no fracture, dislocation or subluxatio n. There is mild acromioclavicular and glenohumeral joint spurring. There is a cardiac pacemaker gene rator and leads partially included on the [id number]. IMPRESSION: 1. Minimally displaced distal radial metaphyseal fracture and ulnar styloid fracture. 2. Bone demineralization. 3. Mild acromioclavicular and glenohumeral joint osteoarthritis. Electronically signed by: Margarita Prasad MD (01/16/2021 2:49 PM) [id number]
--- NOTE | 2021-01-16 14:53 | RAD ---
EXAM: Left knee, 3 views. HISTORY: Pain. COMPARISON: None. FINDINGS: 3 views of the left knee are obtained. There is no fracture, dislocation or subluxation. Th ere is mild medial and patellofemoral compartment spurring. There is enthesopathy along the superior patella. There is no joint effusion. 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 Electronically signed by: Margarita Prasad MD (01/16/2021 2:50 PM) [id number]
[2021-01-16 14:59] LABS: CALCIUM 9.3 mg/dL (8.5-10.1); CREATININE 1.6 mg/dL (0.6-1.0); GFR 30.8; POTASSIUM 4.6 mmol/L (3.5-5.1)
[2021-01-16 15:05] LABS: ALBUMIN 3.6 g/dL (3.4-5.0); ALBUMIN/GLOBULIN RATIO 1.2 (1.0-1.7); TOTAL BILIRUBIN 0.5 mg/dL (0.2-1.0); TOTAL PROTEIN 6.6 g/dL (6.4-8.2)
--- NOTE | 2021-01-16 15:16 | RAD ---
EXAM: Head and cervical spine CT without contrast. HISTORY: Fall. Pain. TECHNIQUE: Computed tomographic images of the head and cervical spine were obtained without contrast. *One or more of the following individualized dose reduction techniques were utilized for this examina tion: 1. Automated exposure control. 2. Adjustment of the mA and/or kV according to patient size. 3. Use of iterative reconstruction technique. COMPARISON: None. FINDINGS: Head: There is no convincing intracranial hemorrhage. There is no mass effect or midline shift. There is no hydrocephalus. There is decreased attenuation scattered throughout the cerebral white matter, likely due to chronic small vessel disease. There are chronic lacunar infarcts within the left putame n and thalamus. There is cerebral volume loss. There is evidence of lens surgery. There are tiny maxillary sinus muco us retention cyst. The mastoid air cells are clear. There is no suspicious calvarial lesion. Cervical spine: There is mild chronic decreased vertebral body height at C4, C5, C6 and C7. There is multilevel endplate remodeling with anterior spurring. There are few osseous hemangiomas. There is no suspicious osseous lesion. There is multilevel endplate remodeling and anterior spurring. There are few endplate Schmorl's nodes. The combination of degenerative changes results in minimal right forami nal stenosis at C4-C5, minimal left foraminal stenosis at C5-C6 and mild bilateral foraminal stenosis at C6-C7. There is groundglass opacity at the right lung apex, likely due to atelectasis. There are cardiac pac emaker leads partially included on the [id number]. IMPRESSION: 1. No acute intracranial finding or evidence of acute cervical spine trauma. 2. Bilateral cerebral white matter changes, likely due to chronic small vessel disease. 3. Chronic lacunar infarcts within the left basal ganglia and thalamus. 4. Cerebral volume loss. 5. Chronic appearing decreased vertebral body height at the mid and lower cervical levels. No convinc ing acute fracture is seen. 6. Multilevel degenerative change involving the cervical spine, described above. Electronically signed by: Margarita Prasad MD (01/16/2021 3:14 PM) [id number]
--- NOTE | 2021-01-16 15:24 | RAD ---
CT CHEST_ABDOMEN_ AND PELVIS WITHOUT CONTRAST History: Fall, trauma, back pain. Comparison: None. Technique: CT of the chest, abdomen and pelvis without contrast. Findings: The thyroid, mediastinum and esophagus are unremarkable. There are [id number] calcifications of the aortic arch. The pulmonary artery is normal in caliber. Left chest cardiac pacemaker with lead t ips terminating in the right atrium and right ventricle. Mild calcifications of the aortic annulus. M ild coronary artery calcifications. The heart size is normal. No pericardial effusion. No endobronchial lesions. No airspace consolidation, pleural effusion or pneumothorax. Minimal bibasi lar dependent atelectasis. The chest soft tissues are unremarkable. No acute osseous abnormality in the thorax. The unenhanced liver is unremarkable. The gallbladder is absent versus decompressed. Severe fatty atr ophy of the pancreas. Calcifications in the spleen consistent with old granulomatous disease. Surgica l clips in the right renal fossa status post cholecystectomy. The right adrenal gland is not visualiz ed. Left adrenal gland and kidney are unremarkable. The stomach and small bowel are unremarkable. Prominent sigmoid diverticulosis. No evidence of divert iculitis. Aortoiliac atherosclerotic calcification without aneurysm. No abdominal free air or free fl uid. Bladder is unremarkable. Status post hysterectomy. Small fat-containing umbilical hernia. Mild d egenerative changes at L5-S1. No acute osseous abnormality. Impression: 1. No acute findings in the chest, abdomen and pelvis. ------ Exposure: One or more of the following individualized dose reduction techniques were utilized for thi s examination: 1. Automated exposure control 2. Adjustment of the mA and/or kV according to patient size 3. Use of iterative reconstruction technique. Electronically signed by: Navin Tejeda MD (01/16/2021 3:21 PM) [id number]
[2021-01-16 15:27] LABS: PROTHROMBIN TIME PATIENT 12.3 SEC (11.7-14.0)
--- NOTE | 2021-01-16 15:30 | RAD ---
CT LUMBAR SPINE RECONSTRUCTION, CT THORACIC SPINE RECONSTRUCT History: Trauma, fall, back pain. Comparison: CT chest, abdomen and pelvis 01/16/2021. Technique: Noncontrast CT of the thoracic and lumbar spine. Findings: There are 12 rib-bearing thoracic vertebral segments and 5 nonrib-bearing lumbar vertebral segments. Normal alignment is maintained. No spondylolisthesis. No fracture identified. Vertebral bodies mainta in normal height. Multilevel flowing marginal osteophytes in the thoracic spine. The thoracic disc heights are relative ly maintained. No thoracic canal or neuroforaminal stenosis. Mild disc space narrowing at L4-L5 and L5-S1. Facet hypertrophy greatest at L5-S1. No significant lum bar spinal canal or neural foraminal stenosis. No acute findings in the paravertebral soft tissues. There are postsurgical changes from right nephre ctomy. Please see CT chest abdomen pelvis for further description of the nonspinal findings. Impression: 1. No acute findings in the thoracic and lumbar spine. ------ Exposure: One or more of the following individualized dose reduction techniques were utilized for thi s examination: 1. Automated exposure control 2. Adjustment of the mA and/or kV according to patient size 3. Use of iterative reconstruction technique. Electronically signed by: Navin Tejeda MD (01/16/2021 3:28 PM) [id number]
[2021-01-16] MEDS ORDERED: DIPH,PERTUSS(ACELL),TET VAC/PF 0.5 ML SYRINGE. VAX IM ONE (16:00)
--- NOTE | 2021-01-16 16:48 | EKG ---
[facility] [address] [place] [address] Test Date: 2021-01-16 Test Time: 15:24:20 Pat Name: MABEL SALINAS Department: Room: Gender: F Telemetry Technician: : 1940 Requested By: BESS PEARCE Order Number: [id number] Reading MD: Measurements Intervals [place] Rate: 70 P: 0 IA: 146 QRS: -25 QRSD: 118 T: 26 QT: 390 QTc: 424 Interpretive Statements SINUS RHYTHM LEFTWARD AXIS R-S TRANSITION ZONE IN V LEADS DISPLACED TO THE RIGHT INCOMPLETE RIGHT BUNDLE BRANCH BLOCK NON SPECIFIC T ABNORMALITY NON SPECIFIC ST-T ABNORMALITY (ELEVATION) BORDERLINE ECG RI6.02 No previous ECG available for comparison
[2021-01-16] MEDS ORDERED: ONDANSETRON PF 4 MG/2 ML VIAL. IVP PRN (17:00)
[2021-01-16] MEDS ORDERED: MORPHINE SULFATE 4 MG/ML INJ. IVP PRN (17:00)
--- NOTE | 2021-01-16 17:34 | RAD ---
XR LT WRIST 3VIEWS History: Postsplint Comparison: 01/16/2021 Findings/ impression: Splint material limits visualization of detail. There has been interval splinting of a co mminuted intra-articular fracture of the left distal radius and transverse fracture of the ulnar styl oid. Alignment is anatomic. Decreased osseous mineralization. Mild degenerative changes in the hand. Electronically signed by: Navin Tejeda MD (01/16/2021 5:31 PM) [id number]
[2021-01-16] MEDS: ACETAMINOPHEN 325 MG TABLET. PO PRN (18:03)
--- NOTE | 2021-01-16 19:00 | NUR ---
The patient, MABEL SALINAS, 81 y/o, F admitted by GRECIA BAJWA III, DO, was given written information regarding hospital policies, unit procedures and contact persons. Patient alert and oriented x 4. Patient oriented to room,bed, call light and POC. Patient verbalized understanding. Call light in reach. See admission assessment/documentation. Valuables were checked and puckett locked up with security when Patient was in ED, yellow slip placed in clear pocket of Patient's chart and Patient aware. Patient stated she has credit card in bag but refused to lock up with security when offered by this RN.
[2021-01-16 19:30] VITALS: BP 131/59
--- NOTE | 2021-01-16 20:05 | HP ---
ADMIT DATE: 01/16/2021 CHIEF COMPLAINT: Fall. HISTORY OF PRESENT ILLNESS: The patient is a pleasant 81-year-old female well known to my service. She fell today, she went down 5 stairs, suffered a contusion to her leg and also complains of some left wrist pain. We did some imaging that is showing a distal left radius fracture. I discussed the case with ER physician. We admitted the patient with consultation to orthopedics and she will probably need retirement when she is done here for this admission. PAST MEDICAL HISTORY: Bradycardia, pacemaker, right kidney removed. ALLERGIES: IV CONTRAST, DIAZEPAM, ERYTHROMYCIN, HYDROMORPHONE, LEVAQUIN, OXYTETRACYCLINE. FAMILY HISTORY: Diabetes. SOCIAL HISTORY: She does drink, smoke or take drugs. MEDICATIONS: Reviewed. Please refer to the MRAD. REVIEW OF SYSTEMS: GENERAL: No history of weight change, weakness or fevers. SKIN: No bruising, hair changes or rashes. EYES: No blurred, double or loss of vision. NOSE AND THROAT: No history of nosebleeds, hoarseness or sore throat. HEART: No history of palpitations, chest pain or shortness of breath on exertion. LUNGS: Denies cough, hemoptysis, wheezing or shortness of breath. GASTROINTESTINAL: Denies changes in appetite, nausea, vomiting, diarrhea or constipation. GENITOURINARY: No history of frequency, urgency, hesitancy or nocturia. NEUROLOGIC: Denies history of numbness, tingling, tremor or weakness. PSYCHIATRIC: No history of panic, anxiety or depression. ENDOCRINE: No history of heat or cold intolerance, polyuria or polydipsia. EXTREMITIES: She complains of left wrist and left shoulder pain. PHYSICAL EXAMINATION: VITALS: Within normal limits and are stable. GENERAL: No apparent distress. Alert and oriented. HEENT: Normal cephalic atraumatic, external auditory canals are patent EYES: Extraocular muscles are intact, pupils are equally round and reactive to light and accommodation MUSCULOSKELETAL: Well developed, well nourished, good range of motion ENDOCRINE: No thyromegaly was palpated LYMPHATICS: No cervical chain or axillary nodes were noted HEMATOPOIETIC: No bruising NECK: Supple, no JVD, no thyromegaly was noted. LUNGS: Clear to auscultation in all lung clarke without rhonchi or wheezing. HEART: RRR, S1, S2 present. Peripheral pulses intact, no obvious murmurs were noted. ABDOMEN: Soft, nontender. Positive bowel sounds no organomegaly, normal bowel sounds. EXTREMITIES: The left arm is in a sling. The left knee has abrasions. NEUROLOGIC: Normal speech, normal tone. A and O x 3, moves all extremities, no obvious focal deficits. PSYCHIATRIC: She is anxious and depressed. SKIN: No ulcerations or rashes, good skin turgor, no jaundice. VASCULAR: Good capillary refill, neurovascular bundle appears to be intact. ASSESSMENT AND PLAN: Fall with radius fracture. The patient will be admitted. We will consult orthopedics. Home medications. Deep venous thrombosis prophylaxis. Full code. Wound care. [facility] Unit evaluation. NOLBERTO/KARON/HENRY DR: NOLBERTO/ade TID: [id number]
[2021-01-16] MEDS: IV NORMAL SALINE 1000ML BAG 1,000 ML IV SCH (21:55)
[2021-01-16 23:15] VITALS: BP 155/58
[2021-01-17] MEDS: ACETAMINOPHEN 325 MG TABLET. PO PRN ×2 (00:16→09:35)
[2021-01-17 03:40] VITALS: BP 159/57
[2021-01-17 07:00] VITALS: BP 150/55
--- NOTE | 2021-01-17 08:42 | PDOC2 ---
AMAN DOMINGUEZ IT PROGRAM MANAGER 01/17/21 0842: CONSULT Date of Consult Date of Consult DATE: 01/17/21 TIME: 08:37 Reason for Consult Reason for Consult: trauma Referring Physician Referring Physician: ER Identification/Chief Complaint Chief Complaint fall, pain Source Source: Chart review, Patient History of Present Illness Reason for Visit: Reports falls multiple times, over 20, but has never broken a bone. fell back down steps, laying in street in pain, could not get up. Reports did strike her head on left, however no LOC Past Medical History Cardiovascular: HTN, Other CENTRAL NERVOUS SYSTEM: TIA GI: Constipation Heme/Onc: Cancer Hepatobiliary: No pertinent hx Psych: Anxiety Musculoskeletal: Osteoarthritis Rheumatologic: No pertinent hx Infectious disease: Herpes zoster Renal/: UTI Endocrine: Diabetes, Hypothyroidism, Osteoporosis, Other Past Surgical History Past Surgical History: Cholecystectomy, Hysterectomy, Other Family History Family History: Heart Disease Social History ALCOHOL: none Drugs: None Lives: Alone Current Problem List Problem List Problems Medical Problems: (1) Abrasion of knee, left Status: Acute (2) Closed fracture of left distal radius and ulna Status: Acute Current Medications Current Medications Current Medications Morphine Sulfate (Morphine Sulfate) 4 mg 1X ONCE IVP Last administered on 01/16/21at 15:52; Start 01/16/21 at 14:15; Stop 01/16/21 at 14:21; Status DC Diphtheria/ Tetanus/Acell Pertussis (ADACEL TDap SYRINGE) 0.5 ml ONCE ONCE VAX IM Last administered on 01/16/21at 18:04; Start 01/16/21 at 16:00; Stop 01/16/21 at 16:01; Status DC Ondansetron HCl (Zofran) 4 mg PRN Q8HRS PRN IVP NAUSEA/VOMITING; Start 01/16/21 at 17:00; Stop 01/17/21 at 16:59 Morphine Sulfate (Morphine Sulfate) 4 mg PRN Q4HRS PRN IVP PAIN Last administered on 01/16/21at 21:55; Start 01/16/21 at 17:00; Stop 01/17/21 at 16:59 Sodium Chloride 1,000 ml @ 75 mls/hr [id number] IV Last administered on 01/16/21at 21:55; Start 01/16/21 at 17:00; Stop 01/17/21 at 16:59 Acetaminophen (Tylenol) 650 mg PRN Q4HRS PRN PO FEVER > 100.3'F Last administered on 01/17/21at 00:16; Start 01/16/21 at 17:00; Stop 01/17/21 at 16:59 Active Scripts Active Mag-Al Plus Xs Suspension (Mag Hydrox/Al Hydrox/Simeth) 30 Ml Oral.susp 30 Ml PO PRN DAILY PRN 10 Days Tylenol (Acetaminophen) 325 Mg Tablet 650 Mg PO PRN Q4HRS PRN 14 Days Amlodipine Besylate 10 Mg Tablet 10 Mg PO DAILY Aspirin 81 Mg Tab.chew 81 Mg PO DAILYWBKFT 60 Days Reported Fish Oil 1,000 mg Softgel ([place]-3/Dha/Epa/Fish Oil) 1,000 Mg Capsule 1,000 Mg PO DAILY Lantus Solostar (Insulin Glargine,Hum.rec.anlog) 100 Unit/1 Ml Insuln.pen 10 Units SQ BID Novolog Flexpen (Insulin Aspart) 100 Unit/1 Ml Insuln.pen 6 Unit SQ Levothyroxine Sodium 25 Mcg Tablet 25 Mcg PO DAILY Travatan Z (Travoprost) 5 Ml Drops 5 Ml OP HS Allergies Allergies: Coded Allergies: erythromycin base (Verified Allergy, Intermediate, 03/04/18) levofloxacin (Verified Allergy, Intermediate, 03/19/19) dizzy,weak, emesis Iodinated Contrast Media (Verified Adverse Reaction, Intermediate, DUE TO ONLY HAVING 1 KIDNEY, 03/04/18) PT STATED THAT ED PHYSICIAN CONSULTED WITH AIR DRILL OPERATOR AND STATED THAT SINCE SHE HAS ONLY 1 KIDNEY AND HER LABS COME BACK CONSISTANTLY ELEVATED, WE ARE TO NOT GIVE IV CONTRAST diazepam (Verified Adverse Reaction, Intermediate, Palpitations, 03/04/18) oxytetracycline (Verified Adverse Reaction, Intermediate, Palpitations, 03/04/18) oxytetracycline HCl (Verified Adverse Reaction, Intermediate, Palpitations, 03/04/18) hydromorphone (Verified Adverse Reaction, Mild, Nausea and Vomiting, 03/04/18) ROS General: No: Chills, Appetite (loss) PSYCHOLOGICAL ROS: No: Anxiety, Depression Eyes: No Blurry vision, No Decreased vision, No Double vision, No Photophobia HEENT: No: Heacaches, Visual Changes, Hearing change Hematological and Lymphatic: No: Bleeding Problems, Blood Clots Respiratory: No: Cough, Shortness of breath, SOB with excertion Cardiovascular: No Chest Pain, No Palpitations Gastrointestinal: No Nausea, No Vomiting Genitourinary: No Dysuria, No Incontinence, No Hematuria Musculoskeletal: Yes Joint Pain, Yes Joint Swelling Neurological: Yes Impaired Coord/balance; No Numbness/Tingling Skin: No Pruritus, No Rash Physical Exam General: Alert, Oriented X3, Cooperative HEENT: Atraumatic, PERRLA, EOMI, Mucous membr. moist/pink Lungs: Clear to auscultation, Normal air movement Heart: Regular rate, Normal S1, Normal S2 Abdomen: Soft, No tenderness, No hepatosplenomegaly Extremities: No clubbing, No cyanosis Skin: No significant lesion Neuro: Normal speech, Sensation intact Psych/Mental Status: Mental status NL, Mood NL MUSCULOSKELETAL: Other (left arm in splint ) Vitals VITALS Vital Signs Date Time Temp Pulse Resp B/P (MAP) Pulse Ox O2 Delivery O2 Flow Rate FiO2 01/17/21 07:00 97.8 68 16 150/55 (86) 96 Room Air 97.8 Labs Labs Laboratory Tests Test 01/16/21 14:15 01/16/21 15:11 01/16/21 15:21 01/16/21 21:14 White Blood Count 6.9 x10^3/uL (4.0-11.0) Red Blood Count 4.42 x10^6/uL (3.50-5.40) Hemoglobin 13.6 g/dL (12.0-15.5) Hematocrit 39.7 % (36.0-47.0) Mean Corpuscular Volume 90 fL (79-100) Mean Corpuscular Hemoglobin 31 pg (25-35) Mean Corpuscular Hemoglobin Concent 34 g/dL (31-37) Red Cell Distribution Width 13.5 % (11.5-14.5) Platelet Count 214 x10^3/uL (140-400) Neutrophils (%) (Auto) 73 % (31-73) Lymphocytes (%) (Auto) 20 % (24-48) Monocytes (%) (Auto) 6 % (0-9) Eosinophils (%) (Auto) 1 % (0-3) Basophils (%) (Auto) 1 % (0-3) Neutrophils # (Auto) 5.0 x10^3/uL (1.8-7.7) Lymphocytes # (Auto) 1.3 x10^3/uL (1.0-4.8) Monocytes # (Auto) 0.4 x10^3/uL (0.0-1.1) Eosinophils # (Auto) 0.1 x10^3/uL (0.0-0.7) Basophils # (Auto) 0.0 x10^3/uL (0.0-0.2) Sodium Level 139 mmol/L (136-145) Potassium Level 4.6 mmol/L (3.5-5.1) Chloride Level 104 mmol/L (98-107) Carbon Dioxide Level 25 mmol/L (21-32) Anion Gap 10 (6-14) Blood Urea Nitrogen 21 mg/dL (7-20) Creatinine 1.6 mg/dL (0.6-1.0) Estimated GFR (Cockcroft-Gault) 30.8 BUN/Creatinine Ratio 13 (6-20) Glucose Level 381 mg/dL (70-99) Calcium Level 9.3 mg/dL (8.5-10.1) Total Bilirubin 0.5 mg/dL (0.2-1.0) Aspartate Amino Transf (AST/SGOT) 11 U/L (15-37) Alanine Aminotransferase (ALT/SGPT) 19 U/L (14-59) Alkaline Phosphatase 96 U/L (46-116) Troponin I Quantitative < 0.017 ng/mL (0.000-0.055) Total Protein 6.6 g/dL (6.4-8.2) Albumin 3.6 g/dL (3.4-5.0) Albumin/Globulin Ratio 1.2 (1.0-1.7) Lipase 82 U/L (73-393) Ethyl Alcohol Level < 10 mg/dL (0-10) Prothrombin Time 12.3 SEC (11.7-14.0) Prothromb Time International Ratio 0.9 (0.8-1.1) Activated Partial Thromboplast Time 28 SEC (24-38) SARS-CoV-2 Antigen (Rapid) Negative (NEGATIVE) Glucose (Fingerstick) 284 mg/dL (70-99) Test 01/17/21 08:06 Glucose (Fingerstick) 256 mg/dL (70-99) Laboratory Tests Test 01/16/21 14:15 01/16/21 15:11 01/16/21 15:21 01/16/21 21:14 White Blood Count 6.9 x10^3/uL (4.0-11.0) Red Blood Count 4.42 x10^6/uL (3.50-5.40) Hemoglobin 13.6 g/dL (12.0-15.5) Hematocrit 39.7 % (36.0-47.0) Mean Corpuscular Volume 90 fL (79-100) Mean Corpuscular Hemoglobin 31 pg (25-35) Mean Corpuscular Hemoglobin Concent 34 g/dL (31-37) Red Cell Distribution Width 13.5 % (11.5-14.5) Platelet Count 214 x10^3/uL (140-400) Neutrophils (%) (Auto) 73 % (31-73) Lymphocytes (%) (Auto) 20 % (24-48) Monocytes (%) (Auto) 6 % (0-9) Eosinophils (%) (Auto) 1 % (0-3) Basophils (%) (Auto) 1 % (0-3) Neutrophils # (Auto) 5.0 x10^3/uL (1.8-7.7) Lymphocytes # (Auto) 1.3 x10^3/uL (1.0-4.8) Monocytes # (Auto) 0.4 x10^3/uL (0.0-1.1) Eosinophils # (Auto) 0.1 x10^3/uL (0.0-0.7) Basophils # (Auto) 0.0 x10^3/uL (0.0-0.2) Sodium Level 139 mmol/L (136-145) Potassium Level 4.6 mmol/L (3.5-5.1) Chloride Level 104 mmol/L (98-107) Carbon Dioxide Level 25 mmol/L (21-32) Anion Gap 10 (6-14) Blood Urea Nitrogen 21 mg/dL (7-20) Creatinine 1.6 mg/dL (0.6-1.0) Estimated GFR (Cockcroft-Gault) 30.8 BUN/Creatinine Ratio 13 (6-20) Glucose Level 381 mg/dL (70-99) Calcium Level 9.3 mg/dL (8.5-10.1) Total Bilirubin 0.5 mg/dL (0.2-1.0) Aspartate Amino Transf (AST/SGOT) 11 U/L (15-37) Alanine Aminotransferase (ALT/SGPT) 19 U/L (14-59) Alkaline Phosphatase 96 U/L (46-116) Troponin I Quantitative < 0.017 ng/mL (0.000-0.055) Total Protein 6.6 g/dL (6.4-8.2) Albumin 3.6 g/dL (3.4-5.0) Albumin/Globulin Ratio 1.2 (1.0-1.7) Lipase 82 U/L (73-393) Ethyl Alcohol Level < 10 mg/dL (0-10) Prothrombin Time 12.3 SEC (11.7-14.0) Prothromb Time International Ratio 0.9 (0.8-1.1) Activated Partial Thromboplast Time 28 SEC (24-38) SARS-CoV-2 Antigen (Rapid) Negative (NEGATIVE) Glucose (Fingerstick) 284 mg/dL (70-99) Test 01/17/21 08:06 Glucose (Fingerstick) 256 mg/dL (70-99) Assessment/Plan Assessment/Plan Fall from stairs CT negative for any acute abdominal, head changes L radial fx--splint in place, ortho consult pending no general surgery needs ALEXIS MALIK MD 01/17/21 1831: CONSULT Assessment/Plan Assessment/Plan Pt seen and examined. Agree with Mohinder's note Pt denies abd pain cont care per ortho Thanks for consult! AMAN DOMINGUEZ APRN Jan 17, 2021 08:42 ALEXIS MALIK MD Jan 17, 2021 18:31
[2021-01-17] MEDS: IV NORMAL SALINE 1000ML BAG 1,000 ML IV SCH (09:34)
--- NOTE | 2021-01-17 10:40 | NUR ---
Wound/Ostomy Care Wound Type/Assessment: Pt seen for L knee abrasion. Small area of open, abraded skin, dark red, small amount of bleeding. Periwound intact and clear. Treatment Recommendations/Plan: Cleanse with saline, apply Xeroform gauze and foam dressing, change every 3-4 days. Education provided: to pt re: frequent repositioning to prevent pressure ulcers and skin breakdown. Offloading surface/device: n/a Recommended Referrals/Tests: n/a Discharge Recommendations for dressings: see treatment plan above.
[2021-01-17 11:00] VITALS: BP 138/52
[2021-01-17] MEDS ORDERED: MAG HYDROX/ALUMINUM HYD/SIMETH 30 ML ORAL.SUSP PO PRN (12:15)
[2021-01-17] MEDS: ASPIRIN CHEWABLE 81 MG TABLET. PO SCH (12:47)
[2021-01-17] MEDS: LEVOTHYROXINE 25 MCG TABLET. PO SCH (12:48)
[2021-01-17] MEDS: INSULIN GLARGINE SYRINGE. SQ SCH ×2 (12:58→20:23)
[2021-01-17] MEDS ORDERED: OMEGA-3 FATTY ACIDS/FISH OIL 1,000 MG CAPSULE. PO SCH (13:00)
[2021-01-17] MEDS ORDERED: DEXTROSE 50% 25 GM / 50ML DISP.SYRIN. IV PRN (13:15)
[2021-01-17] MEDS: INSULIN LISPRO 300 UNITS/3 ML VIAL. SQ SCH ×2 (13:15→17:00)
[2021-01-17] MEDS: oxyCODONE/APAP 5/325 1 TAB TABLET PO PRN ×2 (13:31→20:19)
--- NOTE | 2021-01-17 14:32 | PDOC ---
[employer] PROGRESS NOTE Date of Service DOS: DATE: 01/17/21 TIME: 14:28 Chief Complaint Chief Complaint 81-year-old female well known to my service. She fell today, she went down 5 stairs, suffered a contusion to her leg and also complains of some left wrist pain. We did some imaging that is showing a distal left radius fracture. I discussed the case with ER physician. We admitted the patient with consultation to orthopedics and she will probably need [place] [facility] when she is done here for this admission. 01/17/2021 No acute events overnight. Patient states that she just wanted her meds restarted. She does complain of some pain in her left arm. Which is appropriate. Pending Ortho evaluation for possible surgery. Continue with PT OT modalities. Trauma services signed off. Patient's chart, labs, images were reviewed and discussed with RN History of Present Illness History of Present Illness Fall Left displaced distal radial metaphyseal fracture and ulnar styloid fracture ERROL due to vasomotor nephropathy Hyperglycemia uncontrolled Mild osteoarthritis, acromioclavicular and glenohumeral joints Pending Ortho evaluation IV and p.o. pain control PT OT modalities Resume home medications Heparin for DVT prophylaxis ADA diet Full code Discussed with RN and SW Disposition pending Ortho evaluation Surrogate decision maker is Brittney Silver Vitals/I&O Vitals/I&O: Vital Signs Date Time Temp Pulse Resp B/P (MAP) Pulse Ox O2 Delivery O2 Flow Rate FiO2 01/17/21 13:31 97 Room Air 01/17/21 12:48 60 138/52 01/17/21 11:00 98.5 18 98.5 I & O 01/16/21 01/16/21 01/17/21 15:00 23:00 07:00 Intake Total 0 ml Output Total 450 ml Balance -450 ml Physical Exam General: Alert, Oriented X3, Cooperative Heart: Regular rate, Normal S1, Normal S2 Lungs: Clear, Other Abdomen: Soft, No tenderness, No hepatosplenomegaly Extremities: No clubbing, No cyanosis Skin: No significant lesion Labs Labs: Laboratory Tests Test 01/16/21 15:11 01/16/21 15:21 01/16/21 21:14 01/17/21 08:06 Prothrombin Time 12.3 SEC (11.7-14.0) Prothromb Time International Ratio 0.9 (0.8-1.1) Activated Partial Thromboplast Time 28 SEC (24-38) SARS-CoV-2 RNA (MARILOU) Negative (Negative) SARS-CoV-2 Antigen (Rapid) Negative (NEGATIVE) Glucose (Fingerstick) 284 mg/dL (70-99) 256 mg/dL (70-99) Test 01/17/21 11:39 Glucose (Fingerstick) 323 mg/dL (70-99) Assessment and Plan Assessmemt and Plan Problems Medical Problems: (1) Abrasion of knee, left Status: Acute (2) Closed fracture of left distal radius and ulna Status: Acute Comment Review of Relevant I have reviewed the following items chapito (where applicable) has been applied. Medications: Current Medications Medications (Trade) Dose Ordered Sig/Mary Route PRN Reason Start Time Stop Time Status Last Admin Dose Admin Diphtheria/ Tetanus/Acell Pertussis (ADACEL TDap SYRINGE) 0.5 ml ONCE ONCE VAX IM 01/16/21 16:00 01/16/21 16:01 DC 01/16/21 18:04 Morphine Sulfate (Morphine Sulfate) 4 mg PRN Q4HRS PRN IVP PAIN 01/16/21 17:00 01/17/21 16:59 01/16/21 21:55 Sodium Chloride 1,000 ml @ 75 mls/hr [id number] IV 01/16/21 17:00 01/17/21 16:59 01/17/21 09:34 Acetaminophen (Tylenol) 650 mg PRN Q4HRS PRN PO FEVER > 100.3'F 01/16/21 17:00 01/17/21 16:59 01/17/21 09:35 Amlodipine Besylate (Norvasc) 10 mg DAILY PO 01/17/21 13:00 01/17/21 12:48 Aspirin (Aspirin Chewable) 81 mg DAILYWBKFT PO 01/17/21 13:00 01/17/21 12:47 Levothyroxine Sodium (Synthroid) 25 mcg DAILY07 PO 01/17/21 13:00 01/17/21 12:48 Insulin Glargine (Lantus Syringe) 10 unit BID SQ 01/17/21 13:00 01/17/21 12:58 Insulin Human Lispro (HumaLOG) 0-7 UNITS TIDWMEALS SQ 01/17/21 13:15 01/17/21 13:15 Oxycodone/ Acetaminophen (Percocet 5/325) 1 tab PRN Q6HRS PRN PO MODERATE TO SEVERE PAIN 01/17/21 13:15 01/17/21 13:31 Justifications for Admission Other Justification KELVIN MARTÍNEZ MD Jan 17, 2021 14:32
--- NOTE | 2021-01-17 14:52 | PDOC2 ---
CONSULT Date of Consult Date of Consult DATE: 01/17/21 TIME: 14:50 Reason for Consult Reason for Consult: Left wrist pain after fall. Identification/Chief Complaint Chief Complaint Left wrist pain after fall. Source Source: Patient History of Present Illness Reason for Visit: 81-year-old female admitted to the hospital after ground-level fall with left wrist pain. Tripped and fell while walking up the stairs at her apartment complex. Lives by herself on the second floor. Is right-hand dominant. Denies any numbness or tingling. Was seen in the emergency department and placed into a splint after radiographs revealed a fracture. Patient admits to left shoulder pain as well. Radiographs in the ER revealed arthritis with no acute findings. Pain controlled on oral medication. Past Medical History Cardiovascular: HTN, Other CENTRAL NERVOUS SYSTEM: TIA GI: Constipation Heme/Onc: Cancer Hepatobiliary: No pertinent hx Psych: Anxiety Musculoskeletal: Osteoarthritis Rheumatologic: No pertinent hx Infectious disease: Herpes zoster Renal/: UTI Endocrine: Diabetes, Hypothyroidism, Osteoporosis, Other Past Surgical History Past Surgical History: Cholecystectomy, Hysterectomy, Other Family History Family History: Heart Disease Social History ALCOHOL: none Drugs: None Lives: Alone Current Problem List Problem List Problems Medical Problems: (1) Abrasion of knee, left Status: Acute (2) Closed fracture of left distal radius and ulna Status: Acute Current Medications Current Medications Current Medications Morphine Sulfate (Morphine Sulfate) 4 mg 1X ONCE IVP Last administered on 01/16/21at 15:52; Start 01/16/21 at 14:15; Stop 01/16/21 at 14:21; Status DC Diphtheria/ Tetanus/Acell Pertussis (ADACEL TDap SYRINGE) 0.5 ml ONCE ONCE VAX IM Last administered on 01/16/21at 18:04; Start 01/16/21 at 16:00; Stop 01/16/21 at 16:01; Status DC Ondansetron HCl (Zofran) 4 mg PRN Q8HRS PRN IVP NAUSEA/VOMITING; Start 01/16/21 at 17:00; Stop 01/17/21 at 16:59 Morphine Sulfate (Morphine Sulfate) 4 mg PRN Q4HRS PRN IVP PAIN Last administered on 01/16/21at 21:55; Start 01/16/21 at 17:00; Stop 01/17/21 at 16:59 Sodium Chloride 1,000 ml @ 75 mls/hr [id number] IV Last administered on 01/17/21at 09:34; Start 01/16/21 at 17:00; Stop 01/17/21 at 16:59 Acetaminophen (Tylenol) 650 mg PRN Q4HRS PRN PO FEVER > 100.3'F Last administered on 01/17/21at 09:35; Start 01/16/21 at 17:00; Stop 01/17/21 at 16:59 Amlodipine Besylate (Norvasc) 10 mg DAILY PO Last administered on 01/17/21at 12:48; Start 01/17/21 at 13:00 Aspirin (Aspirin Chewable) 81 mg DAILYWBKFT PO Last administered on 01/17/21at 12:47; Start 01/17/21 at 13:00 Levothyroxine Sodium (Synthroid) 25 mcg DAILY07 PO Last administered on 01/17/21at 12:48; Start 01/17/21 at 13:00 Al Hydroxide/Mg Hydroxide (Mylanta Plus Xs) 30 ml PRN DAILY PRN PO HEARTBURN / GAS; Start 01/17/21 at 12:15 Insulin Glargine (Lantus Syringe) 10 unit BID SQ Last administered on 01/17/21at 12:58; Start 01/17/21 at 13:00 Fish Oil (Fish Oil) 1,000 mg DAILY PO ; Start 01/17/21 at 13:00; Stop 01/17/21 at 13:12; Status DC Latanoprost (Xalatan) 1 drop QHS OU ; Start 01/17/21 at 21:00 Insulin Human Lispro (HumaLOG) 0-7 UNITS TIDWMEALS SQ Last administered on 01/17/21at 13:15; Start 01/17/21 at 13:15 Dextrose (Dextrose 50%-Water Syringe) 12.5 gm PRN Q15MIN PRN IV SEE COMMENTS; Start 01/17/21 at 13:15 Oxycodone/ Acetaminophen (Percocet 5/325) 1 tab PRN Q6HRS PRN PO MODERATE TO SEVERE PAIN Last administered on 01/17/21at 13:31; Start 01/17/21 at 13:15 Active Scripts Active Mag-Al Plus Xs Suspension (Mag Hydrox/Al Hydrox/Simeth) 30 Ml Oral.susp 30 Ml PO PRN DAILY PRN 10 Days Tylenol (Acetaminophen) 325 Mg Tablet 650 Mg PO PRN Q4HRS PRN 14 Days Amlodipine Besylate 10 Mg Tablet 10 Mg PO DAILY Aspirin 81 Mg Tab.chew 81 Mg PO DAILYWBKFT 60 Days Reported Fish Oil 1,000 mg Softgel (Geary-3/Dha/Epa/Fish Oil) 1,000 Mg Capsule 1,000 Mg PO DAILY Lantus Solostar (Insulin Glargine,Hum.rec.anlog) 100 Unit/1 Ml Insuln.pen 10 Units SQ BID Novolog Flexpen (Insulin Aspart) 100 Unit/1 Ml Insuln.pen 6 Unit SQ Levothyroxine Sodium 25 Mcg Tablet 25 Mcg PO DAILY Travatan Z (Travoprost) 5 Ml Drops 5 Ml OP HS Allergies Allergies: Coded Allergies: erythromycin base (Verified Allergy, Intermediate, 03/04/18) levofloxacin (Verified Allergy, Intermediate, 03/19/19) dizzy,weak, emesis Iodinated Contrast Media (Verified Adverse Reaction, Intermediate, DUE TO ONLY HAVING 1 KIDNEY, 03/04/18) PT STATED THAT ED PHYSICIAN CONSULTED WITH AEROSPACE ASSEMBLER AND STATED THAT SINCE SHE HAS ONLY 1 KIDNEY AND HER LABS COME BACK CONSISTANTLY ELEVATED, WE ARE TO NOT GIVE IV CONTRAST diazepam (Verified Adverse Reaction, Intermediate, Palpitations, 03/04/18) oxytetracycline (Verified Adverse Reaction, Intermediate, Palpitations, 03/04/18) oxytetracycline HCl (Verified Adverse Reaction, Intermediate, Palpitations, 03/04/18) hydromorphone (Verified Adverse Reaction, Mild, Nausea and Vomiting, 03/04/18) ROS Musculoskeletal: Yes Joint Pain, Yes Joint Stiffness, Yes Joint Swelling Physical Exam General: Alert, Cooperative MUSCULOSKELETAL: Abnormal exam of left (Left upper extremity splinted. Limited range of motion secondary to pain. Gross motor and distal neurovascular examination is intact.) Vitals VITALS Vital Signs Date Time Temp Pulse Resp B/P (MAP) Pulse Ox O2 Delivery O2 Flow Rate FiO2 01/17/21 13:31 97 Room Air 01/17/21 12:48 60 138/52 01/17/21 11:00 98.5 18 98.5 Labs Labs Laboratory Tests Test 01/16/21 14:15 01/16/21 15:11 01/16/21 15:21 01/16/21 21:14 White Blood Count 6.9 x10^3/uL (4.0-11.0) Red Blood Count 4.42 x10^6/uL (3.50-5.40) Hemoglobin 13.6 g/dL (12.0-15.5) Hematocrit 39.7 % (36.0-47.0) Mean Corpuscular Volume 90 fL (79-100) Mean Corpuscular Hemoglobin 31 pg (25-35) Mean Corpuscular Hemoglobin Concent 34 g/dL (31-37) Red Cell Distribution Width 13.5 % (11.5-14.5) Platelet Count 214 x10^3/uL (140-400) Neutrophils (%) (Auto) 73 % (31-73) Lymphocytes (%) (Auto) 20 % (24-48) Monocytes (%) (Auto) 6 % (0-9) Eosinophils (%) (Auto) 1 % (0-3) Basophils (%) (Auto) 1 % (0-3) Neutrophils # (Auto) 5.0 x10^3/uL (1.8-7.7) Lymphocytes # (Auto) 1.3 x10^3/uL (1.0-4.8) Monocytes # (Auto) 0.4 x10^3/uL (0.0-1.1) Eosinophils # (Auto) 0.1 x10^3/uL (0.0-0.7) Basophils # (Auto) 0.0 x10^3/uL (0.0-0.2) Sodium Level 139 mmol/L (136-145) Potassium Level 4.6 mmol/L (3.5-5.1) Chloride Level 104 mmol/L (98-107) Carbon Dioxide Level 25 mmol/L (21-32) Anion Gap 10 (6-14) Blood Urea Nitrogen 21 mg/dL (7-20) Creatinine 1.6 mg/dL (0.6-1.0) Estimated GFR (Cockcroft-Gault) 30.8 BUN/Creatinine Ratio 13 (6-20) Glucose Level 381 mg/dL (70-99) Calcium Level 9.3 mg/dL (8.5-10.1) Total Bilirubin 0.5 mg/dL (0.2-1.0) Aspartate Amino Transf (AST/SGOT) 11 U/L (15-37) Alanine Aminotransferase (ALT/SGPT) 19 U/L (14-59) Alkaline Phosphatase 96 U/L (46-116) Troponin I Quantitative < 0.017 ng/mL (0.000-0.055) Total Protein 6.6 g/dL (6.4-8.2) Albumin 3.6 g/dL (3.4-5.0) Albumin/Globulin Ratio 1.2 (1.0-1.7) Lipase 82 U/L (73-393) Ethyl Alcohol Level < 10 mg/dL (0-10) Prothrombin Time 12.3 SEC (11.7-14.0) Prothromb Time International Ratio 0.9 (0.8-1.1) Activated Partial Thromboplast Time 28 SEC (24-38) SARS-CoV-2 RNA (MARILOU) Negative (Negative) SARS-CoV-2 Antigen (Rapid) Negative (NEGATIVE) Glucose (Fingerstick) 284 mg/dL (70-99) Test 01/17/21 08:06 01/17/21 11:39 Glucose (Fingerstick) 256 mg/dL (70-99) 323 mg/dL (70-99) Laboratory Tests Test 01/16/21 15:11 01/16/21 15:21 01/16/21 21:14 01/17/21 08:06 Prothrombin Time 12.3 SEC (11.7-14.0) Prothromb Time International Ratio 0.9 (0.8-1.1) Activated Partial Thromboplast Time 28 SEC (24-38) SARS-CoV-2 RNA (MARILOU) Negative (Negative) SARS-CoV-2 Antigen (Rapid) Negative (NEGATIVE) Glucose (Fingerstick) 284 mg/dL (70-99) 256 mg/dL (70-99) Test 01/17/21 11:39 Glucose (Fingerstick) 323 mg/dL (70-99) Images Images Upper extremity radiographs revealed minimally displaced intra-articular left distal radius fracture with acceptable alignment. Nondisplaced radial styloid fracture. Shoulder radiographs reveal chronic osteoarthritis without acute findings. Assessment/Plan Assessment/Plan 81-year-old female admitted after ground-level fall with left upper extremity pain. -Minimally displaced left distal radius and ulnar styloid fracture. -Nonsurgical treatment recommended. -Continue with splint. -Pain control per primary team. -Orthopedically stable for discharge. -Recommend outpatient orthopedic follow-up in approximately 1 week in the [facility] orthopedic clinic with Dr. Dunn/Linda/MT Cook. ERMELINDA HOPE DO Jan 17, 2021 14:52
[2021-01-17 15:00] VITALS: BP 130/59
[2021-01-17 19:00] VITALS: BP 142/49
[2021-01-17] MEDS ORDERED: LATANOPROST 0.005% OPHTH SOLUTION 2.5ML BOTTLE. OU SCH (21:00)
[2021-01-17 23:00] VITALS: BP 152/49
[2021-01-18 03:00] VITALS: BP 178/64
[2021-01-18] MEDS: LEVOTHYROXINE 25 MCG TABLET. PO SCH (05:05)
[2021-01-18] MEDS: oxyCODONE/APAP 5/325 1 TAB TABLET PO PRN (05:05)
[2021-01-18 07:00] VITALS: BP 143/56
[2021-01-18] MEDS ORDERED: OXYC1TAB15 PO (08:00)
--- NOTE | 2021-01-18 08:02 | DISCH ---
DISCHARGE INSTRUCTIONS Condition on Discharge Condition on Discharge: Stable Activity After Discharge Activity Instructions for Disc: No restrictions, Resume previous activity, Activity as tolerated Bathing Instructions: No Tub Bath until see Lifting Instructions after Dis: No pulling or pushing Exercise Instruction after Dis: Walk 15 min, 3 x per day Driving Instructions after Dis: Do not drive today Weight Bearing Status after Di: No restrictions, Full weight bearing, As tolerated Diet after Discharge Diet after Discharge: Cardiac, Regular, Diabetic No Calorie Level Diet Texture: Regular Liquid Texture: Thin Liquid Wound Incision Care Wound/Incision Care: No wound care needed Checks after Discharge Checks after discharge: Check blood press - daily, Check blood sugar, ac/hs, Check your Temp as needed Contacting the DRMer after DC Call your doctor for: If your condition worsens Follow-Up Follow up with: PCP within 2 weeks of discharge Follow Up With: Orthopedic surgery within 1 week of discharge Treatment/Equipment after DC Adaptive Equipment Issued: None KELVIN MARTÍNEZ MD Jan 18, 2021 08:02
[2021-01-18] MEDS: ASPIRIN CHEWABLE 81 MG TABLET. PO SCH (08:42)
[2021-01-18] MEDS: INSULIN LISPRO 300 UNITS/3 ML VIAL. SQ SCH ×2 (08:46→12:36)
[2021-01-18] MEDS: INSULIN GLARGINE SYRINGE. SQ SCH (10:23)
[2021-01-18 11:00] VITALS: BP 140/66
--- NOTE | 2021-01-18 13:59 | NUR ---
SW following. Discussed with RN, pt from home, room air, regular diet. COVID-19 negative. Pt discharging home with [facility]. RN advised no further SW needs.
--- NOTE | 2021-01-18 14:13 | NUR ---
Pt discharged home with home health. Discharge instructions and prescriptions discussed. Wound pics taken and dressings changed. IV removed. Pt assisted to wheelchair to and was secured in car with daughter.
== END 2021-01-18 14:16 | disposition home health service (06) | DRG 562 ==
LOC: ER 13:56 → ED HOLD 15:47 → 4 NORTH 17:13
PROVIDERS: ADMIT Internal Medicine; ATTEND Internal Medicine
PROC: 2W39X1Z Immobilization of Left Upper Extremity using Splint (ICD-10-PCS; principal; 2021-01-16)
DX: S52.572A Other intraarticular fracture of lower end of left radius, initial encounter for closed fracture (principal); N17.0 Acute kidney failure with tubular necrosis; S52.612A Displaced fracture of left ulna styloid process, initial encounter for closed fracture; E03.9 Hypothyroidism, unspecified; E11.51 Type 2 diabetes mellitus with diabetic peripheral angiopathy without gangrene; E11.65 Type 2 diabetes mellitus with hyperglycemia; I10 Essential (primary) hypertension; M17.12 Unilateral primary osteoarthritis, left knee; M19.019 Primary osteoarthritis, unspecified shoulder; M81.0 Age-related osteoporosis without current pathological fracture; S80.10XA Contusion of unspecified lower leg, initial encounter; S80.212A Abrasion, left knee, initial encounter; W10.9XXA Fall (on) (from) unspecified stairs and steps, initial encounter; Y93.01 Activity, walking, marching and hiking; Z83.3 Family history of diabetes mellitus; Z86.73 Personal history of transient ischemic attack (TIA), and cerebral infarction without residual deficits; Z90.710 Acquired absence of both cervix and uterus; F41.9 Anxiety disorder, unspecified; Z90.49 Acquired absence of other specified parts of digestive tract; Z20.822 Contact with and (suspected) exposure to COVID-19; Z79.899 Other long term (current) drug therapy; Z88.8 Allergy status to other drugs, medicaments and biological substances
CPT/HCPCS: 29125; 36415; 70450; 71045; 71250; 72125; 73030; 73080; 73120; 73562; 74176; 80053; 82962; 83690; 84484; 85025; 85610; 85730; 86850; 86900; 86901; 87426; 90471; 90715; 93005; 96374; G0480; J1815; J2270; J7030; U0003; U0005; 99285-25; G0378

== ENCOUNTER 2021-03-15 15:31 | Emergency (ER) | payer MEDICARE ==
[~2021-03-15] VITALS: Ht 165.1 cm; Wt 68.0 kg
[~2021-03-15 15:31] MED LIST changes: +OXYC1TAB15 PO
--- NOTE | 2021-03-15 18:26 | PHYS DOC ---
Past Medical History Past Medical History: Other Additional Past Medical Histor: bradycardia, pacemaker, thyroid disease, Past Surgical History: Cholecystectomy, Hysterectomy Additional Past Surgical Histo: bladder "tie ups", Smoking Status: Never Smoker Alcohol Use: None Drug Use: None General Adult EDM: Chief Complaint: UPPER EXTREMITY PAIN HPI: HPI: Patient is a 81 female presents to the emergency department complaining of left wrist pain and swelling of the right upper arm with pain up into her shoulder for the past 2 days. Patient reports having a radial fracture from a fall on January 16, reports she was told to wear a splint only until healed. Patient reports she has not seen a orthopedist, has only seen the orthopedist physician education administrative assistant. Patient states she feels she may have a blood clot in this arm as she has had 125 years ago with similar symptoms. Patient reports a 10 out of 10 pain. Patient states it was recommended she start physical and occupational therapy to assist with upper arm pain however she has decided to come to the emergency room for another evaluation today. Review of Systems: Review of Systems: 14 body systems of review of systems have been reviewed. See HPI for pertinent positives and negative responses, otherwise all other systems are negative, nonpertinent or noncontributory. Constitutional: Negative except as outlined in HPI above. Skin: Negative except as outlined in HPI above. Eyes: Negative except as outlined in HPI above. HENT: Negative except as outlined in HPI above. Respiratory: Negative except as outlined in HPI above. Cardiovascular: Negative except as outlined in HPI above. GI: Negative except as outlined in HPI above. : Negative except as outlined in HPI above. Musculoskeletal: Negative except as outlined in HPI above. Integument: Negative except as outlined in HPI above. Neurologic: Negative except as outlined in HPI above. Endocrine: Negative except as outlined in HPI above. Lymphatic: Negative except as outlined in HPI above. Psychiatric: Negative except as outlined in HPI above. Heart Score: C/O Chest Pain: No Risk Factors: Risk Factors: DM, Current or recent (<one month) smoker, HTN, HLP, family history of CAD, obesity. Risk Scores: Score 0 - 3: 2.5% MACE over next 6 weeks - Discharge Home Score 4 - 6: 20.3% MACE over next 6 weeks - Admit for Clinical Observation Score 7 - 10: 72.7% MACE over next 6 weeks - Early Invasive Strategies Allergies: Allergies: Allergies Coded Allergies Type Severity Reaction Last Updated Verified erythromycin base Allergy Intermediate 03/04/18 Yes levofloxacin Allergy Intermediate 03/19/19 Yes Iodinated Contrast Media Adverse Reaction Intermediate DUE TO ONLY HAVING 1 KIDNEY 03/04/18 Yes diazepam Adverse Reaction Intermediate Palpitations 03/04/18 Yes oxytetracycline Adverse Reaction Intermediate Palpitations 03/04/18 Yes oxytetracycline HCl Adverse Reaction Intermediate Palpitations 03/04/18 Yes hydromorphone Adverse Reaction Mild Nausea and Vomiting 03/04/18 Yes Physical Exam: PE: Constitutional: Well developed, well nourished, no acute distress, non-toxic appearance. 81-year-old female in no apparent distress. HENT: Normocephalic, atraumatic. Eyes: Conjunctiva normal, no discharge. Neck: Normal range of motion, no stridor. Cardiovascular: No cyanosis appreciated, distal cap refill less than 2 seconds. Lungs & Thorax: Patient is in no respiratory distress, no audible adventitious lung sounds appreciated. Abdomen: Nontender, no abnormalities noted. Skin: Warm, dry, no erythema, no rash. Back: No tenderness, no deformities. Extremities: No tenderness, no cyanosis, no clubbing, ROM intact, no edema. Except for left upper extremity, mild swelling to the wrist area without erythema, 2+ radial and brachial pulse of the left upper extremity, pain to palpation along forearm ulnar area, full passive range of motion of elbow and shoulder joint without difficulty. Distal cap refill is less than 2 seconds. Patient does complain of pain to palpation along ulnar side of wrist. Neurologic: Alert and oriented X 3, normal motor function, normal sensory function, no focal deficits noted. Psychologic: Affect normal, judgement normal, mood normal. Current Patient Data: Vital Signs: Vital Signs Date Time Temp Pulse Resp B/P (MAP) Pulse Ox O2 Delivery O2 Flow Rate FiO2 03/15/21 16:32 98.3 78 20 149/89 (109) Room Air 98.0 98.3 EKG: EKG: [] Radiology/Procedures: Radiology/Procedures: PATIENT: MABEL SALINAS ACCOUNT: [id number] : 1940 LOCATION: ER AGE: 81 SEX: F EXAM STATUS: REG ER ORD. PHYSICIAN: ERMELINDA CHAVEZ APRN REASON: Acute pain, recent fracture PROCEDURE: WRIST 3V LEFT EXAM: 3 views left wrist DATE: 03/15/2021 6:54 PM INDICATION: Reason: Acute pain, recent fracture / Spl. Instructions: / History: . COMPARISON: 02/06/2021 January 25, 2021 FINDINGS/ IMPRESSION: 1. Decreased bone mineral density. 2. Progressively healing distal radial fracture and ulnar styloid avulsion fractures. No superimposed acute fracture within the constraints of osteopenia. 3. 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 4. Mild soft tissue swelling about the left wrist. Electronically signed by: Lucian Marcus MD (03/15/2021 7:14 PM) [facility]ENPROCEDURE: VENOUS UPPER EXTREMITY LEFT Left upper Extremity Venous Doppler Ultrasound History: Pain with swelling and recent fracture Comparison: None Procedure: Color flow, duplex, spectral analysis and 2D images are obtained with and without compression in the area of the deep and superficial venous structures of the upper , specifically the axillary, brachials, radial and ulnar deep veins and the superficial basilic and cephalic veins. Color Doppler and venous waveform analysis was also applied to the left jugular and subclavian vein. Findings: There is normal duplex flow, color flow and compressibility of all visualized vein segments. No evidence of deep venous thrombus is present. The study was somewhat challenging due to the patient vomiting. Impression: Normal venous Doppler ultrasound with no evidence of DVT. Electronically signed by: Tony Hudson III, MD (03/15/2021 8:02 PM) [facility] Course & Med Decision Making: Course & Med Decision Making Pertinent Labs and Imaging studies reviewed. (See chart for details) 81-year-old female, vital signs reviewed, presents to the emergency department with chief complaint of left upper arm pain and swelling. Patient is concerned she might have a blood clot in her upper arm as she has had similar symptoms in the past. Will order an x-ray to evaluate healing process, ultrasound of upper extremity left for DVT study. Patient reports relief of pain during hospital admission for fracture of IV Dilaudid. Will give 0.5 mg IV Dilaudid for pain. Will give Zofran for nausea prophylaxis. Patient was given food to eat directly after receiving IV Dilaudid, patient became nauseated and started vomiting. Will order 1 L normal saline and 10 mg Reglan IV. X-ray of left wrist shows ongoing healing of recent fracture without new concerns, sonogram of left upper extremity was negative for DVT per After period of time reevaluation of the patient, patient states she feels much better now, no longer feels nauseated and is no longer vomiting. Patient reports her pain is down to a 4 from a 10 out of 10. Discussed with patient continue follow-up with orthopedic surgeon for ongoing pain, recommended to patient to follow-up with physical and occupational therapy as recommended by her orthopedic surgeon. Patient is amenable to ED discharge planning. Patient reports she feels better knowing that she does not have a blood clot in her arm. Discussed with the patient all findings and diagnostic testing as well as the need to follow-up with their primary care provider for further evaluation and treatment or return to the ED if any new or worsening symptoms. Strict return precautions were also discussed at length, the patient voiced understanding and agreement with the discharge planning. The patient was nontoxic in appearance, in no apparent distress, and hemodynamically stable at the time of disposition. Ingrid Disclaimer: Ingrid Disclaimer: This electronic medical record was generated, in whole or in part, using a voice recognition dictation system. Departure Departure Impression: Primary Impression: Left upper limb pain Disposition: 01 HOME / SELF CARE / HOMELESS Condition: GOOD Referrals: UNKNOWN PCP NAME (PCP) Additional Instructions: You were seen today in the emergency department for an evaluation of your left upper extremity fracture. You were worried you may have a blood clot in your left upper arm, a sonogram was performed today and did not show any signs of a deep vein blood clot. Your x-ray of the left wrist shows ongoing healing without new abnormalities of the left wrist fracture. Please start your physical and occupational therapy as recommended by your orthopedic surgeon. Please return to the emergency department for worsening symptoms or other concerns. Please keep all of your follow-up appointments with your orthopedist related to this wrist injury. Thank you for visiting our Emergency Department. It was a pleasure taking care of you today in the emergency department and we appreciate you trusting us with your care. If any additional problems come up don't hesitate to return to visit us. Please follow up with your primary care provider so they can plan additional care if needed and know about the problem that you had. If symptoms worsen come back to the Emergency Department. Any concerning symptoms that start such as chest pain, shortness of air, weakness or numbness on one side of the body, running high fevers or any other concerning symptoms return to the ER. EMERGENCY DEPARTMENT GENERAL DISCHARGE INSTRUCTIONS Thank you for coming to [facility] Emergency Department (ED) today and trusting us with you care. We trust that you had a positive experience in our Emergency Department. If you wish to speak to the department management, you may call the Director at [phone]. YOUR FOLLOW UP INSTRUCTIONS ARE FOLLOWS: 1. Do you have a private Doctor? If you do not have a private doctor, please ask for a resource list of physicians or clinics that may be able to assist you with follow up care. 2. The Emergency Physicain has interpreted your x-rays. The X-Ray specialist will also review them. If there is a change in the findings, you will be notified in 48 hours when at all possible. 3. A lab test or culture has been done, your results will be reviewed and you will be notified if you need a change in treatment. ADDITIONAL INSTRUCTIONS AND INFORMATION: 1. Your care today has been supervised by a physician who is specially trained in emergency care. Many problems require more than one evaluation for a complete diagnosis and treatment. We recommend that you schedule your follow up appointment as recommended to ensure complete treatment of you illness or injury. If you are unable to obtain follow up care and continue to have a problem, or if your condition worsens, we recommend that you return to the ED. 2. We are not able to safely determine your condition over the phone nor are we able to give sound medical advice over the phone. For these safety reasons, if you call for medical advice we will ask you to come to the ED for further evaluation. 3. If you have any questions regarding these discharge instructions please call the ED at [phone]. SAFETY INFORMATION: In the interest of safety, wellness, and injury prevention; we encourage you to wear your sealbelt, if you smoke; quite smoking, and we encourage family to use a protective helmet for bicycling and other sporting events that present an increased risk for head injury. IF YOUR SYMPTOMS WORSEN OR NEW SYMPTOMS DEVELOP, OR YOU HAVE CONCERNS ABOUT YOUR CONDITION; OR IF YOUR CONDITION WORSENS WHILE YOU ARE WAITING FOR YOUR FOLLOW UP APPOINTMENT; EITHER CONTACT YOUR PRIMARY CARE DOCTOR, THE PHYSICIAN WHOSE NAME AND NUMBER YOU WERE GIVEN, OR RETURN TO THE ED IMMEDIATELY. ERMELINDA CHAVEZ APRN Mar 15, 2021 18:26
[2021-03-15] MEDS ORDERED: HYDROmorphone 2 MG/ML VIAL IVP ONE (18:30)
[2021-03-15 18:41] LABS: BASO # 0.1 x10^3/uL (0.0-0.2); BASO % 1 % (0-3); EOS # 0.1 x10^3/uL (0.0-0.7); EOS % 1 % (0-3); HEMATOCRIT 40.2 % (36.0-47.0); HEMOGLOBIN 13.8 g/dL (12.0-15.5); LYMPH # 1.6 x10^3/uL (1.0-4.8); LYMPH % 24 % (24-48); MEAN CORPUSCULAR HEMOGLOBIN 30 pg (25-35); MEAN CORPUSCULAR HGB CONC 34 g/dL (31-37); MEAN CORPUSCULAR VOLUME 89 fL (79-100); MONO # 0.4 x10^3/uL (0.0-1.1); MONO % 6 % (0-9); NEUT # 4.7 x10^3/uL (1.8-7.7); NEUT % 68 % (31-73); PLATELET COUNT 230 x10^3/uL (140-400); RED BLOOD COUNT 4.54 x10^6/uL (3.50-5.40); RED CELL DISTRIBUTION WIDTH 13.6 % (11.5-14.5); WHITE BLOOD COUNT 6.9 x10^3/uL (4.0-11.0)
[2021-03-15 18:55] LABS: CREATININE 1.3 mg/dL (0.6-1.0); GFR 39.1
[2021-03-15 19:07] LABS: ALBUMIN 3.8 g/dL (3.4-5.0); ALBUMIN/GLOBULIN RATIO 1.1 (1.0-1.7); C-REACTIVE PROTEIN 0.5 mg/L (0-3.3); TOTAL BILIRUBIN 0.4 mg/dL (0.2-1.0); TOTAL PROTEIN 7.3 g/dL (6.4-8.2)
--- NOTE | 2021-03-15 19:17 | RAD ---
EXAM: 3 views left wrist DATE: 03/15/2021 6:54 PM INDICATION: Reason: Acute pain, recent fracture / Spl. Instructions: / History: . COMPARISON: 02/06/2021 January 25, 2021 FINDINGS/ IMPRESSION: 1. Decreased bone mineral density. 2. Progressively healing distal radial fracture and ulnar styloid avulsion fractures. No superimpose d acute fracture within the constraints of osteopenia. 3. 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 4. Mild soft tissue swelling about the left wrist. Electronically signed by: Lucian Marcus MD (03/15/2021 7:14 PM) [facility]
[2021-03-15] MEDS ORDERED: ONDANSETRON PF 4 MG/2 ML VIAL. IVP ONE (20:00)
--- NOTE | 2021-03-15 20:04 | RAD ---
Left upper Extremity Venous Doppler Ultrasound History: Pain with swelling and recent fracture Comparison: None Procedure: Color flow, duplex, spectral analysis and 2D images are obtained with and without compress ion in the area of the deep and superficial venous structures of the upper , specifically the axillar y, brachials, radial and ulnar deep veins and the superficial basilic and cephalic veins. Color Doppl er and venous waveform analysis was also applied to the left jugular and subclavian vein. Findings: There is normal duplex flow, color flow and compressibility of all visualized vein segments. No evide nce of deep venous thrombus is present. The study was somewhat challenging due to the patient vomiting. Impression: Normal venous Doppler ultrasound with no evidence of DVT. Electronically signed by: Tony Hudson III, MD (03/15/2021 8:02 PM) [facility]
[2021-03-15] MEDS ORDERED: METOCLOPRAMIDE HCL 10 MG/2 ML VIAL. IVP ONE (20:45)
[2021-03-15] MEDS ORDERED: IV NORMAL SALINE 1000ML BAG 1,000 ML IV ONE (20:45)
[2021-03-15 22:29] VITALS: BP 164/69
== END 2021-03-15 23:08 | disposition home or self-care (01) ==
LOC: ER 15:31
DX: M79.602 Pain in left arm (principal); M25.532 Pain in left wrist; Z95.0 Presence of cardiac pacemaker; Z88.1 Allergy status to other antibiotic agents; Z91.041 Radiographic dye allergy status; Z88.5 Allergy status to narcotic agent; Z88.8 Allergy status to other drugs, medicaments and biological substances
CPT/HCPCS: 36415; 73120; 80053; 82962; 85025; 86140; 93971; 96361; 96374; 96375; 99284; J1170; J2405; J2765; J7030

== ENCOUNTER 2021-06-17 13:55 | Emergency (ER) | payer MEDICARE ==
[~2021-06-17] VITALS: Ht 162.6 cm; Wt 63.2 kg
[2021-06-17 15:53] LABS: BILIRUBIN,URINE MODERATE (NEG); CLARITY,URINE TURBID; NITRITE,URINE NEGATIVE (NEG); PH,URINE 5.5 (<5.0-8.0); PROTEIN,URINE >=300 mg/dL (NEG-TRACE)
[2021-06-17 16:00] LABS: COLOR,URINE YELLOW; RBC,URINE >40 /HPF (0-2); WBC,URINE TNTC /HPF (0-4)
[2021-06-17 16:01] LABS: BACTERIA,URINE MANY /HPF (0-FEW)
[2021-06-17] MEDS ORDERED: CEPH500C PO (16:19)
--- NOTE | 2021-06-17 16:20 | PHYS DOC ---
Past Medical History Past Medical History: UTI, Other Additional Past Medical Histor: bradycardia, pacemaker, thyroid disease Past Surgical History: Cholecystectomy, Hysterectomy Additional Past Surgical Histo: bladder "tie ups" Smoking Status: Never Smoker Alcohol Use: None Drug Use: None Adult General Chief Complaint Chief Complaint: PAIN ON URINATION [facility] HPI Patient is a 81 year old female who presents with 2-day history of increased urinary frequency and urgency as well as dysuria. Patient states that she and her daughter live together, and frequently get UTIs. She reports some oliguria today. Additionally, patient states that she has large infrequent bowel movements that cause her pain. She has been told by her primary care doctor to take MiraLAX every day to assist in passing bowel movements more regularly. Patient denies fever, chills, weakness, change in mental status/confusion, a bdominal pain, hematuria. Review of Systems Review of Systems Constitutional: See HPI Eyes: Denies change in visual acuity, redness, or eye pain HENT: Denies nasal congestion or sore throat Respiratory: Denies cough or shortness of breath Cardiovascular: No additional information not addressed in HPI GI: Denies abdominal pain, nausea, vomiting, bloody stools or diarrhea : See HPI Musculoskeletal: Denies back pain or joint pain Integument: Denies rash or skin lesions Neurologic: Denies headache, focal weakness or sensory changes All other systems were reviewed and found to be within normal limits, except as documented in this note. Allergies Allergies Allergies Coded Allergies Type Severity Reaction Last Updated Verified erythromycin base Allergy Intermediate 03/04/18 Yes levofloxacin Allergy Intermediate 03/19/19 Yes Iodinated Contrast Media Adverse Reaction Intermediate DUE TO ONLY HAVING 1 KIDNEY 03/04/18 Yes diazepam Adverse Reaction Intermediate Palpitations 03/04/18 Yes oxytetracycline Adverse Reaction Intermediate Palpitations 03/04/18 Yes oxytetracycline HCl Adverse Reaction Intermediate Palpitations 03/04/18 Yes hydromorphone Adverse Reaction Mild Nausea and Vomiting 03/04/18 Yes Physical Exam Physical Exam Constitutional: Thin, well-groomed, no acute distress, non-toxic appearance. HENT: Normocephalic, atraumatic, bilateral external ears normal, nose normal. Eyes: EOMI, conjunctiva normal, no discharge. Neck: Normal range of motion, no stridor. Abdomen: Soft, no tenderness, no masses, no pulsatile masses. Skin: Warm, dry, no erythema, no rash. Back: No tenderness, no CVA tenderness. Neurologic: Alert and oriented x4, steady and symmetrical gait, no focal deficits noted. Current Patient Data Vital Signs Vital Signs Date Time Temp Pulse Resp B/P (MAP) Pulse Ox O2 Delivery O2 Flow Rate FiO2 06/17/21 16:42 86 18 196/118 (144) 95 Room Air 06/17/21 15:29 96.2 96.2 Vital Signs Date Time Temp Pulse Resp B/P (MAP) Pulse Ox O2 Delivery O2 Flow Rate FiO2 06/17/21 16:42 86 18 196/118 (144) 95 Room Air 06/17/21 15:29 96.2 90 18 146/74 (98) 96 Room Air 96.2 Lab Values Laboratory Tests Test 06/17/21 14:15 Urine Collection Type Unknown Urine Color Yellow Urine Clarity Turbid Urine pH 5.5 (<5.0-8.0) Urine Specific [place] 1.025 (1.000-1.030) Urine Protein >=300 mg/dL (NEG-TRACE) Urine Glucose (UA) 100 mg/dL (NEG) Urine Ketones (Stick) 15 mg/dL (NEG) Urine Blood Large (NEG) Urine Nitrite Negative (NEG) Urine Bilirubin Moderate (NEG) Urine Urobilinogen Dipstick 1.0 mg/dL (0.2 mg/dL) Urine Leukocyte Esterase Large (NEG) Urine RBC >40 /HPF (0-2) Urine WBC Tntc /HPF (0-4) Urine Bacteria Many /HPF (0-FEW) Course & Med Decision Making Course & Med Decision Making Pertinent Labs and Imaging studies reviewed. (See chart for details) Is an 81-year-old female who presents with history consistent with UTI. Work-up today will include urinalysis. Urine shows evidence of UTI with hematuria. Patient will be treated outpatient with Keflex for uncomplicated UTI. I also discussed use of MiraLAX daily to keep her bowel movements regular, which she states her primary care doctor has informed her of before as well. Patient was given return precautions. She should follow-up with her primary care doctor regarding frequent UTI. Patient understands and is agreeable to discharge plan. Dragon Disclaimer Dragon Disclaimer This electronic medical record was generated, in whole or in part, using a voice recognition dictation system. Departure Departure Impression: Primary Impression: Urinary tract infection Additional Impression: Chronic constipation Disposition: HOME / SELF CARE / HOMELESS Condition: STABLE Referrals: UNKNOWN PCP NAME (PCP) Patient Instructions: Constipation, Adult, [id number], Urinary Tract Inf ection, [id number] Additional Instructions: EMERGENCY DEPARTMENT GENERAL DISCHARGE INSTRUCTIONS Thank you for coming to [facility] Emergency Department (ED) today and trusting us with you care. We trust that you had a positive experience in our Emergency Department. If you wish to speak to the department management, you may call the director at . YOUR FOLLOW UP INSTRUCTIONS ARE FOLLOWS: 1. Follow up with your primary care doctor. If you do not have a primary doctor, please ask for a resource list of physicians or clinics that may be able to assist you with follow up care. 2. The emergency provider has interpreted your imaging studies, if any were ordered. The radiology branch service specialist also reviewed them. If there is a change in the findings, you will be notified in 48 hours when at all possible. 3. If a lab test or culture has been done, your results will be reviewed and you will be notified if you need a change in treatment. 4. Follow instructions verbalized to you and refer to the printouts if needed. - Take antibiotics as directed - Miralax one capful daily, if no bowel movement after three days, then double dose. - Drink plenty of water and other clear liquids to stay hydrated ADDITIONAL INSTRUCTIONS AND INFORMATION: 1. Your care today has been supervised by a physician who is specially trained in emergency care. Many problems require more than one evaluation for a complete diagnosis and treatment. We recommend that you schedule your follow up appointment as recommended to ensure complete treatment of you illness or injury. If you are unable to obtain follow up care and continue to have a problem, or if your condition worsens, we recommend that you return to the ED. 2. We are not able to safely determine your condition over the phone nor are we able to give sound medical advice over the phone. For these safety reasons, if you call for medical advice we will ask you to come to the ED for further evaluation. 3. If you have any questions regarding these discharge instructions please call the ED at . SAFETY INFORMATION: In the interest of safety, wellness, and injury prevention; we encourage you to wear your seat belt, if you smoke; quite smoking, and we encourage family to use a protective helmet for bicycling and other sporting events that present an increased risk for head injury. IF YOUR SYMPTOMS WORSEN OR NEW SYMPTOMS DEVELOP, OR YOU HAVE CONCERNS ABOUT YOUR CONDITION; OR IF YOUR CONDITION WORSENS WHILE YOU ARE WAITING FOR YOUR FOLLOW UP APPOINTMENT; EITHER CONTACT YOUR PRIMARY CARE DOCTOR, THE PHYSICIAN WHOSE NAME AND NUMBER YOU WERE GIVEN, OR RETURN TO THE ED IMMEDIATELY. Scripts Cephalexin (KEFLEX) 500 Mg Capsule 1 CAP PO BID for 7 Days, #14 CAP Prov: LITO CARROLL 06/17/21 Problem Qualifiers Primary Impression: Urinary tract infection Urinary tract infection type: acute cystitis Hematuria presence: with hematuria Qualified Codes: N30.01 - Acute cystitis with hematuria LITO CARROLL Jun 17, 2021 16:20
[2021-06-17 16:42] VITALS: BP 196/118
== END 2021-06-17 16:46 | disposition home or self-care (01) ==
LOC: ER 13:55
DX: N30.01 Acute cystitis with hematuria (principal); K59.09 Other constipation; Z87.440 Personal history of urinary (tract) infections; Z95.0 Presence of cardiac pacemaker; Z90.49 Acquired absence of other specified parts of digestive tract; Z90.710 Acquired absence of both cervix and uterus; Z88.1 Allergy status to other antibiotic agents; Z88.8 Allergy status to other drugs, medicaments and biological substances; Z88.5 Allergy status to narcotic agent; Z91.041 Radiographic dye allergy status
CPT/HCPCS: 81001; 87077; 87086; 87186; 99282